=== PATIENT | female | born 1960 | race Caucasian/White ===

== ENCOUNTER → 2017-01-28 | Outpatient (CLI) | payer OTHER ==
[2017-01-28 17:26] LABS: URINE APPEARANCE CLEAR (CLEAR); URINE BILIRUBIN NEG (NEG); URINE COLOR YELLOW; URINE NITRITE NEG (NEG); URINE SPECIFIC GRAVITY 1.022 (1.000-1.030); UROBILINOGEN NEG (NEG)
[2017-01-28 17:32] LABS: MANUAL MICROSCOPIC REQUIRED? NO; REVIEW REQ? NO
== END | disposition home or self-care (01) ==
LOC: C.LABBFT 11:45
PROVIDERS: ATTEND Physician Assistant Medical
DX: N39.0 Urinary tract infection, site not specified (principal)

== ENCOUNTER 2019-01-09 09:33 | Inpatient (IN) ==
--- NOTE | 2019-01-07 10:10 | Anesthesiology Consultation ---
Date of Service January 07, 2019 Assessment & Plan (1) Encounter for pre-operative examination: Chart Review Chart Review: Acceptable Risk for Surgery (PENDING EKG ) and Patient NOT seen in Pre Admission Testing History Surgery Operation Date: 01/09/19 10:45 Proposed Procedures p Navigational Bronchoscopy with ICG Marking, - Jan Zambrano MD, FACS s Robotic Right Video Assisted Thoracoscopy with Right Upper Lobe Wedge Resection - Jan Zambrano MD, FACS Height/Weight Height: 5 ft 3.5 in Weight: 62.142 kg Allergies Allergy/AdvReac Type Severity Reaction Status Date / Time No Known Allergies Allergy Verified 01/06/19 07:45 Medications Home Medications Medication Instructions Recorded Confirmed Last Taken [id number] K 1 tab-cap PO QAM 01/06/19 01/06/19 Unknown [Multi For Her] pantoprazole 40 mg PO BID 01/06/19 01/06/19 Unknown Past Medical History Medical History Basal cell carcinoma of back Basal cell carcinoma of shoulder Difficulty swallowing patient states it's more trouble with getting food passed d/t "mass" between esophagus and stomach Diverticular disease Kidney stones Lung nodule Past Family History Family History Grandfather (Maternal) , in her eighties of old age No problems noted. Mother Age: 84 Diabetes Hypertension Father , abd aortic aneurysm at age 80 No problems noted. Brother Age: 59 No problems noted. Sister Age: 57 Stroke, Onset Age: 40 Brother Age: 55 Hypertension Sister Age: 54 Heart disease Hypertension Daughter Age: 40 No problems noted. Son Age: 37 No problems noted. 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 Solid 6 mm right apical pulmonary nodule. The distribution is not typical for metastatic disease though this is indeterminate. Follow-up is indicated. Notably, Fleischner criteria are not applicable the setting of known malignancy. 2. No thoracic lymphadenopathy. 3. Pathologic wall thickening at the gastroesophageal junction, the presumed site of the primary malignancy. Adjacent suspected metastatic lymph nodes in the celiac and gastric hepatic region. Please see separately dictated CT of the abdomen and pelvis for further details.
[~2019-01-09 09:33] MED LIST: LACTATED RINGER'S 1,000 ML IV SCH
[2019-01-09] MEDS ORDERED: PROPOFOL IV EMULSION 10 MG/ML 20 ML VIAL IV ONE (10:53)
[2019-01-09] MEDS ORDERED: MIDAZOLAM HCL 1 MG/ML 2ML VIAL ONE (10:53)
[2019-01-09] MEDS ORDERED: ROCURONIUM BROMIDE 10 MG/ML 5 ML VIAL ONE ×2 (10:53→13:44)
[2019-01-09] MEDS ORDERED: LIDOCAINE HCL 2% 2 ML VIAL/AMP(20MG/ML) INFIL ONE (10:53)
[2019-01-09] MEDS ORDERED: fentaNYL citrate 100 MCG/2 ML VIAL ONE (10:54)
--- NOTE | 2019-01-09 11:21 | History & Physical Bridge Note ---
Date of Service January 09, 2019 History & Physical Bridge Note I have examined the patient, reviewed the History & Physical and in the interval since the performance of the History & Physical I have noted the following changes of clinical significance: no changes noted
[2019-01-09] MEDS ORDERED: BUPIVACAINE 0.5 % 5 MG/1 ML MPF 30ML VIAL ONE (11:25)
[2019-01-09] MEDS ORDERED: SODIUM CHLORIDE 0.9% PF 50 ML VIAL ONE (11:26)
[2019-01-09] MEDS ORDERED: BUPIVACAINE LIPOSOME 1.3% 266 MG/20 ML VIAL ONE (11:26)
[2019-01-09] MEDS ORDERED: CEFAZOLIN 250 MG/ML 1 GM VIAL ONE (12:41)
--- NOTE | 2019-01-09 13:02 | Fluoroscopy Report ---
FL chest 1V frontal CLINICAL HISTORY: NAVIGATIONAL BRONCH COMPARISON STUDY: Chest CT 12/19/2018. FLUOROSCOPY TIME: 32 seconds. FINDINGS: A single fluoroscopic spot image of the right upper lobe demonstrates a bronchoscope with a biopsy needle. IMPRESSION: Fluoroscopy provided for right upper lobe bronchoscopy. Electronically signed by: Roger Baldwin M.D. 01/09/2019 1:00 PM
[2019-01-09] MEDS ORDERED: DEXAMETHASONE SOD INJ 4 MG/ML VIAL ONE (13:19)
[2019-01-09] MEDS ORDERED: ONDANSETRON INJ 2 MG/ML 2 ML VIAL ONE (13:19)
[2019-01-09] MEDS ORDERED: HYDROmorphone INJ 1 MG/ML SYRINGE IV PRN (13:58)
[2019-01-09] MEDS ORDERED: ATROPINE SULFATE 0.1 MG/ML 10ML SYR IV PRN (13:58)
[2019-01-09] MEDS ORDERED: PHENYLEPHRINE 100MCG/ML 5ML SYR ONE (13:58)
[2019-01-09] MEDS ORDERED: ePHEDrine sulfate 50 MG/ML AMP IV PRN (13:58)
[2019-01-09] MEDS ORDERED: fentaNYL citrate 100 MCG/2 ML VIAL IV PRN (13:58)
[2019-01-09] MEDS ORDERED: ePHEDrine sulfate 50 MG/ML AMP ONE (13:58)
[2019-01-09] MEDS ORDERED: ONDANSETRON INJ 2 MG/ML 2 ML VIAL IV PRN ×2 (13:58→15:55)
[2019-01-09] MEDS ORDERED: NEOSTIGMINE METHYLSULFATE 5 MG/5 ML SYR ONE (14:01)
[2019-01-09] MEDS ORDERED: GLYCOPYRROLATE 0.2 MG/ML VIAL ONE (14:01)
[2019-01-09] MEDS ORDERED: METOCLOPRAMIDE HCL INJ 5 MG/ML 2 ML VIAL IV STA (14:28)
[2019-01-09] MEDS ORDERED: METOCLOPRAMIDE HCL INJ 5 MG/ML 2 ML VIAL ONE (14:29)
--- NOTE | 2019-01-09 14:43 | Post Operative Brief Note ---
Immediate Post Op Note v1 Date of Surgery January 09, 2019 Pre & Post Diagnosis Operation Date: 01/09/19 10:50 Pre-Op Diagnosis: Adenocarcinoma GE junction Pulmonary nodule Post-Op Diagnosis: Adenocarcinoma GE junction Apparent granuloma Procedure Operation Date: 01/09/19 10:50 Actual Procedures p Navigational Bronchoscopy with ICG Marking,(Not Applicable) - Jan Zambrano MD, FACS s Robotic Right Video Assisted Thoracoscopy with Right Upper Lobe Wedge Resection(Right) - Jan Zambrano MD, FACS Surgeon Jan Zambrano MD, FACS [employer] Christine PICKERING Estimated Blood Loss 5 Findings Consistent with Post-Op Diagnosis Drains Chest Tube (24 Fr. Thal)
--- NOTE | 2019-01-09 14:59 | Anesthesiology Progress Note ---
Date of Service January 09, 2019 Anesthesia Post Procedure Vital Signs Vital Signs: Temp Pulse Resp BP Pulse Ox 01/09/19 14:50 36.4 C L 56 L 14 116/62 98 01/09/19 14:40 56 L 14 132/74 100 01/09/19 14:30 53 L 13 142/70 H 100 01/09/19 14:23 36.5 C 62 12 135/74 100 01/09/19 10:00 36.9 C 61 18 136/78 100 Transfer of Care Handoff Completed per policy Notes Mental Status: alert / awake / arousable and participated in evaluation Patient Amnestic to Procedure: Yes Nausea / Vomiting: improving with treatment Pain: adequately controlled Airway Patency, RR, SpO2: stable & adequate BP & HR: stable & adequate Hydration State: stable & adequate Anesthetic Complications: no major complications apparent and Pt Satisfied with anesthetic care
[2019-01-09] MEDS ORDERED: MoRPHine SULFATE 2 MG/ML CARP IV PRN (15:55)
[2019-01-09] MEDS ORDERED: OXYCODONE/ACETAMINOPHEN 5mg/325mg TAB PO PRN (15:55)
--- NOTE | 2019-01-09 16:18 | Operative Report ---
DATE OF OPERATION: 01/09/2019 PREOPERATIVE DIAGNOSES: 1. Right upper lobe nodule. 2. Adenocarcinoma, gastroesophageal junction. POSTOPERATIVE DIAGNOSES: 1. Benign nodule, right upper lobe. 2. Adenocarcinoma, gastroesophageal junction. PROCEDURE: 1. Electromagnetic navigational bronchoscopy with marking of right upper lobe nodule with indocyanine green dye. 2. Robot-assisted thoracoscopic wedge resection under direction from Firefly fluorescence. ANESTHESIA: General anesthesia with endotracheal intubation using a single lumen tube. SURGEON: Jan Zambrano MD CORPORATE SALES REPRESENTATIVE: Kervin Esteban PA-C (Mr. Esteban was there for the entire case and was at the patient's bedside while I was at the console and stayed till the end of the case). INDICATIONS FOR PROCEDURE AND FINDINGS: Genesis Mason is a 58-year-old female who was found to have an adenocarcinoma of the GE junction with very little in the way of symptoms. She has been worked up with a PET scan, which shows no evidence of metastatic disease other than regional lymph nodes. Unfortunately, she was found to have a mass in her right upper lobe medially. It was a bit intraparenchymal, was only 6 mm. We discussed her in our multidisciplinary cancer conference and elected to proceed with a thoracoscopic wedge resection. I felt that marking this with an electromagnetic navigational bronchoscopy and indocyanine green dye would be helpful. We then used the da Jeffrey robot with the Firefly fluorescence capabilities and localized this and wedged it out. On 01/09/2019, the patient underwent an uncomplicated electromagnetic navigational bronchoscopy. I was quite pleased we were able to get to this rather difficult position in the superior aspect of the right upper lobe. We marked this with indocyanine green and then turned the patient. We used 3 ports for the robot and 1 assistant women's soccer coach port. Upon going in, we used the fluorescence, and we could immediately see the area which had been injected. I wedged this out with Endo-DILSHAD staplers. I could palpate the mass. We sent this for frozen section while waiting for this to come back. We did a block with Exparel and put a chest tube in. Dr. Trae Pete from pathology evaluated this and felt it represented a probable granuloma. She tolerated it well with no air leak and essentially no blood loss. DESCRIPTION OF PROCEDURE: The patient was brought to the operating room and laid in supine position. General anesthesia was induced, and endotracheal intubation was performed with single lumen tube. After appropriate time-out had been called and antibiotics given, a fiberoptic bronchoscope was placed. I saw no endobronchial lesions all the way up to the tertiary bronchi. There really was no sputum. She certainly did not have any involvement of any extrinsic masses or malignancies. The SuperDimension navigational probe was then placed, and we registered her airways. I then went out through the upper lobe, and it was a bit difficult on the right given it was very medial; however, we were finally able to get up to this mass. Using a radial ultrasound probe, it appeared that we were at the mass despite it being only 6 mm in diameter. We then injected 1 mL indocyanine green dye followed by 1 mL of air to inject all of it into the lung and then removed the bronchoscope. We saw no bleeding. We left the single lumen tube and although we switched it from an 8.5 to 7. We then turned the patient in the left lateral decubitus position and positioned her. Prepped and draped in usual sterile fashion. We called another time-out and then made 3 robotic incisions. One was about the mid axillary line at about the eighth interspace. This was an 8.5 mm camera port. We then placed two 8 mm ports anteriorly and posterior to the scapula and then put an assistant women's soccer coach port above the diaphragm anteriorly. Each of these was injected with Exparel. We mixed 266 mg of Exparel with 250 mL of normal saline and 30 mL of 0.5% bupivacaine. Once we entered the chest cavity, we then docked the robot, and upon coming up to the medial upper lobe, we could not palpate anything. However, when we turned on the Firefly and used the fluorescence, we found the area medially. I then grasped this, and Mr. Esteban used the stapler and wedged this mass out. We removed this with an Endobag. I could not palpate a lesion. We sent that off for frozen section. While waiting for this, we used the Exparel solution and performed an intercostal block intrathoracically from the second to the eleventh rib. We really had no significant bleeding. We had no air leak. Chest tube was placed through the assistant women's soccer coach port, sutured in place with heavy silk suture. A 4-0 Monocryl was used to close the other 3 ports. Frozen section came back as a probable granuloma. The patient tolerated the procedure well and was extubated and returned to the postanesthesia care unit in stable condition. I attest to the content of the Intraoperative Record and any orders documented therein. Any exception s are noted below.
[2019-01-09 16:40] LABS: Hematocrit (blood only) 31.2 % (37-47); Hemoglobin 10.2 g/dL (12.0-16.0); Mean Corpuscular Hgb Conc 32.7 g/dL (32-36); Mean Corpuscular Volume 84.6 fL (80-100); Mean Platelet Volume 9.5 fL (7.4-10.4); Platelet Count 247 K/uL (130-400); RDW Coefficient of Variation 12.9 % (11.5-14.5); RDW Standard Deviation 39.8 fL (36.4-46.3); Red Blood Count 3.69 M/uL (4.2-5.4); White Blood Count 6.38 K/uL (4.8-10.8)
[2019-01-09 16:50] LABS: Prothrombin Time 10.4 Seconds (9.0-12.0)
[2019-01-09 17:03] LABS: Creatinine Clr Calc Pharmacy 60.9 ml/min; Est GFR (African American) 88.8; Est GFR (Non-African American) 76.6
[2019-01-09] MEDS ORDERED: ENOXAPARIN INJ 40 MG/0.4 ML SYR SQ SCH (21:00)
[2019-01-09] MEDS: KETOROLAC 30 MG/ML VIAL IV SCH (21:13)
[2019-01-09] MEDS: METOCLOPRAMIDE HCL INJ 5 MG/ML 2 ML VIAL IV SCH (21:13)
[2019-01-09] MEDS: DOCUSATE SODIUM 100 MG CAP PO SCH (21:14)
[2019-01-09] MEDS: PANTOprazole 40 MG TAB PO SCH (21:14)
[2019-01-10 02:53] VITALS: O2SAT 100
[2019-01-10] MEDS: KETOROLAC 30 MG/ML VIAL IV SCH (06:37)
[2019-01-10] MEDS: METOCLOPRAMIDE HCL INJ 5 MG/ML 2 ML VIAL IV SCH (06:38)
[2019-01-10 06:44] VITALS: BP 100/60; TEMP 98.6
[2019-01-10 07:24] LABS: BUN Creatinine Ratio 11.5 (10-20); Calcium 9.3 mg/dl (8.5-10.1); Est GFR (African American) 73.6; Est GFR (Non-African American) 63.5; Potassium 3.9 mmol/L (3.5-5.1)
--- NOTE | 2019-01-10 08:14 | XRay Report ---
XR chest 1V portable CLINICAL HISTORY: 58 years-old Female presenting with chest tube removal. TECHNIQUE: Portable upright AP view of the chest was obtained. COMPARISON: CT from 12/19/2018. FINDINGS: Cardiomediastinal silhouette normal. Suture margin noted at the right apex new from prior status post wedge resection of the prior right apical nodule. Density along the suture margin likely postsurgica l change. Lungs otherwise clear. No pleural effusion or pneumothorax. Osseous structures normal. Uppe r abdomen normal. IMPRESSION: 1. No pneumothorax status post chest tube removal. Postsurgical changes of the right apex. Electronically signed by: Danny Lemus M.D. 01/10/2019 8:13 AM
[2019-01-10 08:28] VITALS: PULSE 51
[2019-01-10] MEDS: DOCUSATE SODIUM 100 MG CAP PO SCH (08:47)
[2019-01-10] MEDS: PANTOprazole 40 MG TAB PO SCH (08:47)
[2019-01-10] MEDS ORDERED: MULTIVITAMIN TAB PO SCH (09:00)
--- NOTE | 2019-01-10 21:53 | Discharge Summary ---
DISCHARGE DIAGNOSES: 1. Adenocarcinoma gastroesophageal junction. 2. Granuloma right upper lobe of lung. HOSPITAL COURSE: This is a very nice 58-year-old female who was found to have an adenocarcinoma at the gastroesophageal junction. We have been working her up. She is an operative candidate; however, a nodule was noted at about 6 mm in diameter in her upper lobe. This was quite concerning for metastatic disease. On 01/09/2019, the patient was admitted and underwent an Electromagnetic navigational bronchoscopy with marking of this nodule with indocyanine green dye. We then wedged this out and frozen section showed this to be a probable granuloma. She had no air leak. It was a relatively expedient case. She was watched on the floor overnight, did quite well. We did perform an Exparel block and she had excellent pain control. I removed her chest tube in the morning of 01/10/2019 and her x-ray looked quite good afterwards. We will discharge her today. I will see her back in the office in a week to go over the final path results. She is scheduled for Port-A-Cath in the near future by Dr. Meeks and we will start her chemotherapy and radiation in a neoadjuvant fashion.
== END 2019-01-10 09:32 | disposition home or self-care (01) | DRG 167 ==
LOC: ASU 09:33 → 3W 14:25

== ENCOUNTER 2019-09-30 12:24 | Inpatient (IN) ==
[2019-09-30] MEDS ORDERED: ONDANSETRON INJ 2 MG/ML 2 ML VIAL IV STA ×2 (12:45→14:26)
[2019-09-30] MEDS ORDERED: SODIUM CHLORIDE 0.9% 1000ML 2,000 ML IV ONE (12:45)
[2019-09-30 13:27] LABS: Basophils # (auto) 0.01 K/uL (0-0.2); Basophils % (auto) 0.2 %; Hematocrit (blood only) 42.7 % (37-47); Hemoglobin 14.4 g/dL (12.0-16.0); Immature Granulocytes # (auto) 0.01 K/uL (0.00-0.02); Immature Granulocytes % (auto) 0.2 %; Lymphocytes # (auto) 1.03 K/uL (1.2-3.4); Lymphocytes % (auto) 17.5 %; Mean Corpuscular Hemoglobin 27.1 pg (25-34); Mean Corpuscular Hgb Conc 33.7 g/dL (32-36); Mean Corpuscular Volume 80.3 fL (80-100); Monocytes # (auto) 0.52 K/uL (0.11-0.59); Monocytes % (auto) 8.9 %; Neutrophils % (auto) 73.2 %; Platelet Count 218 K/uL (130-400); RDW Coefficient of Variation 14.5 % (11.5-14.5); RDW Standard Deviation 42.4 fL (36.4-46.3); Red Blood Count 5.32 M/uL (4.2-5.4); White Blood Count 5.87 K/uL (4.8-10.8)
[2019-09-30 13:39] LABS: Appearance Urine Cloudy (Clear); Bacteria Urine Automated Negative (Negative); Bilirubin Urine Negative (Negative); Blood Urine Negative (Negative); Color Urine Dark Yellow; Epithelial Cell Urine Auto 20-30 /lpf (0-5); Glucose Urine UA Negative (Negative); Ketones Urine Negative (Negative); Leukocyte Esterase Urine 1+ (Negative); Nitrite Urine Positive (Negative); Protein Urine 1+ (Negative); Specific Gravity Urine 1.034 (1.000-1.030); Urobilinogen Urine Negative (Negative); pH Urine 5.5 (4.5-7.5)
[2019-09-30 13:42] LABS: Alanine Aminotransferase 22 U/L (12-78); Albumin Level 3.5 gm/dl (3.4-5.0); Aspartate Aminotransferase 23 U/L (15-37); Blood Urea Nitrogen 20 mg/dl (7-18); Calcium 9.7 mg/dl (8.5-10.1); Carbon Dioxide 28 mmol/L (21-32); Chloride 100 mmol/L (98-107); Est GFR (African American) 86.9; Glucose 163 mg/dl (70-99); Lipase 283 U/L (73-393); Potassium 3.7 mmol/L (3.5-5.1); Sodium 135 mmol/L (136-145)
[2019-09-30 13:45] LABS: Albumin Globulin Ratio 0.8 (0.9-2); Alkaline Phosphatase 122 U/L (45-117); Bilirubin,Total 0.5 mg/dl (0.2-1); Globulin 4.3 gm/dl (2.5-4.0); Total Protein 7.8 gm/dl (6.4-8.2)
[2019-09-30 13:56] LABS: Mucus Urine Present (None Prsent); Triple Phosphate Crystal Urine Present (None Prsent)
[2019-09-30] MEDS ORDERED: IOVERSOL 100ml IV PRN (14:54)
--- NOTE | 2019-09-30 15:13 | CT Scan Report ---
ABDOMEN AND PELVIS CT WITH IV CONTRAST CT DOSE: 269.13 mGy.cm HISTORY: Acute lower abdominal pain with nausea and vomiting lower abd pain cant keep anything down TECHNIQUE: Multiaxial CT images of the abdomen and pelvis were performed following the IV administrat ion of 91 cc of Optiray 320, A dose lowering technique was utilized adhering to the principles of [place] CLAUDIA. COMPARISON STUDY: CT abdomen and pelvis 09/22/2019 FINDINGS: Minimal tree-in-bud nodules of the inferior segment lingula are suggestive of infectious or inflammat ory bronchiolitis with atelectasis. No pneumatosis or pneumoperitoneum. Imaged inferior cardiac chamb ers are unremarkable. Spleen, pancreas, gallbladder, adrenal glands and liver appear unremarkable. Patency of the hepatic a nd portal veins. Renal sinus cysts involving the bilateral kidneys. A few cortical renal hypodensitie s suggestive of probable cysts are also noted. No obstructive uropathy. Mild wall thickening of the u rinary bladder with partial distention. Uterus and adnexa appear unremarkable. Unremarkable appearanc e of the abdominal aorta and IVC. Aortic lymph nodes are again noted within the upper limits of jorge l in size, nonspecific.. Fluid-filled distal esophagus with suggestion of a small hiatal hernia. Postoperative changes of the gastroesophageal junction and proximal stomach. No bowel obstruction. Colonic diverticulosis with noemy r complete resolution of the previously described sigmoid colon wall thickening with pericolonic stra nding. No drainable fluid collection. Cecum, ascending and proximal transverse colon is fluid-filled. Visualized appendix appears noninflamed. Soft tissues are unremarkable. Degenerative changes of the pelvis, spine and hips. Remote bilateral L5 pars defects with unchanged grade 1 anterolisthesis. IMPRESSION: 1. Near complete resolution of the previously described acute sigmoid diverticulitis. No evidence of perforation or drainable fluid collection. 2. Fluid-filled cecum, ascending and proximal transverse colon may reflect diarrheal illness. 3. No bowel obstruction. 4. Additional findings as above. ACT 112: Negative or not required by law. The above report was generated using voice recognition software. It may contain grammatical, syntax o r spelling errors. Electronically signed by: Lisandro Winkler M.D. 09/30/2019 3:11 PM
[2019-09-30] MEDS ORDERED: DIAZEPAM 5 MG/ML INJ 10ML VIAL IV STA (15:17)
[2019-09-30] MEDS ORDERED: PROMETHAZINE 25 MG/51 ML BAG IV STA (17:07)
--- NOTE | 2019-09-30 17:28 | History & Physical Report ---
Date of Service September 30, 2019 Assessment & Plan (1) Vomiting: Patient with intractable nausea vomiting. I suspect this may be medication effect from the metronidazole. Will hold this medication, continue Zofran along with IV Reglan as needed. Patient is requesting a diet will start with clear liquids. Gentle IV hydration, monitor level. (2) Acute diverticulitis: Per repeat CT scan, diverticulitis appears to be mostly resolved. For now, will order IV Unasyn. Monitor symptoms with this. The patient does well with no pain over the next 2 days, can likely be discharged without further antibiotic therapy. (3) Sinus pain: Unclear if this represents an acute bacterial sinusitis. Patient should have some coverage with the IV Unasyn. I did offer saline nasal spray as well. Patient does not appear to be acutely ill from this and we will continue to monitor. History of Present Illness Primary Care Provider: Han Edmondson MD This is a 59-year-old female past medical history of recurrent diverticulitis that presents today complaining of intractable nausea and vomiting. Patient is accompanied by her and is a good historian. This is the third episode of diverticulitis for this patient over the past 15 years. This was diagnosed via CT scan on 09/23. She was given oral Cipro and Flagyl as an outpatient. She tells me that she started to have worsening nausea approximately 24 hours after starting the medications. While she was initially able to hold the medication down became much more severe. At some point, she made her primary care physician aware and the Cipro was discontinued in favor of Augmentin. The Flagyl was continued. The patient felt that her symptoms continue unabated to the point that she was no longer able to take medication without vomiting. This is what prompted her visit to the emergency room. Family evaluation, the patient was extremely nauseous and uncomfortable for this reason. She denied any fever, chills, abdominal pain. Patient was given 2 doses of Zofran along with a small dose of diazepam which she is improved her symptoms somewhat. She is currently afebrile and is saturating well on room air. Of note, the patient was concerned regarding a sinus infection and was requesting antibiotics for this as well. Allergies Allergy/AdvReac Type Severity Reaction Status Date / Time No Known Allergies Allergy Verified 09/30/19 12:57 Home Medications Home Medications Medication Instructions Recorded Confirmed Type fluticasone propionate 50 2 sprays INTRANASAL BID PRN #1 gm 03/31/19 09/30/19 H istory mcg/actuation nasal spray,suspension ranitidine HCl 75 mg PO BID #400 ml 04/28/19 09/30/19 Rx albuterol sulfate 90 mcg/actuation 2 puffs INHALATION Q6H PRN #1 gm 05/28/19 09/30/19 Rx aerosol inhaler ferrous sulfate [Iron (ferrous 325 mg PO QAM 08/20/19 09/30/19 History sulfate)] metronidazole 500 mg tablet 500 mg PO Q8H 14 Days #42 tab 09/23/19 09/30/19 Rx amoxicillin-pot clavulanate 1 tab PO Q12H 09/30/19 09/30/19 History Past Med/Surg History Medical History Basal cell carcinoma of back Basal cell carcinoma of shoulder Difficulty swallowing patient states it's more trouble with getting food passed d/t "mass" between esophagus and stomach Diverticular disease Esophageal adenocarcinoma (Acute) Kidney stones (Resolved) Lung nodule Surgical History History of arthroscopy of right knee meniscus repair History of bilateral tubal ligation History of colonoscopy x2 History of dilatation and curettage History of endoscopic sinus surgery History of esophagogastroduodenoscopy (EGD) History of laparoscopy for ectopic History of liver biopsy Dr. 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 Meeks (infected) 04/28/19 History of repair of right rotator cuff History of thoracic surgery (05/27/19) Robot-assisted laparoscopic/ thoracoscopic assisted esophagogastrectomy with an intrathoracic esophagogastrostomy Dr. Zambrano 05/27/19 Status post Mohs surgery for basal cell carcinoma x2 Family History Grandfather (Maternal) , in her eighties of old age No problems noted. Mother Age: 85 Diabetes Hypertension Father , abd aortic aneurysm at age 80 No problems noted. Brother Age: 60 No problems noted. Sister Age: 58 Stroke, Onset Age: 40 Brother Age: 56 Hypertension Sister Age: 55 Heart disease Hypertension Daughter Age: 41 No problems noted. Son Age: 37 No problems noted. 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 Beliefs That Will Affect Care: None Current Living Situation: Spouse Other Information That Helps Us Care for You: No Feels Safe at Home: Yes Safety Concerns: Feels Safe At This Time Smoking Status: Never smoker Do You Dip or Chew Tobacco: No ; Second Hand Exposure: No ; Tobacco Cessation Education Requested by Patient: No Hx Alcohol Use: Yes Alcohol type: other Hx Substance Use: No Review of Systems Constitutional: no fever, no chills, no weakness, no weight loss and no weight gain Eyes: as per Subjective / HPI Respiratory: no cough, no chest congestion, no dyspnea and no dyspnea on exertion Cardiovascular: no chest pain, no orthopnea, no palpitations, no lightheadedness and no edema Gastrointestinal: + nausea and + vomiting; no abdominal pain, no constipation and no diarrhea/loose stools Genitourinary: no dysuria, no difficulty urinating, no urinary frequency, no urinary hesitancy, no urinary urgency and no flank pain Musculoskeletal: no back pain, no neck pain, no joint pain, no stiffness and no myalgia Integumentary: no rash Neurologic: no gait abnormality, no unsteadiness, no falls and no generalized weakness Physical Exam Constitutional: + ill appearing and cooperative; no acute distress Neck: trachea midline, no thyromegaly Respiratory: normal respiratory effort Auscultation: lungs clear to auscultation bilaterally; no crackles, no rales, no rhonchi and no wheezes Cardiovascular: Rate/Rhythm: regular rate and regular rhythm Heart Sounds: normal S1 and normal S2 Gastrointestinal (Abdomen): Inspection/Auscultation: abdomen normal to inspection Percussion/Palpation: abdomen soft; abdomen nontender, no guarding, abdomen not rigid and no hepatosplenomegaly Musculoskeletal: no cyanosis or clubbing, extremities motor strength 5/5 Skin: no rashes, warm and dry Results & Data Vital Signs (Past 12 Hours) Vital Signs Temp Pulse Pulse Resp BP BP Pulse Ox 09/30/19 17:03 66 18 137/76 96 09/30/19 15:05 80 18 148/93 H 09/30/19 14:01 80 26 H 09/30/19 13:42 74 18 09/30/19 13:29 59 L 65 22 146/76 H 146/76 H 98 09/30/19 12:34 63 98 09/30/19 12:30 36.8 C 91 H 16 126/74 99 Laboratory Results WBC 5.87, hemoglobin 14.4, hematocrit 42.7. Platelets 218. Sodium 135, potass ium 3.7, BUN 20, creatinine 0.4. Glucose is 163. This was rechecked with Accu- Chek is 107. Alk phos of 122. UA was slightly cloudy with 1+ protein positive nitrites only 1-5 WBCs. Diagnostic Findings ABDOMEN AND PELVIS CT WITH IV CONTRAST CT DOSE: 269.13 mGy.cm HISTORY: Acute lower abdominal pain with nausea and vomiting lower abd pain cant keep anything down TECHNIQUE: Multiaxial CT images of the abdomen and pelvis were performed following the IV administration of 91 cc of Optiray 320, A dose lowering technique was utilized adhering to the principles of ALARA. COMPARISON STUDY: CT abdomen and pelvis 09/22/2019 FINDINGS: Minimal tree-in-bud nodules of the inferior segment lingula are suggestive of infectious or inflammatory bronchiolitis with atelectasis. No pneumatosis or pneumoperitoneum. Imaged inferior cardiac chambers are unremarkable. Spleen, pancreas, gallbladder, adrenal glands and liver appear unremarkable. Patency of the hepatic and portal veins. Renal sinus cysts involving the bilateral kidneys. A few cortical renal hypodensities suggestive of probable cysts are also noted. No obstructive uropathy. Mild wall thickening of the urinary bladder with partial distention. Uterus and adnexa appear unremarkable. Unremarkable appearance of the abdominal aorta and IVC. Aortic lymph nodes are again noted within the upper limits of normal in size, nonspecific.. Fluid-filled distal esophagus with suggestion of a small hiatal hernia. Postoperative changes of the gastroesophageal junction and proximal stomach. No bowel obstruction. Colonic diverticulosis with near complete resolution of the previously described sigmoid colon wall thickening with pericolonic stranding. No drainable fluid collection. Cecum, ascending and proximal transverse colon is fluid-filled. Visualized appendix appears noninflamed. Soft tissues are unremarkable. Degenerative changes of the pelvis, spine and hips. Remote bilateral L5 pars defects with unchanged grade 1 anterolisthesis. IMPRESSION: 1. Near complete resolution of the previously described acute sigmoid diverticulitis. No evidence of perforation or drainable fluid collection. 2. Fluid-filled cecum, ascending and proximal transverse colon may reflect diarrheal illness. 3. No bowel obstruction. 4. Additional findings as above. PG Care Time/CCT Total # of Minutes Spent Total Time Spent with Patient: Total time spent is greater than 50% in coordination of care (as documented) at patient's floor/unit and/or counseling patient: Coding Level of Care Code 18423 Initial Inpt Care Lvl 3 Diagnoses Vomiting R11.2 Nausea presence: with nausea Vomiting Intractability: non-intractable Vomiting type: unspecified Acute diverticulitis K57.92 Sinus pain J34.89 (1) Vomiting Nausea presence: with nausea Vomiting Intractability: non-intractable Vomiting type: unspecified Qualified Code(s): R11.2 - Nausea with vomiting, unspecified
--- NOTE | 2019-09-30 18:50 | Emergency Department Note ---
Entered by Gege Jay acting as a scribe for History of Present Illness General Chief complaint: Vomiting Stated complaint: VOMITING, SIDE EFFECTS FROM MEDICINE Source: patient History of Present Illness Onset (ago): day(s) 7 Location: abdomen Pain Consistency: + other (persistent) Maximum Pain Intensity: 4 Quality: + other (vomiting) Associated symptoms: + denies other symptoms (changes in bowel movements, urinary symptoms) and + other (inability to keep down food, decreased fluid intake, dehydration, lower left abdominal pain) The patient is a 59 year old female that is presenting to the Emergency Room with complaints of persistent vomiting that started 7 days ago. The patient reports that she was seen in the ED 8 days ago for acute diverticulitis. She states that she was started on a course of antibiotics as well as another medication. She notes that she started vomiting the following day. She states that her PCP changed her antibiotic 4 days ago, but she notes that her vomiting has continued since that time. She reports that she is unable to keep any solid food down. She notes that she is able to keep down some fluids but states that she feels dehydrated. She states that she has been able to take around of her antibiotics as prescribed. She notes that she is mostly dry heaving due to lack of fluid or food intake. The patient reports that she has been unable to take her antacids due to her antibiotics. She reports that she had a normal bowel movement this morning. She denies any urinary symptoms. The patient notes that she continues to have some pain in her lower left abdomen due to her diverticul itis, but she reports that the pain is improving. She states that she has a history of stage 2 esophageal cancer. She notes that she successfully finished chemotherapy and radiation therapy in 03/2019. She reports that she has had of her stomach removed in the past. The patient reports that she had her esophagus dilated earlier this month. She denies that her symptoms appear to be related to her esophageal history but instead appears to be gastric in origin. Home Medications Home Medications Medication Instructions Recorded Confirmed Type fluticasone propionate 50 2 sprays INTRANASAL BID PRN #1 gm 03/31/19 09/30/19 History mcg/actuation nasal spray,suspension ranitidine HCl 75 mg PO BID #400 ml 04/28/19 09/30/19 Rx albuterol sulfate 90 mcg/actuation 2 puffs INHALATION Q6H PRN #1 gm 05/28/19 09/30/19 Rx aerosol inhaler ferrous sulfate [Iron (ferrous 325 mg PO QAM 08/20/19 09/30/19 History sulfate)] metronidazole 500 mg tablet 500 mg PO Q8H 14 Days #42 tab 09/23/19 09/30/19 Rx amoxicillin-pot clavulanate 1 tab PO Q12H 09/30/19 09/30/19 History Allergies Allergy/AdvReac Type Severity Reaction Status Date / Time No Known Allergies Allergy Verified 09/30/19 12:57 Past Med/Surg History Medical History Basal cell carcinoma of back Basal cell carcinoma of shoulder Difficulty swallowing patient states it's more trouble with getting food passed d/t "mass" between esophagus and stomach Diverticular disease Esophageal adenocarcinoma (Acute) Kidney stones (Resolved) Lung nodule Surgical History History of arthroscopy of right knee meniscus repair History of bilateral tubal ligation History of colonoscopy x2 History of dilatation and curettage History of endoscopic sinus surgery History of esophagogastroduodenoscopy (EGD) History of laparoscopy for ectopic History of liver biopsy Dr. 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 Meeks (infected) 04/28/19 History of repair of right rotator cuff History of thoracic surgery (05/27/19) Robot-assisted laparoscopic/ thoracoscopic assisted esophagogastrectomy with an intrathoracic esophagogastrostomy Dr. Zambrano 05/27/19 Status post Mohs surgery for basal cell carcinoma x2 Family History Grandfather (Maternal) , in her eighties of old age No problems noted. Mother Age: 85 Diabetes Hypertension Father , abd aortic aneurysm at age 80 No problems noted. Brother Age: 60 No problems noted. Sister Age: 58 Stroke, Onset Age: 40 Brother Age: 56 Hypertension Sister Age: 55 Heart disease Hypertension Daughter Age: 41 No problems noted. Son Age: 37 No problems noted. Other No family history of adverse response to anesthesia Social History Preferred Language: Arabic Communication Ability: Effective Visual Impairment: No Limitations Manager Mortgage Required: No Beliefs That Will Affect Care: None Current Living Situation: Spouse Other Information That Helps Us Care for You: No Feels Safe at Home: Yes Safety Concerns: Feels Safe At This Time Smoking Status: Never smoker Do You Dip or Chew Tobacco: No ; Second Hand Exposure: No ; Tobacco Cessation Education Requested by Patient: No Hx Alcohol Use: Yes Alcohol type: other Hx Substance Use: No Review of Systems See HPI for pertinent positives & negatives. and A total of 10 systems reviewed and were otherwise negative Physical Exam Vital Signs Vital Signs - 24 hr 09/30/19 12:30 09/30/19 12:34 09/30/19 13:29 Temperature 36.8 C Temperature Source Oral Pulse Rate 91 H 63 59 L Pulse Rate [Apical] 65 Pulse Rhythm Regular Respiratory Rate 16 22 Respiratory Effort / Characteristics Respiratory Depth Blood Pressure 126/74 146/76 H Blood Pressure [Right Arm] 146/76 H Blood Pressure Mean 91 94 Blood Pressure Mean [Right Arm] 99 Pulse Oximetry 99 98 98 Oxygen Delivery Method Room Air Room Air Sepsis Recent Fever Within 48 Hours No Sepsis New/Unexplained Change in Mental Status No Sepsis Action Taken by Nursing No Action Required 09/30/19 13:42 09/30/19 14:01 09/30/19 15:05 Temperature Temperature Source Pulse Rate 74 80 80 Pulse Rate [Apical] Pulse Rhythm Respiratory Rate 18 26 H 18 Respiratory Effort / Characteristics Respiratory Depth Blood Pressure 148/93 H Blood Pressure [Right Arm] Blood Pressure Mean 105 Blood Pressure Mean [Right Arm] Pulse Oximetry Oxygen Delivery Method Sepsis Recent Fever Within 48 Hours Sepsis New/Unexplained Change in Mental Status Sepsis Action Taken by Nursing 09/30/19 17:03 Temperature Temperature Source Pulse Rate Pulse Rate [Apical] 66 Pulse Rhythm Respiratory Rate 18 Respiratory Effort / Characteristics Non-Labored Spontaneous Respiratory Depth Normal Blood Pressure Blood Pressure [Right Arm] 137/76 Blood Pressure Mean Blood Pressure Mean [Right Arm] 96 Pulse Oximetry 96 Oxygen Delivery Method Room Air Sepsis Recent Fever Within 48 Hours Sepsis New/Unexplained Change in Mental Status Sepsis Action Taken by Nursing GENERAL: Sitting up in bed, constant dry heaving, alert, well nourished, moderate distress, non-toxic EYE EXAM: normal conjunctiva OROPHARYNX: no exudate, no erythema, lips, buccal mucosa, and tongue normal and mucous membranes are dry NECK: supple, no nuchal rigidity, no adenopathy, non-tender LUNGS: Clear to auscultation. Normal chest wall mechanics HEART: no murmurs, S1 normal and S2 normal ABDOMEN: abdomen soft, normo-active bowel sounds, no masses, no rebound or guarding. Tender to palpation of LLQ. BACK: Back is symmetrical on inspection and there is no deformity, no midline tenderness, no CVA tenderness. SKIN: no rashes and no bruising UPPER EXTREMITIES: upper extremities are grossly normal. LOWER EXTREMITIES: No pitting edema. NEURO EXAM: Normal sensorium, cranial nerves II-XII grossly intact, normal speech, no gross weakness of arms, no gross weakness of legs. Course Course ED COURSE: Vital signs were reviewed and showed normal vital signs. The patients medical record was reviewed The above diagnostic studies were performed and reviewed. ED treatments and interventions as stated above. 1238: The patient was evaluated in room C12B. A complete history and physical examination was performed. 1526: I updated the patient on her current lab results. The patient continues to have persistent vomiting. She notes that she has had intermittent dizziness since Saturday that worsens with positional changes. 1533: I discussed the patients case with Dr. Bishop, [facility], who will evaluate the patient for further management and care. 1545: Upon reevaluation, the patient continues to be in mild distress.I discussed my findings with the patient and she understands and agrees with the treatment plan. Based on the patients age, coexisting illnesses, exam and lab findings the decision to treat as an inpatient was made. The patient remained stable while under my care. The patient will be evaluated for further management. Administered Medications Ioversol (Optiray 320 100ml) 91 ml IV ONCE PRN PRN Reason: Interaction Checking Stop: 10/04/19 14:53 Last Admin: 09/30/19 14:55 Dose: 91 ml Documented by: [id number] Discontinued Medications Diazepam (Valium) 2.5 mg IV NOW STA Stop: 09/30/19 15:18 Last Admin: 09/30/19 15:39 Dose: 2.5 mg Documented by: [id number] Sodium Chloride (Nss 1000ml) 2,000 mls @ 999 mls/hr IV .Q2H1M ONE Stop: 09/30/19 14:45 Last Infusion: 09/30/19 15:42 Dose: 0 mls/hr Documented by: [id number] Admin: 09/30/19 13:24 Dose: 999 mls/hr Documented by: [id number] Promethazine HCl (Phenergan) 25 mg in 51 mls @ 204 mls/hr IV NOW STA Stop: 09/30/19 17:21 Last Infusion: 09/30/19 18:18 Dose: 0 mls/hr Documented by: [id number] Admin: 09/30/19 17:56 Dose: 204 mls/hr Documented by: [id number] Ondansetron HCl (Zofran) 4 mg IV NOW STA Stop: 09/30/19 12:46 Last Admin: 09/30/19 13:26 Dose: 4 mg Documented by: [id number] Ondansetron HCl (Zofran) 4 mg IV NOW STA Stop: 09/30/19 14:27 Last Admin: 09/30/19 14:28 Dose: 4 mg Documented by: [id number] Medical Decision Making Differential Diagnosis Differential diagnoses includes but is not limited to gastritis, peptic ulcer disease, GERD, gallbladder disease, pancreatitis, small bowel obstruction, acute coronary syndrome, pericarditis, ischemic bowel, irritable bowel disease, irritable bowel syndrome, appendicitis, diverticulitis, malignancy, hernia, urinary tract infection, torsion, perforation, trauma, infectious. Medical Records Attestation: I reviewed the patient's medical records. Home Medications Current Medication List: was personally reviewed by me Laboratory Data Attestation: I reviewed the patient's lab results. Result diagrams: 09/30/19 13:17 09/30/19 13:17 Lab Results 09/30/19 09/30/19 09/30/19 Range/Units 13:17 13:17 13:17 WBC 5.87 (4.8-10.8) K/uL RBC 5.32 (4.2-5.4) M/uL Hgb 14.4 (12.0-16.0) g/dL Hct 42.7 (37-47) % MCV 80.3 (80-100) fL MCH 27.1 (25-34) pg MCHC 33.7 (32-36) g/dL RDW Std Deviation 42.4 (36.4-46.3) fL RDW Coeff of Mohit 14.5 (11.5-14.5) % Plt Count 218 (130-400) K/uL MPV 10.0 (7.4-10.4) fL Immature Gran % (Auto) 0.2 % Neut % (Auto) 73.2 % Lymph % (Auto) 17.5 % Burt % (Auto) 8.9 % Eos % (Auto) 0.0 % Baso % (Auto) 0.2 % Immature Gran # (Auto) 0.01 (0.00-0.02) K/uL Neut # (Auto) 4.30 (1.4-6.5) K/uL Lymph # (Auto) 1.03 L (1.2-3.4) K/uL Burt # (Auto) 0.52 (0.11-0.59) K/uL Eos # (Auto) 0.00 (0-0.5) K/uL Baso # (Auto) 0.01 (0-0.2) K/uL Sodium 135 L (136-145) mmol/L Potassium 3.7 (3.5-5.1) mmol/L Chloride 100 (98-107) mmol/L Carbon Dioxide 28 (21-32) mmol/L Anion Gap 7.0 (3-11) BUN 20 H (7-18) mg/dl Creatinine 0.84 (0.6-1.2) mg/dl Est Cr Clr Drug Dosing Not Reportable Est GFR ( Amer) 86.9 Est GFR (Non-Af Amer) 75.0 BUN/Creatinine Ratio 24.0 H (10-20) Glucose 163 H (70-99) mg/dl POC Glucose (70-99) mg/dl Calcium 9.7 (8.5-10.1) mg/dl Total Bilirubin 0.5 (0.2-1) mg/dl AST 23 (15-37) U/L ALT 22 (12-78) U/L Alkaline Phosphatase 122 H (45-117) U/L Total Protein 7.8 (6.4-8.2) gm/dl Albumin 3.5 (3.4-5.0) gm/dl Globulin 4.3 H (2.5-4.0) gm/dl Albumin/Globulin Ratio 0.8 L (0.9-2) Lipase 283 (73-393) U/L Urine Color Dark Yellow Urine Appearance Cloudy A (Clear) Urine pH 5.5 (4.5-7.5) Ur Specific [place] 1.034 H (1.000-1.030) Urine Protein 1+ H (Negative) Urine Glucose (UA) Negative (Negative) Urine Ketones Negative (Negative) Urine Blood Negative (Negative) Urine Nitrite Positive A (Negative) Urine Bilirubin Negative (Negative) Urine Urobilinogen Negative (Negative) Ur Leukocyte Esterase 1+ H (Negative) Urine WBC (Auto) 1-5 (0-5) /hpf Urine RBC (Auto) 5-10 H (0-4) /hpf U Hyaline Cast (Auto) 5-10 H (0-5) /lpf U Epithel Cells (Auto) 20-30 H (0-5) /lpf Urine Bacteria (Auto) Negative (Negative) Urine Crystals Not Reportable Triple Phos Crystals Present A (None Prsent) Urine Mucus Present A (None Prsent) 09/30/19 Range/Units 15:29 WBC (4.8-10.8) K/uL RBC (4.2-5.4) M/uL Hgb (12.0-16.0) g/dL Hct (37-47) % MCV (80-100) fL MCH (25-34) pg MCHC (32-36) g/dL RDW Std Deviation (36.4-46.3) fL RDW Coeff of Mohit (11.5-14.5) % Plt Count (130-400) K/uL MPV (7.4-10.4) fL Immature Gran % (Auto) % Neut % (Auto) % Lymph % (Auto) % Burt % (Auto) % Eos % (Auto) % Baso % (Auto) % Immature Gran # (Auto) (0.00-0.02) K/uL Neut # (Auto) (1.4-6.5) K/uL Lymph # (Auto) (1.2-3.4) K/uL Burt # (Auto) (0.11-0.59) K/uL Eos # (Auto) (0-0.5) K/uL Baso # (Auto) (0-0.2) K/uL Sodium (136-145) mmol/L Potassium (3.5-5.1) mmol/L Chloride (98-107) mmol/L Carbon Dioxide (21-32) mmol/L Anion Gap (3-11) BUN (7-18) mg/dl Creatinine (0.6-1.2) mg/dl Est Cr Clr Drug Dosing Est GFR ( Amer) Est GFR (Non-Af Amer) BUN/Creatinine Ratio (10-20) Glucose (70-99) mg/dl POC Glucose 107 H (70-99) mg/dl Calcium (8.5-10.1) mg/dl Total Bilirubin (0.2-1) mg/dl AST (15-37) U/L ALT (12-78) U/L Alkaline Phosphatase (45-117) U/L Total Protein (6.4-8.2) gm/dl Albumin (3.4-5.0) gm/dl Globulin (2.5-4.0) gm/dl Albumin/Globulin Ratio (0.9-2) Lipase (73-393) U/L Urine Color Urine Appearance (Clear) Urine pH (4.5-7.5) Ur Specific [place] (1.000-1.030) Urine Protein (Negative) Urine Glucose (UA) (Negative) Urine Ketones (Negative) Urine Blood (Negative) Urine Nitrite (Negative) Urine Bilirubin (Negative) Urine Urobilinogen (Negative) Ur Leukocyte Esterase (Negative) Urine WBC (Auto) (0-5) /hpf Urine RBC (Auto) (0-4) /hpf U Hyaline Cast (Auto) (0-5) /lpf U Epithel Cells (Auto) (0-5) /lpf Urine Bacteria (Auto) (Negative) Urine Crystals Triple Phos Crystals (None Prsent) Urine Mucus (None Prsent) Imaging Data Radiologist's Impression: Radiology results as stated below per my review and the radiologist's interpretation: ABDOMEN AND PELVIS CT WITH IV CONTRAST CT DOSE: 269.13 mGy.cm HISTORY: Acute lower abdominal pain with nausea and vomiting lower abd pain cant keep anything down TECHNIQUE: Multiaxial CT images of the abdomen and pelvis were performed f ollowing the IV administration of 91 cc of Optiray 320, A dose lowering technique was utilized adhering to the principles of ALARA. COMPARISON STUDY: CT abdomen and pelvis 09/22/2019 FINDINGS: Minimal tree-in-bud nodules of the inferior segment lingula are suggestive of infectious or inflammatory bronchiolitis with atelectasis. No pneumatosis or pneumoperitoneum. Imaged inferior cardiac chambers are unremarkable. Spleen, pancreas, gallbladder, adrenal glands and liver appear unremarkable. Pat ency of the hepatic and portal veins. Renal sinus cysts involving the bilateral kidneys. A few cortical renal hypodensities suggestive of probable cysts are also noted. No obstructive uropathy. Mild wall thickening of the urinary bladder with partial distention. Uterus and adnexa appear unremarkable. Unremarkable appearance of the abdominal aorta and IVC. Aortic lymph nodes are again noted within the upper limits of normal in size, nonspecific.. Fluid-filled distal esophagus with suggestion of a small hiatal hernia. Postoperative changes of the gastroesophageal junction and proximal stomach. No bowel obstruction. Colonic diverticulosis with near complete resolution of the previously described sigmoid colon wall thickening with pericolonic stranding. No drainable fluid collection. Cecum, ascending and proximal transverse colon is fluid-filled. Visualized appendix appears noninflamed. Soft tissues are unremarkable. Degenerative changes of the pelvis, spine and hips. Remote bilateral L5 pars defects with unchanged grade 1 anterolisthesis. IMPRESSION: 1. Near complete resolution of the previously described acute sigmoid diverticulitis. No evidence of perforation or drainable fluid collection. 2. Fluid-filled cecum, ascending and proximal transverse colon may reflect diarrheal illness. 3. No bowel obstruction. 4. Additional findings as above. ACT 112: Negative or not required by law. The above report was generated using voice recognition software. It may contain grammatical, syntax or spelling errors. Electronically signed by: Lisandro Winkler M.D. 09/30/2019 3:11 PM Blood Pressure Blood Pressure Findings: Elevated blood pressure Blood Pressure Disposition: Referred to patients primary care provider ORQUIDEA Guadarrama Patient is a 59-year-old female with a past medical history of esophageal cancer that presents the ER for persistent nausea vomiting. Patient was diagnosed with diverticulitis and discharged with Cipro and Flagyl last Saturday. Patient has been sick since then. She admits to persistent nausea vomiting. About 20 x 1 hour. Unable to keep much down with the exception of some intermittent sips. IV was established blood work is obtained shows no significant leukocytosis or anemia. BMP along with LFTs bilirubin and lipase was unremarkable. UA was contaminated. CT abdomen pelvis shows no acute pathology. At the end of her evaluation she noted that she was dizzy as well. I rediscussed this with her and she notes that she has been dizzy since she started Cipro and Flagyl but that has improved after she stopped taking the Cipro but still present. PCP placed her on Augmentin in combination with Flagyl. With the symptoms she is neurologically intact. Complete neuro exam was performed. She was given a dose of Zofran and Phenergan and still had persistent vomiting as well as Valium. Did discuss with the hospitalist for observation. Symptoms are significantly worse with range of motion of her head and I do believe that this is vertiginous and peripheral in nature. Did not CT her head as she was recently given IV contrast and this would make a noncontrast of the head difficult to interpret. Impression & Plan Diverticulitis, Vomiting, Vertigo, Dehydration Discharge Plan Visit Data Chief Complaint: Vomiting Stated Complaint: VOMITING, SIDE EFFECTS FROM MEDICINE ED Provider: Chalo Gao Discharge Problem: Diverticulitis, Vomiting, Vertigo, Dehydration Patient Disposition: Being Evaluated by Hospitalist Forms Stand Alone Forms: [facility] Prescriptions Prescriptions: No Action fluticasone propionate 50 mcg/actuation spray,suspension 2 sprays intranasal BID PRN (Reason: Allergy Symptoms) Qty: 1 RF: 0 albuterol sulfate 90 mcg/actuation HFA aerosol inhaler 2 puffs inhalation Q6H PRN (Reason: Shortness Of Breath) Qty: 1 RF: 0 metronidazole 500 mg tablet 500 mg PO Q8H 14 Days Qty: 42 RF: 0 ranitidine HCl 15 mg/mL syrup 75 mg PO BID Qty: 400 RF: 1 ferrous sulfate [Iron (ferrous sulfate)] 325 mg (65 mg iron) Tablet 325 mg PO QAM RF: 0 amoxicillin-pot clavulanate 875-125 mg tablet 1 tab PO Q12H RF: 0 Referrals Referrals: Han Edmondson III, MD [Primary Care Provider] - Discharge Problem: Vomiting Qualifiers: Vomiting type: unspecified Vomiting Intractability: non-intractable Nausea presence: with nausea Qualified Code(s): R11.2 - Nausea with vomiting, unspecified The scribe's documentation has been prepared under my direction and personally reviewed by me in its entirety. I confirm that the note above accurately reflects all work, treatment, procedures, and medical decision making performed by me.
[2019-09-30] MEDS ORDERED: ONDANSETRON INJ 2 MG/ML 2 ML VIAL IV PRN (19:53)
[2019-09-30] MEDS ORDERED: METOCLOPRAMIDE HCL INJ 5 MG/ML 2 ML VIAL IV PRN (19:53)
[2019-09-30] MEDS ORDERED: FLUTICASONE PROPIONATE NA SPR 16 GM BTL PRN (19:53)
[2019-09-30] MEDS ORDERED: ALBUTEROL HFA 8 GM INHALER INH PRN (19:53)
[2019-09-30] MEDS ORDERED: ACETAMINOPHEN 325 MG TAB PO PRN (19:53)
[2019-09-30] MEDS ORDERED: SODIUM CHLORIDE 0.65% NA SOLN 45 ML (OCEAN) PRN (19:53)
[2019-09-30] MEDS: SODIUM CHLORIDE 0.9% 1000ML 1,000 ML IV SCH (20:39)
[2019-09-30] MEDS: AMPICILLIN/SULBACTAM SOD 3,000 MG in 0.9 % SODIUM CHLORIDE 100 ML IV SCH (20:56)
[2019-09-30] MEDS: RANITIDINE HCL SYRUP 150 MG/10 ML UDC PO SCH (20:57)
[2019-10-01] MEDS: AMPICILLIN/SULBACTAM SOD 3,000 MG in 0.9 % SODIUM CHLORIDE 100 ML IV SCH ×4 (04:08→21:48)
[2019-10-01] MEDS: SODIUM CHLORIDE 0.9% 1000ML 1,000 ML IV SCH (04:08)
[2019-10-01 07:20] LABS: Basophils # (auto) 0.01 K/uL (0-0.2); Basophils % (auto) 0.2 %; Eosinophils # (auto) 0.02 K/uL (0-0.5); Eosinophils % (auto) 0.4 %; Hematocrit (blood only) 35.8 % (37-47); Hemoglobin 11.8 g/dL (12.0-16.0); Immature Granulocytes # (auto) 0.01 K/uL (0.00-0.02); Immature Granulocytes % (auto) 0.2 %; Lymphocytes # (auto) 1.55 K/uL (1.2-3.4); Lymphocytes % (auto) 32.4 %; Mean Corpuscular Volume 81.9 fL (80-100); Mean Platelet Volume 10.1 fL (7.4-10.4); Monocytes % (auto) 12.6 %; Neutrophils # (auto) 2.59 K/uL (1.4-6.5); Neutrophils % (auto) 54.2 %; Platelet Count 160 K/uL (130-400); RDW Coefficient of Variation 14.8 % (11.5-14.5); Red Blood Count 4.37 M/uL (4.2-5.4); White Blood Count 4.78 K/uL (4.8-10.8)
[2019-10-01 08:00] LABS: BUN Creatinine Ratio 16.3 (10-20); Calcium 8.5 mg/dl (8.5-10.1); Creatinine Clr Calc Pharmacy 66.3 ml/min; Est GFR (African American) 96.6; Est GFR (Non-African American) 83.3; Magnesium 1.7 mg/dl (1.8-2.4); Potassium 3.2 mmol/L (3.5-5.1)
[2019-10-01] MEDS: FERROUS SULFATE 325 MG TAB PO SCH (08:08)
[2019-10-01] MEDS: RANITIDINE HCL SYRUP 150 MG/10 ML UDC PO SCH (08:08)
[2019-10-01] MEDS ORDERED: MAGNESIUM SULFATE / D5W 1 GM/100 ML BAG IV ONE (09:00)
[2019-10-01] MEDS: POTASSIUM CHLORIDE 20 MEQ TABCR PO SCH ×2 (09:22→20:11)
[2019-10-01] MEDS: NSS + 20MEQ KCL 20 MEQ/1,000 ML BAG IV SCH ×2 (09:22→20:09)
[2019-10-01] MEDS: SUCRALFATE 1 GM/10 ML UDC PO SCH ×3 (16:26→20:13)
--- NOTE | 2019-10-01 18:23 | CT Scan Report ---
CT head/brain wo con CT DOSE: 638.56 mGycm HISTORY: Headache. Mental status change. chronic, daily headache; h/o esophageal ca TECHNIQUE: Multiaxial CT images of the head were performed without the use of intravenous contrast. A dose lowering technique was utilized adhering to the principles of ALARA. Comparison: None. Findings: The paranasal sinuses and mastoid air cells are clear. The calvarium and skull base are int act. The ventricles and sulci are within normal limits. There is no mass, hematoma, midline shift, or acute infarct. Impression: No acute intracranial abnormality. ACT 112: Negative or not required by law. The above report was generated using voice recognition software. It may contain grammatical, syntax or spelling errors. Electronically signed by: Ibrahima Delgado M.D. 10/01/2019 6:21 PM
--- NOTE | 2019-10-01 18:42 | CT Scan Report ---
CT sinus wo con CT DOSE: 413.69 mGycm HISTORY: Sinusitis ?frontal sinusitis? TECHNIQUE: Multiaxial CT images of the paranasal sinuses were performed and reformatted in the alexander l plane without the use of contrast. A dose lowering technique was utilized adhering to the principl es of NESHA. COMPARISON: None. FINDINGS: Frontal sinuses demonstrate minimal dependent mucosal thickening.. Minimal mucosal thickeni ng of the ethmoid sinuses. Moderate mucosal thickening left maxillary sinus. The mastoid air cells are clear. The bilateral osti omeatal units are patent. The nasal septum is midline. The orbits are unremarkable. IMPRESSION: 1. Minimal mucosal thickening inferior frontal sinuses. 2. Moderate mucosal thickening left maxillary sinus. 3. Minimal mucosal thickening ethmoid sinuses. ACT 112: Negative or not required by law. The above report was generated using voice recognition software. It may contain grammatical, syntax or spelling errors. Electronically signed by: Ibrahima Delgado M.D. 10/01/2019 6:41 PM
--- NOTE | 2019-10-01 19:42 | Hospitalist Progress Note ---
Date of Service October 01, 2019 Assessment & Plan (1) Regurgitation of stomach contents: Patient has had this for 2+ weeks. It is not forceful vomiting but more of a constant "spit-up". During my rounds she was holding an emesis bag and was spitting up/regurgitating mucous. At the minimum seems to have element of GERD. Start zantac 50mg IV q8h. Add carafate liquid 1gm QID. Noted that she has had esophageal cancer s/p esophagectomy 04/[address] Zambrano. If these symptoms persist then GI consultation for consideration of EGD. (2) Acute diverticulitis: recent. sigmoid. CT this admission shows radiographic resolution. placed on IV unasyn to cover the sigmoid colon and the sinuses at time of admission. if sinuses are negative for sinusitis then would stop abx - have to figure out when her abx were started as outpatient (would do total 10 days of Rx). (3) Sinus pain: Patient has been attributing chronic headaches and sinus pain/pressure (frontal region) to sinusitis dating back to late 07/2019. She has had several courses of antibiotics without resolution of the symptoms. Obtain CT head to r/o brain mets from prior esophageal cancer. Obtain CT sinuses. (4) Chronic daily headache: If sinus CT is negative then suspect some element of chronic, daily migraine. Would warrant prophylaxis given the daily nature of the headaches. No features to suggest temporal arteritis although consider sed rate/crp. (5) Hypokalemia: 2nd to constant spits/regurgitation. replace K and mag. repeat levels am. (6) Hypomagnesemia: replace repeat level am (7) History of esophageal cancer: 2019 s/p robotically-assisted esophagectomy by Dr Zambrano (8) Diarrhea: check c.diff testing (9) DVT prophylaxis: if patient stays beyond tomorrow then start chemical DVT proph /daughter updated at bedside today continue IV Fluids for now ok to advance to full liquids today Admission and Anticipated Discharge Date Admission Date: September 30, 2019 Subjective Patient reports chronic, daily headaches dating back to July. It was attributed to sinusitis and she took a course of augmentin in without any change in the headaches. They are frontal in location. DOES have prior h/o migraine headache going back years ago but she thinks these are not migraines. Denies nocturnal headache. Denies headache associated with vomiting. No photophobia but some phonophobia. For 2 weeks she has had constant regurgitation/spitting. No forceful vomiting. She has had mild discomfort in the upper abdomen. Recent lower abd pain from diverticulitis is improved. Had 3 loose stools yesterday; none today. family at bedside during the visit. Review of Systems Constitutional: no fever and no anorexia (tolerating clears; does want diet advanced) Respiratory: no cough and no dyspnea Cardiovascular: no chest pain Gastrointestinal: + abdominal pain, + heartburn, + nausea and + diarrhea/loose stools; no blood in stools Physical Exam Constitutional: + thin; no acute distress and no altered mental status ENMT: external ear and nose normal, oropharynx normal Nose: no facial exam abnormality and no facial tenderness Mouth: oral mucous membranes not dry Respiratory: normal respiratory effort, lungs clear to auscultation Cardiovascular: RRR, no murmur, no edema Heart Sounds: normal S1 and normal S2 Vessels: posterior tibial pulses present and dorsalis pedis pulses present Gastrointestinal (Abdomen): normal bowel sounds, soft, nontender, no hepatosplenomegaly Neurologic: moves all extremities Psychiatric: Orientation: alert and oriented x 3 Results & Data ([facility]) Vital Signs (Past 12 Hours) Vital Signs Temp Pulse Resp BP Pulse Ox 10/01/19 18:58 36.9 C 67 16 101/65 98 10/01/19 15:41 36.8 C 63 16 103/57 L 99 10/01/19 11:28 36.8 C 56 L 18 113/72 98 Laboratory Results Laboratory Results - last 24 hr 10/01/19 10/01/19 10/01/19 06:59 06:59 16:28 WBC 4.78 L RBC 4.37 Hgb 11.8 L Hct 35.8 L MCV 81.9 MCH 27.0 MCHC 33.0 RDW Std Deviation 44.0 RDW Coeff of Mohit 14.8 H Plt Count 160 MPV 10.1 Immature Gran % (Auto) 0.2 Neut % (Auto) 54.2 Lymph % (Auto) 32.4 Branch % (Auto) 12.6 Eos % (Auto) 0.4 Baso % (Auto) 0.2 Immature Gran # (Auto) 0.01 Neut # (Auto) 2.59 Lymph # (Auto) 1.55 Branch # (Auto) 0.60 H Eos # (Auto) 0.02 Baso # (Auto) 0.01 Sodium 140 Potassium 3.2 L Chloride 107 Carbon Dioxide 26 Anion Gap 6.0 BUN 13 Creatinine 0.77 Est Cr Clr Drug Dosing 66.3 Est GFR ( Amer) 96.6 Est GFR (Non-Af Amer) 83.3 BUN/Creatinine Ratio 16.3 Glucose 97 Calcium 8.5 Magnesium 1.7 L Stl C. diff Tox B Gene Negative Cdiff Gene PG Care Time/CCT Total # of Minutes Spent Total Time Spent with Patient: Total time spent is greater than 50% in coordination of care (as documented) at patient's floor/unit and/or counseling patient: Coding Level of Care Code 40180 Subseq Hosp Care Lvl 3 Diagnoses Regurgitation of stomach contents R11.10 Acute diverticulitis K57.92 Sinus pain J34.89 Chronic daily headache R51 Hypokalemia E87.6 Hypomagnesemia E83.42 History of esophageal cancer Z85.01 Diarrhea R19.7 Diarrhea type: unspecified type DVT prophylaxis Z29.9 (1) Diarrhea Diarrhea type: unspecified type Qualified Code(s): R19.7 - Diarrhea, unspecified
[2019-10-02] MEDS: AMPICILLIN/SULBACTAM SOD 3,000 MG in 0.9 % SODIUM CHLORIDE 100 ML IV SCH ×3 (04:06→16:02)
[2019-10-02] MEDS ORDERED: Nursing to Pharmacy Communication ONE (05:02)
[2019-10-02 07:18] LABS: BUN Creatinine Ratio 9.8 (10-20); Calcium 8.6 mg/dl (8.5-10.1); Est GFR (African American) 90.9; Est GFR (Non-African American) 78.4
[2019-10-02] MEDS: NSS + 20MEQ KCL 20 MEQ/1,000 ML BAG IV SCH (08:03)
[2019-10-02] MEDS: FERROUS SULFATE 325 MG TAB PO SCH (08:12)
[2019-10-02] MEDS: SUCRALFATE 1 GM/10 ML UDC PO SCH ×4 (08:12→21:04)
[2019-10-02] MEDS: POTASSIUM CHLORIDE 20 MEQ TABCR PO SCH ×2 (08:12→21:04)
[2019-10-02] MEDS ORDERED: CETIRIZINE HCL 10 MG TABLET PO STA (11:47)
[2019-10-02] MEDS: TRIAMCINOLONE ACET NASAL SPRAY 10.8ML BTL NAE SCH (12:50)
[2019-10-02] MEDS ORDERED: PANTOprazole 40 MG TAB PO ONE (20:00)
--- NOTE | 2019-10-02 20:19 | Hospitalist Progress Note ---
Date of Service October 02, 2019 Assessment & Plan (1) Regurgitation of stomach contents: Patient has had this for 2+ weeks. It is not forceful vomiting but more of a constant "spit-up" suggestive of regurgitation. Multiple possibilities for this - nausea from flagyl use (was for recent div erticulitis) +/- GERD +/- anatomic issues from prior esophagogastric anastomosis +/- other reasons. This issue is much improved s/p carafate QID and zantac IV q8h. Cont both. Plan to treat with 1 more week of carafate at discharge and will give oral PPI daily. Noted that she has had esophageal cancer s/p esophagectomy 04/[address] Zambrano. last EGD - 08/[address] Nath. her esophago-gastric junction was dilated during that EGD otherwise EGD was wnl. If these symptoms persist then GI consultation for additional work-up (repeat EGD? other?). (2) Acute diverticulitis: recent. sigmoid. CT this admission shows radiographic resolution. placed on IV unasyn to cover the sigmoid colon. today would be day #10 of abx (this includes her PO course she had been taking pre-hospitalization). stop abx after today's doses. I do not believe current upper GI symptoms are related to her recent diverticulitis. (3) Sinus pain: Patient has been attributing chronic headaches and sinus pain/pressure (frontal region) to sinusitis dating back to late 07/2019. She has had several courses of antibiotics without resolution of the symptoms. CT sinuses without acute or chronic appearing sinusitis. mucosal thickening which is more c/w allergic disease. I do not believe her headaches are "sinus headaches". No role for antibiotics at this time. (4) Chronic daily headache: low-grade tension/migraine headaches? CT head w/o brain mets or other abnormality. I offered to patient to begin a prophylactic medication - she declined at this time. (5) Hypokalemia: replaced and resolved (6) Hypomagnesemia: replaced and resolved (7) History of esophageal cancer: 2019 s/p robotically-assisted esophagectomy by Dr Zambrano s/p EGD by Dr Nath 08/2019 with dilatation of the anastomotic site no other abnormalities noted during that EGD (8) Diarrhea: c.diff negative (9) DVT prophylaxis: heparin 5000 BID /daughter updated at bedside stop IV fluids patient requested 1 additional inpatient day allow low fiber diet in small quantities re-eval in am for candidacy for discharge home on Admission and Anticipated Discharge Date Admission Date: September 30, 2019 Anticipated date of discharge: 10/03/19 Subjective patient overall doing much better today. regurgitation/spits have stopped completely. tolerating full liquid diet. still some mild discomfort upper abdomen but no worse than previous. headaches are modestly better - still present, but not severe. no lower abdominal pain today. Review of Systems Constitutional: no fever and no chills Respiratory: no cough and no dyspnea Cardiovascular: no chest pain Physical Exam Constitutional: + thin; no acute distress and no altered mental status ENMT: external ear and nose normal, oropharynx normal Mouth: oral mucous membranes not dry Respiratory: normal respiratory effort, lungs clear to auscultation Cardiovascular: RRR, no murmur, no edema Heart Sounds: normal S1 and normal S2 Vessels: posterior tibial pulses present and dorsalis pedis pulses present Gastrointestinal (Abdomen): Inspection/Auscultation: normal bowel sounds; ab domen not distended Percussion/Palpation: abdomen soft; abdomen nontender, no guarding, abdomen not rigid and no hepatosplenomegaly Psychiatric: Orientation: alert and oriented x 3 Affect: + flat affect Results & Data ([facility]) Vital Signs (Past 12 Hours) Vital Signs Temp Pulse Resp BP Pulse Ox 10/02/19 19:33 37.0 C 60 16 111/70 100 10/02/19 15:05 36.9 C 65 16 111/72 97 10/02/19 11:42 36.3 C L 63 18 113/65 99 Laboratory Results Laboratory Results - last 24 hr 10/02/19 06:22 Sodium 140 Potassium 4.0 D Chloride 110 H Carbon Dioxide 26 Anion Gap 4.0 BUN 8 D Creatinine 0.81 Est Cr Clr Drug Dosing 63.0 Est GFR ( Amer) 90.9 Est GFR (Non-Af Amer) 78.4 BUN/Creatinine Ratio 9.8 L Glucose 101 H Calcium 8.6 Magnesium 2.0 PG Care Time/CCT Total # of Minutes Spent Total Time Spent with Patient: Total time spent is greater than 50% in coordination of care (as documented) at patient's floor/unit and/or counseling patient: Coding Level of Care Code 14694 Subseq Hosp Care Lvl 2 Diagnoses Regurgitation of stomach contents R11.10 Acute diverticulitis K57.92 Sinus pain J34.89 Chronic daily headache R51 Hypokalemia E87.6 Hypomagnesemia E83.42 History of esophageal cancer Z85.01 Diarrhea R19.7 Diarrhea type: unspecified type DVT prophylaxis Z29.9 (1) Diarrhea Diarrhea type: unspecified type Qualified Code(s): R19.7 - Diarrhea, unspecified
[2019-10-02] MEDS: HEPARIN SOD 5,000 UNIT/0.5 ML VIAL SQ SCH (21:14)
[2019-10-02 23:51] VITALS: O2SAT 99
[2019-10-03 06:08] LABS: Hematocrit (blood only) 38.6 % (37-47); Hemoglobin 12.7 g/dL (12.0-16.0); Mean Corpuscular Hemoglobin 27.1 pg (25-34); Mean Corpuscular Hgb Conc 32.9 g/dL (32-36); Mean Corpuscular Volume 82.3 fL (80-100); Mean Platelet Volume 10.2 fL (7.4-10.4); Platelet Count 209 K/uL (130-400); RDW Coefficient of Variation 15.1 % (11.5-14.5); RDW Standard Deviation 44.8 fL (36.4-46.3); Red Blood Count 4.69 M/uL (4.2-5.4); White Blood Count 5.13 K/uL (4.8-10.8)
[2019-10-03 06:51] LABS: BUN Creatinine Ratio 11.5 (10-20); Calcium 8.8 mg/dl (8.5-10.1); Creatinine Clr Calc Pharmacy 66.3 ml/min; Est GFR (African American) 96.6; Est GFR (Non-African American) 83.3
[2019-10-03] MEDS: TRIAMCINOLONE ACET NASAL SPRAY 10.8ML BTL NAE SCH (08:33)
[2019-10-03] MEDS: HEPARIN SOD 5,000 UNIT/0.5 ML VIAL SQ SCH (08:33)
[2019-10-03] MEDS: SUCRALFATE 1 GM/10 ML UDC PO SCH ×2 (08:34→12:04)
[2019-10-03] MEDS: FERROUS SULFATE 325 MG TAB PO SCH (08:35)
[2019-10-03] MEDS: POTASSIUM CHLORIDE 20 MEQ TABCR PO SCH (08:35)
[2019-10-03 11:37] VITALS: BP 112/69; PULSE 63; TEMP 99
--- NOTE | 2019-10-03 12:11 | Discharge Summary ---
Date of Service October 03, 2019 Admission HPI Per Admitting Provider This is a 59-year-old female past medical history of recurrent diverticulitis that presents today complaining of intractable nausea and vomiting. Patient is accompanied by her and is a good historian. This is the third episode of diverticulitis for this patient over the past 15 years. This was diagnosed via CT scan on 09/23. She was given oral Cipro and Flagyl as an outpatient. She tells me that she started to have worsening nausea approximately 24 hours after starting the medications. While she was initially able to hold the medication down became much more severe. At some point, she made her primary care physician aware and the Cipro was discontinued in favor of Augmentin. The Flagyl was continued. The patient felt that her symptoms continue unabated to the point that she was no longer able to take medication without vomiting. This is what prompted her visit to the emergency room. Family evaluation, the patient was extremely nauseous and uncomfortable for this reason. She denied any fever, chills, abdominal pain. Patient was given 2 doses of Zofran along with a small dose of diazepam which she is improved her symptoms somewhat. She is currently afebrile and is saturating well on room air. Of note, the patient was concerned regarding a sinus infection and was requesting antibiotics for this as well. Discharge Exam Constitutional + thin; no acute distress and no altered mental status ENMT external ear and nose normal, oropharynx normal Nose: no facial exam abnormality and no facial tenderness Mouth: oral mucous membranes not dry Respiratory normal respiratory effort, lungs clear to auscultation Cardiovascular RRR, no murmur, no edema Heart Sounds: normal S1 and normal S2 Vessels: posterior tibial pulses present and dorsalis pedis pulses present Gastrointestinal (Abdomen) normal bowel sounds, soft, nontender, no hepatosplenomegaly Inspection/Auscultation: normal bowel sounds; abdomen not distended Percussion/Palpation: abdomen soft; abdomen nontender, no guarding, abdomen not rigid and no hepatosplenomegaly Neurologic moves all extremities Psychiatric Orientation: alert and oriented x 3 Affect: + flat affect Discharge Data Allergies Allergy/AdvReac Type Severity Reaction Status Date / Time No Known Allergies Allergy Verified 09/30/19 12:57 Consultations 09/30/19 15:26 ED Decision to Admit Stat Ordered Studies 09/30/19 14:13 CT abd pelvis IV con only Stat 10/01/19 14:44 CT head/brain wo con Routine CT sinus wo con Routine Hospital Course (1) Regurgitation of stomach contents: Patient has had this for 2+ weeks. It is not forceful vomiting but more of a constant "spit-up" suggestive of regurgitation. Multiple possibilities for this - nausea from flagyl use (was for recent diverticulitis) +/- GERD +/- anatomic issues from prior esophagogastric anastomosis +/- other reasons. This issue is much improved s/p carafate QID and zantac IV q8h. Cont both. Plan to treat with 1 more week of carafate at discharge and will give oral PPI daily. Noted that she has had esophageal cancer s/p esophagectomy 04/[address] Zambrano. last EGD - 08/[address] Nath. her esophago-gastric junction was dilated during that EGD otherwise EGD was wnl. If these symptoms persist then GI consultation for additional work-up (repeat EGD? other?). (2) Acute diverticulitis: recent. sigmoid. CT this admission shows radiographic resolution. placed on IV unasyn to cover the sigmoid colon. today would be day #10 of abx (this includes her PO course she had been taking pre-hospitalization). stop abx after today's doses. I do not believe current upper GI symptoms are related to her recent diverticulitis. (3) Sinus pain: Patient has been attributing chronic headaches and sinus pain/pressure (frontal region) to sinusitis dating back to late 07/2019. She has had several courses of antibiotics without resolution of the symptoms. CT sinuses without acute or chronic appearing sinusitis. mucosal thickening which is more c/w allergic disease. I do not believe her headaches are "sinus headaches". No role for antibiotics at this time. (4) Chronic daily headache: low-grade tension/migraine headaches? CT head w/o brain mets or other abnormality. I offered to patient to begin a prophylactic medication - she declined at this time. (5) Hypokalemia: replaced and resolved (6) Hypomagnesemia: replaced and resolved (7) History of esophageal cancer: 2019 s/p robotically-assisted esophagectomy by Dr Zambrano s/p EGD by Dr Nath 08/2019 with dilatation of the anastomotic site no other abnormalities noted during that EGD (8) Diarrhea: c.diff negative (9) DVT prophylaxis: heparin 5000 BID /daughter updated at bedside stop IV fluids patient requested 1 additional inpatient day allow low fiber diet in small quantities re-eval in am for candidacy for discharge home on Discharge Plan Discharge Items Patient Disposition: Home - Self-Care Reason For Visit: INTRACTABLE Nausea/vomiting Discharge Diagnosis: 1. nausea/vomiting/regurgitation - improved. Likely combination of reflux, side effects from the antibiotic metronidazole, etc. 2. recent acute diverticulitis - resolved. 3. history of esophageal cancer with surgery for such. 4. diarrhea - ongoing - c.diff testing negative. 5. chronic headaches - possibly low-grade migraines. 6. allergies. Activity: As commented below Activity Comment: gradually increase activities as tolerated over the next few days Non-emergency contact: Primary Care Provider and Furnace Keeper Call non-emergency contact if: you have any medication questions, your symptoms worsen, your pain is not controlled, your pain is worsening, your pain is unusual for you, your pain is concerning for you and you have a fever Follow-up/Referrals: Raúl Nath DO [Physician] - (see Dr Nath as scheduled in October, sooner if needed ) Han Edmondson III, MD [Primary Care Provider] - (see Dr Edmondson within 1 week) Diet: Low Fiber and Bariatric Ambulatory Orders: Stool Culture (Routine) Timeframe: 3 Days Location: Determined by Patient Ordered By: Tobin Anaya Attending Provider Instructions: You were treated for the problems listed above in "discharge diagnoses." Your symptoms improved with IV fluids, acid reducers, and time. Electrolyte deficiencies (low potassium, low magnesium) were replaced and both are normal at discharge. Your dehydration is resolved. Your headaches are improved. Recommendations - 1. take pantoprazole 40mg once daily - best to take first thing in am upon awakening. 2. take carafate liquid 10ml about 30 minutes before your meals; do this for 1 week then stop. 3. low fiber diet for 5-7 days (avoid high fiber foods like excessive fruits/veggies, certain cereals, beans, etc). 4. take in small but frequent meals in light of your smaller stomach size from your prior surgery. 5. ok to reduce your iron to once daily; your hemoglobin is 12.7 on day of discharge. 6. diarrhea - try to take a probiotic for 1-2 weeks. Eat extra yogurt. If the loose stools persist please place a specimen in the cup provided and drop off to Dr Edmondson's office. again your c.diff testing was negative. 7. continue your xyzal and nasal steroid for allergies. 8. if your headaches persist please talk to Dr Edmondson about going on prophylactic medication to avoid the headaches. 9. lastly, stop all antibiotics at this time Follow-up - see separate section Return to [facility] if - * you have fevers over 100.5 degrees * you have worsening diarrhea * you have worsening abdominal pain * you have worsening, recurrent vomiting * you have significant dizziness or lightheadedness * any other concerns Pending Studies at Discharge: No Stand-Alone Forms: My [facility], Work/School Release (Inpt), Smoking Cessation Medications and DC Order Prescriptions: New sucralfate 100 mg/mL Suspension 10 ml PO AC 7 Days Qty: 210 RF: 0 triamcinolone acetonide [Nasacort] 55 mcg Aerosol,[place] 2 spray ROYAL DAILY Qty: 1 RF: 0 pantoprazole 40 mg tablet,delayed release (DR/EC) 40 mg PO QAM Qty: 30 RF: 1 levocetirizine [Xyzal] 5 mg tablet 5 mg PO DAILY Qty: 30 RF: 0 Continued albuterol sulfate 90 mcg/actuation HFA aerosol inhaler 2 puffs inhalation Q6H PRN (Reason: Shortness Of Breath) Qty: 1 RF: 0 ferrous sulfate [Iron (ferrous sulfate)] 325 mg (65 mg iron) Tablet 325 mg PO QAM RF: 0 Discontinued fluticasone propionate 50 mcg/actuation spray,suspension 2 sprays intranasal BID PRN (Reason: Allergy Symptoms) Qty: 1 RF: 0 metronidazole 500 mg tablet 500 mg PO Q8H 14 Days Qty: 42 RF: 0 ranitidine HCl 15 mg/mL syrup 75 mg PO BID Qty: 400 RF: 1 amoxicillin-pot clavulanate 875-125 mg tablet 1 tab PO Q12H RF: 0 Discharge Orders: Discharge Order (Routine); Ordered 10/03/19 Ordered By: Tobin Gibson Admission Data Admit Date/Time: 09/30/19 18:04 Attending Provider: Tobin Gibson Admit Provider: Judd Bishop Primary Care Provider: Han Edmondson III Other Providers: Judd Bishop Other Interventions: Discharge Summary Assessment (RN) Last Done: 10/03/19 12:00 Coding Diagnoses Regurgitation of stomach contents R11.10 Acute diverticulitis K57.92 Sinus pain J34.89 Chronic daily headache R51 Hypokalemia E87.6 Hypomagnesemia E83.42 History of esophageal cancer Z85.01 Diarrhea R19.7 Diarrhea type: unspecified type DVT prophylaxis Z29.9
== END 2019-10-03 13:05 | disposition home or self-care (01) | DRG 392 ==
LOC: ED 12:24 → SUATTDRO 18:04 → 4W 18:04

== ENCOUNTER 2020-09-26 14:25 | Observation (INO) ==
--- NOTE | 2020-09-26 14:36 | Emergency Department Note ---
Impression & Plan Bilateral pulmonary embolism, Esophageal adenocarcinoma, Elevated d-dimer, Dyspnea on minimal exertion ED Provider Note NAME: HUDSON CORDOBA AGE: 60 SEX: F ARRIVES VIA: Walk-In INFORMANT: Patient, ED PROVIDER(S): Jorgito Bennett MD CHIEF COMPLAINT: SOB, elevated D-dimer PLAN: Disposition: Admit MEDICAL DECISION MAKING: The patient is a pleasant 60-year-old woman with a past medical history of esophageal cancer who presents emergency department for evaluation of persistent shortness of breath since August when she reports she got her port placed but worsening over the past 2 weeks with D-dimer elevated at 20 K performed on outpatient lab work this morning. Her creatinine was within normal range. She denies any fevers, chills, cough, congestion, nausea, vomiting, diarrhea, urinary symptoms. Denies any known COVID-19 exposures. Outpatient lab work from today was approximate to recent values per below. WBC 3.4, H/H 12.4/36.0, platelets 118K down from 169K last week. Chemistry without metabolic acidosis. LFTs unremarkable. On arrival the patient is in no acute distress, afebrile with heart rate in the 90s and vital signs otherwise stable. O2 saturations 99% on room air. She has no lower extremity edema or pain. EKG without overt acute ischemia. Troponin negative/undetectable. BNP within normal limits. UA without convincing evidence of infection. COVID-19 RNA, NAAT test was negative. CT of the chest was performed and did demonstrate bilateral segmental and subsegmental pulmonary emboli of bilateral lower lobes. Findings were reviewed with the patient at the bedside and she was agreeable with plan for admission. She denies any history or symptoms of GI bleeding or bleeding otherwise. Case was discussed with Dr. Alaniz, [facility] hospitalist, who will evaluate the patient for admission. Patient is initially ordered for Lovenox for treatment of her PE however this was then canceled as admitting team will plan to initiate DOAC at this time. Triage Nursing notes reviewed and agree them. Prior medical records reviewed Vital Signs: reviewed and remarkable for no significant abnormalities Differential diagnosis: Reactive airway disease, pneumonia, pneumothorax, COPD, CHF, infections, cardiac ischemia, pulmonary embolism, musculoskeletal, gastrointestinal, as well as other pathologies. ER treatment provided: See below. Diagnostics interpreted by me: ECG: Normal sinus rhythm, 74 bpm, no ectopy, no overt ST elevation or depression, QTC 417, QRS 72. Cardiac Monitoring: An order for continuous cardiac monitoring was placed and demonstrated normal sinus rhythm, 74 bpm, no ectopy. Laboratory studies: See below Imaging studies: CT angio chest PE protocol CT DOSE: 215.71 mGy.cm HISTORY: 60 years-old Female with Esophoageal ca, sob, Cr. 0.88 this AM: PE. Acute shortness of breath. Follow-up study in a patient with history of esophageal carcinoma. History of gastrectomy with esophageal pull-through. TECHNIQUE: Multiple CTA images of the chest were obtained after the intravenous administration of 118 ml Optiray 320. Coronal and sagittal MIPS were obtained from the axial data set and were submitted for review. All measurements were obtained according to NASCET criteria. A dose lowering technique was utilized adhering to the principles of ALARA. COMPARISON: Chest radiograph 08/15/2020, PET CT 08/10/2020 FINDINGS: CTA: The heart is normal in size. No pericardial effusion. No thoracic aortic aneurysm or dissection. Patency of the imaged great vessels. Right subclavian Hgyaff-m-Ltom catheter distal tip terminates in the mid SVC. The pulmonary arterial tree is opacified to the level of the subsegmental branches. Filling filling defects are noted within segmental and subsegmental branches of the bilateral lower lobes, right greater than left. No evidence of right heart strain. CT CHEST: Unremarkable thyroid. Decreased size of the previously noted pathologic tracheoesophageal lymph node of the upper thorax which now measures 10 mm on image 22 series 4, previously 1.7 cm. No new or progressive adenopathy of the chest. Postoperative changes of the right upper lung. No pneumothorax, pleural effusion, airspace consolidation or overt pulmonary edema. There are no suspicious pulmonary nodules or masses. Central airways are patent. Esophagectomy with gastric pull-through. Unremarkable breast parenchyma and soft tissues. No acute fracture. No suspicious bone lesion. IMPRESSION: 1. Segmental and subsegmental pulmonary emboli of the bilateral lower lobes. 2. No pleural effusion or airspace consolidation. 3. Decreased size of the previously noted pathologic lymph node of the left tracheoesophageal recess. 4. Postoperative changes of prior esophagectomy with gastric pull-through. ACT 112: Negative or not required by law. The above report was generated using voice recognition software. It may contain grammatical, syntax or spelling errors. Electronically signed by: Lisandro Winkler M.D. 09/26/2020 4:25 PM Consultation(s): Case was discussed with Dr. Alaniz, [facility] hospitalist, who will evaluate the patient for admission. HPI: The patient is a pleasant 60-year-old woman with a past medical history of esophageal cancer who presents emergency department for evaluation of persistent shortness of breath since August when she reports she got her port placed but worsening over the past 2 weeks with D-dimer elevated at 20 K performed on outpatient lab work this morning. Her creatinine was within normal range. She denies any fevers, chills, cough, congestion, nausea, vomiting, diarrhea, urinary symptoms. Denies any known COVID-19 exposures. ROS: See above HPI for pertinent positives & negatives. A total of 10 systems reviewed and were otherwise negative. PAST MEDICAL HISTORY:See Below PAST SURGICAL HISTORY:See Below FAMILY HISTORY:See Below SOCIAL HISTORY:See Below HOME MEDICATIONS:See Below ALLERGIES:See Below VITALS:See Below PHYSICAL EXAMINATION: GENERAL: Awake, alert, fatigued-appearing, in no distress HENT: Normocephalic, atraumatic. Oropharynx with dry mucous membranes and otherwise unremarkable. EYES: Normal conjunctiva. Sclera non-icteric. NECK: Supple. No nuchal rigidity. FROM. No JVD. RESPIRATORY: Clear to auscultation. CARDIAC: Regular rate, normal rhythm. Extremities warm and well perfused. Pulses equal. ABDOMEN: Soft, non-distended. No tenderness to palpation. No rebound or guarding. No masses. RECTAL: Deferred. MUSCULOSKELETAL: Chest examination reveals no tenderness. The back is symmetrical on inspection without obvious abnormality. There is no CVA tenderness to palpation. No joint edema. LOWER EXTREMITIES: Calves are equal size bilaterally and non-tender. No edema. No discoloration. NEURO: Normal sensorium. No sensory or motor deficits noted. SKIN: No rash or jaundice noted. ED COURSE: Critical Care: I have personally spent greater than 35 minutes of critical care time in the direct management of this patient. This includes bedside care, interpretation of diagnostic studies, and testing, discussion with consultants, patient, and family members, and other required patient management activities. This 35 minutes is in excess of all separately billable procedures. Jorgito Bennett MD Past Med/Surg History Medical History Difficulty swallowing Diverticular disease Esophageal adenocarcinoma s/p chemo/xrt Esophageal stricture s/p dilation History of kidney stones passed without intervention Lung nodule s/p excision Surgical History Basal cell carcinoma of back Basal cell carcinoma of shoulder History of arthroscopy of right knee meniscus repair History of bilateral tubal ligation History of colonoscopy History of dilatation and curettage History of endoscopic sinus surgery History of esophagogastroduodenoscopy (EGD) History of laparoscopy for ectopic History of liver biopsy Dr. Zambrano 05/27/19 [place] History of lung surgery right wedge resection upper History of parotid gland excision excision of left side parotid gland for benign tumor History of removal of Port-a-Cath 04/2019 (infected) History of repair of right rotator cuff History of thoracic surgery Robot-assisted laparoscopic/ thoracoscopic assisted esophagogastrectomy with an intrathoracic esophagogastrostomy: 04/22/2019: Grade view 1, MAC#3, ETT 7.0 at [facility] History of vascular access device Insertion of Mediport(Right) 08/15/20 [place] Status post Mohs surgery for basal cell carcinoma x2 Family History Grandfather (Maternal) , in her eighties of old age No problems noted. Mother Age: 86 Diabetes Hypertension Father , abd aortic aneurysm at age 80 No problems noted. Brother Age: 61 No problems noted. Sister Age: 59 Stroke, Onset Age: 40 Brother Age: 57 Hypertension Sister Age: 56 Heart disease Hypertension Daughter Age: 42 No problems noted. Son Age: 38 No problems noted. 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: No Beliefs That Will Affect Care: None Current Living Situation: Spouse Feels Safe at Home: Yes Safety Concerns: Feels Safe At This Time Assistive Devices: Glasses and Nebulizer Allergies Allergies Allergy/AdvReac Type Severity Reaction Status Date / Time No Known Allergies Allergy Verified 09/26/20 17:22 Home Meds Home Medications Medication Instructions Recorded Confirmed ferrous sulfate [Iron (ferrous 325 mg PO QAM 08/20/19 09/26/20 sulfate)] cyanocobalamin (vitamin B-12) 1,000 mcg PO QAM 02/05/20 09/26/20 levocetirizine [Xyzal] 5 mg PO DAILY PRN 02/05/20 09/26/20 meloxicam 7.5 mg PO DAILY PRN 08/10/20 09/26/20 triamcinolone acetonide [Nasacort] 2 spray INTRANASAL DAILY 08/15/20 09/26/20 prochlorperazine maleate 5 mg PO Q6 PRN 09/07/20 09/26/20 [Compazine] fluconazole [Diflucan] 200 mg PO DAILY 09/26/20 09/26/20 hydrocodone-acetaminophen 1 - 2 tab PO Q6 PRN 09/26/20 09/26/20 ondansetron HCl 0 mg PO Q8H PRN 09/26/20 09/26/20 Previous Rx's Medication Instructions Recorded pantoprazole 40 mg tablet,delayed 40 mg PO QAM #30 tab 02/09/20 release chlorpheniramine 4 1 tab PO Q8 PRN #60 tab 04/04/20 mg-phenylephrine 10 mg-DM 10 mg tablet albuterol sulfate 90 mcg/actuation 2 puff INHALATION Q6H PRN #1 gm 06/08/20 aerosol inhaler Results & Data (ED) Vital Signs Vital Signs - 24 hr 09/26/20 14:29 09/26/20 15:22 09/26/20 15:23 Temperature 36.7 C Temperature Source Temporal Artery Scan Pulse Rate 94 H 70 Pulse Rate from SpO2 Sensor 72 Respiratory Rate 20 14 Blood Pressure 113/59 L 116/66 Blood Pressure Mean 77 82 Pulse Oximetry 99 99 Oxygen Delivery Method Room Air Room Air Room Air Sepsis Recent Fever Within 48 Hours No Sepsis New/Unexplained Change in Mental Status No Sepsis Action Taken by Nursing No Action Required 09/26/20 15:30 09/26/20 15:31 09/26/20 15:40 Temperature Temperature Source Pulse Rate 69 69 67 Pulse Rate from SpO2 Sensor 69 69 67 Respiratory Rate 15 17 17 Blood Pressure 112/70 Blood Pressure Mean 84 Pulse Oximetry 100 99 100 Oxygen Delivery Method Room Air Room Air Room Air Sepsis Recent Fever Within 48 Hours Sepsis New/Unexplained Change in Mental Status Sepsis Action Taken by Nursing 09/26/20 15:50 09/26/20 16:16 09/26/20 16:20 Temperature Temperature Source Pulse Rate 72 82 70 Pulse Rate from SpO2 Sensor 66 71 Respiratory Rate 15 23 20 Blood Pressure Blood Pressure Mean Pulse Oximetry 100 100 Oxygen Delivery Method Room Air Room Air Room Air Sepsis Recent Fever Within 48 Hours Sepsis New/Unexplained Change in Mental Status Sepsis Action Taken by Nursing 09/26/20 16:30 09/26/20 16:31 09/26/20 16:40 Temperature Temperature Source Pulse Rate 69 65 71 Pulse Rate from SpO2 Sensor 69 65 70 Respiratory Rate 16 16 19 Blood Pressure 121/56 L Blood Pressure Mean 77 Pulse Oximetry 100 99 100 Oxygen Delivery Method Room Air Room Air Room Air Sepsis Recent Fever Within 48 Hours Sepsis New/Unexplained Change in Mental Status Sepsis Action Taken by Nursing 09/26/20 16:50 09/26/20 17:00 09/26/20 17:01 Temperature Temperature Source Pulse Rate 65 70 68 Pulse Rate from SpO2 Sensor 65 68 69 Respiratory Rate 14 16 17 Blood Pressure 128/68 Blood Pressure Mean 88 Pulse Oximetry 100 100 100 Oxygen Delivery Method Room Air Room Air Room Air Sepsis Recent Fever Within 48 Hours Sepsis New/Unexplained Change in Mental Status Sepsis Action Taken by Nursing 09/26/20 17:10 09/26/20 17:20 09/26/20 17:30 Temperature Temperature Source Pulse Rate 66 67 75 Pulse Rate from SpO2 Sensor 63 66 73 Respiratory Rate 20 18 23 Blood Pressure 137/76 Blood Pressure Mean 96 Pulse Oximetry 99 99 100 Oxygen Delivery Method Room Air Room Air Room Air Sepsis Recent Fever Within 48 Hours Sepsis New/Unexplained Change in Mental Status Sepsis Action Taken by Nursing 09/26/20 17:31 09/26/20 17:40 09/26/20 17:51 Temperature Temperature Source Pulse Rate 67 71 74 Pulse Rate from SpO2 Sensor 66 71 Respiratory Rate 19 24 14 Blood Pressure Blood Pressure Mean Pulse Oximetry 100 99 Oxygen Delivery Method Room Air Room Air Room Air Sepsis Recent Fever Within 48 Hours Sepsis New/Unexplained Change in Mental Status Sepsis Action Taken by Nursing 09/26/20 18:00 09/26/20 18:01 09/26/20 18:10 Temperature Temperature Source Pulse Rate 67 67 63 Pulse Rate from SpO2 Sensor 63 64 63 Respiratory Rate 18 19 18 Blood Pressure 147/57 H Blood Pressure Mean 87 Pulse Oximetry 96 98 100 Oxygen Delivery Method Room Air Room Air Room Air Sepsis Recent Fever Within 48 Hours Sepsis New/Unexplained Change in Mental Status Sepsis Action Taken by Nursing 09/26/20 18:20 09/26/20 18:30 09/26/20 18:31 Temperature Temperature Source Pulse Rate 70 62 62 Pulse Rate from SpO2 Sensor 70 63 62 Respiratory Rate 14 16 18 Blood Pressure 128/79 Blood Pressure Mean 95 Pulse Oximetry 98 100 100 Oxygen Delivery Method Room Air Room Air Room Air Sepsis Recent Fever Within 48 Hours Sepsis New/Unexplained Change in Mental Status Sepsis Action Taken by Nursing 09/26/20 18:40 09/26/20 18:50 09/26/20 19:00 Temperature Temperature Source Pulse Rate 66 65 62 Pulse Rate from SpO2 Sensor 66 65 62 Respiratory Rate 17 21 17 Blood Pressure 136/81 Blood Pressure Mean 99 Pulse Oximetry 100 100 100 Oxygen Delivery Method Room Air Room Air Room Air Sepsis Recent Fever Within 48 Hours Sepsis New/Unexplained Change in Mental Status Sepsis Action Taken by Nursing 09/26/20 19:01 09/26/20 19:10 Temperature Temperature Source Pulse Rate 62 68 Pulse Rate from SpO2 Sensor 61 68 Respiratory Rate 17 17 Blood Pressure Blood Pressure Mean Pulse Oximetry 100 100 Oxygen Delivery Method Room Air Room Air Sepsis Recent Fever Within 48 Hours Sepsis New/Unexplained Change in Mental Status Sepsis Action Taken by Nursing Laboratory Data Attestation: I reviewed the patient's lab results. Lab Results 09/26/20 09/26/20 09/26/20 Range/Units 15:11 15:11 17:07 PT 10.4 (9.0-12.0) Seconds INR 1.0 (0.9-1.1) APTT 22.6 (21.0-31.0) Seconds PTT Ratio 0.9 Troponin I < 0.015 (0-0.045) ng/ml NT-Pro-B Natriuret Pep 91 (0-900) pg/ml Urine Color Urine Appearance (Clear) Urine pH (4.5-7.5) Ur Specific Manson (1.000-1.030) Urine Protein (Negative) Urine Glucose (UA) (Negative) Urine Ketones (Negative) Urine Blood (Negative) Urine Nitrite (Negative) Urine Bilirubin (Negative) Urine Urobilinogen (Negative) Ur Leukocyte Esterase (Negative) COVID-19 Eval Order Covid19 IDNow [facility] SARS-CoV-2, RNA, NAAT (NEGATIVE) 09/26/20 09/26/20 Range/Units 17:07 17:10 PT (9.0-12.0) Seconds INR (0.9-1.1) APTT (21.0-31.0) Seconds PTT Ratio Troponin I (0-0.045) ng/ml NT-Pro-B Natriuret Pep (0-900) pg/ml Urine Color Yellow Urine Appearance Clear (Clear) Urine pH 5.0 (4.5-7.5) Ur Specific Manson 1.022 (1.000-1.030) Urine Protein Negative (Negative) Urine Glucose (UA) Negative (Negative) Urine Ketones Negative (Negative) Urine Blood Negative (Negative) Urine Nitrite Negative (Negative) Urine Bilirubin Negative (Negative) Urine Urobilinogen Negative (Negative) Ur Leukocyte Esterase Negative (Negative) COVID-19 Eval Order SARS-CoV-2, RNA, NAAT NEGATIVE (NEGATIVE) Administered Medications Apixaban (Apixaban 5 Mg Tablet) 10 mg PO BID MIGUEL ÁNGEL Stop: 10/03/20 09:01 Last Admin: 09/26/20 18:25 Dose: 10 mg Documented by: [id number] Heparin Sodium (Porcine) (Heparin 100 Unit/Ml 5ml Flush) 5 ml FLUSH PRN PRN PRN Reason: Flush Stop: 10/26/20 22:54 Last Admin: 09/26/20 23:16 Dose: 5 ml Documented by: [id number] Discontinued Medications Enoxaparin Sodium (Enoxaparin 1 Mg/Kg) 1 mg SQ NOW STA Stop: 09/26/20 16:55 Last Admin: 09/26/20 17:55 Dose: Not Given Documented by: [id number] Sodium Chloride (Nss 1000ml) 1,000 mls @ 999 mls/hr IV .Q1H1M ONE Stop: 09/26/20 15:44 Last Infusion: 09/26/20 16:29 Dose: 0 mls/hr Documented by: [id number] Admin: 09/26/20 15:21 Dose: 999 mls/hr Documented by: [id number] Ioversol (Optiray 320 125ml) 118 ml IV ONCE ONE Stop: 09/26/20 16:15 Last Admin: 09/26/20 16:14 Dose: 118 ml Documented by: [id number] Discharge Plan Visit Data Chief Complaint: Abnormal Labs/Diagnostic Testing Stated Complaint: THINKS BLOOD CLOT IN LUNG SENT BY ED Provider: Jorgito Bennett Discharge Problem: Bilateral pulmonary embolism, Esophageal adenocarcinoma, Elevated d-dimer, Dyspnea on minimal exertion Patient Disposition: Admitted As Inpatient Discharge Instructions Interventions: ED Discharge Assessment Last Done: 09/26/20 19:52
[2020-09-26] MEDS ORDERED: SODIUM CHLORIDE 0.9% 1000ML 1,000 ML IV ONE (14:44)
[2020-09-26 15:41] LABS: Partial Thromboplastin Ratio 0.9; Partial Thromboplastin Time 22.6 Seconds (21.0-31.0); Prothrombin Time 10.4 Seconds (9.0-12.0)
[2020-09-26 15:49] LABS: NT Pro B Type Natriuretic Pept 91 pg/ml (0-900); Troponin I < 0.015 ng/ml (0-0.045)
[2020-09-26] MEDS ORDERED: OPTIRAY 320 125ml IV ONE (16:14)
--- NOTE | 2020-09-26 16:27 | CT Scan Report ---
CT angio chest PE protocol CT DOSE: 215.71 mGy.cm HISTORY: 60 years-old Female with Esophoageal ca, sob, Cr. 0.88 this AM: PE. Acute shortness of gema ath. Follow-up study in a patient with history of esophageal carcinoma. History of gastrectomy with e sophageal pull-through. TECHNIQUE: Multiple CTA images of the chest were obtained after the intravenous administration of 118 ml Optiray 320. Coronal and sagittal MIPS were obtained from the axial data set and were submitted for review. All measurements were obtained according to NASCET criteria. A dose lowering technique w as utilized adhering to the principles of ALARA. COMPARISON: Chest radiograph 08/15/2020, PET CT 08/10/2020 FINDINGS: CTA: The heart is normal in size. No pericardial effusion. No thoracic aortic aneurysm or dissection. Isbell ncy of the imaged great vessels. Right subclavian Ymrdzu-o-Njhj catheter distal tip terminates in the mid SVC. The pulmonary arterial tree is opacified to the level of the subsegmental branches. Filling filling defects are noted within segmental and subsegmental branches of the bilateral lower lobes, r ight greater than left. No evidence of right heart strain. CT CHEST: Unremarkable thyroid. Decreased size of the previously noted pathologic tracheoesophageal lymph node of the upper thorax which now measures 10 mm on image 22 series 4, previously 1.7 cm. No new or progr essive adenopathy of the chest. Postoperative changes of the right upper lung. No pneumothorax, pleur al effusion, airspace consolidation or overt pulmonary edema. There are no suspicious pulmonary nodul es or masses. Central airways are patent. Esophagectomy with gastric pull-through. Unremarkable breas t parenchyma and soft tissues. No acute fracture. No suspicious bone lesion. IMPRESSION: 1. Segmental and subsegmental pulmonary emboli of the bilateral lower lobes. 2. No pleural effusion or airspace consolidation. 3. Decreased size of the previously noted pathologic lymph node of the left tracheoesophageal recess. 4. Postoperative changes of prior esophagectomy with gastric pull-through. ACT 112: Negative or not required by law. The above report was generated using voice recognition software. It may contain grammatical, syntax o r spelling errors. Electronically signed by: Lisandro Winkler M.D. 09/26/2020 4:25 PM
[2020-09-26] MEDS ORDERED: ENOXAPARIN 1 MG/KG SQ STA (16:54)
[2020-09-26] MEDS ORDERED: ENOXAPARIN INJ 60 MG/0.6 ML SYR SQ STA (16:56)
--- NOTE | 2020-09-26 17:26 | History & Physical Report ---
Date of Service September 26, 2020 Assessment & Plan (1) Bilateral pulmonary embolism: Subsegmental and segmental bilateral PE - PESI 90 - Patient with no evidence of heart strain- Troponin <0.015, BNP 91, not hypotensive or tachycardic. - P waves on ECG notched and slightly larger possible atrial enlargement - Patient started on DOAC- APIXABAN 10mg PO BID for 7 days, then transition to 5mg. I have ran the decision for DOAC with Dr. An for oncological history and current chemotherapy. No interaction and lower bleeding risk profile with APIXABAN. - Hold Meloxicam while initiating DOAC, recommend replacing with other agent if needed. (2) Esophageal adenocarcinoma: As per HPI - FOLFOX for this week per [facility] - If observation status gets extended, consult [facility] for the above therapy. - Disease progression as per HPI - Continue antinausea medications and suplementals, as well as diflucan for GI yeast (samples from EGD on 07Sep2020) (3) Cancer of thoracic esophagus: As above (4) Upper airway cough syndrome: Seen by pulmonary for symptoms - continue patient on albuterol, chlorpheniramine, nasocort, - Continue pantoprazole (5) Esophageal stricture: Recently dilated on the Sep. - Currently patient feels that she is not experiencing any pain or dysphagia at this time - Follow, adjust diet if needed - History of Present Illness Primary Care Provider: Han Edmondson MD 60 YOF with history of distal esophageal carcinoma (adenocarcinoma) originally diagnosed ~2018 HER-2/RENATO negative. She was originally treated with combined modality therapy followed with distal esophagectomy with pull through. Patient had a CT scan that had concern for progression of disease. Disease progression is concerning for multiple lymph nodes in the upper mediastinum as well as left adrenal gland and retroperitoneum and thickened bladder wall. She is followed by Dr. Isidro and was started on FOLFOX therapy in August for every 2 weeks x 12 weeks. She is scheduled for her 4th round this week. Patient came to the emergency room following complaints of shortness of breath for 2weeks as well as left calf pain this week. Her shorntess of breath was limiting her ability to go up and down her steps at home (13 steps) as well as walk the dogs. At the beginning of her sob it was associated with some chest discomfort on inspiration, that appears to be gone now. The left calf pain lasted 2-3 days and after her massaging it and sitting in the hot tub, it went away. It was not associated with any redness, or swelling, or warmth. Her Oncologist ordered a D- dimer that was markedly elevated at 20,360.She came to the emergency room where she had a CT scan performed and showed bilateral subsegmental and segmental pulmonary emboli and 1 liter of 0.9% sodium chloride. I have discussed the case with Dr. Isidro her oncologist in regards to therapy and current chemo. Patient will be admitted for observation and started on DOAC therapy, monitored on telemetry, and montior hemodynamic response to PE, currently no evidence of heart strain, PESI 90. Allergies Allergy/AdvReac Type Severity Reaction Status Date / Time No Known Allergies Allergy Verified 09/26/20 17:22 Home Medications Medication Instructions Recorded Confirmed Type ferrous sulfate [Iron (ferrous 325 mg PO QAM 08/20/19 09/26/20 History sulfate)] cyanocobalamin (vitamin B-12) 1,000 mcg PO QAM 02/05/20 09/26/20 History levocetirizine [Xyzal] 5 mg PO DAILY PRN 02/05/20 09/26/20 History pantoprazole 40 mg tablet,delayed 40 mg PO QAM #30 tab 02/09/20 09/26/20 Rx release chlorpheniramine 4 1 tab PO Q8 PRN #60 tab 04/04/20 09/26/20 Rx mg-phenylephrine 10 mg-DM 10 mg tablet albuterol sulfate 90 mcg/actuation 2 puff INHALATION Q6H PRN #1 gm 06/08/20 09/26/20 Rx aerosol inhaler meloxicam 7.5 mg PO DAILY PRN 08/10/20 09/26/20 History triamcinolone acetonide [Nasacort] 2 spray INTRANASAL DAILY 08/15/20 09/26/20 History prochlorperazine maleate 5 mg PO Q6 PRN 09/07/20 09/26/20 History [Compazine] fluconazole [Diflucan] 200 mg PO DAILY 09/26/20 09/26/20 History hydrocodone-acetaminophen 1 - 2 tab PO Q6 PRN 09/26/20 09/26/20 History ondansetron HCl 0 mg PO Q8H PRN 09/26/20 09/26/20 History Past Med/Surg History Medical History (Updated 09/26/20 @ 18:56 by UBALDO Mccall) Difficulty swallowing Diverticular disease Esophageal adenocarcinoma s/p chemo/xrt Esophageal stricture s/p dilation History of kidney stones passed without intervention Lung nodule s/p excision Surgical History Basal cell carcinoma of back Basal cell carcinoma of shoulder History of arthroscopy of right knee meniscus repair History of bilateral tubal ligation History of colonoscopy History of dilatation and curettage History of endoscopic sinus surgery History of esophagogastroduodenoscopy (EGD) History of laparoscopy for ectopic History of liver biopsy Dr. Zambrano 05/27/19 hamartoma History of lung surgery right wedge resection upper History of parotid gland excision excision of left side parotid gland for benign tumor History of removal of Port-a-Cath 04/2019 (infected) History of repair of right rotator cuff History of thoracic surgery Robot-assisted laparoscopic/ thoracoscopic assisted esophagogastrectomy with an intrathoracic esophagogastrostomy: 04/22/2019: Grade view 1, MAC#3, ETT 7.0 at [facility] History of vascular access device Insertion of Mediport(Right) 08/15/20 [place] Status post Mohs surgery for basal cell carcinoma x2 Family History Grandfather (Maternal) , in her eighties of old age No problems noted. Mother Age: 86 Diabetes Hypertension Father , abd aortic aneurysm at age 80 No problems noted. Brother Age: 61 No problems noted. Sister Age: 59 Stroke, Onset Age: 40 Brother Age: 57 Hypertension Sister Age: 56 Heart disease Hypertension Daughter Age: 42 No problems noted. Son Age: 38 No problems noted. Other No family history of adverse response to anesthesia Denies family history of Lung disease Cancer Asthma Social History Smoking Status: Never smoker Second Hand Exposure: No; Hx Alcohol Use: Yes Alcohol type: other Hx Substance Use: No Preferred Language: Danish Communication Ability: Effective Visual Impairment: No Limitations Wax Molder Required: No Beliefs That Will Affect Care: None Current Living Situation: Spouse Feels Safe at Home: Yes Assistive Devices: Glasses Review of Systems Review of Systems: REVIEW OF SYSTEMS: Constitutional: No fever, sweats or chills Eyes: No diplopia, no worsening or blurred vision ENT: normal hearing, no trouble swallowing Respiratory: (+) SOB, dyspnea with exertion (-) cough, sputum, dyspnea at rest Cardiovascular: No chest pain, tightness or palpitations Abdomen: No pain, nausea, vomiting, diarrhea or constipation Musculoskeletal: No joint pain, calf pain, swelling Neurologic: No weakness, numbness/tingling, or balance problems Psychiatric: No anxiety or depression Skin: No rash or itch Physical Exam Physical Exam: PHYSICAL EXAM: General: awake, alert, no apparent distress Head: Normocephalic, atraumatic ENT: PERRL, EOMI, no pharyngeal exudate, mucous membranes moist Neuro: AAO x 3, speech clear and appropriate, strength intact bilaterally 5/5, sensation intact and equal, no pronator drift, no ataxia Chest: equal rise and fall of the chest, no accessory muscle use, no heaves or thrills, Clear to auscultation, on room air, good inspiratory effort. Cardiac: Regular rate and rhythm, telemetry reviewed, skin warm dry, cap refill <3 seconds, peripheral pulses +2 no JVD, no murmur, no edema GI: NABS x 4 quadrants, soft, nontender to palpation, no rebound, guarding or tenderness : Spontaneously voiding, no pain, no CVA tenderness, Extremities: Normal inspection, no peripheral edema or erythema, calfs nontender to palpation at this time. Psych: Normal mood and affect Skin: no rash or erythema Results & Data Results & Data ([facility]) Vital Signs (Past 12 Hours) Vital Signs Temp Pulse Resp BP Pulse Ox 09/26/20 14:29 36.7 C 94 H 20 113/59 L 99 Laboratory Results Reviewed--- normal Diagnostic Findings CT angio chest PE protocol CT DOSE: 215.71 mGy.cm HISTORY: 60 years-old Female with Esophoageal ca, sob, Cr. 0.88 this AM: PE. Acute shortness of breath. Follow-up study in a patient with history of esophageal carcinoma. History of gastrectomy with esophageal pull-through. TECHNIQUE: Multiple CTA images of the chest were obtained after the intravenous administration of 118 ml Optiray 320. Coronal and sagittal MIPS were obtained from the axial data set and were submitted for review. All measurements were obtained according to NASCET criteria. A dose lowering technique was utilized adhering to the principles of ALARA. COMPARISON: Chest radiograph 08/15/2020, PET CT 08/10/2020 FINDINGS: CTA: The heart is normal in size. No pericardial effusion. No thoracic aortic aneurysm or dissection. Patency of the imaged great vessels. Right subclavian Hwrrip-c-Gsai catheter distal tip terminates in the mid SVC. The pulmonary arterial tree is opacified to the level of the subsegmental branches. Filling filling defects are noted within segmental and subsegmental branches of the bilateral lower lobes, right greater than left. No evidence of right heart strain. CT CHEST: Unremarkable thyroid. Decreased size of the previously noted pathologic tracheoesophageal lymph node of the upper thorax which now measures 10 mm on image 22 series 4, previously 1.7 cm. No new or progressive adenopathy of the chest. Postoperative changes of the right upper lung. No pneumothorax, pleural effusion, airspace consolidation or overt pulmonary edema. There are no suspicious pulmonary nodules or masses. Central airways are patent. Esophagect malina with gastric pull-through. Unremarkable breast parenchyma and soft tissues. No acute fracture. No suspicious bone lesion. IMPRESSION: 1. Segmental and subsegmental pulmonary emboli of the bilateral lower lobes. 2. No pleural effusion or airspace consolidation. 3. Decreased size of the previously noted pathologic lymph node of the left tracheoesophageal recess. 4. Postoperative changes of prior esophagectomy with gastric pull-through. Medications Administered Home Medications ferrous sulfate [Iron (ferrous sulfate)] 325 mg PO QAM 08/20/19 [History Confirmed 09/26/20] cyanocobalamin (vitamin B-12) 1,000 mcg PO QAM 02/05/20 [History Confirmed 09/26/20] levocetirizine [Xyzal] 5 mg PO DAILY PRN 02/05/20 [History Confirmed 09/26/20] pantoprazole 40 mg tablet,delayed release 40 mg PO QAM #30 tab 02/09/20 [Rx Confirmed 09/26/20] chlorpheniramine 4 mg-phenylephrine 10 mg-DM 10 mg tablet 1 tab PO Q8 PRN #60 tab 04/04/20 [Rx Confirmed 09/26/20] albuterol sulfate 90 mcg/actuation aerosol inhaler 2 puff INHALATION Q6H PRN #1 gm 06/08/20 [Rx Confirmed 09/26/20] meloxicam 7.5 mg PO DAILY PRN 08/10/20 [History Confirmed 09/26/20] triamcinolone acetonide [Nasacort] 2 spray INTRANASAL DAILY 08/15/20 [History Confirmed 09/26/20] prochlorperazine maleate [Compazine] 5 mg PO Q6 PRN 09/07/20 [History Confirmed 09/26/20] fluconazole [Diflucan] 200 mg PO DAILY 09/26/20 [History Confirmed 09/26/20] hydrocodone-acetaminophen 1 - 2 tab PO Q6 PRN 09/26/20 [History Confirmed 09/26/20] ondansetron HCl 0 mg PO Q8H PRN 09/26/20 [History Confirmed 09/26/20] Active Medications Apixaban (Apixaban 5 Mg Tablet) 10 mg PO BID MIGUEL ÁNGEL Stop: 10/03/20 09:01 Last Admin: 09/26/20 18:25 Dose: 10 mg ECG Additional Comments: Normal sinus rhythm Possible Left atrial enlargement Borderline ECG When compared with ECG of 09-AUG-2020 12:02 Code Status & VTE Plan Code Status CODE status: Limited resuscitation VTE: Therapeutic anticoagulation on DOAC. Supervising Physician Co-Signing Physician Notes I supervised UBALDO Bobo on this admission. I interviewed and examined the patient independently of him. The plan is as written in his note except for any following changes/exceptions: None Pleasant with no present shortness of breath at rest. Vitals stable at this time. Discussed with oncologist, Dr. An who recommends DOAC which was started. Given lack of signs/symptoms of right heart strain, I don't think echo is necessary. If vitals stable overnight, can likely discharge with oncology follow up this week to continue chemotherapy. PG Care Time/CCT Total # of Minutes Spent Total Time Spent with Patient: Total time spent is greater than 50% in coordination of care (as documented) at patient's floor/unit and/or counseling patient: Coding Level of Care Code 45517 OBS Care - Level 3 Diagnoses Bilateral pulmonary embolism I26.99 Esophageal adenocarcinoma C15.9 Cancer of thoracic esophagus C15.4 Upper airway cough syndrome R05 Esophageal stricture K22.2
[2020-09-26 17:30] LABS: Appearance Urine Clear (Clear); Bilirubin Urine Negative (Negative); Blood Urine Negative (Negative); Color Urine Yellow; Glucose Urine UA Negative (Negative); Ketones Urine Negative (Negative); Leukocyte Esterase Urine Negative (Negative); Nitrite Urine Negative (Negative); Protein Urine Negative (Negative); Specific Gravity Urine 1.022 (1.000-1.030); Urobilinogen Urine Negative (Negative)
[2020-09-26] MEDS: APIXABAN 5 MG TABLET PO SCH (18:25)
[2020-09-26] MEDS ORDERED: MELOXICAM 7.5 MG TAB PO PRN (20:19)
[2020-09-26] MEDS ORDERED: ALBUTEROL HFA 8 GM INHALER INH PRN (20:19)
[2020-09-26] MEDS ORDERED: HYDROCODONE/ACETAMOPHEN 5/325MG TAB PO PRN (20:19)
[2020-09-26] MEDS ORDERED: ACETAMINOPHEN 325 MG TAB PO PRN (20:19)
[2020-09-26] MEDS ORDERED: PROCHLORPERAZINE MALEATE 5 MG TAB PO PRN (20:19)
[2020-09-26] MEDS ORDERED: ONDANSETRON 8MG OD TAB PO PRN (20:35)
[2020-09-26] MEDS ORDERED: APIXABAN 5 MG TABLET PO SCH (21:00)
[2020-09-26] MEDS ORDERED: HEPARIN 100 UNIT/ML 5ML FLUSH FLUSH PRN (22:55)
--- NOTE | 2020-09-27 07:32 | Hospitalist Progress Note ---
Date of Service September 27, 2020 Assessment & Plan (1) Bilateral pulmonary embolism: Subsegmental and segmental bilateral PE - PESI 90 - Patient with no evidence of heart strain- Troponin <0.015, BNP 91, not hypotensive or tachycardic. - P waves on ECG notched and slightly larger possible atrial enlargement - Patient started on DOAC- APIXABAN 10mg PO BID for 7 days, then transition to 5mg. I have ran the decision for DOAC with Dr. An for oncological history and current chemotherapy. No interaction and lower bleeding risk profile with APIXABAN. - Hold Meloxicam while initiating DOAC, recommend replacing with other agent if needed. (2) Esophageal adenocarcinoma: As per HPI - FOLFOX for this week per [facility] - If observation status gets extended, consult [facility] for the above therapy. - Disease progression as per HPI - Continue antinausea medications and suplementals, as well as diflucan for GI yeast (samples from EGD on 07Sep2020) (3) Cancer of thoracic esophagus: As above (4) Upper airway cough syndrome: Seen by pulmonary for symptoms - continue patient on albuterol, chlorpheniramine, nasocort, - Continue pantoprazole (5) Esophageal stricture: Recently dilated on the Sep. - Currently patient feels that she is not experiencing any pain or dysphagia at this time - Follow, adjust diet if needed - Admission and Anticipated Discharge Date Admission Date: September 26, 2020 Results & Data Results & Data ([facility]) Vital Signs (Past 12 Hours) Vital Signs Temp Pulse Pulse Resp BP BP Pulse Ox 09/27/20 04:06 97.3 F L 62 18 126/75 98 09/27/20 00:17 64 09/26/20 23:19 98.2 F 75 18 100/64 97 09/26/20 20:24 98.2 F 60 18 137/73 98 09/26/20 19:44 99 09/26/20 19:31 66 13 09/26/20 19:30 65 20 143/58 H 100 PG Care Time/CCT Total # of Minutes Spent Total Time Spent with Patient: Total time spent is greater than 50% in coordination of care (as documented) at patient's floor/unit and/or counseling patient: Coding Diagnoses Bilateral pulmonary embolism I26.99 Esophageal adenocarcinoma C15.9 Cancer of thoracic esophagus C15.4 Upper airway cough syndrome R05 Esophageal stricture K22.2
[2020-09-27] MEDS: APIXABAN 5 MG TABLET PO SCH (08:12)
[2020-09-27] MEDS ORDERED: FERROUS SULFATE 325 MG TAB PO SCH (09:00)
[2020-09-27] MEDS ORDERED: TRIAMCINOLONE ACET NASAL SPRAY 10.8ML BTL SCH (09:00)
[2020-09-27] MEDS ORDERED: FLUCONAZOLE 100 MG TAB PO SCH (09:00)
[2020-09-27] MEDS ORDERED: CYANOCOBALAMIN 500 MCG TABLET (VITAMIN B-12) PO SCH (09:00)
[2020-09-27] MEDS ORDERED: PANTOprazole 40 MG TAB PO SCH (09:00)
[2020-09-27 11:34] VITALS: BP 117/80; PULSE 66; TEMP 98.2; O2SAT 100
--- NOTE | 2020-09-27 16:58 | Electrocardiogram Report ---
Test Reason : Blood Pressure : / mmHG Vent. Rate : 074 BPM Atrial Rate : 074 BPM P-R Int : 112 ms QRS Dur : 072 ms QT Int : 376 ms P-R-T Axes : 063 028 -08 degrees QTc Int : 417 ms Normal sinus rhythm Possible Left atrial enlargement Nonspecific ST abnormality Borderline ECG When compared with ECG of 09-AUG-2020 12:02, Nonspecific T wave abnormality no longer evident in Lateral leads Confirmed by Iron Zarate ([id number]) on 09/27/2020 4:58:17 PM Referred By: REFERRED SELF Confirmed By:Flavio Zarate
--- NOTE | 2020-09-27 18:21 | Discharge Summary ---
Date of Service September 27, 2020 Admission HPI Per Admitting Provider 60 YOF with history of distal esophageal carcinoma (adenocarcinoma) originally diagnosed ~2018 HER-2/RENATO negative. She was originally treated with combined modality therapy followed with distal esophagectomy with pull through. Patient had a CT scan that had concern for progression of disease. Disease progression is concerning for multiple lymph nodes in the upper mediastinum as well as left adrenal gland and retroperitoneum and thickened bladder wall. She is followed by Dr. Isidro and was started on FOLFOX therapy in August for every 2 weeks x 12 weeks. She is scheduled for her 4th round this week. Patient came to the emergency room following complaints of shortness of breath for 2weeks as well as left calf pain this week. Her shorntess of breath was limiting her ability to go up and down her steps at home (13 steps) as well as walk the dogs. At the beginning of her sob it was associated with some chest discomfort on inspiration, that appears to be gone now. The left calf pain lasted 2-3 days and after her massaging it and sitting in the hot tub, it went away. It was not associated with any redness, or swelling, or warmth. Her Oncologist ordered a D- dimer that was markedly elevated at 20,360.She came to the emergency room where she had a CT scan performed and showed bilateral subsegmental and segmental pulmonary emboli and 1 liter of 0.9% sodium chloride. I have discussed the case with Dr. Isidro her oncologist in regards to therapy and current chemo. Patient will be admitted for observation and started on DOAC therapy, monitored on telemetry, and montior hemodynamic response to PE, currently no evidence of heart strain, PESI 90. Principal Diagnosis pulmonary embolism Discharge Exam The patient appeared well Vital signs as documented. Lungs are clear to auscultation and appear unlabored Cardiac exam, Rhythm is regular.. No murmurs, rubs or gallops. Abdominal exam reveals normal bowel sounds, soft non tender, no masses Extremities are nonedematous and both pedal pulses are normal. Neurologic exam is alert and oriented, no focal loss of strength or sensation Skin is without bruises or rashes Psychologically is without concerns for anxiety or depression. Discharge Data Allergies Allergy/AdvReac Type Severity Reaction Status Date / Time No Known Allergies Allergy Verified 09/26/20 17:22 Consultations 09/26/20 16:54 ED Decision to Admit Stat Ordered Studies 09/26/20 14:44 CT angio chest PE protocol Stat Hospital Course (1) Bilateral pulmonary embolism: Subsegmental and segmental bilateral PE - PESI 90 - Patient with no evidence of heart strain- Troponin <0.015, BNP 91, not hypotensive or tachycardic. - P waves on ECG notched and slightly larger possible atrial enlargement - Patient started on DOAC- APIXABAN 10mg PO BID for 7 days, then transition to 5mg admitting team did discuss the decision for DOAC with Dr. An for oncological history and current chemotherapy. No interaction and lower bleeding risk profile with APIXABAN. (2) Esophageal adenocarcinoma: As per HPI - FOLFOX for this week per [facility] - If observation status gets extended, consult [facility] for the above therapy. - Disease progression as per HPI - Continue antinausea medications and suplementals, as well as diflucan for GI yeast (samples from EGD on 07Sep2020) (3) Cancer of thoracic esophagus: As above (4) Upper airway cough syndrome: Seen by pulmonary for symptoms - continue patient on albuterol, chlorpheniramine, nasocort, - Continue pantoprazole (5) Esophageal stricture: Recently dilated on the Sep. - Currently patient feels that she is not experiencing any pain or dysphagia at this time - Follow, adjust diet if needed - Total Time Total Time Spent Total Time Spent (In Minutes): Discharge 30 which includes arrangements for coupons to be given for her Jacielis discussion with outpatient chemotherapy center and expediting her to have her outpatient chemotherapy today as she missed her appointment this morning. Discharge Plan Discharge Items Patient Disposition: Home - Home Health Services Reason For Visit: PULMONARY EMBOLISM Discharge Diagnosis: pulmonary embolism esophageal cancer Activity: Per Instructions section Activity Comment: gradually increase activity Non-emergency contact: Primary Care Provider and Oncologist Call non-emergency contact if: your symptoms worsen Follow-up/Referrals: Han Edmondson III, MD [Primary Care Provider] - 10/03/20 2:00 pm (You have an appt with Dariana on 10/03 @ 2pm. Please arrive 15 minutes prior to your appt. It is important that you keep this appt. If this appt does not fit your schedule, for any reason please call [phone] to reschedule. ) Carolina Lyman CRNP [Nurse Practitioner] - 10/25/20 7:50 am (You were already schedule to Carolina Lyman on October 25 at 0750am. This appt is staying the same. If for any reason you are unable to make this appt, please call [phone] to reschedule. ) Diet: Regular Addtl Attending Provider Instructions: please take your apixiban faithfully follow up with your hemeoncologist for further recommendations about your anticoagulant Pending Studies at Discharge: No Stand-Alone Forms: My [facility] Rhomania, Smoking Cessation Medications and DC Order Prescriptions: New Eliquis 5 mg Tablet 10 mg PO BID Qty: 28 RF: 0 Eliquis 5 mg tablet 5 mg PO BID Qty: 60 RF: 5 Continued pantoprazole 40 mg tablet,delayed release (DR/EC) 40 mg PO QAM Qty: 30 RF: 5 albuterol sulfate 90 mcg/actuation HFA aerosol inhaler 2 puff inhalation Q6H PRN (Reason: Shortness Of Breath) Qty: 1 RF: 0 [id number]-[id number]-QK 4-10-10 mg tablet 1 tab PO Q8 PRN (Reason: allergy symptoms and cough ) Qty: 60 RF: 0 ferrous sulfate [Iron (ferrous sulfate)] 325 mg (65 mg iron) Tablet 325 mg PO QAM RF: 0 cyanocobalamin (vitamin B-12) 1,000 mcg Tablet 1,000 mcg PO QAM RF: 0 levocetirizine [Xyzal] 5 mg tablet 5 mg PO DAILY PRN (Reason: Nasal Congestion) RF: 0 Hold Instructions: While on chlorpheniramine prochlorperazine maleate [Compazine] 5 mg Tablet 5 mg PO Q6 PRN (Reason: Nausea) RF: 0 meloxicam 7.5 mg tablet 7.5 mg PO DAILY PRN (Reason: Headache) RF: 0 triamcinolone acetonide [Nasacort] 55 mcg Aerosol,[place] 2 spray INTRANASAL DAILY RF: 0 hydrocodone-acetaminophen 5-325 mg tablet 1 - 2 tab PO Q6 PRN (Reason: Pain) RF: 0 ondansetron HCl 8 mg Tablet 0 mg PO Q8H PRN (Reason: Nausea) RF: 0 fluconazole [Diflucan] 200 mg tablet 200 mg PO DAILY RF: 0 Discharge Orders: Discharge Order (Routine); Ordered 09/27/20 Ordered By: Fred Mejias Admission Data Admit Date/Time: 09/26/20 19:12 Attending Provider: Fred Mejias Admit Provider: Luciano Alaniz Primary Care Provider: Han Edmondson III Other Providers: Luciano Alaniz ; [facility] Other Interventions: Discharge Summary Assessment (RN) Last Done: 09/27/20 11:23 Coding Level of Care Code D/C Day Management >30 mins Diagnoses Bilateral pulmonary embolism I26.99 Esophageal adenocarcinoma C15.9 Cancer of thoracic esophagus C15.4 Upper airway cough syndrome R05 Esophageal stricture K22.2
== END 2020-09-27 11:55 | disposition home health service (06) ==
LOC: ED 14:25 → 2W 14:25 → SUATTDRO 19:12 → 2W 19:52

== ENCOUNTER 2021-03-13 10:26 | Inpatient (IN) ==
[2021-03-13] MEDS ORDERED: SODIUM CHLORIDE 0.9% 1000ML 1,000 ML IV STA (11:28)
[2021-03-13] MEDS ORDERED: ONDANSETRON INJ 2 MG/ML 2 ML VIAL IV STA (11:28)
[2021-03-13] MEDS ORDERED: MoRPHine SULFATE 4 MG/ML 1 ML CARP\\VIAL IV STA (11:28)
--- NOTE | 2021-03-13 11:39 | Emergency Department Note ---
History of Present Illness General Chief complaint: Shortness of Breath/Dyspnea Stated complaint: SOB, PAIN, NAUSEA. HX OF ESOPHAGEAL CA Time Seen by Provider: 03/13/21 11:01 History of Present Illness Maximum Pain Intensity: 6 60-year-old female, history of esophageal cancer (followed by Dr. An) who presents to the emergency department with complaint of lower chest discomfort, left worse than right,, shortness of breath and nausea. The patient reports history of chronic abdominal pain from her cancer, however reports that this feels different. According to the daughter, the patient has had prior history of diverticulitis and blood clots. She also reports pain in the lower back as well. The patient is not taking or prescribed any analgesics at home. The patient underwent chemotherapy from August to January of this year, and had been doing well until her symptoms started 4 days ago. She reports that the symptoms are progressively worsening. The patient rates her discomfort a 6 out of 10. The patient is on Eliquis. Home Medications Medication Instructions Recorded Confirmed Type levocetirizine 5 mg tablet (Xyzal) 5 mg PO DAILY PRN 02/05/20 03/13/21 History albuterol sulfate 90 mcg/actuation 2 puff INHALATION Q6H PRN #1 gm 06/08/20 03/13/21 Rx aerosol inhaler triamcinolone acetonide 55 mcg 2 spray INTRANASAL DAILY PRN 08/15/20 03/13/21 History nasal spray aerosol (Nasacort) apixaban 5 mg tablet (Eliquis) 5 mg PO BID #60 tab 09/27/20 03/13/21 Rx pantoprazole 40 mg tablet,delayed 40 mg PO QAM 03/13/21 03/13/21 History release Allergies Allergy/AdvReac Type Severity Reaction Status Date / Time No Known Allergies Allergy Verified 03/13/21 12:07 Past Med/Surg History Medical History Bilateral pulmonary embolism Chronic cough Difficulty swallowing Diverticular disease Esophageal adenocarcinoma s/p chemo/xrt Esophageal stricture s/p dilation GERD (gastroesophageal reflux disease) History of kidney stones passed without intervention Lesion of bladder Low back pain Lung nodule s/p excision Migraine HX Pulmonary embolism CURRENTLY ON ELIQUIS UTI (urinary tract infection) CURRENTLY ON ANTIBIOTIC Surgical History Basal cell carcinoma of back Basal cell carcinoma of shoulder History of arthroscopy of right knee meniscus repair History of bilateral tubal ligation History of colonoscopy History of dilatation and curettage History of endoscopic sinus surgery History of esophagogastroduodenoscopy (EGD) History of laparoscopy for ectopic History of liver biopsy Dr. Zambrano 05/27/19 ham[place]oma History of lung surgery right wedge resection upper History of parotid gland excision excision of left side parotid gland for benign tumor History of removal of Port-a-Cath 04/2019 (infected) History of repair of right rotator cuff History of thoracic surgery Robot-assisted laparoscopic/ thoracoscopic assisted esophagogastrectomy with an intrathoracic esophagogastrostomy: 04/22/2019: Grade view 1, MAC#3, ETT 7.0 at [facility] History of vascular access device Insertion of Mediport(Right) 08/15/20 [place] Status post Mohs surgery for basal cell carcinoma x2 Family History Grandfather (Maternal) , in her eighties of old age No problems noted. Mother Age: 86 Diabetes Hypertension Father , abd aortic aneurysm at age 80 No problems noted. Brother Age: 61 No problems noted. Sister Age: 59 Stroke, Onset Age: 40 Brother Age: 58 Hypertension Sister Age: 57 Heart disease Hypertension Daughter Age: 42 No problems noted. Son Age: 39 No problems noted. Other No family history of adverse response to anesthesia Denies family history of Lung disease Cancer Asthma Social History Smoking Status: Never smoker Second Hand Exposure: No; Hx Alcohol Use: No Hx Substance Use: No Preferred Language: Arabic Communication Ability: Effective Visual Impairment: No Limitations Starter Cup Powder Mixer Required: No Beliefs That Will Affect Care: None marital status: Current Living Situation: Spouse Feels Safe at Home: Yes Assistive Devices: Glasses Review of Systems 10 system review was performed and was negative except for pertinent positives and negatives as indicated in history of present illness Physical Exam Vital Signs Vital Signs - 24 hr 03/13/21 10:34 03/13/21 11:04 03/13/21 11:28 Temperature 36.8 C Temperature Source Oral Pulse Rate 95 H 88 Pulse Rate [Apical] 83 Pulse Rhythm Regular Regular Pulse Strength Normal Respiratory Rate 18 18 19 Respiratory Effort / Characteristics Non-Labored Spontaneous Non-Labored Respiratory Depth Normal Normal Respiratory Pattern Regular Blood Pressure 165/92 H Blood Pressure [Right Arm] 202/102 H Blood Pressure Mean 116 Blood Pressure Mean [Right Arm] 135 Blood Pressure Position Sitting Blood Pressure Position [Right Arm] Pulse Oximetry 97 100 95 Oxygen Delivery Method Room Air Room Air Room Air Sepsis Recent Fever Within 48 Hours No Sepsis New/Unexplained Change in Mental Status N/A Sepsis Action Taken by Nursing No Action Required 03/13/21 13:00 03/13/21 17:00 03/13/21 18:19 Temperature Temperature Source Pulse Rate 78 Pulse Rate [Apical] 85 81 Pulse Rhythm Pulse Strength Respiratory Rate 16 15 16 Respiratory Effort / Characteristics Non-Labored Non-Labored Respiratory Depth Normal Normal Respiratory Pattern Blood Pressure 205/106 H Blood Pressure [Right Arm] 165/85 H 211/121 H Blood Pressure Mean Blood Pressure Mean [Right Arm] 111 151 Blood Pressure Position Blood Pressure Position [Right Arm] Lying Pulse Oximetry 96 98 96 Oxygen Delivery Method Room Air Room Air Sepsis Recent Fever Within 48 Hours Sepsis New/Unexplained Change in Mental Status Sepsis Action Taken by Nursing CONSTITUTIONAL: Healthy and well nourished. Alert and oriented X 3. Patient appears in moderate discomfort. HEENT: Normocephalic, atraumatic. No scleral icterus or conjunctival injection/pallor. NECK: Full active range of motion without discomfort. No JVD or carotid bruits appreciated. LYMPHATICS: No cervical chain adenopathy. RESPIRATORY: Clear to auscultation bilaterally with no wheezing, crackles, rhonchi or stridor. CARDIOVASCULAR: Regular rate and rhythm with no murmurs, rubs or gallops. GASTROINTESTINAL: Bowel sounds present in all quadrants. Patient has mild generalized upper abdominal tenderness to palpation without rigidity, guarding or rebound. Negative CVA tenderness. MUSCULOSKELETAL: No tenderness to palpation through the ribs, costochondral joints or thoracolumbar spine. INTEGUMENTARY: No rash or other significant dermatologic conditions noted. HEMATOLOGIC: No ecchymosis or petechiae. PSYCHIATRIC: Positive affect. NEUROLOGIC: No focal neurologic deficits noted. Course Course Patient history and physical exam were performed. Nurses notes were reviewed. Vital signs were reviewed, showing an elevated blood pressure of 202/102. The patient is otherwise afebrile, not tachycardic or hypoxic. IV access was established to the patient's power port, and labs were drawn. The patient was hydrated with a liter of normal saline, and administered IV morphine and Zofran for pain. An ECG was performed, showing possible left atrial enlargement without any other signs of infarct or other conduction abnormalities. Patient does have inverted T waves in septal leads. The patient was placed on shell reprint operator while in the emergency department. Review of labs shows anemia with a hemoglobin of 10.7, which is relatively baseline for the patient. Coagulation studies are relatively normal. Further review of CMP shows a profound hyponatremia of 125, potassium 2.3, magnesium of 1.5 and troponin of 0.244. The patient was unable to provide a urine sample while in the emergency department.CT angiography of the chest, as well as CT with IV contrast of the abdomen and pelvis does not show evidence for pulmonary emboli, however does show changes consistent with metastatic processes, as well as splenic infarcts. Findings were discussed with Dr. Mar, who also evaluated the patient and discussed findings with the patient and daughter. I did place orders for a K rider 20 mEq x 2 to be delivered through her port, as well as IV magnesium sulfate. Consultation was placed with the [facility] service for further admission. Please see their dictation for further treatment and final disposition. The patient had control of her nausea at the time of transfer of care. Administered Medications Potassium Chloride (K Jun / Wtr) 20 meq in 100 mls @ 50 mls/hr IV Q2H MIGUEL ÁNGEL Stop: 03/13/21 21:14 Last Admin: 03/13/21 18:04 Dose: 50 mls/hr Documented by: [id number] Discontinued Medications Sodium Chloride (Nss 1000ml) 1,000 mls @ 999 mls/hr IV .Q1H1M STA Stop: 03/13/21 12:28 Last Infusion: 03/13/21 14:39 Dose: 0 mls/hr Documented by: [id number] Admin: 03/13/21 11:43 Dose: 999 mls/hr Documented by: [id number] Magnesium Sulfate/Dextrose (Magnesium Sulfate / D5w) 1 gm in 100 mls @ 100 mls/hr IV NOW STA Stop: 03/13/21 13:45 Last Infusion: 03/13/21 15:59 Dose: 0 mls/hr Documented by: [id number] Admin: 03/13/21 14:39 Dose: 100 mls/hr Documented by: [id number] Potassium Chloride (K Jun / Wtr) 10 meq in 100 mls @ 100 mls/hr IV Q1H MIGUEL ÁNGEL Stop: 03/13/21 14:59 Last Admin: 03/13/21 17:08 Dose: 100 mls/hr Documented by: [id number] Infusion: 03/13/21 17:08 Dose: 0 mls/hr Documented by: [id number] Admin: 03/13/21 15:59 Dose: 100 mls/hr Documented by: [id number] Promethazine HCl (Phenergan) 12.5 mg in 50.5 mls @ 202 mls/hr IV NOW STA Stop: 03/13/21 13:43 Last Infusion: 03/13/21 14:39 Dose: 0 mls/hr Documented by: [id number] Admin: 03/13/21 13:40 Dose: 202 mls/hr Documented by: [id number] Ioversol (Optiray 320 125ml) 120 ml IV ONCE ONE Stop: 03/13/21 14:19 Last Admin: 03/13/21 14:19 Dose: 120 ml Documented by: [id number] Morphine Sulfate (Morphine Sulfate 4 Mg/Ml 1 Ml Carp\Vial) 4 mg IV NOW STA Stop: 03/13/21 11:29 Last Admin: 03/13/21 11:44 Dose: 4 mg Documented by: [id number] Ondansetron HCl (Ondansetron Inj 2 Mg/Ml 2 Ml Vial) 4 mg IV NOW STA Stop: 03/13/21 11:29 Last Admin: 03/13/21 11:43 Dose: 4 mg Documented by: [id number] Medical Decision Making Medical Records Attestation: I reviewed the patient's medical records. Home Medications Current Medication List: was personally reviewed by me Laboratory Data Attestation: I reviewed the patient's lab results. Result diagrams: 03/13/21 11:35 03/13/21 11:35 Lab Results 03/13/21 03/13/21 03/13/21 Range/Units 11:35 11:35 11:35 WBC 6.86 (4.8-10.8) K/uL RBC 3.14 L (4.2-5.4) M/uL Hgb 10.7 L (12.0-16.0) g/dL Hct 29.6 L (37-47) % MCV 94.3 (80-100) fL MCH 34.1 H (25-34) pg MCHC 36.1 H (32-36) g/dL RDW Std Deviation 56.4 H (36.4-46.3) fL RDW Coeff of Mohit 16.8 H (11.5-14.5) % Plt Count 128 L (130-400) K/uL MPV 9.7 (7.4-10.4) fL Immature Gran % (Auto) 0.1 % Neut % (Auto) 77.5 % Lymph % (Auto) 14.3 % [place] % (Auto) 7.7 % Eos % (Auto) 0.3 % Baso % (Auto) 0.1 % Neut # (Auto) 5.31 (1.4-6.5) K/uL Lymph # (Auto) 0.98 L (1.2-3.4) K/uL [place] # (Auto) 0.53 (0.11-0.59) K/uL Eos # (Auto) 0.02 (0-0.5) K/uL Baso # (Auto) 0.01 (0-0.2) K/uL Immature Gran # (Auto) 0.01 (0.00-0.02) K/uL ESR (0-30) mm/hr PT 11.5 (9.0-12.0) Seconds INR 1.1 (0.9-1.1) APTT 33.0 H (21.0-31.0) Seconds PTT Ratio 1.3 Sodium 125 L (136-145) mmol/L Potassium 2.3 L* (3.5-5.1) mmol/L Chloride 88 L (98-107) mmol/L Carbon Dioxide 28 (21-32) mmol/L Anion Gap 9.0 (3-11) BUN 10 (7-18) mg/dl Creatinine 0.53 L (0.6-1.2) mg/dl Est Cr Clr Drug Dosing 80.6 ml/min Est GFR ( Amer) 117.9 ml/min Est GFR (Non-Af Amer) 101.8 ml/min BUN/Creatinine Ratio 18.7 (10-20) Glucose 107 H (70-99) mg/dl Calcium 9.0 (8.5-10.1) mg/dl Phosphorus 3.0 (2.5-4.9) mg/dl Magnesium 1.5 L (1.8-2.4) mg/dl Total Bilirubin 5.6 H (0.2-1) mg/dl AST 53 H (15-37) U/L ALT 25 (12-78) U/L Alkaline Phosphatase 174 H (45-117) U/L Troponin I 0.244 H* (0-0.045) ng/ml C-Reactive Protein 1.15 H (0-0.29) mg/dl Total Protein 6.9 (6.4-8.2) gm/dl Albumin 3.3 L (3.4-5.0) gm/dl Globulin 3.6 (2.5-4.0) gm/dl Albumin/Globulin Ratio 0.9 (0.9-2) Lipase 121 (73-393) U/L TSH 0.998 (0.300-4.500) uIu/ml COVID-19 Eval Order SARS-CoV-2 (PCR) (Negative) 03/13/21 03/13/21 03/13/21 Range/Units 11:35 15:06 15:06 WBC (4.8-10.8) K/uL RBC (4.2-5.4) M/uL Hgb (12.0-16.0) g/dL Hct (37-47) % MCV (80-100) fL MCH (25-34) pg MCHC (32-36) g/dL RDW Std Deviation (36.4-46.3) fL RDW Coeff of Mohit (11.5-14.5) % Plt Count (130-400) K/uL MPV (7.4-10.4) fL Immature Gran % (Auto) % Neut % (Auto) % Lymph % (Auto) % [place] % (Auto) % Eos % (Auto) % Baso % (Auto) % Neut # (Auto) (1.4-6.5) K/uL Lymph # (Auto) (1.2-3.4) K/uL [place] # (Auto) (0.11-0.59) K/uL Eos # (Auto) (0-0.5) K/uL Baso # (Auto) (0-0.2) K/uL Immature Gran # (Auto) (0.00-0.02) K/uL ESR 23 (0-30) mm/hr PT (9.0-12.0) Seconds INR (0.9-1.1) APTT (21.0-31.0) Seconds PTT Ratio Sodium (136-145) mmol/L Potassium (3.5-5.1) mmol/L Chloride (98-107) mmol/L Carbon Dioxide (21-32) mmol/L Anion Gap (3-11) BUN (7-18) mg/dl Creatinine (0.6-1.2) mg/dl Est Cr Clr Drug Dosing ml/min Est GFR ( Amer) ml/min Est GFR (Non-Af Amer) ml/min BUN/Creatinine Ratio (10-20) Glucose (70-99) mg/dl Calcium (8.5-10.1) mg/dl Phosphorus (2.5-4.9) mg/dl Magnesium (1.8-2.4) mg/dl Total Bilirubin (0.2-1) mg/dl AST (15-37) U/L ALT (12-78) U/L Alkaline Phosphatase (45-117) U/L Troponin I (0-0.045) ng/ml C-Reactive Protein (0-0.29) mg/dl Total Protein (6.4-8.2) gm/dl Albumin (3.4-5.0) gm/dl Globulin (2.5-4.0) gm/dl Albumin/Globulin Ratio (0.9-2) Lipase (73-393) U/L TSH (0.300-4.500) uIu/ml COVID-19 Eval Order Covid19 at [facility] SARS-CoV-2 (PCR) NEGATIVE (Negative) Imaging Data Attestation: I personally reviewed and interpreted this imaging study as follows: My Impression: My interpretation of CT angiography of the chest does not show any obvious pulmonary emboli, pneumothorax, lung consolidations or obvious pericarditis. Radiologist does make mention of interval progression of the mediastinal and bilateral hilar lymphadenopathy, consistent with metastatic disease. My interpretation of a CT with IV contrast of the abdomen and pelvis does not show evidence for bowel obstruction, diverticulitis, abdominal free air or appendicitis. Radiologist does make mention of progressive retroperitoneal lymphadenopathy, likely occluding the left renal vein, as well as subcapsular perfusion defects in the spleen, concerning for splenic infarcts. Radiologist reports are as follows: Radiologist's Impression: Abdomen/Pelvis CT 03/13/21 11:28 CT SCAN OF THE ABDOMEN AND PELVIS WITH IV CONTRAST CLINICAL HISTORY: Upper abdominal pain. Esophageal carcinoma. COMPARISON STUDY: Abdominal CT dated 02/06/2021. TECHNIQUE: Following the IV administration of 120 cc of Optiray 320, CT scan of the abdomen and pelvis is performed from the lung bases to the proximal femora. Images are reviewed in the axial, sagittal, and coronal planes. IV contrast was administered without complication. A dose lowering technique was utilized adhering to the principles of ALARA. FINDINGS: Lung bases: The heart is normal in size and without pericardial effusion. Small to moderate pleural effusions are identified with associated atelectasis. These have increased in size as compared to 02/06/2021. Liver: The contrast-enhanced liver is normal in size, contour, and attenuation. There is no intrahepatic biliary ductal dilatation. The hepatic veins and portal veins are patent. Gallbladder: Unremarkable. Spleen: Normal in size and attenuation. There are least 3 subcutaneous perfusion defects identified in the spleen that are new from 02/06/2021. These are seen on images #57, #62, and #103 and measure up to 1.5 cm. The appearance suggests small splenic infarcts. Pancreas: Moderately atrophic and grossly unremarkable. Adrenal glands: Retroperitoneal lymphadenopathy closely approximates and may invade the left adrenal gland. The right adrenal gland is normal. Kidneys: The contrast enhanced kidneys are normal in size and without hydronephrosis. There is fullness of the left renal collecting system with urothelial thickening and enhancement seen involving the left renal pelvis and along the course of left ureter. The kidneys enhance symmetrically. There is a 3 mm nonobstructing right lower pole calculus. Scattered indeterminate cortical hypodensities are noted in both kidneys. Left retrograde lymphadenopathy markedly attenuates and likely occludes at the left renal vein. This collateralizes via the left gonadal vein. Abdominal vasculature: The abdominal aorta is normal in course and caliber. Stomach and bowel: Postoperative change is consistent with gastroesophageal resection and pull-through. There is no bowel obstruction. There is advanced colonic diverticulosis without CT evidence of acute diverticulitis. The appendix is well-visualized and normal. Peritoneum: There is no intraperitoneal free air. Trace free fluid is noted in the pelvis. Lymphadenopathy: There is progressive retroperitoneal lymphadenopathy as compared to 02/06/2021. A left periaortic nu aggregate seen on image #131 measures 4.7 x 2.7 cm (previously measured 4.0 x 2.3). A more inferiorly located left periaortic node on image #161 measures 2.6 x 1.6 cm (previously measuring 2.0 x 1.2 cm). Pelvic viscera: The bladder is distended and the wall appears thickened and hyperemic. The uterus and adnexa are normal as visualized. Skeletal structures: The skeletal structures are heterogeneously osteopenic. There is mild lumbosacral spondylosis. There are bilateral pars defects at L5 with advanced disc space narrowing and 7 mm anterolisthesis at L5-S1. No lytic or blastic lesions are seen. IMPRESSION: 1. There is postoperative change from gastroesophageal resection with pull-through. No bowel obstruction is identified. 2. There are least 3 small subcapsular perfusion defects in the spleen that are new from 02/06/2021. The appearance is typical for small splenic infarcts. 3. Small to moderate pleural effusions have increased in size as compared to 02/06/2021. 4. The bladder is distended and appears thick walled and hyperemic. Correlate clinically and with urinalysis for evidence of cystitis. 5. There is fullness of the left renal collecting system with mild urothelial thickening and enhancement involving the left renal pelvis and the left ureter. Ascending urinary tract infection is not excluded. 6. There is progressive retroperitoneal lymphadenopathy as compared to 02/06/2021. 7. Retroperitoneal lymphadenopathy likely occludes the left renal vein which collateralizes via the left gonadal vein. This may also invade the left adrenal gland. 8. There is a small volume of nonspecific free fluid is seen in the pelvis. 9. Advanced colonic diverticulosis without CT evidence of acute diverticulitis. 10. Additional findings as above. ACT 112: Negative or not required by law. Electronically signed by: Adiel Seaman M.D. 03/13/2021 3:15 PM Chest CTA 03/13/21 11:29 CHEST CTA for PULMONARY ARTERIES CT DOSE: 465.32 mGy.cm HISTORY: Upper abd pain, atypical chest pain. Shortness of breath- h/o esophageal CA TECHNIQUE: Multiaxial CT images of the chest were performed following the intravenous administration of contrast to evaluate the pulmonary arteries. Maximal intensity projection images were also obtained. A dose lowering technique was utilized adhering to the principles of ALARA. COMPARISON STUDY: Chest CT 02/06/2021. FINDINGS: There again noted postoperative changes consistent with esophagectomy with gastric pull-up. The mediastinal bilateral hilar lymphadenopathy has progressed in the interval. For comparative purposes a dominant right paratracheal lymph node currently measures 3.4 cm, previously measuring 1.6 cm. The heart remains normal in size. There are small to moderate bilateral pleural effusions which have also progressed in the interval. A right subclavian Port-A-Cath terminates at the distal SVC. Please refer to same day abdomen and pelvis CT for further evaluation of the abdominal structures. No suspicious lyt ic or blastic osseous lesions. The central airways are patent. Groundglass densities within the lungs posteriorly favor compressive atelectasis from the pleural effusions. There are postoperative changes within the right lung apex, unchanged. No evidence for an aortic dissection. The ascending thoracic aorta measures up to 3.8 cm in diameter. There is mild mass effect on the central pulmonary arteries due to the progressive lymphadenopathy. However, there are no filling defects within the pulmonary arteries to suggest a pulmonary embolus. IMPRESSION: 1. No evidence for pulmonary embolus. 2. Interval progression of the mediastinal and bilateral hilar lymphadenopathy consistent with metastatic disease. This results in mild mass effect along the central pulmonary arteries. 3. Increase in size in the small to moderate bilateral pleural effusions. ACT 112: Negative or not required by law. Electronically signed by: Roger Baldwin M.D. 03/13/2021 2:39 PM ECG Data Attestation: I personally reviewed and interpreted this ECG as follows: Indication: + abdominal pain, + chest pain, + nausea, + SOB/dyspnea and + vomiting Blood Pressure Blood Pressure Findings: Elevated blood pressure Blood Pressure Disposition: further management by hospitalist ORQUIDEA Narrative Cardiac monitoring: An order was placed for continuous cardiac monitoring. The monitor shows a rate of 82 bpm with a normal sinus rhythm. carbon rod inserter history was reviewed throughout the evaluation, and no dysrhythmias were noted. Patient presents to the emergency department with primary complaint of nausea, vomiting, shortness of breath and abdominal pain. Her work-up today unfortunately shows evidence for worsening metastatic esophageal cancer. Patient also has several electrolyte abnormalities, including hyponatremia, hypokalemia and hypomagnesemia. The patient also has elevated troponin, although her ECG appears normal. It is possible that the troponin could be elevated secondary to volume completion and acute illness. No pulmonary emboli are noted, with the patient on Eliquis. The patient was provided repletion of her potassium, magnesium and sodium with normal saline IV fluids. I suspect that the patient's pain is likely secondary to intractable nausea and vomiting. Zofran will have to be deferred as the patient has a prolonged QT. She did have decent nausea control with IV Phenergan. 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 Discharge Instructions Interventions: ED Discharge Assessment Last Done: 03/13/21 18:19 Forms Stand Alone Forms: [facility] myEDmatch Prescriptions Prescriptions: No Action albuterol sulfate 90 mcg/actuation HFA aerosol inhaler 2 puff inhalation Q6H PRN (Reason: Shortness Of Breath) Qty: 1 RF: 0 levocetirizine [Xyzal] 5 mg tablet 5 mg PO DAILY PRN (Reason: Nasal Congestion) RF: 0 Hold Instructions: While on chlorpheniramine triamcinolone acetonide [Nasacort] 55 mcg Aerosol,[place] 2 spray INTRANASAL DAILY PRN (Reason: Allergy Symptoms) RF: 0 Eliquis 5 mg tablet 5 mg PO BID Qty: 60 RF: 5 pantoprazole 40 mg tablet,delayed release (DR/EC) 40 mg PO QAM RF: 0 Referrals Referrals: Han Edmondson III, MD [Primary Care Provider] -
[2021-03-13 11:47] LABS: Basophils # (auto) 0.01 K/uL (0-0.2); Basophils % (auto) 0.1 %; Eosinophils # (auto) 0.02 K/uL (0-0.5); Eosinophils % (auto) 0.3 %; Hematocrit (blood only) 29.6 % (37-47); Hemoglobin 10.7 g/dL (12.0-16.0); Immature Granulocytes # (auto) 0.01 K/uL (0.00-0.02); Immature Granulocytes % (auto) 0.1 %; Lymphocytes # (auto) 0.98 K/uL (1.2-3.4); Lymphocytes % (auto) 14.3 %; Mean Corpuscular Hemoglobin 34.1 pg (25-34); Mean Corpuscular Hgb Conc 36.1 g/dL (32-36); Mean Corpuscular Volume 94.3 fL (80-100); Mean Platelet Volume 9.7 fL (7.4-10.4); Monocytes # (auto) 0.53 K/uL (0.11-0.59); Monocytes % (auto) 7.7 %; Neutrophils # (auto) 5.31 K/uL (1.4-6.5); Neutrophils % (auto) 77.5 %; Platelet Count 128 K/uL (130-400); RDW Coefficient of Variation 16.8 % (11.5-14.5); RDW Standard Deviation 56.4 fL (36.4-46.3); Red Blood Count 3.14 M/uL (4.2-5.4); White Blood Count 6.86 K/uL (4.8-10.8)
[2021-03-13 11:59] LABS: INR 1.1 (0.9-1.1); Partial Thromboplastin Ratio 1.3; Prothrombin Time 11.5 Seconds (9.0-12.0)
[2021-03-13 12:26] LABS: Albumin Globulin Ratio 0.9 (0.9-2); Albumin Level 3.3 gm/dl (3.4-5.0); BUN Creatinine Ratio 18.7 (10-20); Bilirubin,Total 5.6 mg/dl (0.2-1); C Reactive Protein 1.15 mg/dl (0-0.29); Creatinine Clr Calc Pharmacy 80.6 ml/min; Est GFR (African American) 117.9 ml/min; Est GFR (Non-African American) 101.8 ml/min; Globulin 3.6 gm/dl (2.5-4.0); Magnesium 1.5 mg/dl (1.8-2.4); Potassium 2.3 mmol/L (3.5-5.1); Thyroid Stimulating Hormone 0.998 uIu/ml (0.300-4.500); Total Protein 6.9 gm/dl (6.4-8.2); Troponin I 0.244 ng/ml (0-0.045)
[2021-03-13] MEDS ORDERED: MAGNESIUM SULFATE / D5W 1 GM/100 ML BAG IV STA ×2 (12:46→17:06)
[2021-03-13] MEDS ORDERED: PROMETHAZINE 12.5 MG/50.5 ML BAG IV STA (13:29)
[2021-03-13] MEDS ORDERED: OPTIRAY 320 125ml IV ONE (14:18)
--- NOTE | 2021-03-13 14:40 | CT Scan Report ---
CHEST CTA for PULMONARY ARTERIES CT DOSE: 465.32 mGy.cm HISTORY: Upper abd pain, atypical chest pain. Shortness of breath- h/o esophageal CA TECHNIQUE: Multiaxial CT images of the chest were performed following the intravenous administration of contrast to evaluate the pulmonary arteries. Maximal intensity projection images were also obtaine d. A dose lowering technique was utilized adhering to the principles of ALARA. COMPARISON STUDY: Chest CT 02/06/2021. FINDINGS: There again noted postoperative changes consistent with esophagectomy with gastric pull-up. The mediastinal bilateral hilar lymphadenopathy has progressed in the interval. For comparative purp oses a dominant right paratracheal lymph node currently measures 3.4 cm, previously measuring 1.6 cm. The heart remains normal in size. There are small to moderate bilateral pleural effusions which have also progressed in the interval. A right subclavian Port-A-Cath terminates at the distal SVC. Please refer to same day abdomen and pelvis CT for further evaluation of the abdominal structures. No suspi cious lytic or blastic osseous lesions. The central airways are patent. Groundglass densities within the lungs posteriorly favor compressive atelectasis from the pleural effusions. There are postoperati ve changes within the right lung apex, unchanged. No evidence for an aortic dissection. The ascending thoracic aorta measures up to 3.8 cm in diameter. There is mild mass effect on the central pulmonary arteries due to the progressive lymphadenopathy. However, there are no filling defects within the pu lmonary arteries to suggest a pulmonary embolus. IMPRESSION: 1. No evidence for pulmonary embolus. 2. Interval progression of the mediastinal and bilateral hilar lymphadenopathy consistent with metast atic disease. This results in mild mass effect along the central pulmonary arteries. 3. Increase in size in the small to moderate bilateral pleural effusions. ACT 112: Negative or not required by law. Electronically signed by: Roger Baldwin M.D. 03/13/2021 2:39 PM
--- NOTE | 2021-03-13 15:16 | CT Scan Report ---
CT SCAN OF THE ABDOMEN AND PELVIS WITH IV CONTRAST CLINICAL HISTORY: Upper abdominal pain. Esophageal carcinoma. COMPARISON STUDY: Abdominal CT dated 02/06/2021. TECHNIQUE: Following the IV administration of 120 cc of Optiray 320, CT scan of the abdomen and pelv is is performed from the lung bases to the proximal femora. Images are reviewed in the axial, sagitta l, and coronal planes. IV contrast was administered without complication. A dose lowering technique was utilized adhering to the principles of ALARA. FINDINGS: Lung bases: The heart is normal in size and without pericardial effusion. Small to moderate pleural e ffusions are identified with associated atelectasis. These have increased in size as compared to 2020. Liver: The contrast-enhanced liver is normal in size, contour, and attenuation. There is no intrahepa tic biliary ductal dilatation. The hepatic veins and portal veins are patent. Gallbladder: Unremarkable. Spleen: Normal in size and attenuation. There are least 3 subcutaneous perfusion defects identified i n the spleen that are new from 02/06/2021. These are seen on images #57, #62, and #103 and measure up t o 1.5 cm. The appearance suggests small splenic infarcts. Pancreas: Moderately atrophic and grossly unremarkable. Adrenal glands: Retroperitoneal lymphadenopathy closely approximates and may invade the left adrenal gland. The right adrenal gland is normal. Kidneys: The contrast enhanced kidneys are normal in size and without hydronephrosis. There is fullne ss of the left renal collecting system with urothelial thickening and enhancement seen involving the left renal pelvis and along the course of left ureter. The kidneys enhance symmetrically. There is a 3 mm nonobstructing right lower pole calculus. Scattered indeterminate cortical hypodensities are not ed in both kidneys. Left retrograde lymphadenopathy markedly attenuates and likely occludes at the le ft renal vein. This collateralizes via the left gonadal vein. Abdominal vasculature: The abdominal aorta is normal in course and caliber. Stomach and bowel: Postoperative change is consistent with gastroesophageal resection and pull-throug h. There is no bowel obstruction. There is advanced colonic diverticulosis without CT evidence of acu te diverticulitis. The appendix is well-visualized and normal. Peritoneum: There is no intraperitoneal free air. Trace free fluid is noted in the pelvis. Lymphadenopathy: There is progressive retroperitoneal lymphadenopathy as compared to 02/06/2021. A left periaortic nu aggregate seen on image #131 measures 4.7 x 2.7 cm (previously measured 4.0 x 2.3). A more inferiorly located left periaortic node on image #161 measures 2.6 x 1.6 cm (previously measu ring 2.0 x 1.2 cm). Pelvic viscera: The bladder is distended and the wall appears thickened and hyperemic. The uterus and adnexa are normal as visualized. Skeletal structures: The skeletal structures are heterogeneously osteopenic. There is mild lumbosacra l spondylosis. There are bilateral pars defects at L5 with advanced disc space narrowing and 7 mm ant erolisthesis at L5-S1. No lytic or blastic lesions are seen. IMPRESSION: 1. There is postoperative change from gastroesophageal resection with pull-through. No bowel obstruct ion is identified. 2. There are least 3 small subcapsular perfusion defects in the spleen that are new from 02/06/2021. Th e appearance is typical for small splenic infarcts. 3. Small to moderate pleural effusions have increased in size as compared to 02/06/2021. 4. The bladder is distended and appears thick walled and hyperemic. Correlate clinically and with uri nalysis for evidence of cystitis. 5. There is fullness of the left renal collecting system with mild urothelial thickening and enhancem ent involving the left renal pelvis and the left ureter. Ascending urinary tract infection is not exc luded. 6. There is progressive retroperitoneal lymphadenopathy as compared to 02/06/2021. 7. Retroperitoneal lymphadenopathy likely occludes the left renal vein which collateralizes via the l eft gonadal vein. This may also invade the left adrenal gland. 8. There is a small volume of nonspecific free fluid is seen in the pelvis. 9. Advanced colonic diverticulosis without CT evidence of acute diverticulitis. 10. Additional findings as above. ACT 112: Negative or not required by law. Electronically signed by: Adiel Seaman M.D. 03/13/2021 3:15 PM
[2021-03-13] MEDS ORDERED: POTASSIUM CHLORIDE / WTR 20 MEQ/100 ML PLCT IV ONE ×2 (15:23→15:24)
--- NOTE | 2021-03-13 15:41 | Emergency Department Note ---
ED Visit Note I have personally evaluated this patient examined her and reviewed the pertinent labs and data. I have discussed the case with Trae Blanchard, the physician service center assistant and agree with the plan. Please refer to the PA note. This patient has metastatic esophageal cancer, comes in here with pain and dehydration. On my exam she is sleeping and appears comfortably. I talked to her daughter at length. She has had trouble maintaining her potassium and magnesium they are both very low today. We we will replete these with IV potassium and magnesium. Given that she does have central access we can replete the potassium to 20 mEq an hour. She had extensive work-up done here. I talked to the daughter at length and she is a DO NOT RESUSCITATE/DO NOT INTUBATE. They are also talking to palliative care and pain management. I do think she needs to be admitted for these measures. .
[2021-03-13] MEDS: POTASSIUM CHLORIDE / WTR 10 MEQ/100 ML PLCT IV SCH ×2 (15:59→17:08)
--- NOTE | 2021-03-13 16:52 | History & Physical Report ---
Date of Service March 13, 2021 Assessment & Plan (1) Vomiting: Plan: Genesis is a 60-year-old female with a medical history of esophageal cancer with metastasis, diverticulosis/diverticulitis, and past PE who presents with weakness, intractable vomiting, nausea, chest pain, and shortness of breath. Intractable nausea/vomiting Zofran contraindicated due to QT. Received 1 dose of Phenergan in the ER with no episodes of vomiting since Phenergan p.o. to 6 hours as needed Hypokalemia management as below Suspect due to underlying cancer versus gastritis Famotidine twice daily IVF M as below (2) Abdominal pain: Plan: Abdominal pain, history of diverticulosis/diverticulitis CT:Ab: There is postoperative change from gastroesophageal resection with pull-through. No bowel obstruction is identified. There are least 3 small subcapsular perfusion defects in the spleen that are new from 02/06/2021. The appearance is typical for small splenic infarcts. Small to moderate pleural effusions have increased in size as compared to 02/06/2021. The bladder is distended and appears thick walled and hyperemic. Correlate clinically and with urinalysis for evidence of cystitis. There is fullness of the left renal collecting system with mild urothelial thickening and enhancement involving the left renal pelvis and the left ureter. Ascending urinary tract infection is not excluded. There is progressive retroperitoneal lymphadenopathy as compared to 02/06/2021. Retroperitoneal lymphadenopathy likely occludes the left renal vein which collateralizes via the left gonadal vein. This may also invade the left adrenal gland. There is a small volume of nonspecific free fluid is seen in the pelvis. Advanced colonic diverticulosis without CT evidence of acute diverticulitis. 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 On discussion of goals of care patient and her daughter would like to continue current treatment and monitoring, and talk to palliative care and anticipate the move towards comfort oriented goals of care Received chemo from August to January 2021, patient has decided to forego further chemotherapy treatment Patient is okay with deferring oncology consult at this time, patient does not feel that this would likely change her plan moving forward (4) Bilateral pulmonary embolism: Plan: History of bilateral PE, active cancer - Continue Eliquis - No PE on CTA on admit (5) Acute hypokalemia: Plan: Hypokalemia Potassium on admission 2.3, magnesium 1.5 Received 40 M EQ KCl IV in ER Additional 40 M EQ of KCl pending via poor, repeat BMP pending Received magnesium IV 1 g, 2 g pending Admit to medical telemetry for monitoring No chest pain at time of evaluation Elevated troponin In setting of volume depletion, acute illness as above, with hypokalemia Trend troponin x3 No chest pain at time of evaluation History of Present Illness Chief Complaint: Nausea, Vomiting, Chest Pain Primary Care Provider: Han Edmondson MD Genesis is a 60-year-old female with a medical history of esophageal cancer with metastasis, diverticulosis/diverticulitis, and past PE who presents with weakness, intractable vomiting, nausea, chest pain, and shortness of breath. Genesis has a history of esophageal cancer and GE junction carcinoma which was treated with chemotherapy from August 2020 to January 2021. In the last week of January 2021 patient made the decision to stop chemotherapy due to failure to improve and severe side effects. Over the last 3 weeks she has had constant nausea and poor p.o. intake. For the last 4 days she has had nausea with vomiting 4-5 times an hour and inability to keep down food or liquids. She has also had diffuse low abdominal pain, nonfocal. She is seen at bedside with her daughter, she is fatigued following antiemetic and analgesic administration, and defers most of HPI to her daughter who is at the bedside. Her and her daughter report that they have been seeing palliative care, and have made decision to move to DNR. They have not engaged hospice services, but feel that this is most likely the next step in her care. Would like to continue monitoring treatment and further evaluation at this time, and see palliative care while she is here. Denies past cardiac history, past history of bilateral PE. CTA: No evidence for pulmonary embolus. Interval progression of the mediastinal and bilateral hilar lymphadenopathy consistent with metastatic disease. This results in mild mass effect along the central pulmonary arteries. Increase in size in the small to moderate bilateral pleural effusions. CTabdomen: No signs of acute diverticulitis, further report below. Medical History: Reviewed Medications: Reviewed Surgical History: Reviewed Allergies: Reviewed Social History: Reviewed Code Status: DNR/DNI Allergies Allergy/AdvReac Type Severity Reaction Status Date / Time No Known Allergies Allergy Verified 03/13/21 12:07 Home Medications Medication Instructions Recorded Confirmed Type levocetirizine 5 mg tablet (Xyzal) 5 mg PO DAILY PRN 02/05/20 03/13/21 History albuterol sulfate 90 mcg/actuation 2 puff INHALATION Q6H PRN #1 gm 06/08/20 03/13/21 Rx aerosol inhaler triamcinolone acetonide 55 mcg 2 spray INTRANASAL DAILY PRN 08/15/20 03/13/21 History nasal spray aerosol (Nasacort) apixaban 5 mg tablet (Eliquis) 5 mg PO BID #60 tab 09/27/20 03/13/21 Rx pantoprazole 40 mg tablet,delayed 40 mg PO QAM 03/13/21 03/13/21 History release Past Med/Surg History Medical History Bilateral pulmonary embolism Chronic cough Difficulty swallowing Diverticular disease Esophageal adenocarcinoma s/p chemo/xrt Esophageal stricture s/p dilation GERD (gastroesophageal reflux disease) History of kidney stones passed without intervention Lesion of bladder Low back pain Lung nodule s/p excision Migraine HX Pulmonary embolism CURRENTLY ON ELIQUIS UTI (urinary tract infection) CURRENTLY ON ANTIBIOTIC Surgical History Basal cell carcinoma of back Basal cell carcinoma of shoulder History of arthroscopy of right knee meniscus repair History of bilateral tubal ligation History of colonoscopy History of dilatation and curettage History of endoscopic sinus surgery History of esophagogastroduodenoscopy (EGD) History of laparoscopy for ectopic History of liver biopsy Dr. Zambrano 05/27/19 ham[place] History of lung surgery right wedge resection upper History of parotid gland excision excision of left side parotid gland for benign tumor History of removal of Port-a-Cath 04/2019 (infected) History of repair of right rotator cuff History of thoracic surgery Robot-assisted laparoscopic/ thoracoscopic assisted esophagogastrectomy with an intrathoracic esophagogastrostomy: 04/22/2019: Grade view 1, MAC#3, ETT 7.0 at [facility] History of vascular access device Insertion of Mediport(Right) 08/15/20 [place] Status post Mohs surgery for basal cell carcinoma x2 Family History Grandfather (Maternal) , in her eighties of old age No problems noted. Mother Age: 86 Diabetes Hypertension Father , abd aortic aneurysm at age 80 No problems noted. Brother Age: 61 No problems noted. Sister Age: 59 Stroke, Onset Age: 40 Brother Age: 58 Hypertension Sister Age: 57 Heart disease Hypertension Daughter Age: 42 No problems noted. Son Age: 39 No problems noted. Other No family history of adverse response to anesthesia Denies family history of Lung disease Cancer Asthma Social History Smoking Status: Never smoker Second Hand Exposure: No; Hx Alcohol Use: No Hx Substance Use: Yes Preferred Language: Tanzanian Communication Ability: Effective Visual Impairment: No Limitations Geophysical Data Technician Required: No Beliefs That Will Affect Care: None marital status: Current Living Situation: Spouse Feels Safe at Home: Yes Safety Concerns: Feels Safe At This Time Assistive Devices: None Review of Systems Review of Systems: Constitutional: Eusebia is chronic malaise, chills Eyes: Denies double vision, vision change, eye pain ENT: Denies ear pain, sore throat, sinus pain Cardiovascular: See HPI Respiratory: See HPI Gastrointestinal: See HPI Genitourinary: Denies pain with urination, urinary urgency, urinary frequency Musculoskeletal: See HPI Integumentary:Denies rash, lesions, bruising Neurological: Denies acute numbness, tingling, focal weakness Physical Exam Physical Exam: General: A&Ox3. Somnolent. Cachectic. Appears chronically ill. HEENT: Atraumatic, normocephalic. Pupils reactive to light and accommodation. EOM intact. Pulm: Diminished air movement, no overt -wheezes, -rales, -rhonchi. Symmetrical chest rise. No increase work of breathing. No respiratory distress. Port present. Cardiac: RRR, -mrg. Radial pulses intact and symmetrical. Abdominal: Diffusely tender to palpation, focally tender at epigastrium. Nonrigid. Extremities: Warm, dry. Results & Data Results & Data ([facility]) Vital Signs (Past 12 Hours) Vital Signs Temp Pulse Pulse Resp BP BP Pulse Ox 03/13/21 13:00 85 16 165/85 H 96 03/13/21 11:28 88 19 95 03/13/21 11:04 83 18 202/102 H 100 03/13/21 10:34 36.8 C 95 H 18 165/92 H 97 Laboratory Results Abnormal lab results 03/13/21 03/13/21 03/13/21 Range/Units 11:35 11:35 11:35 RBC 3.14 L (4.2-5.4) M/uL Hgb 10.7 L (12.0-16.0) g/dL Hct 29.6 L (37-47) % MCH 34.1 H (25-34) pg MCHC 36.1 H (32-36) g/dL RDW Std Deviation 56.4 H (36.4-46.3) fL RDW Coeff of Mohit 16.8 H (11.5-14.5) % Plt Count 128 L (130-400) K/uL Lymph # (Auto) 0.98 L (1.2-3.4) K/uL APTT 33.0 H (21.0-31.0) Seconds Sodium 125 L (136-145) mmol/L Potassium 2.3 L* (3.5-5.1) mmol/L Chloride 88 L (98-107) mmol/L Creatinine 0.53 L (0.6-1.2) mg/dl Glucose 107 H (70-99) mg/dl Magnesium 1.5 L (1.8-2.4) mg/dl Total Bilirubin 5.6 H (0.2-1) mg/dl AST 53 H (15-37) U/L Alkaline Phosphatase 174 H (45-117) U/L Troponin I 0.244 H* (0-0.045) ng/ml C-Reactive Protein 1.15 H (0-0.29) mg/dl Albumin 3.3 L (3.4-5.0) gm/dl Diagnostic Findings Abdomen/Pelvis CT 03/13/21 11:28 CT SCAN OF THE ABDOMEN AND PELVIS WITH IV CONTRAST CLINICAL HISTORY: Upper abdominal pain. Esophageal carcinoma. COMPARISON STUDY: Abdominal CT dated 02/06/2021. TECHNIQUE: Following the IV administration of 120 cc of Optiray 320, CT scan of the abdomen and pelvis is performed from the lung bases to the proximal femora. Images are reviewed in the axial, sagittal, and coronal planes. IV contrast was administered without complication. A dose lowering technique was utilized adhering to the principles of ALARA. FINDINGS: Lung bases: The heart is normal in size and without pericardial effusion. Small to moderate pleural effusions are identified with associated atelectasis. These have increased in size as compared to 02/06/2021. Liver: The contrast-enhanced liver is normal in size, contour, and attenuation. There is no intrahepatic biliary ductal dilatation. The hepatic veins and portal veins are patent. Gallbladder: Unremarkable. Spleen: Normal in size and attenuation. There are least 3 subcutaneous perfusion defects identified in the spleen that are new from 02/06/2021. These are seen on images #57, #62, and #103 and measure up to 1.5 cm. The appearance suggests small splenic infarcts. Pancreas: Moderately atrophic and grossly unremarkable. Adrenal glands: Retroperitoneal lymphadenopathy closely approximates and may invade the left adrenal gland. The right adrenal gland is normal. Kidneys: The contrast enhanced kidneys are normal in size and without hydronephrosis. There is fullness of the left renal collecting system with urothelial thickening and enhancement seen involving the left renal pelvis and along the course of left ureter. The kidneys enhance symmetrically. There is a 3 mm nonobstructing right lower pole calculus. Scattered indeterminate cortical hypodensities are noted in both kidneys. Left retrograde lymphadenopathy markedly attenuates and likely occludes at the left renal vein. This collateralizes via the left gonadal vein. Abdominal vasculature: The abdominal aorta is normal in course and caliber. Stomach and bowel: Postoperative change is consistent with gastroesophageal resection and pull-through. There is no bowel obstruction. There is advanced colonic diverticulosis without CT evidence of acute diverticulitis. The appendix is well-visualized and normal. Peritoneum: There is no intraperitoneal free air. Trace free fluid is noted in the pelvis. Lymphadenopathy: There is progressive retroperitoneal lymphadenopathy as compared to 02/06/2021. A left periaortic nu aggregate seen on image #131 measures 4.7 x 2.7 cm (previously measured 4.0 x 2.3). A more inferiorly located left periaortic node on image #161 measures 2.6 x 1.6 cm (previously measuring 2.0 x 1.2 cm). Pelvic viscera: The bladder is distended and the wall appears thickened and hyperemic. The uterus and adnexa are normal as visualized. Skeletal structures: The skeletal structures are heterogeneously osteopenic. There is mild lumbosacral spondylosis. There are bilateral pars defects at L5 with advanced disc space narrowing and 7 mm anterolisthesis at L5-S1. No lytic or blastic lesions are seen. IMPRESSION: 1. There is postoperative change from gastroesophageal resection with pull- through. No bowel obstruction is identified. 2. There are least 3 small subcapsular perfusion defects in the spleen that are new from 02/06/2021. The appearance is typical for small splenic infarcts. 3. Small to moderate pleural effusions have increased in size as compared to 02/06/2021. 4. The bladder is distended and appears thick walled and hyperemic. Correlate clinically and with urinalysis for evidence of cystitis. 5. There is fullness of the left renal collecting system with mild urothelial thickening and enhancement involving the left renal pelvis and the left ureter. Ascending urinary tract infection is not excluded. 6. There is progressive retroperitoneal lymphadenopathy as compared to 02/06/2021. 7. Retroperitoneal lymphadenopathy likely occludes the left renal vein which collateralizes via the left gonadal vein. This may also invade the left adrenal gland. 8. There is a small volume of nonspecific free fluid is seen in the pelvis. 9. Advanced colonic diverticulosis without CT evidence of acute diverticulitis. 10. Additional findings as above. ACT 112: Negative or not required by law. Electronically signed by: Adiel Seaman M.D. 03/13/2021 3:15 PM Chest CTA 03/13/21 11:29 CHEST CTA for PULMONARY ARTERIES CT DOSE: 465.32 mGy.cm HISTORY: Upper abd pain, atypical chest pain. Shortness of breath- h/o esophageal CA TECHNIQUE: Multiaxial CT images of the chest were performed following the intravenous administration of contrast to evaluate the pulmonary arteries. Maximal intensity projection images were also obtained. A dose lowering technique was utilized adhering to the principles of ALARA. COMPARISON STUDY: Chest CT 02/06/2021. FINDINGS: There again noted postoperative changes consistent with esophagectomy with gastric pull-up. The mediastinal bilateral hilar lymphadenopathy has progressed in the interval. For comparative purposes a dominant right paratracheal lymph node currently measures 3.4 cm, previously measuring 1.6 cm. The heart remains normal in size. There are small to moderate bilateral pleural effusions which have also progressed in the interval. A right subclavian Port-A-Cath terminates at the distal SVC. Please refer to same day abdomen and pelvis CT for further evaluation of the abdominal structures. No suspicious lytic or blastic osseous lesions. The central airways are patent. Groundglass densities within the lungs posteriorly favor compressive atelectasis from the pleural effusions. There are postoperative changes within the right lung apex, unchanged. No evidence for an aortic dissection. The ascending thoracic aorta measures up to 3.8 cm in diameter. There is mild mass effect on the central pulmonary arteries due to the progressive lymphadenopathy. However, there are no filling defects within the pulmonary arteries to suggest a pulmonary embolus. IMPRESSION: 1. No evidence for pulmonary embolus. 2. Interval progression of the mediastinal and bilateral hilar lymphadenopathy consistent with metastatic disease. This results in mild mass effect along the central pulmonary arteries. 3. Increase in size in the small to moderate bilateral pleural effusions. ACT 112: Negative or not required by law. Electronically signed by: Roger Baldwin M.D. 03/13/2021 2:39 PM Medications Administered Home Medications levocetirizine 5 mg tablet (Xyzal) 5 mg PO DAILY PRN 02/05/20 [History Confirmed 03/13/21] albuterol sulfate 90 mcg/actuation aerosol inhaler 2 puff INHALATION Q6H PRN #1 gm 06/08/20 [Rx Confirmed 03/13/21] triamcinolone acetonide 55 mcg nasal spray aerosol (Nasacort) 2 spray INTRANASAL DAILY PRN 08/15/20 [History Confirmed 03/13/21] apixaban 5 mg tablet (Eliquis) 5 mg PO BID #60 tab 09/27/20 [Rx Confirmed 03/13/21] pantoprazole 40 mg tablet,delayed release 40 mg PO QAM 03/13/21 [History Confirmed 03/13/21] Active Medications Potassium Chloride (K Jun / Wtr) 20 meq in 100 mls @ 50 mls/hr IV ONE ONE Stop: 03/13/21 17:22 Potassium Chloride (K Jun / Wtr) 20 meq in 100 mls @ 50 mls/hr IV ONE ONE Stop: 03/13/21 17:23 Code Status & VTE Plan Code Status DNR/DNI PG Care Time/CCT Total # of Minutes Spent Total Time Spent with Patient: Total time spent is greater than 50% in coordination of care (as documented) at patient's floor/unit and/or counseling patient: Coding Level of Care Code 71413 Initial Inpt Care Lvl 3 Diagnoses Vomiting R11.10 Abdominal pain R10.9 GE junction carcinoma C16.0 Bilateral pulmonary embolism I26.99 Acute hypokalemia E87.6
[2021-03-13] MEDS ORDERED: POTASSIUM CHLORIDE / WTR 20 MEQ/100 ML PLCT IV STA (17:06)
[2021-03-13] MEDS: POTASSIUM CHLORIDE / WTR 20 MEQ/100 ML PLCT IV SCH ×4 (18:04→23:59)
--- NOTE | 2021-03-13 18:10 | Electrocardiogram Report ---
Test Reason : Blood Pressure : / mmHG Vent. Rate : 082 BPM Atrial Rate : 082 BPM P-R Int : 112 ms QRS Dur : 084 ms QT Int : 406 ms P-R-T Axes : 064 051 035 degrees QTc Int : 474 ms Normal sinus rhythm Possible Left atrial enlargement Nonspecific ST and T wave abnormality Abnormal ECG When compared with ECG of 06-FEB-2021 11:15, No significant change was found Confirmed by Iron Zarate ([id number] on 03/13/2021 6:09:48 PM Referred By: REFERRED SELF Confirmed By:Flavio Zarate
[2021-03-13] MEDS ORDERED: HYDROmorphone INJ 0.5 MG/0.5 ML SYR IV PRN (19:36)
[2021-03-13] MEDS ORDERED: ACETAMINOPHEN 325 MG TAB PO PRN (19:36)
[2021-03-13] MEDS ORDERED: HYDROmorphone INJ 1 MG/ML SYRINGE IV PRN (19:36)
[2021-03-13] MEDS: MAGNESIUM SULFATE / D5W 1 GM/100 ML BAG IV SCH ×2 (20:19→23:33)
[2021-03-13] MEDS: FAMOTIDINE 20 MG in SYRINGE 3 ML IV SCH (20:34)
[2021-03-13] MEDS: NSS + 20MEQ KCL 20 MEQ/1,000 ML BAG IV SCH (20:34)
[2021-03-13] MEDS: APIXABAN 5 MG TABLET PO SCH (20:34)
[2021-03-13 20:42] LABS: BUN Creatinine Ratio 14.6 (10-20); Calcium 8.4 mg/dl (8.5-10.1); Creatinine Clr Calc Pharmacy 67.6 ml/min; Est GFR (Non-African American) 96.6 ml/min; Potassium 2.8 mmol/L (3.5-5.1)
[2021-03-13 20:44] LABS: Troponin I 0.244 ng/ml (0-0.045)
[2021-03-13] MEDS: PROMETHAZINE HCL 25 MG/20 ML UDP PO PRN (23:42)
[2021-03-14 02:41] LABS: BUN Creatinine Ratio 15.1 (10-20); Calcium 8.5 mg/dl (8.5-10.1); Creatinine Clr Calc Pharmacy 80.6 ml/min; Est GFR (African American) 118.7 ml/min; Est GFR (Non-African American) 102.4 ml/min; Magnesium 3.2 mg/dl (1.8-2.4); Potassium 3.9 mmol/L (3.5-5.1); Troponin I 0.226 ng/ml (0-0.045)
[2021-03-14] MEDS: NSS + 20MEQ KCL 20 MEQ/1,000 ML BAG IV SCH ×4 (04:03→22:48)
[2021-03-14] MEDS: PROMETHAZINE HCL 25 MG/20 ML UDP PO PRN (07:37)
[2021-03-14] MEDS: APIXABAN 5 MG TABLET PO SCH ×2 (07:44→20:30)
[2021-03-14] MEDS: FAMOTIDINE 20 MG in SYRINGE 3 ML IV SCH ×2 (07:44→20:31)
[2021-03-14 07:57] LABS: Basophils # (auto) 0.02 K/uL (0-0.2); Basophils % (auto) 0.2 %; Eosinophils # (auto) 0.03 K/uL (0-0.5); Eosinophils % (auto) 0.4 %; Hematocrit (blood only) 28.6 % (37-47); Hemoglobin 10.4 g/dL (12.0-16.0); Immature Granulocytes # (auto) 0.01 K/uL (0.00-0.02); Immature Granulocytes % (auto) 0.1 %; Lymphocytes # (auto) 0.89 K/uL (1.2-3.4); Lymphocytes % (auto) 10.5 %; Mean Corpuscular Hemoglobin 35.4 pg (25-34); Mean Corpuscular Hgb Conc 36.4 g/dL (32-36); Mean Corpuscular Volume 97.3 fL (80-100); Mean Platelet Volume 9.9 fL (7.4-10.4); Monocytes # (auto) 1.07 K/uL (0.11-0.59); Monocytes % (auto) 12.6 %; Neutrophils # (auto) 6.47 K/uL (1.4-6.5); Neutrophils % (auto) 76.2 %; Platelet Count 130 K/uL (130-400); RDW Coefficient of Variation 17.7 % (11.5-14.5); RDW Standard Deviation 63.4 fL (36.4-46.3); Red Blood Count 2.94 M/uL (4.2-5.4); White Blood Count 8.49 K/uL (4.8-10.8)
[2021-03-14 08:35] LABS: BUN Creatinine Ratio 13.8 (10-20); Calcium 8.2 mg/dl (8.5-10.1); Creatinine Clr Calc Pharmacy 86.8 ml/min; Est GFR (Non-African American) 104.4 ml/min; Potassium 2.9 mmol/L (3.5-5.1)
[2021-03-14] MEDS: POTASSIUM CHLORIDE / WTR 20 MEQ/100 ML PLCT IV SCH ×2 (09:41→11:23)
[2021-03-14] MEDS: hydrALAZINE HCL 20 MG/ML VIAL IV PRN ×2 (11:00→22:43)
--- NOTE | 2021-03-14 11:05 | Palliative Care Consultation ---
Date of Consultation March 14, 2021 Assessment & Plan (1) Palliative care encounter: This individual is a 60 year old female who presented to the [facility] with weakness, intractable nausea, chest pain, and SOB. 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 She has decided to forgo additional aggressive treatment options related to her cancer due to the unwanted side effects that were debilitating. Over the past month, she has had constant nausea and decreased oral intake. Palliative Medicine was consulted to discuss goals of care and provide symptom management. I met with Genesis who was nauseated and having small bouts of emesis during my encounter. She was clear that if her dying time was near, she would want to be at home and pursuing a more hospice focused approach in her care. She mentioned that she enjoys gardening and kari, along with spending time with her , daughter Mireille and grandchildren. Discussed with patient and her , Don at [phone] and Mireille was on the phone as well. All questions answered. Goal to return home with hospice services. She has been open with [facility] Home Health and they were very happy with the services provided and they would like to pursue [facility] Hospice. They would like a hospital bed, bedside table, BSC, and oxygen if necessary. Should the patient not receive symptom management relief, could consider discussing GIP with [facility] until stable and hospice is arranged at home. Palliative and case management to follow. (2) Nausea: Intractable nausea with some intermittent vomiting. When I was in the room, she had increased nausea with some spitting up of phlegm, but no actual vomiting. She is able to tolerate water and juice, but no real solid foods. At home has utilized Compazine and Zofran alternating with some relief. She has not used Haldol before for nausea. She has Phenergan liquid ordered, but it was really challenging for her to swallow due to the smell causing increased nausea. Will DC Phenergan and order scheduled Zofran IV with PRN Zofran ODT. Goal to return home with Hospice Services. (3) Weakness: Decreased PO intake. (4) Esophageal adenocarcinoma: End stage with mets. Was receiving chemotherapy from August through January of this year, she expressed she became quite ill from chemotherapy and has decided along with her family to forgo any additional treatment options. Goal to continue treatment while here with electrolyte replacement, but transition to hospice services upon discharge. Could work towards [facility] for admission if unable to get nausea under control prior to discharge. (5) Dysphagia: Patient is able to swallow, but does cause increased nausea and increased abdominal discomfort. (6) Constipation: Patient expresses constipation and has a bowel movement once weekly. She states that if fluctuates between having constipation and diarrhea. Will order Dulcolax Suppository DE Q8 PRN for constipation since she is also on narcotics for abdominal pain. (7) Abdominal pain: Abdominal tenderness and referred pain into flank area. Patient was receiving Dilaudid 0.5mg IV but was sedating, will decrease to Dilaudid 0.2mg IV Q4 PRN. Patient does not have renal failure, can switch to Roxanol as patient will be discharged home with Hospice services. Will leave Dilaudid for now, and switch over. History of Present Illness Reason for Consultation: Goals of Care Requesting Physician: Dr. Larson Attending Physician: Lelia Larson MD History of Present Illness This individual is a 60 year old female who presented to the [facility] with weakness, intractable nausea, chest pain, and SOB. 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 She has decided to forgo additional aggressive treatment options related to her cancer due to the unwanted side effects that were debilitating. Over the past month, she has had constant nausea and decreased oral intake. Palliative Medicine was consulted to discuss goals of care and provide symptom management. Please see A/P for further details. Thanks for involving Palliative Medicine with this individual. Allergies Allergy/AdvReac Type Severity Reaction Status Date / Time No Known Allergies Allergy Verified 03/13/21 12:07 Home Medications Medication Instructions Recorded Confirmed Type levocetirizine 5 mg tablet (Xyzal) 5 mg PO DAILY PRN 02/05/20 03/13/21 History albuterol sulfate 90 mcg/actuation 2 puff INHALATION Q6H PRN #1 gm 06/08/20 03/13/21 Rx aerosol inhaler triamcinolone acetonide 55 mcg 2 spray INTRANASAL DAILY PRN 08/15/20 03/13/21 History nasal spray aerosol (Nasacort) apixaban 5 mg tablet (Eliquis) 5 mg PO BID #60 tab 09/27/20 03/13/21 Rx pantoprazole 40 mg tablet,delayed 40 mg PO QAM 03/13/21 03/13/21 History release Patient History Medical History Abdominal pain Bilateral pulmonary embolism Chronic cough Constipation Difficulty swallowing Diverticular disease Esophageal adenocarcinoma s/p chemo/xrt Esophageal stricture s/p dilation GERD (gastroesophageal reflux disease) History of kidney stones passed without intervention Lesion of bladder Low back pain Lung nodule s/p excision Migraine HX Nausea Palliative care encounter Pulmonary embolism CURRENTLY ON ELIQUIS UTI (urinary tract infection) CURRENTLY ON ANTIBIOTIC Weakness Surgical History Basal cell carcinoma of back Basal cell carcinoma of shoulder History of arthroscopy of right knee meniscus repair History of bilateral tubal ligation History of colonoscopy History of dilatation and curettage History of endoscopic sinus surgery History of esophagogastroduodenoscopy (EGD) History of laparoscopy for ectopic History of liver biopsy Dr. Zambrano 05/27/19 hamartoma History of lung surgery right wedge resection upper History of parotid gland excision excision of left side parotid gland for benign tumor History of removal of Port-a-Cath 04/2019 (infected) History of repair of right rotator cuff History of thoracic surgery Robot-assisted laparoscopic/ thoracoscopic assisted esophagogastrectomy with an intrathoracic esophagogastrostomy: 04/22/2019: Grade view 1, MAC#3, ETT 7.0 at [facility] History of vascular access device Insertion of Mediport(Right) 08/15/20 PR Status post Mohs surgery for basal cell carcinoma x2 Family History Grandfather (Maternal) , in her eighties of old age No problems noted. Mother Age: 86 Diabetes Hypertension Father , abd aortic aneurysm at age 80 No problems noted. Brother Age: 61 No problems noted. Sister Age: 59 Stroke, Onset Age: 40 Brother Age: 58 Hypertension Sister Age: 57 Heart disease Hypertension Daughter Age: 42 No problems noted. Son Age: 39 No problems noted. Other No family history of adverse response to anesthesia Denies family history of Lung disease Cancer Asthma Social History Smoking Status: Never smoker Second Hand Exposure: No; Hx Alcohol Use: No Hx Substance Use: Yes Preferred Language: Swedish Communication Ability: Effective Visual Impairment: No Limitations Ginger Farmer Required: No Beliefs That Will Affect Care: None marital status: Current Living Situation: Spouse Feels Safe at Home: Yes Safety Concerns: Feels Safe At This Time Assistive Devices: None Review of Systems Review of Systems: [place] System Assessment Scale: Nausea: 3/3 Pain: 2/3 Lack of Appetite: 1/3 SOB: 0/3 Tiredness: 1/3 Palliative Performance Scale: 30% Physical Exam Constitutional: + ill appearing, + thin, + frail appearing and cooperative Respiratory: normal respiratory effort and + cough Auscultation: + diminished lung sounds Cardiovascular: Heart Sounds: normal S1 and normal S2 Extremities: normal capillary refill; no edema Gastrointestinal (Abdomen): Inspection/Auscultation: abdomen normal to inspection and normal bowel sounds Percussion/Palpation: abdomen soft and + splenomegaly Skin: normal turgor Psychiatric: Orientation: alert and oriented x 3 Insight: good insight Judgement: good judgement Results & Data ([facility]) Vital Signs (Past 12 Hours) Vital Signs Temp Pulse Pulse Resp BP Pulse Ox 03/14/21 10:51 36.6 C 83 20 209/107 H 97 03/14/21 07:21 91 H 03/14/21 07:12 36.7 C 82 20 218/101 H 99 03/14/21 04:13 36.8 C 88 16 197/111 H 97 03/13/21 23:35 36.8 C 91 H 19 193/113 H 99 PG Care Time/CCT Total # of Minutes Spent Total Time Spent with Patient: Total time spent is greater than 50% in coordination of care (as documented) at patient's floor/unit and/or counseling patient: 100 minutes spent assessing the patient, discussing goals of care with the patient and her , addressing and providing symptom management and collaborating with IDT Coding Level of Care Code 06996 Initial Inpt Care Lvl 3 Diagnoses Palliative care encounter Z51.5 Nausea R11.0 Weakness R53.1 Esophageal adenocarcinoma C15.9 Dysphagia R13.10 Constipation K59.00 Abdominal pain R10.9 Time Spent (min) 100
--- NOTE | 2021-03-14 11:25 | Hospitalist Progress Note ---
Date of Service March 14, 2021 Assessment & Plan (1) Vomiting: Plan: Genesis is a 60-year-old female with a medical history of esophageal cancer with metastasis, diverticulosis/diverticulitis, and past PE who presents with weakness, intractable vomiting, nausea, chest pain, and shortness of breath. Intractable nausea/vomiting-likely secondary to metastatic esophageal cancer that is progressing versus gastritis. There is no bowel obstruction. There is a possibility that she could have intracranial lesions, however will not pursue further imaging as it will not change her management and desire to pursue comfort measures only and to go home with hospice. -Change to scheduled IV Zofran, excepting risk of prolonged QT as patient desires comfort and Phenergan is distasteful -Could use IV Compazine if needed Hypokalemia management as below Continue famotidine twice daily Continue IV fluids (2) Abdominal pain: Plan: Abdominal pain, history of diverticulosis/diverticulitis CT:Ab: There is postoperative change from gastroesophageal resection with pull-through. No bowel obstruction is identified. There are least 3 small subcapsular perfusion defects in the spleen that are new from 02/06/2021. The appearance is typical for small splenic infarcts. Small to moderate pleural effusions have increased in size as compared to 02/06/2021. The bladder is distended and appears thick walled and hyperemic. Correlate clinically and with urinalysis for evidence of cystitis. There is fullness of the left renal collecting system with mild urothelial thickening and enhancement involving the left renal pelvis and the left ureter. Ascending urinary tract infection is not excluded. There is progressive retroperitoneal lymphadenopathy as compared to 02/06/2021. Retroperitoneal lymphadenopathy likely occludes the left renal vein which collateralizes via the left gonadal vein. This may also invade the left adrenal gland. There is a small volume of nonspecific free fluid is seen in the pelvis. Advanced colonic diverticulosis without CT evidence of acute diverticulitis. -No signs of obstruction or diverticulitis, no antibiotics indicated at this time Pain likely secondary to esophageal cancer and splenic infarcts -IV Dilaudid as needed with transition to Roxanol upon discharge to home (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 On discussion of goals of care patient and palliative medicine-the decision has been made to pursue symptom control here and transition to home hospice on discharge Received chemo from August to January 2021, patient has decided to forego further chemotherapy treatment Patient is okay with deferring oncology consult at this time, patient does not feel that this would likely change her plan moving forward (4) Bilateral pulmonary embolism: Plan: History of bilateral PE, active cancer - Continue Eliquis - No PE on CTA on admit (5) Acute hypokalemia: Plan: Hypokalemia-persists, secondary to nausea/vomiting, poor p.o. intake Continue to replace potassium and magnesium today at patient's request to help with symptom management -Follow BMP and magnesium in the morning Elevated troponin In setting of volume depletion, acute illness as above, with hypokalemia Trend troponin x3-stable, likely myocardial demand ischemia No chest pain at time of evaluation -No further work-up needed Plan: Disposition-continued stay, but downgrade to medical/surgical floor, plan to discharged home with hospice once symptoms are better controlled and arrangements are made for home care Admission and Anticipated Discharge Date Admission Date: March 13, 2021 Subjective Patient having significant nausea still, and chest and upper abdominal pain. She also has a headache. She is agreeable to getting her symptoms under control and would like to go home with hospice. I discussed her care with palliative medicine. She has some shortness of breath but is not requiring oxygen. Telemetry with normal sinus rhythm with rates in the 70s to 80s. Review of Systems Review of Systems: All systems reviewed & are unremarkable except as noted in HPI & below Physical Exam Constitutional: + cachectic and + underweight Eyes: + anicteric sclerae ENMT: external ear and nose normal, oropharynx normal Neck: trachea midline, no thyromegaly Respiratory: normal respiratory effort Auscultation: + diminished lung sounds (At bases bilaterally); no wheezes Cardiovascular: RRR, no murmur, no edema Chest (Breasts): Chest: normal inspection of chest Gastrointestinal (Abdomen): Inspection/Auscultation: abdomen normal to inspection and normal bowel sounds; abdomen not distended Percussion/Palpation: + abdomen tender (In epigastric and LUQ regions with mild guarding, no rebound tenderness) and abdomen soft Musculoskeletal: Extremities: extremities normal to inspection; no cyanosis and no clubbing Skin: no rashes, warm and dry Neurologic: moves all extremities and awake; no focal motor deficits Psychiatric: Orientation: alert, oriented x 3 and cooperative Affect: + flat affect Lymphatic: no lymphedema Results & Data Results & Data ([facility]) Vital Signs (Past 12 Hours) Vital Signs Temp Pulse Pulse Resp BP Pulse Ox 03/14/21 10:51 36.6 C 83 20 209/107 H 97 03/14/21 07:21 91 H 03/14/21 07:12 36.7 C 82 20 218/101 H 99 03/14/21 04:13 36.8 C 88 16 197/111 H 97 03/13/21 23:35 36.8 C 91 H 19 193/113 H 99 Diagnostic Findings 03/14/21 03/14/21 03/14/21 Range/Units 07:32 07:32 07:32 WBC 8.49 (4.8-10.8) K/uL RBC 2.94 L (4.2-5.4) M/uL Hgb 10.4 L (12.0-16.0) g/dL Hct 28.6 L (37-47) % MCV 97.3 (80-100) fL MCH 35.4 H (25-34) pg MCHC 36.4 H (32-36) g/dL RDW Std Deviation 63.4 H (36.4-46.3) fL RDW Coeff of Mohit 17.7 H (11.5-14.5) % Plt Count 130 (130-400) K/uL MPV 9.9 (7.4-10.4) fL Immature Gran % (Auto) 0.1 % Neut % (Auto) 76.2 % Lymph % (Auto) 10.5 % Faulkner % (Auto) 12.6 % Eos % (Auto) 0.4 % Baso % (Auto) 0.2 % Neut # (Auto) 6.47 (1.4-6.5) K/uL Lymph # (Auto) 0.89 L (1.2-3.4) K/uL Faulkner # (Auto) 1.07 H (0.11-0.59) K/uL Eos # (Auto) 0.03 (0-0.5) K/uL Baso # (Auto) 0.02 (0-0.2) K/uL Immature Gran # (Auto) 0.01 (0.00-0.02) K/uL ESR (0-30) mm/hr PT (9.0-12.0) Seconds INR (0.9-1.1) APTT (21.0-31.0) Seconds PTT Ratio Sodium 129 L (136-145) mmol/L Potassium 2.9 L D (3.5-5.1) mmol/L Chloride 94 L (98-107) mmol/L Carbon Dioxide 26 (21-32) mmol/L Anion Gap 9.0 (3-11) BUN 7 (7-18) mg/dl Creatinine 0.49 L (0.6-1.2) mg/dl Est Cr Clr Drug Dosing 86.8 ml/min Est GFR ( Amer) 121.0 ml/min Est GFR (Non-Af Amer) 104.4 ml/min BUN/Creatinine Ratio 13.8 (10-20) Glucose 138 H (70-99) mg/dl Calcium 8.2 L (8.5-10.1) mg/dl Phosphorus (2.5-4.9) mg/dl Magnesium 1.9 (1.8-2.4) mg/dl Total Bilirubin (0.2-1) mg/dl AST (15-37) U/L ALT (12-78) U/L Alkaline Phosphatase (45-117) U/L Troponin I (0-0.045) ng/ml C-Reactive Protein (0-0.29) mg/dl Total Protein (6.4-8.2) gm/dl Albumin (3.4-5.0) gm/dl Globulin (2.5-4.0) gm/dl Albumin/Globulin Ratio (0.9-2) Lipase (73-393) U/L TSH (0.300-4.500) uIu/ml COVID-19 Eval Order SARS-CoV-2 (PCR) (Negative) 03/14/21 03/14/21 03/13/21 Range/Units 01:56 01:56 20:03 WBC (4.8-10.8) K/uL RBC (4.2-5.4) M/uL Hgb (12.0-16.0) g/dL Hct (37-47) % MCV (80-100) fL MCH (25-34) pg MCHC (32-36) g/dL RDW Std Deviation (36.4-46.3) fL RDW Coeff of Mohit (11.5-14.5) % Plt Count (130-400) K/uL MPV (7.4-10.4) fL Immature Gran % (Auto) % Neut % (Auto) % Lymph % (Auto) % Faulkner % (Auto) % Eos % (Auto) % Baso % (Auto) % Neut # (Auto) (1.4-6.5) K/uL Lymph # (Auto) (1.2-3.4) K/uL Faulkner # (Auto) (0.11-0.59) K/uL Eos # (Auto) (0-0.5) K/uL Baso # (Auto) (0-0.2) K/uL Immature Gran # (Auto) (0.00-0.02) K/uL ESR (0-30) mm/hr PT (9.0-12.0) Seconds INR (0.9-1.1) APTT (21.0-31.0) Seconds PTT Ratio Sodium Cancelled 128 L 128 L (136-145) mmol/L Potassium Cancelled 3.9 D 2.8 L D (3.5-5.1) mmol/L Chloride Cancelled 94 L 92 L (98-107) mmol/L Carbon Dioxide Cancelled 30 29 (21-32) mmol/L Anion Gap Cancelled 4.0 8.0 (3-11) BUN Cancelled 8 9 (7-18) mg/dl Creatinine Cancelled 0.52 L 0.62 (0.6-1.2) mg/dl Est Cr Clr Drug Dosing Cancelled 80.6 67.6 ml/min Est GFR ( Amer) Cancelled 118.7 112.0 ml/min Est GFR (Non-Af Amer) Cancelled 102.4 96.6 ml/min BUN/Creatinine Ratio Cancelled 15.1 14.6 (10-20) Glucose Cancelled 107 H 178 H (70-99) mg/dl Calcium Cancelled 8.5 8.4 L (8.5-10.1) mg/dl Phosphorus (2.5-4.9) mg/dl Magnesium 3.2 H (1.8-2.4) mg/dl Total Bilirubin (0.2-1) mg/dl AST (15-37) U/L ALT (12-78) U/L Alkaline Phosphatase (45-117) U/L Troponin I 0.226 H* 0.244 H* (0-0.045) ng/ml C-Reactive Protein (0-0.29) mg/dl Total Protein (6.4-8.2) gm/dl Albumin (3.4-5.0) gm/dl Globulin (2.5-4.0) gm/dl Albumin/Globulin Ratio (0.9-2) Lipase (73-393) U/L TSH (0.300-4.500) uIu/ml COVID-19 Eval Order SARS-CoV-2 (PCR) (Negative) 03/13/21 03/13/21 03/13/21 Range/Units 15:06 15:06 11:35 WBC (4.8-10.8) K/uL RBC (4.2-5.4) M/uL Hgb (12.0-16.0) g/dL Hct (37-47) % MCV (80-100) fL MCH (25-34) pg MCHC (32-36) g/dL RDW Std Deviation (36.4-46.3) fL RDW Coeff of Mohit (11.5-14.5) % Plt Count (130-400) K/uL MPV (7.4-10.4) fL Immature Gran % (Auto) % Neut % (Auto) % Lymph % (Auto) % Faulkner % (Auto) % Eos % (Auto) % Baso % (Auto) % Neut # (Auto) (1.4-6.5) K/uL Lymph # (Auto) (1.2-3.4) K/uL [place]ner # (Auto) (0.11-0.59) K/uL Eos # (Auto) (0-0.5) K/uL Baso # (Auto) (0-0.2) K/uL Immature Gran # (Auto) (0.00-0.02) K/uL ESR 23 (0-30) mm/hr PT (9.0-12.0) Seconds INR (0.9-1.1) APTT (21.0-31.0) Seconds PTT Ratio Sodium (136-145) mmol/L Potassium (3.5-5.1) mmol/L Chloride (98-107) mmol/L Carbon Dioxide (21-32) mmol/L Anion Gap (3-11) BUN (7-18) mg/dl Creatinine (0.6-1.2) mg/dl Est Cr Clr Drug Dosing ml/min Est GFR ( Amer) ml/min Est GFR (Non-Af Amer) ml/min BUN/Creatinine Ratio (10-20) Glucose (70-99) mg/dl Calcium (8.5-10.1) mg/dl Phosphorus (2.5-4.9) mg/dl Magnesium (1.8-2.4) mg/dl Total Bilirubin (0.2-1) mg/dl AST (15-37) U/L ALT (12-78) U/L Alkaline Phosphatase (45-117) U/L Troponin I (0-0.045) ng/ml C-Reactive Protein (0-0.29) mg/dl Total Protein (6.4-8.2) gm/dl Albumin (3.4-5.0) gm/dl Globulin (2.5-4.0) gm/dl Albumin/Globulin Ratio (0.9-2) Lipase (73-393) U/L TSH (0.300-4.500) uIu/ml COVID-19 Eval Order Covid19 at [facility] SARS-CoV-2 (PCR) NEGATIVE (Negative) 03/13/21 03/13/21 03/13/21 Range/Units 11:35 11:35 11:35 WBC 6.86 (4.8-10.8) K/uL RBC 3.14 L (4.2-5.4) M/uL Hgb 10.7 L (12.0-16.0) g/dL Hct 29.6 L (37-47) % MCV 94.3 (80-100) fL MCH 34.1 H (25-34) pg MCHC 36.1 H (32-36) g/dL RDW Std Deviation 56.4 H (36.4-46.3) fL RDW Coeff of Mohit 16.8 H (11.5-14.5) % Plt Count 128 L (130-400) K/uL MPV 9.7 (7.4-10.4) fL Immature Gran % (Auto) 0.1 % Neut % (Auto) 77.5 % Lymph % (Auto) 14.3 % Faulkner % (Auto) 7.7 % Eos % (Auto) 0.3 % Baso % (Auto) 0.1 % Neut # (Auto) 5.31 (1.4-6.5) K/uL Lymph # (Auto) 0.98 L (1.2-3.4) K/uL Faulkner # (Auto) 0.53 (0.11-0.59) K/uL Eos # (Auto) 0.02 (0-0.5) K/uL Baso # (Auto) 0.01 (0-0.2) K/uL Immature Gran # (Auto) 0.01 (0.00-0.02) K/uL ESR (0-30) mm/hr PT 11.5 (9.0-12.0) Seconds INR 1.1 (0.9-1.1) APTT 33.0 H (21.0-31.0) Seconds PTT Ratio 1.3 Sodium 125 L (136-145) mmol/L Potassium 2.3 L* (3.5-5.1) mmol/L Chloride 88 L (98-107) mmol/L Carbon Dioxide 28 (21-32) mmol/L Anion Gap 9.0 (3-11) BUN 10 (7-18) mg/dl Creatinine 0.53 L (0.6-1.2) mg/dl Est Cr Clr Drug Dosing 80.6 ml/min Est GFR ( Amer) 117.9 ml/min Est GFR (Non-Af Amer) 101.8 ml/min BUN/Creatinine Ratio 18.7 (10-20) Glucose 107 H (70-99) mg/dl Calcium 9.0 (8.5-10.1) mg/dl Phosphorus 3.0 (2.5-4.9) mg/dl Magnesium 1.5 L (1.8-2.4) mg/dl Total Bilirubin 5.6 H (0.2-1) mg/dl AST 53 H (15-37) U/L ALT 25 (12-78) U/L Alkaline Phosphatase 174 H (45-117) U/L Troponin I 0.244 H* (0-0.045) ng/ml C-Reactive Protein 1.15 H (0-0.29) mg/dl Total Protein 6.9 (6.4-8.2) gm/dl Albumin 3.3 L (3.4-5.0) gm/dl Globulin 3.6 (2.5-4.0) gm/dl Albumin/Globulin Ratio 0.9 (0.9-2) Lipase 121 (73-393) U/L TSH 0.998 (0.300-4.500) uIu/ml COVID-19 Eval Order SARS-CoV-2 (PCR) (Negative) PG Care Time/CCT Total # of Minutes Spent Total Time Spent with Patient: Total time spent is greater than 50% in coordination of care (as documented) at patient's floor/unit and/or counseling patient: Coding Level of Care Code 46311 Subseq Hosp Care Lvl 3 Diagnoses Vomiting R11.10 Abdominal pain R10.9 GE junction carcinoma C16.0 Bilateral pulmonary embolism I26.99 Acute hypokalemia E87.6
[2021-03-14] MEDS ORDERED: ACETAMINOPHEN 1000 MG/100 ML IV IV ONE (11:45)
[2021-03-14] MEDS: ONDANSETRON INJ 2 MG/ML 2 ML VIAL IV SCH ×3 (11:57→23:17)
[2021-03-14] MEDS ORDERED: MAGNESIUM SULFATE / D5W 1 GM/100 ML BAG IV ONE (12:00)
[2021-03-14] MEDS: ONDANSETRON 2 MG OD TAB PO PRN ×2 (14:23→20:27)
[2021-03-15] MEDS: ONDANSETRON 2 MG OD TAB PO PRN ×2 (03:19→12:32)
[2021-03-15] MEDS: ONDANSETRON INJ 2 MG/ML 2 ML VIAL IV SCH ×3 (05:13→17:33)
[2021-03-15 07:14] LABS: BUN Creatinine Ratio 8.1 (10-20); Calcium 8.2 mg/dl (8.5-10.1); Creatinine Clr Calc Pharmacy 81.8 ml/min; Est GFR (African American) 118.7 ml/min; Est GFR (Non-African American) 102.4 ml/min; Magnesium 2.1 mg/dl (1.8-2.4); Potassium 3.1 mmol/L (3.5-5.1)
[2021-03-15] MEDS: APIXABAN 5 MG TABLET PO SCH ×2 (08:57→21:48)
[2021-03-15] MEDS: FAMOTIDINE 20 MG in SYRINGE 3 ML IV SCH ×2 (08:57→21:49)
[2021-03-15] MEDS: NSS + 20MEQ KCL 20 MEQ/1,000 ML BAG IV SCH ×2 (08:57→17:32)
[2021-03-15] MEDS: POTASSIUM CHLORIDE / WTR 20 MEQ/100 ML PLCT IV SCH ×3 (11:08→15:56)
--- NOTE | 2021-03-15 12:16 | Palliative Care Progress Note ---
Date of Service March 15, 2021 Assessment & Plan (1) Abdominal pain: Plan: Given crampy nature of pain, we discussed use of anticholinergic medication. Ordered glycopyrrolate 0.2mg Q six hours prn. She has not used hydromorphone due to concerns about constipation. This is a legitimate concern. Discussed dose of bisacodyl prior to using glycopyrrolate but she declined. Continue prn medications. Encouraged her to communicate with nurses when she is uncomfort able. (2) Constipation: Plan: No obstruction on CT from 03/13. Monitor. Consider abdominal flat plate. (3) Nausea: Plan: With esophageal cancer. Continue routine zofran. Add low dose zyprexa ODT daily. (4) Palliative care encounter: Plan: Plan is for home with hospice though she is not stable for discharge at this time from a symptom management standpoint. Discussed with Dr. Larson and with case management. (5) Esophageal adenocarcinoma: Admission and Anticipated Discharge Date Admission Date: March 13, 2021 Subjective Drinking several cups of water a day due to concerns about "getting dried out". Also frequent emesis of clear liquid after drinking. She continues to have nausea and constant abdominal pain which she describes as squeezing, crampy pain. She reports that last BM was a week ago but told RN that she is having liquid stools. She Review of Systems Review of Systems: [place] Symptom Assessment Scale Pain 2/3 Dyspnea 0/3 Anxiety 1/3 Nausea 2/3 Fatigue 2/3 Drowsiness 0/3 Palliative Performance Score 50% Physical Exam Constitutional: + ill appearing and + thin ENMT: Mouth: oral mucous membranes not dry Respiratory: normal respiratory effort; no labored breathing Gastrointestinal (Abdomen): abdomen firm, tender to palpation RLQ Musculoskeletal: Extremities: + muscle atrophy Results & Data ([facility]) Vital Signs (Past 12 Hours) Vital Signs Temp Pulse Resp BP Pulse Ox 03/15/21 07:21 97.5 F L 87 16 179/92 H 100 PG Care Time/CCT Total # of Minutes Spent Total Time Spent: 35 Total Time Spent with Patient: Total time spent is greater than 50% in coordination of care (as documented) at patient's floor/unit and/or counseling patient:symptom management, coordination of care Coding Level of Care Code 69038 Subseq Hosp Care Lvl 3 Diagnoses Abdominal pain R10.9 Constipation K59.00 Nausea R11.0 Palliative care encounter Z51.5 Esophageal adenocarcinoma C15.9
[2021-03-15] MEDS: GLYCOPYRROLATE 0.2 MG/ML VIAL IV PRN (12:32)
--- NOTE | 2021-03-15 15:45 | Hospitalist Progress Note ---
Date of Service March 15, 2021 Assessment & Plan (1) Vomiting: Plan: Genesis is a 60-year-old female with a medical history of esophageal cancer with metastasis, diverticulosis/diverticulitis, and past PE who presents with weakness, intractable vomiting, nausea, chest pain, and shortness of breath. Intractable nausea/vomiting-likely secondary to metastatic esophageal cancer that is progressing versus gastritis and also component of constipation contributing. There is no bowel obstruction on CT scan. There is a possibility that she could have intracranial lesions, however will not pursue further imaging as it will not change her management and desire to pursue comfort measures only and to go home with hospice. -Continue scheduled IV Zofran, excepting risk of prolonged QT as patient desires comfort and Phenergan is distasteful -Could use IV Compazine if needed Hypokalemia management as below Continue famotidine twice daily Continue IV fluids but reduce rate down to 70 mL/h -Bisacodyl suppository as needed-hopefully if bowels get moving, this will also improve nausea -Continue clear liquids only for now until bowels get moving and nausea improves (2) Abdominal pain: Plan: Abdominal pain, diffuse, likely related to combination of constipation, splenic infarcts, enlarging retroperitoneal lymphadenopathy, occlusion of left renal vein CT abdomen/pelvis notes no bowel obstruction, splenic infarcts, small to moderate pleural effusions, distended bladder that is thick-walled and hyperemic, fullness of left renal collecting system with mild urothelial thickening and enhancement involving left renal pelvis left ureter, progressive retroperitoneal lymphadenopathy which likely occludes left renal vein and may invade left adrenal gland, no diverticulitis She is not taking any of the pain medicine Was started on glycopyrrolate by palliative medicine today for intestinal spasms -No signs of obstruction or diverticulitis, no antibiotics indicated at this time -IV Dilaudid as needed with transition to Roxanol upon discharge to home -check UA -Bladder scan to ensure no urinary retention contributing to pain (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 On discussion of goals of care patient and palliative medicine-the decision has been made to pursue symptom control here and transition to home hospice on discharge Received chemo from August to January 2021, patient has decided to forego further chemotherapy treatment Patient is okay with deferring oncology consult at this time, patient does not feel that this would likely change her plan moving forward (4) Bilateral pulmonary embolism: Plan: History of bilateral PE, active cancer - Continue Eliquis - No PE on CTA on admit (5) Acute hypokalemia: Plan: Hypokalemia-persists, secondary to nausea/vomiting, poor p.o. intake Continue to replace potassium and magnesium today at patient's request to help with symptom management -Follow BMP and magnesium in the morning Elevated troponin In setting of volume depletion, acute illness as above, with hypokalemia Trend troponin x3-stable, likely myocardial demand ischemia No chest pain at time of evaluation -No further work-up needed (6) Constipation: Plan: Bisacodyl suppository [place] as above (7) Elevated blood pressure reading without diagnosis of hypertension: Plan: With significantly elevated blood pressures consistently in the 200s over 100s Continue hydralazine as needed Control nausea and pain (8) Pleural effusion: Plan: Mild to moderate bilateral, likely related to hypoalbuminemia and possibly malignant effusions Not requiring oxygen No need for thoracentesis Is mildly dyspneic on exertion (9) Acute hyponatremia: Plan: Sodium remains low at 127 but has been baseline 130 for the last month or so Likely related to dehydration Continue IV fluid hydration Plan: Disposition-continued stay,plan to discharge to home with hospice once symptoms are better controlled and arrangements are made for home care Admission and Anticipated Discharge Date Admission Date: March 13, 2021 Subjective Patient reports continued abdominal pain. She is not passing flatus or stool. Still with nausea but was asking about when she could eat solid foods. She is now agreeable to the bisacodyl suppository. Feels short of breath with walking short distances to the bathroom and back. I discussed her care with palliative medicine. Review of Systems Review of Systems: All systems reviewed & are unremarkable except as noted in HPI & below Physical Exam Constitutional: + cachectic and + underweight Eyes: + anicteric sclerae Neck: trachea midline, no thyromegaly Respiratory: normal respiratory effort Auscultation: + diminished lung sounds (At bases bilaterally); no wheezes Cardiovascular: RRR, no murmur, no edema Chest (Breasts): Chest: normal inspection of chest Gastrointestinal (Abdomen): Inspection/Auscultation: abdomen normal to inspection and + hypoactive bowel sounds; abdomen not distended Percussion/Palpation: + abdomen tender (In epigastric and LUQ regions with mild guarding, no rebound tenderness) and abdomen soft Musculoskeletal: Extremities: extremities normal to inspection; no cyanosis and no clubbing Skin: no rashes, warm and dry Neurologic: moves all extremities and awake; no focal motor deficits Psychiatric: Orientation: alert, oriented x 3 and cooperative Affect: + flat affect Lymphatic: no lymphedema Results & Data Results & Data ([facility]) Vital Signs (Past 12 Hours) Vital Signs Temp Pulse Resp BP Pulse Ox 03/15/21 14:18 36.4 C L 90 16 201/111 H 98 03/15/21 07:21 36.4 C L 87 16 179/92 H 100 Laboratory Results 03/14/21 07:32 03/15/21 06:13 PG Care Time/CCT Total # of Minutes Spent Total Time Spent with Patient: Total time spent is greater than 50% in coordination of care (as documented) at patient's floor/unit and/or counseling patient: Coding Level of Care Code 43771 Subseq Hosp Care Lvl 2 Diagnoses Vomiting R11.10 Abdominal pain R10.9 GE junction carcinoma C16.0 Bilateral pulmonary embolism I26.99 Acute hypokalemia E87.6 Constipation K59.00 Elevated blood pressure reading without diagnosis of hypertension R03.0 Pleural effusion J90 Acute hyponatremia E87.1
[2021-03-15] MEDS: bisacodyL 10 MG SUPP PR PRN (15:54)
[2021-03-15] MEDS: HYDROmorphone INJ 0.5 MG/0.5 ML SYR IV PRN (17:32)
[2021-03-15] MEDS ORDERED: OLANZapine ZYDIS 5 MG ORALLY DIS. TAB PO SCH (21:00)
[2021-03-15] MEDS: hydrALAZINE HCL 20 MG/ML VIAL IV PRN (22:18)
[2021-03-16] MEDS: ONDANSETRON INJ 2 MG/ML 2 ML VIAL IV SCH ×5 (00:21→22:53)
[2021-03-16 01:51] LABS: Appearance Urine Clear (Clear); Bacteria Urine Automated 1+ (Negative); Bilirubin Urine Negative (Negative); Blood Urine 1+ (Negative); Cast Urine Automated 0 /lpf (0-5); Color Urine Yellow; Glucose Urine UA Negative (Negative); Ketones Urine Negative (Negative); Leukocyte Esterase Urine Trace (Negative); Nitrite Urine Negative (Negative); Specific Gravity Urine 1.005 (1.000-1.030); Urobilinogen Urine Positive (Negative); pH Urine 7.5 (4.5-7.5)
[2021-03-16 01:56] LABS: Protein Urine Trace (Negative)
[2021-03-16] MEDS: NSS + 20MEQ KCL 20 MEQ/1,000 ML BAG IV SCH (05:05)
[2021-03-16] MEDS: FAMOTIDINE 20 MG in SYRINGE 3 ML IV SCH ×2 (08:42→20:31)
[2021-03-16] MEDS: hydrALAZINE HCL 20 MG/ML VIAL IV PRN (08:42)
[2021-03-16] MEDS: APIXABAN 5 MG TABLET PO SCH ×2 (08:42→20:30)
[2021-03-16 08:45] LABS: Hematocrit (blood only) 25.9 % (37-47); Mean Corpuscular Hemoglobin 35.2 pg (25-34); Mean Corpuscular Hgb Conc 34.7 g/dL (32-36); Mean Corpuscular Volume 101.2 fL (80-100); RDW Coefficient of Variation 18.6 % (11.5-14.5); RDW Standard Deviation 68.2 fL (36.4-46.3); Red Blood Count 2.56 M/uL (4.2-5.4); White Blood Count 5.81 K/uL (4.8-10.8)
[2021-03-16 09:03] LABS: Mean Platelet Volume 8.9 fL (7.4-10.4); Platelet Count 93 K/uL (130-400)
[2021-03-16 09:07] LABS: Anisocytosis Present; Basophils # (auto) 0.01 K/uL (0-0.2); Basophils % (auto) 0.2 %; Eosinophils # (auto) 0.03 K/uL (0-0.5); Eosinophils % (auto) 0.5 %; Immature Granulocytes # (auto) 0.02 K/uL (0.00-0.02); Immature Granulocytes % (auto) 0.3 %; Lymphocytes # (auto) 0.69 K/uL (1.2-3.4); Lymphocytes % (auto) 11.9 %; Monocytes # (auto) 0.43 K/uL (0.11-0.59); Monocytes % (auto) 7.4 %; Neutrophils # (auto) 4.63 K/uL (1.4-6.5); Neutrophils % (auto) 79.7 %; Platelet Estimate Decreased (Normal); Polychromasia 1+; Schistocytes 1+
[2021-03-16 09:28] LABS: Albumin Level 2.7 gm/dl (3.4-5.0); BUN Creatinine Ratio 5.6 (10-20); Bilirubin,Total 6.1 mg/dl (0.2-1); Calcium 7.9 mg/dl (8.5-10.1); Creatinine Clr Calc Pharmacy 68.6 ml/min; Est GFR (Non-African American) 96.6 ml/min; Globulin 2.8 gm/dl (2.5-4.0); Magnesium 1.1 mg/dl (1.8-2.4); Phosphorus 2.4 mg/dl (2.5-4.9); Potassium 2.5 mmol/L (3.5-5.1); Total Protein 5.5 gm/dl (6.4-8.2)
[2021-03-16] MEDS ORDERED: POTASSIUM PHOS 3 MMOL/1 ML INFUSION IV STA (10:05)
[2021-03-16] MEDS: HYDROmorphone INJ 0.5 MG/0.5 ML SYR IV PRN (10:06)
[2021-03-16] MEDS ORDERED: POTASSIUM PHOSPHATE 9 MMOL in SODIUM CHLORIDE 0.9% 250 ML IV ONE (10:45)
[2021-03-16] MEDS: MAGNESIUM SULFATE / D5W 1 GM/100 ML BAG IV SCH ×4 (11:08→17:08)
[2021-03-16] MEDS: POTASSIUM CHLORIDE / WTR 20 MEQ/100 ML PLCT IV SCH ×3 (11:09→15:58)
[2021-03-16] MEDS: GLYCOPYRROLATE 0.2 MG/ML VIAL IV PRN (13:31)
[2021-03-16] MEDS ORDERED: PROCHLORPERAZINE 5 MG in SYRINGE 4 ML IV PRN (14:28)
--- NOTE | 2021-03-16 14:32 | Hospitalist Progress Note ---
Date of Service March 16, 2021 Assessment & Plan (1) Vomiting: Plan: Genesis is a 60-year-old female with a medical history of esophageal cancer with metastasis, diverticulosis/diverticulitis, and past PE who presents with weakness, intractable vomiting, nausea, chest pain, and shortness of breath. Intractable nausea/vomiting-likely secondary to metastatic esophageal cancer that is progressing versus gastritis and also component of constipation contributing. There is no bowel obstruction on CT scan. There is a possibility that she could have intracranial lesions, however will not pursue further imaging as it will not change her management and desire to pursue comfort measures only and to go home with hospice. Not much improvement with having small bowel movement x2 on 03/15 and 03/16 -Continue scheduled IV Zofran, excepting risk of prolonged QT as patient desires comfort and Phenergan is distasteful -Give one-time dose of olanzapine 2.5 mg now for nausea Hypokalemia management as below Continue famotidine twice daily DC IV fluids -Bisacodyl suppository as needed-she declines to use this again at this time -Patient did request soft diet to try later (2) Abdominal pain: Plan: Abdominal pain, diffuse, likely related to combination of constipation, splenic infarcts, enlarging retroperitoneal lymphadenopathy, occlusion of left renal vein CT abdomen/pelvis notes no bowel obstruction, splenic infarcts, small to moderate pleural effusions, distended bladder that is thick-walled and hyperemic, fullness of left renal collecting system with mild urothelial thickening and enhancement involving left renal pelvis left ureter, progressive retroperitoneal lymphadenopathy which likely occludes left renal vein and may invade left adrenal gland, no diverticulitis IV Dilaudid helping somewhat and glycopyrrolate for intestinal spasms, but still having significant pain UA is abnormal indicating UTI -No signs of obstruction or diverticulitis, no antibiotics indicated at this time -Palliative medicine adding on oxycodone liquid -Treating UTI as below -Bladder scan to ensure no urinary retention contributing to pain (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 On discussion of goals of care patient and palliative medicine-the decision has been made to pursue symptom control here and transition to home hospice on discharge Received chemo from August to January 2021, patient has decided to forego further chemotherapy treatment Patient is okay with deferring oncology consult at this time, patient does not feel that this would likely change her plan moving forward (4) Bilateral pulmonary embolism: Plan: History of bilateral PE, active cancer - Continue Eliquis - No PE on CTA on admit (5) Acute hypokalemia: Plan: Hypokalemia-persists, secondary to nausea/vomiting, poor p.o. intake Continue to replace potassium and magnesium as well as phosphorus -Follow BMP, phosphorus, and magnesium in the morning Elevated troponin In setting of volume depletion, acute illness as above, with hypokalemia Trend troponin x3-stable, likely myocardial demand ischemia No chest pain at time of evaluation -No further work-up needed (6) Constipation: Plan: Bisacodyl suppository [place] as above (7) Elevated blood pressure reading without diagnosis of hypertension: Plan: With significantly elevated blood pressures consistently in the 200s over 100s- persisting Continue hydralazine as needed Control nausea and pain (8) Pleural effusion: Plan: Mild to moderate bilateral, likely related to hypoalbuminemia and possibly malignant effusions Not requiring oxygen No need for thoracentesis Is mildly dyspneic on exertion (9) Acute hyponatremia: Plan: Sodium improved 131 but has been baseline 130 for the last month or so Likely related to dehydration DC IV fluids (10) UTI (urinary tract infection): Plan: Abnormal UA With urothelial thickening on the left on CT scan Start ceftriaxone and transition to oral antibiotics after sensitivity and ID come back and urine culture Plan: Disposition-continued stay,plan to discharge to home with hospice once symptoms are better controlled and arrangements are made for home care-delivery has been made to the home with all equipment necessary cast care with palliative medicine, at bedside Admission and Anticipated Discharge Date Admission Date: March 13, 2021 Subjective Patient was wanting to try solid foods today, but ended up throwing up after her clear liquids breakfast. She continues to have severe nausea and the pain in the epigastric and lower chest region is worse today. She did take some IV Dilaudid which has helped calm the pain down. She continues to feel nausea despite scheduled IV Zofran. She also received glycopyrrolate without much relief. She is laying in the bed with her eyes closed and her best friend, Deanna, is at her bedside stroking her head. Review of Systems Review of Systems: All systems reviewed & are unremarkable except as noted in HPI & below Physical Exam Constitutional: + cachectic and + underweight Eyes: + anicteric sclerae Neck: trachea midline, no thyromegaly Respiratory: normal respiratory effort Auscultation: + diminished lung sounds (At bases bilaterally); no wheezes Cardiovascular: RRR, no murmur, no edema Chest (Breasts): Chest: normal inspection of chest Gastrointestinal (Abdomen): Inspection/Auscultation: abdomen normal to inspection and + hypoactive bowel sounds; abdomen not distended Percussion/Palpation: + abdomen tender (In epigastric and LUQ regions with mild guarding, no rebound tenderness) and abdomen soft Musculoskeletal: Extremities: extremities normal to inspection; no cyanosis and no clubbing Skin: no rashes, warm and dry Neurologic: moves all extremities and awake; no focal motor deficits Psychiatric: Orientation: alert, oriented x 3 and cooperative Affect: + flat affect Lymphatic: no lymphedema Results & Data Results & Data ([facility]) Vital Signs (Past 12 Hours) Vital Signs Temp Pulse Resp BP Pulse Ox 03/16/21 07:32 36.6 C 92 H 16 189/105 H 98 Laboratory Results 03/16/21 03/16/21 03/16/21 Range/Units 08:20 08:20 01:43 WBC 5.81 (4.8-10.8) K/uL RBC 2.56 L (4.2-5.4) M/uL Hgb 9.0 L (12.0-16.0) g/dL Hct 25.9 L (37-47) % MCV 101.2 H (80-100) fL MCH 35.2 H (25-34) pg MCHC 34.7 (32-36) g/dL RDW Std Deviation 68.2 H (36.4-46.3) fL RDW Coeff of Mohit 18.6 H (11.5-14.5) % Plt Count 93 L (130-400) K/uL MPV 8.9 (7.4-10.4) fL Immature Gran % (Auto) 0.3 % Neut % (Auto) 79.7 % Lymph % (Auto) 11.9 % [place] % (Auto) 7.4 % Eos % (Auto) 0.5 % Baso % (Auto) 0.2 % Neut # (Auto) 4.63 (1.4-6.5) K/uL Lymph # (Auto) 0.69 L (1.2-3.4) K/uL [place] # (Auto) 0.43 (0.11-0.59) K/uL Eos # (Auto) 0.03 (0-0.5) K/uL Baso # (Auto) 0.01 (0-0.2) K/uL Immature Gran # (Auto) 0.02 (0.00-0.02) K/uL Platelet Estimate Decreased L (Normal) Polychromasia 1+ Anisocytosis Present Schistocytes 1+ Sodium 131 L (136-145) mmol/L Potassium 2.5 L* D (3.5-5.1) mmol/L Chloride 97 L (98-107) mmol/L Carbon Dioxide 24 (21-32) mmol/L Anion Gap 9.0 (3-11) BUN 4 L (7-18) mg/dl Creatinine 0.62 (0.6-1.2) mg/dl Est Cr Clr Drug Dosing 68.6 ml/min Est GFR ( Amer) 112.0 ml/min Est GFR (Non-Af Amer) 96.6 ml/min BUN/Creatinine Ratio 5.6 L (10-20) Glucose 157 H (70-99) mg/dl Calcium 7.9 L (8.5-10.1) mg/dl Phosphorus 2.4 L (2.5-4.9) mg/dl Magnesium 1.1 L (1.8-2.4) mg/dl Total Bilirubin 6.1 H (0.2-1) mg/dl AST 41 H (15-37) U/L ALT 19 (12-78) U/L Alkaline Phosphatase 146 H (45-117) U/L Total Protein 5.5 L (6.4-8.2) gm/dl Albumin 2.7 L (3.4-5.0) gm/dl Globulin 2.8 (2.5-4.0) gm/dl Albumin/Globulin Ratio 1.0 (0.9-2) Urine Color Yellow Urine Appearance Clear (Clear) Urine pH 7.5 (4.5-7.5) Ur Specific [place] 1.005 (1.000-1.030) Urine Protein Trace H (Negative) Urine Glucose (UA) Negative (Negative) Urine Ketones Negative (Negative) Urine Blood 1+ H (Negative) Urine Nitrite Negative (Negative) Urine Bilirubin Negative (Negative) Urine Urobilinogen Positive H (Negative) Ur Leukocyte Esterase Trace H (Negative) Urine WBC (Auto) 10-30 H (0-5) /hpf Urine RBC (Auto) 5-10 H (0-4) /hpf U Hyaline Cast (Auto) 0 (0-5) /lpf U Epithel Cells (Auto) 10-20 H (0-5) /lpf Urine Bacteria (Auto) 1+ H (Negative) PG Care Time/CCT Total # of Minutes Spent Total Time Spent with Patient: Total time spent is greater than 50% in coordination of care (as documented) at patient's floor/unit and/or counseling patient: Coding Level of Care Code 79053 Subseq Hosp Care Lvl 2 Diagnoses Vomiting R11.10 Abdominal pain R10.9 GE junction carcinoma C16.0 Bilateral pulmonary embolism I26.99 Acute hypokalemia E87.6 Constipation K59.00 Elevated blood pressure reading without diagnosis of hypertension R03.0 Pleural effusion J90 Acute hyponatremia E87.1 UTI (urinary tract infection) N39.0
[2021-03-16] MEDS ORDERED: OLANZapine ZYDIS 5 MG ORALLY DIS. TAB PO ONE (14:39)
--- NOTE | 2021-03-16 14:54 | Palliative Care Progress Note ---
Date of Service March 16, 2021 Assessment & Plan (1) Nausea: Plan: Increase zyprexa to BID. (2) Abdominal pain: Plan: Continue robinul as needed for crampy pain. Discussed regimen for home in antic ipation of discharge home with hospice. She does not want to take tablets which rules out hydromorphone. Will start oxycodone concentrate and monitor. (3) Palliative care encounter: Plan: Genesis provided a copy of her living will which will be scanned into the EMR. She is DNR. Plan is home with hospice when symptoms managed. (4) Esophageal adenocarcinoma: Admission and Anticipated Discharge Date Admission Date: March 13, 2021 Subjective Large emesis today shortly after lunch of undigested food. Continues to have nausea and epigastric pain. Per RN robinul yesterday appeared to be effective. Only partial relief with hydromorphone. Did have moderate BM this morning. Review of Systems Review of Systems: [place] Symptom Assessment Score Pain 3/3 Dyspnea 1/3 Nausea 2/3 Fatigue 1/3 Anxiety 1/3 Drowsiness 0/3 Palliative Performance Score 50% Physical Exam Constitutional: + ill appearing and + thin Respiratory: normal respiratory effort; no labored breathing Cardiovascular: Rate/Rhythm: regular rhythm and + tachycardic Musculoskeletal: Extremities: + muscle atrophy Results & Data ([facility]) Vital Signs (Past 12 Hours) Vital Signs Temp Pulse Resp BP Pulse Ox 03/16/21 07:32 97.9 F 92 H 16 189/105 H 98 PG Care Time/CCT Total # of Minutes Spent Total Time Spent with Patient: Total time spent is greater than 50% in coordination of care (as documented) at patient's floor/unit and/or counseling patient: Coding Level of Care Code 30160 Subseq Hosp Care Lvl 2 Diagnoses Nausea R11.0 Abdominal pain R10.9 Palliative care encounter Z51.5 Esophageal adenocarcinoma C15.9
[2021-03-16] MEDS: OLANZapine ZYDIS 5 MG ORALLY DIS. TAB PO SCH ×2 (15:00→20:30)
[2021-03-16] MEDS: cefTRIAXone SODIUM 1,000 MG in DEXTROSE 5% 50 ML IV SCH (20:31)
[2021-03-16] MEDS: HEPARIN 100 UNIT/ML 5ML FLUSH FLUSH PRN ×2 (21:11→22:53)
[2021-03-17] MEDS: ONDANSETRON INJ 2 MG/ML 2 ML VIAL IV SCH ×4 (05:36→22:29)
[2021-03-17] MEDS: HEPARIN 100 UNIT/ML 5ML FLUSH FLUSH PRN ×3 (05:37→22:50)
[2021-03-17 06:10] LABS: Basophils # (auto) 0.02 K/uL (0-0.2); Basophils % (auto) 0.3 %; Eosinophils # (auto) 0.05 K/uL (0-0.5); Eosinophils % (auto) 0.7 %; Hematocrit (blood only) 26.4 % (37-47); Hemoglobin 9.3 g/dL (12.0-16.0); Immature Granulocytes # (auto) 0.02 K/uL (0.00-0.02); Immature Granulocytes % (auto) 0.3 %; Lymphocytes % (auto) 10.1 %; Mean Corpuscular Hemoglobin 35.9 pg (25-34); Mean Corpuscular Hgb Conc 35.2 g/dL (32-36); Mean Corpuscular Volume 101.9 fL (80-100); Mean Platelet Volume 9.9 fL (7.4-10.4); Monocytes # (auto) 0.64 K/uL (0.11-0.59); Monocytes % (auto) 9.3 %; Neutrophils # (auto) 5.48 K/uL (1.4-6.5); Neutrophils % (auto) 79.3 %; Platelet Count 107 K/uL (130-400); RDW Coefficient of Variation 18.8 % (11.5-14.5); RDW Standard Deviation 69.6 fL (36.4-46.3); Red Blood Count 2.59 M/uL (4.2-5.4); White Blood Count 6.91 K/uL (4.8-10.8)
[2021-03-17 06:38] LABS: BUN Creatinine Ratio 6.1 (10-20); Calcium 8.1 mg/dl (8.5-10.1); Creatinine Clr Calc Pharmacy 66.5 ml/min; Est GFR (African American) 110.8 ml/min; Est GFR (Non-African American) 95.6 ml/min; Magnesium 2.5 mg/dl (1.8-2.4); Phosphorus 3.1 mg/dl (2.5-4.9); Potassium 3.2 mmol/L (3.5-5.1)
[2021-03-17] MEDS: OLANZapine ZYDIS 5 MG ORALLY DIS. TAB PO SCH ×2 (09:03→22:22)
[2021-03-17] MEDS: APIXABAN 5 MG TABLET PO SCH ×2 (09:04→22:23)
--- NOTE | 2021-03-17 10:21 | Palliative Care Progress Note ---
Date of Service March 17, 2021 Assessment & Plan (1) Abdominal pain: Plan: Given multiple sedating medications, her concerns about constipation and drowsiness today, continue oxycodone prn. (2) Nausea: Plan: Seems improved this morning, tolerating breakfast. Monitor on zofran and zyprexa (3) Palliative care encounter: Plan: Plan for discharge to home with hospice. She tells me that she does not feel ready "maybe tomorrow". (4) Esophageal adenocarcinoma: Admission and Anticipated Discharge Date Admission Date: March 13, 2021 Subjective Drowsy this morning. She tells me that she had emesis early this morning and then was able to eat soft foods for breakfast. Denies nausea at this time. Does have some epigastric pain but declined pain medication. No prn opioid use since yesterday. Review of Systems Review of Systems: [place] Symptom Assessment Scale Pain 1/3 Dyspnea 0/3 Nausea 0/3 Fatigue 2/3 Anxiety 0/3 Drowsiness 1/3 Palliative Performance Score 30% Physical Exam Constitutional: no acute distress Respiratory: normal respiratory effort; no labored breathing Gastrointestinal (Abdomen): epigastric tenderness Musculoskeletal: Extremities: + muscle atrophy Neurologic: no focal motor deficits and not confused Results & Data ([facility]) Vital Signs (Past 12 Hours) Vital Signs Temp Pulse Resp BP Pulse Ox 03/17/21 07:18 98.4 F 93 H 16 161/84 H 91 PG Care Time/CCT Total # of Minutes Spent Total Time Spent with Patient: Total time spent is greater than 50% in coordination of care (as documented) at patient's floor/unit and/or counseling patient: Coding Level of Care Code 01364 Subseq Hosp Care Lvl 2 Diagnoses Abdominal pain R10.9 Nausea R11.0 Palliative care encounter Z51.5 Esophageal adenocarcinoma C15.9
[2021-03-17] MEDS: cefTRIAXone SODIUM 1,000 MG in DEXTROSE 5% 50 ML IV SCH (11:40)
[2021-03-17] MEDS: HYDROmorphone INJ 0.5 MG/0.5 ML SYR IV PRN ×2 (12:22→18:16)
[2021-03-17] MEDS: FAMOTIDINE 20 MG in SYRINGE 3 ML IV SCH ×2 (12:22→22:22)
[2021-03-17] MEDS: POTASSIUM CHLORIDE / WTR 20 MEQ/100 ML PLCT IV SCH ×2 (12:23→14:53)
--- NOTE | 2021-03-17 17:05 | Hospitalist Progress Note ---
Date of Service March 17, 2021 Assessment & Plan (1) Vomiting: Plan: Genesis is a 60-year-old female with a medical history of esophageal cancer with metastasis, diverticulosis/diverticulitis, and past PE who presents with weakness, intractable vomiting, nausea, chest pain, and shortness of breath. Intractable nausea/vomiting-likely secondary to metastatic esophageal cancer that is progressing versus gastritis and also component of constipation contributing. There is no bowel obstruction on CT scan. There is a possibility that she could have intracranial lesions, however will not pursue further imaging as it will not change her management and desire to pursue comfort measures only and to go home with hospice. Not much improvement with having small bowel movement x2 on 03/15 and 03/16, but slightly improved nausea today with increased dose of olanzapine Is tolerating some soft foods today -Continue scheduled IV Zofran, excepting risk of prolonged QT as patient desires comfort and Phenergan is distasteful Continue olanzapine 2.5 mg p.o. twice daily Hypokalemia management as below Continue famotidine twice daily -Bisacodyl suppository as needed-give another dose today (2) Abdominal pain: Plan: Abdominal pain, diffuse, likely related to combination of constipation, splenic infarcts, enlarging retroperitoneal lymphadenopathy, occlusion of left renal vein CT abdomen/pelvis notes no bowel obstruction, splenic infarcts, small to moderate pleural effusions, distended bladder that is thick-walled and hyperemic, fullness of left renal collecting system with mild urothelial thicke ashley and enhancement involving left renal pelvis left ureter, progressive retroperitoneal lymphadenopathy which likely occludes left renal vein and may invade left adrenal gland, no diverticulitis IV Dilaudid helping now that she is taking more frequently, but encouraged use of p.o. 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 On discussion of goals of care patient and palliative medicine-the decision has been made to pursue symptom control here and transition to home hospice on discharge Received chemo from August to January 2021, patient has decided to forego further chemotherapy treatment Patient is okay with deferring oncology consult at this time, patient does not feel that this would likely change her plan moving forward (4) Bilateral pulmonary embolism: Plan: History of bilateral PE, active cancer - Continue Eliquis - No PE on CTA on admit (5) Acute hypokalemia: Plan: Hypokalemia-persists but improving today with replacement, secondary to nausea/vomiting, poor p.o. intake Continue to replace potassium and magnesium as well as phosphorus -Follow BMP, phosphorus, and magnesium in the morning Elevated troponin In setting of volume depletion, acute illness as above, with hypokalemia Trend troponin x3-stable, likely myocardial demand ischemia No chest pain at time of evaluation -No further work-up needed (6) Constipation: Plan: Bisacodyl suppository DC as above (7) Elevated blood pressure reading without diagnosis of hypertension: Plan: With significantly elevated blood pressures consistently in the 200s over 100s- persisting but now improving Continue hydralazine as needed Control nausea and pain (8) Pleural effusion: Plan: Mild to moderate bilateral, likely related to hypoalbuminemia and possibly malignant effusions Not requiring oxygen No need for thoracentesis Is mildly dyspneic on exertion (9) Acute hyponatremia: Plan: Sodium improved to 133 but has been baseline 130 for the last month or so Likely related to dehydration Have since discontinued the IV fluids (10) UTI (urinary tract infection): Plan: Abnormal UA With urothelial thickening on the left on CT scan Continue ceftriaxone and transition to oral antibiotics after sensitivity and ID come back and urine culture Plan: Disposition-continued stay,plan to discharge to home with hospice once symptoms are better controlled and arrangements are made for home care-delivery has been made to the home with all equipment necessary cast care with palliative medicine, at bedside. Possibly discharged home in the next 1 to 2 days Admission and Anticipated Discharge Date Admission Date: March 13, 2021 Subjective Patient did vomit one time today but was able to keep some solid foods down since then. Pain is much improved control today. Encouraged her to use the pain medicine. Has not moved her bowels again in 2 days and is willing to try the suppository again. Review of Systems Review of Systems: All systems reviewed & are unremarkable except as noted in HPI & below Physical Exam Constitutional: + cachectic and + underweight Eyes: + anicteric sclerae Neck: trachea midline, no thyromegaly Respiratory: normal respiratory effort Auscultation: + diminished lung sounds (At bases bilaterally); no wheezes Cardiovascular: RRR, no murmur, no edema Chest (Breasts): Chest: normal inspection of chest Gastrointestinal (Abdomen): Inspection/Auscultation: abdomen normal to inspection and + hypoactive bowel sounds; abdomen not distended Percussion/Palpation: + abdomen tender (In epigastric and LUQ regions with mild guarding, no rebound tenderness) and abdomen soft Musculoskeletal: Extremities: extremities normal to inspection; no cyanosis and no clubbing Skin: no rashes, warm and dry Neurologic: moves all extremities and awake; no focal motor deficits Psychiatric: Orientation: alert, oriented x 3 and cooperative Affect: + flat affect Lymphatic: no lymphedema Results & Data Results & Data ([facility]) Vital Signs (Past 12 Hours) Vital Signs Temp Pulse Pulse Resp BP Pulse Ox 03/17/21 15:09 36.7 C 97 H 19 160/60 H 91 03/17/21 07:18 36.9 C 93 H 16 161/84 H 91 Laboratory Results 03/17/21 03/17/21 Range/Units 05:48 05:48 WBC 6.91 (4.8-10.8) K/uL RBC 2.59 L (4.2-5.4) M/uL Hgb 9.3 L (12.0-16.0) g/dL Hct 26.4 L (37-47) % MCV 101.9 H (80-100) fL MCH 35.9 H (25-34) pg MCHC 35.2 (32-36) g/dL RDW Std Deviation 69.6 H (36.4-46.3) fL RDW Coeff of Mohit 18.8 H (11.5-14.5) % Plt Count 107 L (130-400) K/uL MPV 9.9 (7.4-10.4) fL Immature Gran % (Auto) 0.3 % Neut % (Auto) 79.3 % Lymph % (Auto) 10.1 % Gregg % (Auto) 9.3 % Eos % (Auto) 0.7 % Baso % (Auto) 0.3 % Neut # (Auto) 5.48 (1.4-6.5) K/uL Lymph # (Auto) 0.70 L (1.2-3.4) K/uL Gregg # (Auto) 0.64 H (0.11-0.59) K/uL Eos # (Auto) 0.05 (0-0.5) K/uL Baso # (Auto) 0.02 (0-0.2) K/uL Immature Gran # (Auto) 0.02 (0.00-0.02) K/uL Sodium 133 L (136-145) mmol/L Potassium 3.2 L D (3.5-5.1) mmol/L Chloride 100 (98-107) mmol/L Carbon Dioxide 26 (21-32) mmol/L Anion Gap 7.0 (3-11) BUN 4 L (7-18) mg/dl Creatinine 0.64 (0.6-1.2) mg/dl Est Cr Clr Drug Dosing 66.5 ml/min Est GFR ( Amer) 110.8 ml/min Est GFR (Non-Af Amer) 95.6 ml/min BUN/Creatinine Ratio 6.1 L (10-20) Glucose 97 (70-99) mg/dl Calcium 8.1 L (8.5-10.1) mg/dl Phosphorus 3.1 (2.5-4.9) mg/dl Magnesium 2.5 H (1.8-2.4) mg/dl PG Care Time/CCT Total # of Minutes Spent Total Time Spent with Patient: Total time spent is greater than 50% in coordination of care (as documented) at patient's floor/unit and/or counseling patient: Coding Level of Care Code 28614 Subseq Hosp Care Lvl 2 Diagnoses Vomiting R11.10 Abdominal pain R10.9 GE junction carcinoma C16.0 Bilateral pulmonary embolism I26.99 Acute hypokalemia E87.6 Constipation K59.00 Elevated blood pressure reading without diagnosis of hypertension R03.0 Pleural effusion J90 Acute hyponatremia E87.1 UTI (urinary tract infection) N39.0
[2021-03-17] MEDS ORDERED: GADOBUTROL 65ML VIAL IV ONE (21:48)
[2021-03-17] MEDS: hydrALAZINE HCL 20 MG/ML VIAL IV PRN (22:50)
[2021-03-18] MEDS: HEPARIN 100 UNIT/ML 5ML FLUSH FLUSH PRN ×2 (05:21→06:10)
[2021-03-18] MEDS: ONDANSETRON INJ 2 MG/ML 2 ML VIAL IV SCH ×2 (05:21→15:08)
[2021-03-18 07:24] LABS: BUN Creatinine Ratio 8.4 (10-20); Calcium 8.1 mg/dl (8.5-10.1); Creatinine Clr Calc Pharmacy 64.5 ml/min; Est GFR (African American) 109.7 ml/min; Est GFR (Non-African American) 94.7 ml/min; Magnesium 2.1 mg/dl (1.8-2.4); Phosphorus 3.4 mg/dl (2.5-4.9); Potassium 2.9 mmol/L (3.5-5.1)
[2021-03-18] MEDS: bisacodyL 10 MG SUPP PR PRN (08:07)
--- NOTE | 2021-03-18 09:22 | Magnetic Resonance Report ---
Brain MRI WITH AND WITHOUT CONTRAST HISTORY: left arm weakness, evaluate for brain mets TECHNIQUE: Multiplanar multisequence MRI of the brain was performed both before and after the intrave nous administration of contrast. COMPARISON STUDY: Head CT 10/01/2019. FINDINGS: No areas of restricted diffusion to suggest acute infarction. The midline structures are in tact. The ventricles and sulci are within normal limits. Near-complete opacification of the right sph enoid sinus. There is a small retention cyst within the left maxillary sinus. The mastoid air cells a re clear. The major vascular flow-voids at the skull base are well-maintained. Scattered foci of T2 h yperintensity seen within the periventricular and subcortical white matter of the supratentorial brai n are nonspecific but favor mild microvascular ischemic change. Postcontrast sequences show no areas of abnormal enhancement. There are additional multifocal areas of T2 hyperintensity seen within the p ons, cerebellar hemisphere, and occipital lobes. This is nonspecific but could be seen in the setting of posterior reversible encephalopathy syndrome. IMPRESSION: 1. No acute infarct. 2. Scattered patchy areas of increased T2 signal within the posterior occipital lobes, lesly, and cere bellar hemispheres. This likely represents posterior reversible encephalopathy syndrome. 3. No evidence for metastatic disease. ACT 112: Negative or not required by law. Electronically signed by: Roger Baldwin M.D. 03/18/2021 9:21 AM
[2021-03-18] MEDS ORDERED: cloNIDine HCL 0.1 MG/24 HR TRANSDERM SYS TD SCH (10:45)
[2021-03-18] MEDS: cefTRIAXone SODIUM 1,000 MG in DEXTROSE 5% 50 ML IV SCH (11:53)
[2021-03-18] MEDS: POTASSIUM CHLORIDE / WTR 20 MEQ/100 ML PLCT IV SCH ×4 (11:53→17:58)
[2021-03-18] MEDS: APIXABAN 5 MG TABLET PO SCH ×2 (13:04→21:00)
[2021-03-18] MEDS: OLANZapine ZYDIS 5 MG ORALLY DIS. TAB PO SCH ×2 (13:04→21:01)
--- NOTE | 2021-03-18 13:08 | Hospitalist Progress Note ---
Date of Service March 18, 2021 Assessment & Plan (1) Vomiting: Plan: Genesis is a 60-year-old female with a medical history of esophageal cancer with metastasis, diverticulosis/diverticulitis, and past PE who presents with weakness, intractable vomiting, nausea, chest pain, and shortness of breath. Intractable nausea/vomiting-likely secondary to metastatic esophageal cancer that is progressing versus gastritis and also component of constipation contributing. Now found ot have PRES as well as below. There is no bowel obstruction on CT scan. Not much improvement with having small bowel movement x2 on 03/15 and 03/16, but slightly improved nausea sinceh increased dose of olanzapine Still vomits daily Pain in abdomen slightly improved today -Continue scheduled Zofran but hcnage to po in prep for going home Continue olanzapine 2.5 mg p.o. twice daily Hypokalemia management as below Continue famotidine twice daily -Bisacodyl suppository as needed-give another dose today -managing BP as below (2) PRES (posterior reversible encephalopathy syndrome): Plan: Presented with intractable N/V, headache, elevated BPs. Had an episode of LUE transient weakness on evening of 03/17 at which time I assessed her. Brain MRI no CVA or brain mets, but findings c/w PRES -will dc IV hydralazine as is short acting and start clonidine patch 0.1mg qweek and nifedipine 30mg po daily for vasodilation restart IVFs for dehydration to prevent worsening of PRES syndrome once nifedipine started -likely secondary to chemotherapy agent or perhaps some sort of paraneoplastic syndrome? (3) Elevated blood pressure reading without diagnosis of hypertension: Plan: With significantly elevated blood pressures consistently in the 200s over 100s- persisting but now improving see PRES (4) Abdominal pain: Plan: Abdominal pain, diffuse, likely related to combination of constipation, splenic infarcts, enlarging retroperitoneal lymphadenopathy, occlusion of left renal vein CT abdomen/pelvis notes no bowel obstruction, splenic infarcts, small to moderate pleural effusions, distended bladder that is thick-walled and hyperemic, fullness of left renal collecting system with mild urothelial thickening and enhancement involving left renal pelvis left ureter, progressive retroperitoneal lymphadenopathy which likely occludes left renal vein and may invade left adrenal gland, no diverticulitis IV Dilaudid helping now that she is taking more frequently, but encouraged use of p.o. oxycodone so that we can see if it helps before she goes home Continue glycopyrrolate for intestinal spasms UA is abnormal indicating UTI Pain is improved today down to a 2/10 Discussed with RN about using oxycodone prn instead of DIlaudid to see if will control pain in prep for going home -No signs of obstruction or diverticulitis on imaging -Continue oxycodone liquid -Treating UTI as below -Bladder scan to ensure no urinary retention contributing to pain (5) GE junction carcinoma: Plan: History of metastatic esophageal cancer On discussion of goals of care patient and palliative medicine-the decision has been made to pursue symptom control here and transition to home hospice on discharge Received chemo from August to January 2021, patient has decided to forego further chemotherapy treatment Patient is okay with deferring oncology consult at this time, patient does not feel that this would likely change her plan moving forward (6) Bilateral pulmonary embolism: Plan: History of bilateral PE, active cancer - Continue Eliquis - No PE on CTA on admit (7) Acute hypokalemia: Plan: Hypokalemia-persists today, secondary to nausea/vomiting, poor p.o. intake Continue to replace potassium and magnesium as well as phosphorus -Follow BMP, phosphorus, and magnesium in the morning Elevated troponin In setting of volume depletion, acute illness as above, with hypokalemia Trend troponin x3-stable, likely myocardial demand ischemia No chest pain at time of evaluation -No further work-up needed (8) Constipation: Plan: Bisacodyl suppository GA as above (9) Pleural effusion: Plan: Mild to moderate bilateral, likely related to hypoalbuminemia and possibly malignant effusions Not requiring oxygen No need for thoracentesis Is mildly dyspneic on exertion (10) Acute hyponatremia: Plan: stable at 130-133 but has been baseline 130 for the last month or so Likely related to dehydration Have since discontinued the IV fluids but restarting today as above (11) UTI (urinary tract infection): Plan: Abnormal UA With urothelial thickening on the left on CT scan Continue ceftriaxone and transition to oral antibiotics after sensitivity and ID come back and urine culture Plan: Disposition-continued stay,plan to discharge to home with hospice once symptoms are better controlled and arrangements are made for home care-delivery has been made to the home with all equipment necessary cast care with palliative medicine, at bedside. Possibly discharged home in the next 1 to 2 days Admission and Anticipated Discharge Date Admission Date: March 13, 2021 Subjective Feeling slightly better today. Ate eggs and toast for breakfast and then vomited it up. till with abd pain but is a 2/10 in severity. Still remains with dull headache across front and in back. BPs remain elevated. Reviewed MRI brain results with her. She is ambulating a bit better today as per nursing No BM yet but took another rectal suppository today Review of Systems Review of Systems: All systems reviewed & are unremarkable except as noted in HPI & below Physical Exam Constitutional: + cachectic and + underweight Eyes: + anicteric sclerae Neck: trachea midline, no thyromegaly Respiratory: normal respiratory effort Auscultation: + diminished lung jumana nds (At bases bilaterally); no wheezes Cardiovascular: RRR, no murmur, no edema Chest (Breasts): Chest: normal inspection of chest Gastrointestinal (Abdomen): Inspection/Auscultation: abdomen normal to inspection and + hypoactive bowel sounds; abdomen not distended Percussion/Palpation: + abdomen tender (mild, diffuse but improved from previous) and abdomen soft Musculoskeletal: Extremities: extremities normal to inspection; no cyanosis and no clubbing Skin: no rashes, warm and dry Neurologic: moves all extremities and awake; no focal motor deficits Psychiatric: Orientation: alert, oriented x 3 and cooperative Lymphatic: no lymphedema Results & Data Results & Data ([facility]) Vital Signs (Past 12 Hours) Vital Signs Temp Pulse Resp BP Pulse Ox 03/18/21 07:07 37 C 92 H 16 179/92 H 95 Laboratory Results 03/18/21 Range/Units 06:03 Sodium 130 L (136-145) mmol/L Potassium 2.9 L (3.5-5.1) mmol/L Chloride 98 (98-107) mmol/L Carbon Dioxide 23 (21-32) mmol/L Anion Gap 9.0 (3-11) BUN 6 L (7-18) mg/dl Creatinine 0.66 (0.6-1.2) mg/dl Est Cr Clr Drug Dosing 64.5 ml/min Est GFR ( Amer) 109.7 ml/min Est GFR (Non-Af Amer) 94.7 ml/min BUN/Creatinine Ratio 8.4 L (10-20) Glucose 153 H (70-99) mg/dl Calcium 8.1 L (8.5-10.1) mg/dl Phosphorus 3.4 (2.5-4.9) mg/dl Magnesium 2.1 (1.8-2.4) mg/dl PG Care Time/CCT Total # of Minutes Spent Total Time Spent with Patient: Total time spent is greater than 50% in coordination of care (as documented) at patient's floor/unit and/or counseling patient: Coding Level of Care Code 66137 Subseq Hosp Care Lvl 3 Diagnoses Vomiting R11.10 Abdominal pain R10.9 GE junction carcinoma C16.0 Bilateral pulmonary embolism I26.99 Acute hypokalemia E87.6 Constipation K59.00 Elevated blood pressure reading without diagnosis of hypertension R03.0 Pleural effusion J90 Acute hyponatremia E87.1 UTI (urinary tract infection) N39.0 PRES (posterior reversible encephalopathy syndrome) I67.83
[2021-03-18] MEDS: ONDANSETRON 4 MG OD TAB PO SCH ×2 (14:28→19:39)
[2021-03-18] MEDS: FAMOTIDINE 20 MG in SYRINGE 3 ML IV SCH ×2 (14:52→21:00)
[2021-03-18] MEDS: SODIUM CHLORIDE 0.9% 1000ML 1,000 ML IV SCH (16:02)
[2021-03-18] MEDS: CHECK CLONIDINE PATCH PLACEMENT SCH (16:03)
[2021-03-18] MEDS: NIFEdipine EXTENDED REL 30 MG TABCR PO SCH (16:04)
[2021-03-19] MEDS: ONDANSETRON 4 MG OD TAB PO SCH ×5 (01:24→23:54)
[2021-03-19] MEDS: CHECK CLONIDINE PATCH PLACEMENT SCH ×4 (01:24→23:20)
[2021-03-19] MEDS: SODIUM CHLORIDE 0.9% 1000ML 1,000 ML IV SCH ×2 (01:25→18:07)
[2021-03-19 07:08] LABS: BUN Creatinine Ratio 7.4 (10-20); Calcium 8.3 mg/dl (8.5-10.1); Creatinine Clr Calc Pharmacy 90.5 ml/min; Est GFR (African American) 122.7 ml/min; Est GFR (Non-African American) 105.9 ml/min; Magnesium 1.7 mg/dl (1.8-2.4); Potassium 3.1 mmol/L (3.5-5.1)
[2021-03-19] MEDS ORDERED: MAGNESIUM SULFATE / D5W 1 GM/100 ML BAG IV ONE (09:40)
[2021-03-19] MEDS: OLANZapine ZYDIS 5 MG ORALLY DIS. TAB PO SCH ×2 (10:44→20:06)
[2021-03-19] MEDS: NIFEdipine EXTENDED REL 30 MG TABCR PO SCH (10:44)
[2021-03-19] MEDS: APIXABAN 5 MG TABLET PO SCH ×2 (10:45→20:06)
[2021-03-19] MEDS: FAMOTIDINE 20 MG in SYRINGE 3 ML IV SCH ×2 (10:46→20:10)
[2021-03-19] MEDS: cefTRIAXone SODIUM 1,000 MG in DEXTROSE 5% 50 ML IV SCH (10:47)
[2021-03-19] MEDS: POTASSIUM CHLORIDE / WTR 20 MEQ/100 ML PLCT IV SCH ×2 (10:48→12:49)
[2021-03-19] MEDS ORDERED: bisacodyL 5 MG TABEC PO ONE ×2 (14:41→14:43)
[2021-03-19] MEDS ORDERED: bisacodyL 5 MG TABEC PO PRN (15:01)
--- NOTE | 2021-03-19 15:05 | Hospitalist Progress Note ---
Date of Service March 19, 2021 Assessment & Plan (1) Vomiting: Plan: Genesis is a 60-year-old female with a medical history of esophageal cancer with metastasis, diverticulosis/diverticulitis, and past PE who presents with weakness, intractable vomiting, nausea, chest pain, and shortness of breath. Intractable nausea/vomiting-likely secondary to metastatic esophageal cancer that is progressing versus gastritis and also component of constipation contributing. Now found to have PRES as well as below. There is no bowel obstruction on CT scan. Not much improvement with having small bowel movement x2 on 03/15 and 03/16, but improved nausea with starting olanzapine and is on scheduled oral Zofran Still vomits daily but not as much today Pain in abdomen fairly well controlled and she really minimizes trying to take pain medicine -Continue scheduled Zofran p.o. Continue olanzapine 2.5 mg p.o. twice daily Hypokalemia management as below Continue famotidine twice daily -Bisacodyl suppository as needed-patient requests oral bisacodyl today for constipation -managing BP as below (2) PRES (posterior reversible encephalopathy syndrome): Plan: Presented with intractable N/V, headache, elevated BPs. Had an episode of LUE transient weakness on evening of 03/17 at which time I assessed her and obtained brain MRI. Brain MRI no CVA or brain mets, but findings c/w PRES syndrome -Started clonidine patch 0.1mg qweek and nifedipine 30mg po daily for vasodilation-blood pressure is significantly improved on 03/20 Symptoms of nausea and headache also improved and no further focal neurological deficits Continue IVFs for dehydration to prevent worsening of PRES syndrome once nifedipine/vasodilation started -likely secondary to chemotherapy agent or perhaps some sort of paraneoplastic syndrome? (3) Elevated blood pressure reading without diagnosis of hypertension: Plan: With significantly elevated blood pressures consistently in the 200s over 100s- persisting but now improving after starting nifedipine and clonidine patch see PRES (4) Abdominal pain: Plan: Abdominal pain, diffuse, likely related to combination of constipation, splenic infarcts, enlarging retroperitoneal lymphadenopathy, occlusion of left renal vein CT abdomen/pelvis notes no bowel obstruction, splenic infarcts, small to moderate pleural effusions, distended bladder that is thick-walled and hyperemic, fullness of left renal collecting system with mild urothelial thickening and enhancement involving left renal pelvis left ureter, progressive retroperitoneal lymphadenopathy which likely occludes left renal vein and may invade left adrenal gland, no diverticulitis IV Dilaudid helping now that she is taking more frequently, but encouraged use of p.o. 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 On discussion of goals of care patient and palliative medicine-the decision has been made to pursue symptom control here and transition to home hospice on discharge Received chemo from August to January 2021, patient has decided to forego further chemotherapy treatment Patient is okay with deferring oncology consult at this time, patient does not feel that this would likely change her plan moving forward (6) Bilateral pulmonary embolism: Plan: History of bilateral PE, active cancer - Continue Eliquis - No PE on CTA on admit (7) Acute hypokalemia: Plan: Hypokalemia-persists today, secondary to nausea/vomiting, poor p.o. intake Continue to replace potassium and magnesium as well as phosphorus at patient's request until time for discharge to home on hospice -Follow BMP, phosphorus, and magnesium in the morning Elevated troponin In setting of volume depletion, acute illness as above, with hypokalemia Trend troponin x3-stable, likely myocardial demand ischemia No chest pain at time of evaluation -No further work-up needed (8) Constipation: Plan: Bisacodyl suppository [place] as above Give bisacodyl 5 mg p.o. x1 today (9) Pleural effusion: Plan: Mild to moderate bilateral, likely related to hypoalbuminemia and possibly malignant effusions Not requiring oxygen and no respiratory distress No need for thoracentesis Is mildly dyspneic on exertion (10) Acute hyponatremia: Plan: stable at 130-133 but has been baseline 130 for the last month or so Likely related to dehydration Receiving IV fluids (11) UTI (urinary tract infection): Plan: Abnormal UA Urine culture growing pansensitive E. coli and coagulase-negative Staphylococcus resistant to oxacillin With urothelial thickening on the left on CT scan Has received 4 days of ceftriaxone-we will now discontinue Plan: Disposition-continued stay,plan to discharge to home with hospice once symptoms are better controlled and arrangements are made for home care-delivery has been made to the home with all equipment necessary cast care with palliative medicine. Possibly discharge to home in the next 1 to 2 days Appreciate palliative care consultation Admission and Anticipated Discharge Date Admission Date: March 13, 2021 Subjective Patient reports feeling better today in some ways. Her headache is much improved and is down to a very dull ache in the front and posteriorly. Blood pressures are much improved. Her nausea is controlled with oral Zofran. She has not taken anything for pain all day but is willing to try the oral oxycodone as the abdominal pain is building up currently. She asks how long I think she has to live and we discussed that it could be likely 3 months at the most, but when she goes home and is not receiving artif icial electrolytes and hydration, it could be sooner than that. She is accepting of this. Her son is at the bedside with her for support. Still no bowel movement and she is asking for oral Dulcolax. Review of Systems Review of Systems: All systems reviewed & are unremarkable except as noted in HPI & below Physical Exam Constitutional: + cachectic and + underweight Eyes: + anicteric sclerae Neck: trachea midline, no thyromegaly Respiratory: normal respiratory effort Auscultation: + diminished lung sounds (At bases bilaterally); no wheezes Cardiovascular: RRR, no murmur, no edema Chest (Breasts): Chest: normal inspection of chest Gastrointestinal (Abdomen): Inspection/Auscultation: abdomen normal to inspection and + hypoactive bowel sounds; abdomen not distended Percu ssion/Palpation: + abdomen tender (mild, diffuse but improved from previous) and abdomen soft Musculoskeletal: Extremities: extremities normal to inspection; no cyanosis and no clubbing Skin: no rashes, warm and dry Neurologic: moves all extremities and awake; no focal motor deficits Psychiatric: Orientation: alert, oriented x 3 and cooperative Affect: + flat affect Lymphatic: no lymphedema Results & Data Results & Data ([facility]) Vital Signs (Past 12 Hours) Vital Signs Temp Pulse Resp BP Pulse Ox 03/19/21 07:23 36.7 C 93 H 16 131/75 91 Laboratory Results 03/17/21 05:48 03/19/21 06:21 PG Care Time/CCT Total # of Minutes Spent Total Time Spent with Patient: Total time spent is greater than 50% in coordination of care (as documented) at patient's floor/unit and/or counseling patient: Coding Level of Care Code 98291 Subseq Hosp Care Lvl 2 Diagnoses Vomiting R11.10 PRES (posterior reversible encephalopathy syndrome) I67.83 Elevated blood pressure reading without diagnosis of hypertension R03.0 Abdominal pain R10.9 GE junction carcinoma C16.0 Bilateral pulmonary embolism I26.99 Acute hypokalemia E87.6 Constipation K59.00 Pleural effusion J90 Acute hyponatremia E87.1 UTI (urinary tract infection) N39.0
[2021-03-20] MEDS: ONDANSETRON 4 MG OD TAB PO SCH ×2 (06:31→13:16)
[2021-03-20] MEDS: CHECK CLONIDINE PATCH PLACEMENT SCH ×2 (07:35→16:38)
[2021-03-20] MEDS: OLANZapine ZYDIS 5 MG ORALLY DIS. TAB PO SCH (08:14)
[2021-03-20] MEDS: NIFEdipine EXTENDED REL 30 MG TABCR PO SCH (08:17)
[2021-03-20] MEDS: APIXABAN 5 MG TABLET PO SCH (08:17)
[2021-03-20] MEDS: FAMOTIDINE 20 MG in SYRINGE 3 ML IV SCH (08:20)
[2021-03-20] MEDS ORDERED: LORazepam 0.25 MG/0.5 ML VIAL IV STA (09:52)
[2021-03-20] MEDS: SODIUM CHLORIDE 0.9% 1000ML 1,000 ML IV SCH (10:15)
[2021-03-20] MEDS: HEPARIN 100 UNIT/ML 5ML FLUSH FLUSH PRN (10:18)
--- NOTE | 2021-03-20 14:27 | Discharge Summary ---
Date of Service March 20, 2021 Admission HPI Per Admitting Provider Genesis is a 60-year-old female with a medical history of esophageal cancer with metastasis, diverticulosis/diverticulitis, and past PE who presents with weakness, intractable vomiting, nausea, chest pain, and shortness of breath. Genesis has a history of esophageal cancer and GE junction carcinoma which was treated with chemotherapy from August 2020 to January 2021. In the last week of January 2021 patient made the decision to stop chemotherapy due to failure to improve and severe side effects. Over the last 3 weeks she has had constant nausea and poor p.o. intake. For the last 4 days she has had nausea with vomiting 4-5 times an hour and inability to keep down food or liquids. She has also had diffuse low abdominal pain, nonfocal. She is seen at bedside with her daughter, she is fatigued following antiemetic and analgesic administration, and defers most of HPI to her daughter who is at the bedside. Her and her daughter report that they have been seeing palliative care, and have made decision to move to DNR. They have not engaged hospice services, but feel that this is most likely the next step in her care. Would like to continue monitoring treatment and further evaluation at this time, and see palliative care while she is here. Denies past cardiac history, past history of bilateral PE. CTA: No evidence for pulmonary embolus. Interval progression of the mediastinal and bilateral hilar lymphadenopathy consistent with metastatic disease. This results in mild mass effect along the central pulmonary arteries. Increase in size in the small to moderate bilateral pleural effusions. CTabdomen: No signs of acute diverticulitis, further report below. Medical History: Reviewed Medications: Reviewed Surgical History: Reviewed Allergies: Reviewed Social History: Reviewed Code Status: DNR/DNI Discharge Data Allergies Allergy/AdvReac Type Severity Reaction Status Date / Time No Known Allergies Allergy Verified 03/13/21 12:07 Consultations 03/13/21 15:50 ED Decision to Admit Stat 03/13/21 19:36 Consult Palliative Care Routine Ordered Studies 03/13/21 11:28 CT abd pelvis IV con only Stat 03/13/21 11:29 CT angio chest PE protocol Stat 03/17/21 18:17 MR brain wo/w con Urgent Hospital Course (1) Vomiting: Genesis is a 60-year-old female with a medical history of esophageal cancer with metastasis, diverticulosis/diverticulitis, and past PE who presents with weakness, intractable vomiting, nausea, chest pain, and shortness of breath. Intractable nausea/vomiting-likely secondary to metastatic esophageal cancer that is progressing versus gastritis and also component of constipation contributing. Now found to have PRES as well as below. There is no bowel obstruction on CT scan. Not much improvement with having small bowel movement x2 on 03/15 and 03/16, but improved nausea with starting olanzapine and is on scheduled oral Zofran Still vomits daily but not as much today Pain in abdomen fairly well controlled and she really minimizes trying to take pain medicine -Continue scheduled Zofran p.o. Continue olanzapine 2.5 mg p.o. twice daily Hypokalemia management as below Continue famotidine twice daily -Bisacodyl suppository as needed-patient requests oral bisacodyl today for constipation -managing BP as below (2) PRES (posterior reversible encephalopathy syndrome): Presented with intractable N/V, headache, elevated BPs. Had an episode of LUE transient weakness on evening of 03/17 at which time I assessed her and obtained brain MRI. Brain MRI no CVA or brain mets, but findings c/w PRES syndrome -Started clonidine patch 0.1mg qweek and nifedipine 30mg po daily for vasodilation-blood pressure is significantly improved on 03/20 Symptoms of nausea and headache also improved and no further focal neurological deficits Continue IVFs for dehydration to prevent worsening of PRES syndrome once nifedipine/vasodilation started -likely secondary to chemotherapy agent or perhaps some sort of paraneoplastic syndrome? (3) Elevated blood pressure reading without diagnosis of hypertension: With significantly elevated blood pressures consistently in the 200s over 100s-persisting but now improving after starting nifedipine and clonidine patch see PRES (4) Abdominal pain: Abdominal pain, diffuse, likely related to combination of constipation, splenic infarcts, enlarging retroperitoneal lymphadenopathy, occlusion of left renal vein CT abdomen/pelvis notes no bowel obstruction, splenic infarcts, small to moderate pleural effusions, distended bladder that is thick-walled and hyperemic, fullness of left renal collecting system with mild urothelial t hickening and enhancement involving left renal pelvis left ureter, progressive retroperitoneal lymphadenopathy which likely occludes left renal vein and may invade left adrenal gland, no diverticulitis IV Dilaudid helping now that she is taking more frequently, but encouraged use of p.o. oxycodone so that we can see if it helps before she goes home Continue glycopyrrolate as needed for intestinal spasms UA is abnormal indicating UTI Pain is improved today down to a 2/10 Discussed with RN about using oxycodone prn instead of DIlaudid to see if will control pain in prep for going home -No signs of obstruction or diverticulitis on imaging -Continue oxycodone liquid here as needed and will provide this on discharge -Treating UTI as below (5) GE junction carcinoma: History of metastatic esophageal cancer On discussion of goals of care patient and palliative medicine-the decision has been made to pursue symptom control here and transition to home hospice on discharge Received chemo from August to January 2021, patient has decided to forego further chemotherapy treatment Patient is okay with deferring oncology consult at this time, patient does not feel that this would likely change her plan moving forward (6) Bilateral pulmonary embolism: History of bilateral PE, active cancer - Continue Eliquis - No PE on CTA on admit (7) Acute hypokalemia: Hypokalemia-persists today, secondary to nausea/vomiting, poor p.o. intake Continue to replace potassium and magnesium as well as phosphorus at patient's request until time for discharge to home on hospice -Follow BMP, phosphorus, and magnesium in the morning Elevated troponin In setting of volume depletion, acute illness as above, with hypokalemia Trend troponin x3-stable, likely myocardial demand ischemia No chest pain at time of evaluation -No further work-up needed (8) Constipation: Bisacodyl suppository [place] as above Give bisacodyl 5 mg p.o. x1 today (9) Pleural effusion: Mild to moderate bilateral, likely related to hypoalbuminemia and possibly malignant effusions Not requiring oxygen and no respiratory distress No need for thoracentesis Is mildly dyspneic on exertion (10) Acute hyponatremia: stable at 130-133 but has been baseline 130 for the last month or so Likely related to dehydration Receiving IV fluids (11) UTI (urinary tract infection): Abnormal UA Urine culture growing pansensitive E. coli and coagulase-negative Staphylococcus resistant to oxacillin With urothelial thickening on the left on CT scan Has received 4 days of ceftriaxone-we will now discontinue Disposition-continued stay,plan to discharge to home with hospice once symptoms are better controlled and arrangements are made for home care-delivery has been made to the home with all equipment necessary cast care with palliative medicine. Possibly discharge to home in the next 1 to 2 days Appreciate palliative care consultation Discharge Plan Discharge Items Patient Disposition: Hospice - Home Reason For Visit: HYPOKALEMIA, INTRACT N/V, ADVANCED ESOPHAGEAL CX Discharge Diagnosis: Intractable nausea and vomiting due to esophageal cancer Posterior reversible encephalopathy syndrome (confusion, brain changes due to high blood pressure) Activity: Resume your previous activity Non-emergency contact: Primary Care Provider Call non-emergency contact if: you have any medication questions and your symptoms worsen Follow-up/Referrals: Han Edmondson III, MD [Primary Care Provider] - Diet: Regular Diet Texture: Easy to Chew Addtl Attending Provider Instructions: You were admitted to [facility] from March 13 - 2020 due to intractable nausea and vomiting due to esophageal cancer. Symptoms have been difficult to control despite ondansetron and Compazine. On further discussion you wished to be discharged home on hospice. To avoid with this you have been prescribed Compazine and ondansetron for nausea, Ativan for nausea/anxiety and oxycodone for pain. Please follow up with hospice for ongoing symptom control. You were also diagnosed with PRES (posterior reversible encephalopathy syndrome) secondary to high blood pressures. This has been treated with anti- hypertensives. Please continue nifedipine and clonidine patch as prescribed to avoid this recurring. Pending Studies at Discharge: No Stand-Alone Forms: [facility] Medications and DC Order Prescriptions: New nifedipine [Procardia XL] 30 mg Tablet Extended Release 24hr 30 mg PO QAM Qty: 30 RF: 0 clonidine 0.1 mg/24 hr Patch Weekly 1 patch transdermal Sa@1045 Qty: 4 RF: 0 ondansetron 4 mg Tablet,Disintegrating 4 mg PO ACHS Qty: 120 RF: 0 olanzapine 5 mg Tablet,Disintegrating 2.5 mg PO BID Qty: 30 RF: 0 lorazepam 2 mg/mL concentrate 0.5 - 1 mg PO Q4H PRN (Reason: anxiety) Qty: 30 RF: 0 oxycodone 20 mg/mL concentrate 10 mg PO Q4H PRN (Reason: pain) Qty: 30 RF: 0 famotidine 20 mg tablet 20 mg PO BID Qty: 60 RF: 0 potassium chloride 20 mEq/15 mL liquid 20 meq PO BID Qty: 1000 RF: 0 Continued albuterol sulfate 90 mcg/actuation HFA aerosol inhaler 2 puff inhalation Q6H PRN (Reason: Shortness Of Breath) Qty: 1 RF: 0 levocetirizine [Xyzal] 5 mg tablet 5 mg PO DAILY PRN (Reason: Nasal Congestion) RF: 0 Hold Instructions: While on chlorpheniramine triamcinolone acetonide [Nasacort] 55 mcg Aerosol,[place] 2 spray INTRANASAL DAILY PRN (Reason: Allergy Symptoms) RF: 0 Eliquis 5 mg tablet 5 mg PO BID Qty: 60 RF: 5 pantoprazole 40 mg tablet,delayed release (DR/EC) 40 mg PO QAM RF: 0 Discharge Orders: Discharge Order (Routine); Ordered 03/20/21 Ordered By: Tobin Melendez Admission Data Admit Date/Time: 03/13/21 17:06 Attending Provider: Tobin Melendez Admit Provider: Danny Cortes Primary Care Provider: Han Edmondson III Other Providers: Danny Cortes ; Marguerite Mccann ; [facility] Coding Diagnoses Vomiting R11.10 PRES (posterior reversible encephalopathy syndrome) I67.83 Elevated blood pressure reading without diagnosis of hypertension R03.0 Abdominal pain R10.9 GE junction carcinoma C16.0 Bilateral pulmonary embolism I26.99 Acute hypokalemia E87.6 Constipation K59.00 Pleural effusion J90 Acute hyponatremia E87.1 UTI (urinary tract infection) N39.0
[2021-03-20 15:42] VITALS: BP 130/81; TEMP 98.2; O2SAT 93
[2021-03-20 16:09] VITALS: PULSE 97
== END 2021-03-20 16:43 | disposition hospice, home (50) | DRG 374 ==
LOC: ED 10:26 → SUATTDRO 17:06 → 2S 17:06 → 3W 03-14 11:34

== ENCOUNTER 2021-03-30 21:10 | Observation (INO) ==
[2021-03-30] MEDS ORDERED: SODIUM CHLORIDE 0.9% 500 ML IV ONE (21:35)
--- NOTE | 2021-03-30 21:35 | Emergency Department Note ---
History of Present Illness General Chief complaint: Fall Stated complaint: FELL OUT OF WHEELCHAIR ON FLOOR, INJURED HEAD Time Seen by Provider: 03/30/21 21:37 Source: patient and family ( who is at the bedside) Mode of arrival: ambulatory Limitations: no limitations History of Present Illness This patient is a 60-year-old female who has a history of metastatic esophageal cancer, comes in after falling out of her wheelchair she is on Eliquis she may of hit her head and complains of laying on her buttocks. Her think she is more confused than she has been she is also vomiting. Looking through her chart she was just discharged from the hospital after having some vomiting and confusion as well. A port is in place in the chest they called me from triage as there is no beds and given the that she hit her head I went out and saw her and ordered CAT scans of the head neck chest abdomen and pelvis. I also ordered IV fluids and blood work and EKG. I talked to her she is a DO NOT RESUSCITATE and they have been talking with hospice as well Home Medications Medication Instructions Recorded Confirmed Type levocetirizine 5 mg tablet (Xyzal) 5 mg PO DAILY PRN 02/05/20 03/31/21 History albuterol sulfate 90 mcg/actuation 2 puff INHALATION Q6H PRN #1 gm 06/08/20 03/31/21 Rx aerosol inhaler apixaban 5 mg tablet (Eliquis) 5 mg PO BID #60 tab 09/27/20 03/31/21 Rx pantoprazole 40 mg tablet,delayed 40 mg PO QAM 03/13/21 03/31/21 History release clonidine 0.1 mg/24 hr weekly 1 patch TRANSDERMAL Sa@1045 #4 ea 03/20/21 03/31/21 Rx transdermal patch famotidine 20 mg tablet 20 mg PO BID #60 tab 03/20/21 03/31/21 Rx lorazepam 1 mg tablet 0.5 - 1 mg SUBLINGUAL Q4H PRN #10 03/20/21 03/31/21 Rx tab lorazepam 2 mg/mL oral concentrate 0.5 - 1 mg PO Q4H PRN #30 ml 03/20/21 03/31/21 Rx nifedipine 30 mg tablet,extended 30 mg PO QAM #30 tab 03/20/21 03/31/21 Rx release 24 hr (Procardia XL) olanzapine 5 mg disintegrating 2.5 mg PO BID #30 tab 03/20/21 03/31/21 Rx tablet ondansetron 4 mg disintegrating 4 mg PO ACHS #120 tab 03/20/21 03/31/21 Rx tablet oxycodone 10 mg tablet 10 mg PO Q4H PRN #10 tab 03/20/21 03/31/21 Rx oxycodone 20 mg/mL oral concentrate 10 mg PO Q4H PRN #30 ml 03/20/21 03/31/21 Rx potassium chloride 8 mEq 16 meq PO BID #120 tab 03/23/21 03/31/21 Rx tablet,extended release ipratropium 0.5 mg-albuterol 3 mg 3 ml INHALATION QID PRN 03/30/21 03/30/21 History (2.5 mg base)/3 mL nebulization soln acetaminophen 650 mg rectal 650 mg ID Q4 PRN MDD 4 doses 03/31/21 03/31/21 History suppository hyoscyamine sulfate 0.125 mg tablet 0.125 mg PO Q4 PRN 03/31/21 03/31/21 History sennosides 8.6 mg-docusate sodium 1 tab-cap PO BID 03/31/21 03/31/21 History 50 mg tablet (Senna-S) Allergies Allergy/AdvReac Type Severity Reaction Status Date / Time No Known Allergies Allergy Verified 03/31/21 00:12 Past Med/Surg History Medical History (Updated 04/01/21 @ 00:37 by Trae Mar MD) Abdominal pain Bilateral pulmonary embolism Chronic cough Constipation Difficulty swallowing Diverticular disease Esophageal adenocarcinoma metastatic, s/p chemo/xrt Esophageal stricture s/p dilation GERD (gastroesophageal reflux disease) History of kidney stones passed without intervention Lesion of bladder Low back pain Lung nodule s/p excision Migraine HX Nausea Palliative care encounter Pulmonary embolism CURRENTLY ON ELIQUIS UTI (urinary tract infection) CURRENTLY ON ANTIBIOTIC Weakness Surgical History Basal cell carcinoma of back Basal cell carcinoma of shoulder History of arthroscopy of right knee meniscus repair History of bilateral tubal ligation History of colonoscopy History of dilatation and curettage History of endoscopic sinus surgery History of esophagogastroduodenoscopy (EGD) History of laparoscopy for ectopic History of liver biopsy Dr. Zambrano 05/27/19 [place] History of lung surgery right wedge resection upper History of parotid gland excision excision of left side parotid gland for benign tumor History of removal of Port-a-Cath 04/2019 (infected) History of repair of right rotator cuff History of thoracic surgery Robot-assisted laparoscopic/ thoracoscopic assisted esophagogastrectomy with an intrathoracic esophagogastrostomy: 04/22/2019: Grade view 1, MAC#3, ETT 7.0 at [facility] History of vascular access device Insertion of Mediport(Right) 08/15/20 [place] Status post Mohs surgery for basal cell carcinoma x2 Family History Grandfather (Maternal) , in her eighties of old age No problems noted. Mother Age: 86 Diabetes Hypertension Father , abd aortic aneurysm at age 80 No problems noted. Brother Age: 61 No problems noted. Sister Age: 59 Stroke, Onset Age: 40 Brother Age: 58 Hypertension Sister Age: 57 Heart disease Hypertension Daughter Age: 42 No problems noted. Son Age: 39 No problems noted. Other No family history of adverse response to anesthesia Denies family history of Lung disease Cancer Asthma Social History Smoking Status: Never smoker Second Hand Exposure: No; Hx Alcohol Use: No Hx Substance Use: No Preferred Language: Syrian Communication Ability: Effective Visual Impairment: No Limitations Foundation Engineer Required: No Beliefs That Will Affect Care: None marital status: Current Living Situation: Spouse Feels Safe at Home: Yes Safety Concerns: Feels Safe At This Time Assistive Devices: Glasses, Walker and Wheelchair Review of Systems A total of 10 systems reviewed and were otherwise negative Physical Exam Vital Signs Vital Signs - 24 hr 03/31/21 00:46 Pulse Rate [Radial] 94 H Respiratory Rate 16 Blood Pressure [Left Arm] 189/134 H Blood Pressure Mean [Left Arm] 152 Pulse Oximetry 96 Oxygen Delivery Method Room Air General: Slender and cachectic older female who is holding an emesis bag but in no acute respiratory distress, breathing comfortably on room air. Normal speech HEENT: Normal cephalic atraumatic. Pupils are equal round and reactive to light. Extraocular movements are intact. Oropharynx is pink with moist mucous membranes. No swelling of the mouth lips or tongue. Neck: Supple with a midline trachea. No meningeal signs or stiffness, no JVD or bruits. No Stridor. Chest: Clear to auscultation bilaterally. No wheezes or rhonchi. No increased work of breathing. Heart: Regular rate and rhythm without murmurs or gallops. Abdomen: Soft nontender, nondistended without rebound guarding or rigidity. Extremities: No cyanosis clubbing or edema. No calf tenderness or assymetry Spine/Back. Non tender to palpation. No CVA tenderness Skin: Good turgor without rashes. Neurologic exam: Cranial nerves two through 12 are intact. Motor and sensation are intact and symmetrical throughout. Course Administered Medications Discontinued Medications Enoxaparin Sodium (Enoxaparin Inj 40 Mg/0.4 Ml Syr) 40 mg SQ Q24H MIGUEL ÁNGEL Stop: 04/30/21 00:59 Last Admin: 03/31/21 02:46 Dose: Not Given Documented by: [id number] Enoxaparin Sodium (Enoxaparin Inj 60 Mg/0.6 Ml Syr) 50 mg SQ BID MIGUEL ÁNGEL Stop: 04/30/21 03:14 Last Admin: 03/31/21 03:23 Dose: 50 mg Documented by: [id number] Famotidine (Famotidine 20 Mg Tab) 20 mg PO BID MIGUEL ÁNGEL Stop: 04/30/21 08:59 Last Admin: 03/31/21 07:22 Dose: 20 mg Documented by: [id number] Heparin Sodium (Porcine) (Heparin 100 Unit/Ml 5ml Flush) 5 ml FLUSH PRN PRN PRN Reason: Flush Stop: 04/30/21 05:51 Last Admin: 03/31/21 06:24 Dose: 5 ml Documented by: [id number] Hydralazine HCl (Hydralazine Hcl 20 Mg/Ml Vial) 5 mg IV NOW ONE Stop: 03/31/21 05:19 Last Admin: 03/31/21 06:23 Dose: 5 mg Documented by: [id number] Sodium Chloride (Nss) 500 mls @ 999 mls/hr IV .Q31M ONE Stop: 03/30/21 22:05 Last Infusion: 03/31/21 02:47 Dose: 0 mls/hr Documented by: [id number] Admin: 03/30/21 23:04 Dose: 999 mls/hr Documented by: [id number] Potassium Chloride (K Jun / Wtr) 20 meq in 100 mls @ 50 mls/hr IV ONE ONE Stop: 03/31/21 01:40 Last Infusion: 03/31/21 02:47 Dose: 0 mls/hr Documented by: [id number] Admin: 03/30/21 23:53 Dose: 50 mls/hr Documented by: [id number] Pantoprazole Sodium 40 mg/ (Syringe) 10 mls @ 5 mls/min IV NOW STA Stop: 03/31/21 01:41 Last Admin: 03/31/21 03:22 Dose: 5 mls/min Documented by: [id number] Potassium Chloride (K Jun / Wtr) 10 meq in 100 mls @ 100 mls/hr IV Q1H MIGUEL ÁNGEL Stop: 03/31/21 05:14 Last Infusion: 03/31/21 06:20 Dose: 0 mls/hr Documented by: [id number] Admin: 03/31/21 05:09 Dose: 100 mls/hr Documented by: [id number] Infusion: 03/31/21 05:08 Dose: 0 mls/hr Documented by: [id number] Admin: 03/31/21 04:05 Dose: 100 mls/hr Documented by: [id number] Ceftriaxone Sodium 2,000 mg/ (Dextrose) 70 mls @ 140 mls/hr IV ONE ONE Stop: 03/31/21 03:44 Last Infusion: 03/31/21 04:12 Dose: 0 mls/hr Documented by: [id number] Admin: 03/31/21 03:25 Dose: 140 mls/hr Documented by: [id number] Metoprolol Tartrate (Metoprolol Tartrate 1 Mg/Ml Vial) 5 mg IV NOW STA Stop: 03/31/21 01:32 Last Admin: 03/31/21 01:47 Dose: 5 mg Documented by: [id number] Miscellaneous (Xyzal~Order Awaiting Action) 1 ea N/A QS MIGUEL ÁNGEL Stop: 04/30/21 07:59 Last Admin: 03/31/21 07:22 Dose: Not Given Documented by: [id number] Nifedipine (Nifedipine Extended Rel 30 Mg Tabcr) 30 mg PO QAM MIGUEL ÁNGEL Stop: 04/30/21 08:59 Last Admin: 03/31/21 07:22 Dose: 30 mg Documented by: [id number] Olanzapine (Olanzapine Zydis 5 Mg Orally Dis. Tab) 2.5 mg PO BID MIGUEL ÁNGEL Stop: 04/30/21 08:59 Last Admin: 03/31/21 07:22 Dose: 2.5 mg Documented by: [id number] Ondansetron HCl (Ondansetron Inj 2 Mg/Ml 2 Ml Vial) 4 mg IV NOW STA Stop: 03/31/21 00:03 Last Admin: 03/31/21 00:17 Dose: 4 mg Documented by: [id number] Ondansetron HCl (Ondansetron Inj 2 Mg/Ml 2 Ml Vial) 4 mg IV NOW STA Stop: 03/31/21 01:30 Last Admin: 03/31/21 01:47 Dose: 4 mg Documented by: [id number] Ondansetron HCl (Ondansetron 4 Mg Od Tab) 4 mg PO ACHS MIGUEL ÁNGEL Stop: 04/30/21 07:29 Last Admin: 03/31/21 07:22 Dose: 4 mg Documented by: [id number] Potassium Chloride (Potassium Chloride Crtab 20 Meq Tabcr) 40 meq PO NOW STA Stop: 03/31/21 00:56 Last Admin: 03/31/21 02:46 Dose: Not Given Documented by: [id number] Medical Decision Making Differential Diagnosis Trauma, head injury, intracranial hemorrhage, cancer related complications, electrolyte or metabolic abnormality, infection Medical Records Attestation: I reviewed the patient's medical records. Home Medications Current Medication List: was personally reviewed by me Laboratory Data Attestation: I reviewed the patient's lab results. Result diagrams: 03/30/21 22:20 03/31/21 03:07 Lab Results 03/30/21 03/30/21 03/30/21 Range/Units 22:20 22:20 22:20 WBC 6.71 (4.8-10.8) K/uL RBC 2.80 L (4.2-5.4) M/uL Hgb 10.0 L (12.0-16.0) g/dL Hct 29.8 L (37-47) % MCV 106.4 H (80-100) fL MCH 35.7 H (25-34) pg MCHC 33.6 (32-36) g/dL RDW Std Deviation 63.3 H (36.4-46.3) fL RDW Coeff of Mohit 16.1 H (11.5-14.5) % Plt Count 118 L (130-400) K/uL MPV 9.6 (7.4-10.4) fL Immature Gran % (Auto) 0.3 % Neut % (Auto) 88.1 % Lymph % (Auto) 6.1 % [place] % (Auto) 5.4 % Eos % (Auto) 0.0 % Baso % (Auto) 0.1 % Neut # (Auto) 5.91 (1.4-6.5) K/uL Lymph # (Auto) 0.41 L (1.2-3.4) K/uL [place] # (Auto) 0.36 (0.11-0.59) K/uL Eos # (Auto) 0.00 (0-0.5) K/uL Baso # (Auto) 0.01 (0-0.2) K/uL Immature Gran # (Auto) 0.02 (0.00-0.02) K/uL PT 10.9 (9.0-12.0) Seconds INR 1.1 (0.9-1.1) APTT 30.4 (21.0-31.0) Seconds PTT Ratio 1.2 Sodium 136 (136-145) mmol/L Potassium 2.8 L (3.5-5.1) mmol/L Chloride 101 (98-107) mmol/L Carbon Dioxide 27 (21-32) mmol/L Anion Gap 8.0 (3-11) BUN 6 L (7-18) mg/dl Creatinine 0.58 L (0.6-1.2) mg/dl Est Cr Clr Drug Dosing Not Reportable Est GFR ( Amer) 114.5 ml/min Est GFR (Non-Af Amer) 98.8 ml/min BUN/Creatinine Ratio 11.1 (10-20) Glucose 118 H (70-99) mg/dl Calcium 8.6 (8.5-10.1) mg/dl Magnesium 1.4 L (1.8-2.4) mg/dl Total Bilirubin 3.8 H (0.2-1) mg/dl AST 49 H (15-37) U/L ALT 26 (12-78) U/L Alkaline Phosphatase 199 H (45-117) U/L Total Protein 6.1 L (6.4-8.2) gm/dl Albumin 2.8 L (3.4-5.0) gm/dl Globulin 3.3 (2.5-4.0) gm/dl Albumin/Globulin Ratio 0.9 (0.9-2) Lipase 52 L (73-393) U/L COVID-19 Eval Order SARS-CoV-2 (PCR) (Negative) 03/31/21 03/31/21 Range/Units 00:11 00:11 WBC (4.8-10.8) K/uL RBC (4.2-5.4) M/uL Hgb (12.0-16.0) g/dL Hct (37-47) % MCV (80-100) fL MCH (25-34) pg MCHC (32-36) g/dL RDW Std Deviation (36.4-46.3) fL RDW Coeff of Mohit (11.5-14.5) % Plt Count (130-400) K/uL MPV (7.4-10.4) fL Immature Gran % (Auto) % Neut % (Auto) % Lymph % (Auto) % [place] % (Auto) % Eos % (Auto) % Baso % (Auto) % Neut # (Auto) (1.4-6.5) K/uL Lymph # (Auto) (1.2-3.4) K/uL [place] # (Auto) (0.11-0.59) K/uL Eos # (Auto) (0-0.5) K/uL Baso # (Auto) (0-0.2) K/uL Immature Gran # (Auto) (0.00-0.02) K/uL PT (9.0-12.0) Seconds INR (0.9-1.1) APTT (21.0-31.0) Seconds PTT Ratio Sodium (136-145) mmol/L Potassium (3.5-5.1) mmol/L Chloride (98-107) mmol/L Carbon Dioxide (21-32) mmol/L Anion Gap (3-11) BUN (7-18) mg/dl Creatinine (0.6-1.2) mg/dl Est Cr Clr Drug Dosing Est GFR ( Amer) ml/min Est GFR (Non-Af Amer) ml/min BUN/Creatinine Ratio (10-20) Glucose (70-99) mg/dl Calcium (8.5-10.1) mg/dl Magnesium (1.8-2.4) mg/dl Total Bilirubin (0.2-1) mg/dl AST (15-37) U/L ALT (12-78) U/L Alkaline Phosphatase (45-117) U/L Total Protein (6.4-8.2) gm/dl Albumin (3.4-5.0) gm/dl Globulin (2.5-4.0) gm/dl Albumin/Globulin Ratio (0.9-2) Lipase (73-393) U/L COVID-19 Eval Order Covid19 at [facility] SARS-CoV-2 (PCR) NEGATIVE (Negative) Imaging Data Attestation: I personally reviewed and interpreted this imaging study as follows: Radiologist's Impression: Abdomen/Pelvis CT 03/30/21 21:28 CT OF THE ABDOMEN AND PELVIS WITHOUT CONTRAST CLINICAL HISTORY: Fall. Esophageal cancer. COMPARISON STUDY: CT of the abdomen and pelvis March 13, 2021. TECHNIQUE: Axial images of the abdomen and pelvis were obtained without IV contrast. Images were reviewed in the axial, sagittal, and coronal planes. Automated exposure control was utilized for the study. A dose lowering technique was utilized adhering to the principles of ALARA. FINDINGS: The chest CT will be reported separately. Moderate to large bilateral pleural effusions have significantly increased in size since CT of March 13, 2021. No pneumatosis, free air or portal venous gas is present. Retroperitoneal lymphadenopathy is better depicted on recent contrast-enhanced CT. Index left para-aortic lymph node measures 4.7 x 2.7 cm. There is no hydronephrosis. A sm all amount of ascites has increased since prior examination. There is anasarca. Colonic diverticulosis is noted without evidence for acute diverticulitis. There is no evidence for a bowel obstruction. Postoperative findings from gastroesophageal resection with pull-through are again noted. There is a T12 compression fracture which is new since CT of March 13, 2021. There is 40% loss of vertebral body height centrally. IMPRESSION: 1. No significant change in retroperitoneal lymphadenopathy since prior examination. 2. No bowel obstruction. 3. Small amount of ascites within the abdomen and pelvis which has developed since prior examination. Anasarca. 4. Increase in size of moderate to large bilateral pleural effusions. 5. Acute T12 compression fracture with 40% loss of vertebral body height centrally. ACT 112: Negative or not required by law. Electronically signed by: Esequiel Kern M.D. 03/31/2021 9:[address] 03/30/21 21:28 CT cervical spine wo con CLINICAL HISTORY: 60 years-old Female with fall. Acute head and neck injury status post fall COMPARISON: Head CT of same day, CT soft tissue neck 02/27/2021 TECHNIQUE: Multiple axial CT images of the cervical spine were obtained without contrast. A dose lowering technique was utilized adhering to the principles of ALARA. FINDINGS: Layering straightening of the normal cervical lordosis with multilevel intervertebral disc space narrowing, moderate at C5-C6 and C6-C7. Uncovertebral spurring with posterior disc osteophyte complex formations are noted at these levels. Mild to moderate facet arthrosis. No acute fracture or subluxation. Multilevel neural foraminal stenosis. Layering pleural effusions. Pleural parenchymal scarring of the right lung apex with chronic postoperative changes. Layering secretions within the distended esophagus. Partially imaged right subclavian Onworr-m-Fubs catheter. No prevertebral edema. Pathologically enlarged upper mediastinal lymph nodes. IMPRESSION: 1. No acute cervical spine fracture or subluxation. 2. Layering pleural effusions with pathologic mediastinal adenopathy. Please refer to chest CT of same day for additional findings. ACT 112: Negative or not required by law. The above report was generated using voice recognition software. It may contain grammatical, syntax or spelling errors. Electronically signed by: Ankur Winkler M.D. 03/31/2021 7:[address] 03/30/21 21:28 CT OF THE CHEST WITHOUT IV CONTRAST CLINICAL HISTORY: Fall. History of esophageal cancer. COMPARISON STUDY: Chest CT March 13, 2021. CT DOSE: 1375.97 mGy.cm TECHNIQUE: Axial images of the chest were obtained without IV contrast. Images were reviewed in the axial, sagittal, and coronal planes. IV contrast was not administered for this examination. Automated exposure control was utilized for the study. A dose lowering technique was utilized adhering to the principles of ALARA. FINDINGS: There is no pneumothorax. Postoperative findings within the right lung apex are again noted. Size of the heart is normal. There is a small pericardial effusion. Right subclavian Chuncw-k-Lgrp is in place. The esophagus is mildly distended and fluid-filled. Multiple enlarged mediastinal and bilateral hilar lymph nodes again noted. Index right paratracheal lymph node measures 3.5 cm. Moderate to large bilateral pleural effusions have increased in size since prior examination. There is associated segmental atelectasis of both lower lobes. A T12 compression fracture with 40% loss of vertebral body height centrally is new since CT of March 13, 2021. IMPRESSION: 1. Significant increase in size of moderate to large bilateral pleural effusions since chest CT of March 13, 2021. 2. Acute T12 compression fracture with 40% loss of vertebral body height centr ally which is new since CT of March 13, 2021. 3. Redemonstration of mediastinal and bilateral hilar lymphadenopathy consistent with metastatic disease. 4. Small pericardial effusion. ACT 112: Negative or not required by law. Electronically signed by: Esequiel Kern M.D. 03/31/2021 9:[address] 03/30/21 21:28 CT head/brain wo con CLINICAL HISTORY: 60 years-old Female with fall. Acute head trauma status post fall TECHNIQUE: Multiple axial CT images of the head were obtained without contrast. A dose lowering technique was utilized adhering to the principles of ALARA. COMPARISON: CT cervical spine of same day, CT soft tissue neck 02/27/2021 FINDINGS: No acute intracranial hemorrhage, midline shift, intracranial mass, hydrocephalus, territorial ischemia or abnormal extra-axial collection. Minimal white matter hypodensities suggestive of chronic microvascular ischemic disease. There is an 11 mm hypodense focus of the subcortical right frontal lobe on image 19 series 2 suggestive of a chronic infarct. The calvarium is intact. Mastoid air cells are clear. Mild polypoid mucosal thickening of the left maxillary sinus. Unremarkable soft tissues and orbits. IMPRESSION: No acute intracranial abnormality. ACT 112: Negative or not required by law. The above report was generated using voice recognition software. It may contain grammatical, syntax or spelling errors. Electronically signed by: Ankur Winkler M.D. 03/31/2021 6:37 AM ECG Data Attestation: I personally reviewed and interpreted this ECG as follows: Indication: + vomiting and + weakness Rate (beats per minute): 89 Rhythm: + normal sinus ECG Intervals/blocks: + Normal QRS, + Short ID and + Normal QT ECG [place]: + Normal ECG ST segments: + Normal ST segments ECG Findings: + Other (T wave flattening diffusely, low voltage) Comparison ECG Date: from (03/13/21) Change: the following changes noted (Voltage is now low and there is diffuse T wave flattening) MDM Narrative This patient comes in as described above. She arrived to the ER I quickly went given her presentation she has multiple complaints I did order carvalho CAT scans without contrast as we had not yet establish an IV. I did order blood work a port access and IV fluids. I also ordered Zofran for nausea. Was given IV Zofran as well as IV fluids. I did multiple CAT scans including head neck chest abdomen and pelvis. There is no intracranial hemorrhage or cervical spine fracture. She does have a thoracic spine compression fracture. She has pleural effusions as well which may be increased. Her potassium was found to be low she was given 20 mEq K rider through her central line. She has been weak and although she is on hospice, I do not feel she can go home at this point. I have consulted Dr. Monique to see her in the ER for these measures. Continuous cardiac monitoring: Order was placed in EMR for continuous bus monitor. Upon my interpretation the patient was noted to be in normal sinus rhythm with a rate of 90 Impression & Plan Weakness, Pleural effusion, PRES (posterior reversible encephalopathy syndrome), Hospice care patient, Fall, Cancer of thoracic esophagus, Acute hypokalemia, Hypomagnesemia, Head injury Discharge Plan Visit Data Chief Complaint: Fall Stated Complaint: FELL OUT OF WHEELCHAIR ON FLOOR, INJURED HEAD ED Provider: Trae Mar Discharge Problem: Weakness, Pleural effusion, PRES (posterior reversible encephalopathy syndrome), Hospice care patient, Fall, Cancer of thoracic esophagus, Acute hypokalemia, Hypomagnesemia, Head injury Patient Disposition: Admitted As Inpatient Discharge Instructions Interventions: ED Discharge Assessment Last Done: 03/31/21 01:56
[2021-03-30 22:35] LABS: Basophils # (auto) 0.01 K/uL (0-0.2); Basophils % (auto) 0.1 %; Hematocrit (blood only) 29.8 % (37-47); Immature Granulocytes # (auto) 0.02 K/uL (0.00-0.02); Immature Granulocytes % (auto) 0.3 %; Lymphocytes # (auto) 0.41 K/uL (1.2-3.4); Lymphocytes % (auto) 6.1 %; Mean Corpuscular Hemoglobin 35.7 pg (25-34); Mean Corpuscular Hgb Conc 33.6 g/dL (32-36); Mean Corpuscular Volume 106.4 fL (80-100); Mean Platelet Volume 9.6 fL (7.4-10.4); Monocytes # (auto) 0.36 K/uL (0.11-0.59); Monocytes % (auto) 5.4 %; Neutrophils # (auto) 5.91 K/uL (1.4-6.5); Neutrophils % (auto) 88.1 %; Platelet Count 118 K/uL (130-400); RDW Coefficient of Variation 16.1 % (11.5-14.5); RDW Standard Deviation 63.3 fL (36.4-46.3); White Blood Count 6.71 K/uL (4.8-10.8)
[2021-03-30 22:48] LABS: INR 1.1 (0.9-1.1); Partial Thromboplastin Ratio 1.2; Partial Thromboplastin Time 30.4 Seconds (21.0-31.0); Prothrombin Time 10.9 Seconds (9.0-12.0)
[2021-03-30 22:57] LABS: Alanine Aminotransferase 26 U/L (12-78); Albumin Level 2.8 gm/dl (3.4-5.0); Aspartate Aminotransferase 49 U/L (15-37); BUN Creatinine Ratio 11.1 (10-20); Blood Urea Nitrogen 6 mg/dl (7-18); Calcium 8.6 mg/dl (8.5-10.1); Carbon Dioxide 27 mmol/L (21-32); Chloride 101 mmol/L (98-107); Est GFR (African American) 114.5 ml/min; Est GFR (Non-African American) 98.8 ml/min; Glucose 118 mg/dl (70-99); Lipase 52 U/L (73-393); Potassium 2.8 mmol/L (3.5-5.1); Sodium 136 mmol/L (136-145)
[2021-03-30 23:00] LABS: Albumin Globulin Ratio 0.9 (0.9-2); Alkaline Phosphatase 199 U/L (45-117); Bilirubin,Total 3.8 mg/dl (0.2-1); Globulin 3.3 gm/dl (2.5-4.0); Total Protein 6.1 gm/dl (6.4-8.2)
[2021-03-30] MEDS ORDERED: POTASSIUM CHLORIDE / WTR 20 MEQ/100 ML PLCT IV ONE (23:41)
[2021-03-30 23:56] LABS: Magnesium 1.4 mg/dl (1.8-2.4)
[2021-03-31] MEDS ORDERED: ONDANSETRON INJ 2 MG/ML 2 ML VIAL IV STA ×2 (00:02→01:29)
[2021-03-31] MEDS ORDERED: POTASSIUM CHLORIDE CRTAB 20 MEQ TABCR PO STA (00:55)
[2021-03-31] MEDS ORDERED: ENOXAPARIN INJ 40 MG/0.4 ML SYR SQ SCH (01:00)
--- NOTE | 2021-03-31 01:03 | History & Physical Report ---
Date of Service March 31, 2021 Assessment & Plan (1) Fall: Plan: 60 yo F on hospice with dx metastatic esophageal adenocarcinoma, recently discharged from hospital on 03/20 for persistent n/v and electrolyte derangements. Fall - likely secondary to persistent UTI/associated confusion symptoms and dehydration/electrolyte derangements from vomiting - CT head negative for acute intracranial bleed on eliquis - fall risk Nausea/Abdominal Pain - chronic, treating with zofran tabs at home - continue with IV zofran in hospital - received 500 cc NS volume repletion - persistent bilious emesis - pantoprazole IV 40 mg x1 - cont home oxy 10 mg PO Q4h PRN Elevated BP w/o dx HTN - likely secondary to emesis/pain/stress - metoprolol 5 mg IV x 1 for BP >210/100 in ER - continue monitoring, goal <200/100 Electrolyte Derangements - K 2.8, received 20 meQ IV. unable to tolerate 40 mg pill PO. - additional 20 meQ IV ordered. Repeat BMP when transferred to floor. - AM BMP recheck. on mq K PO BID at home, holding at this time given uncontrolled emesis. replete as necessary UTI - UA with culture - Cx results from 03/16 showed pansensitive E COli, had been treated with 4 days of IV Ceftriaxone. Patient and unsure which medication she was being treated with outpatient. - canuse purewick external catheter while patient suffering from severe nausea/recent fall - will start on rocephin empirically Anxiety - continue ativan 0.5 mg Q4h prn for anxiety, seroquel DVT ppx: on eliquis, switching to therapeutic lovenox while nauseous FEN/GI: NPO, sips and chips with diet progression as tolerated Code Status: DNR/DNI Dispo: Med/Surg, home with hospice when nausea controlled and electrolytes righted (2) Vomiting: (3) Esophageal adenocarcinoma: (4) Hospice care patient: (5) Acute hypokalemia: (6) UTI (urinary tract infection): (7) Elevated blood pressure reading without diagnosis of hypertension: (8) Nausea: (9) Bilateral pulmonary embolism: History of Present Illness Primary Care Provider: Han Edmondson MD 60-year-old female with a past medical history of metastatic esophageal cancer on hospice, PE, who presents emergency department for a fall from her wheelchair and head injury. at bedside states that in the last couple of days she has been increasingly confused about what is going on and sometimes acts abnormally. He states that earlier today she was sitting in her wheelchair and he went to go take the puppies on a walk and when he came back she had fallen forward and hit her head. She states that she has been treated in the last few days for a UTI with an antibiotic but has not had any resolution of symptoms yet. She was supposed to provide a urine sample for the nurse to come machine operator picker to reassess which antibiotic she should be on. At this time she states that her symptoms are mostly limited to abdominal pain, severe persistent nausea and pain with urination. She does state that she feels a little bit better after getting the IV fluids. Allergies Allergy/AdvReac Type Severity Reaction Status Date / Time No Known Allergies Allergy Verified 03/31/21 00:12 Home Medications Medication Instructions Recorded Confirmed Type levocetirizine 5 mg tablet (Xyzal) 5 mg PO DAILY PRN 02/05/20 03/31/21 History albuterol sulfate 90 mcg/actuation 2 puff INHALATION Q6H PRN #1 gm 06/08/20 03/31/21 Rx aerosol inhaler apixaban 5 mg tablet (Eliquis) 5 mg PO BID #60 tab 09/27/20 03/31/21 Rx pantoprazole 40 mg tablet,delayed 40 mg PO QAM 03/13/21 03/31/21 History release clonidine 0.1 mg/24 hr weekly 1 patch TRANSDERMAL Sa@1045 #4 ea 03/20/21 03/31/21 Rx transdermal patch famotidine 20 mg tablet 20 mg PO BID #60 tab 03/20/21 03/31/21 Rx lorazepam 1 mg tablet 0.5 - 1 mg SUBLINGUAL Q4H PRN #10 03/20/21 03/31/21 Rx tab lorazepam 2 mg/mL oral concentrate 0.5 - 1 mg PO Q4H PRN #30 ml 03/20/2103/06 Rx nifedipine 30 mg tablet,extended 30 mg PO QAM #30 tab 03/20/21 03/31/21 Rx release 24 hr (Procardia XL) olanzapine 5 mg disintegrating 2.5 mg PO BID #30 tab 03/20/21 03/31/21 Rx tablet ondansetron 4 mg disintegrating 4 mg PO ACHS #120 tab 03/20/21 03/31/21 Rx tablet oxycodone 10 mg tablet 10 mg PO Q4H PRN #10 tab 03/20/21 03/31/21 Rx oxycodone 20 mg/mL oral concentrate 10 mg PO Q4H PRN #30 ml 03/20/21 03/31/21 Rx potassium chloride 8 mEq 16 meq PO BID #120 tab 03/23/21 03/31/21 Rx tablet,extended release ipratropium 0.5 mg-albuterol 3 mg 3 ml INHALATION QID PRN 03/30/21 03/30/21 History (2.5 mg base)/3 mL nebulization soln acetaminophen 650 mg rectal 650 mg [place] Q4 PRN MDD 4 doses 03/31/21 03/31/21 History suppository hyoscyamine sulfate 0.125 mg tablet 0.125 mg PO Q4 PRN 03/31/21 03/31/21 History sennosides 8.6 mg-docusate sodium 1 tab-cap PO BID 03/31/21 03/31/21 History 50 mg tablet (Senna-S) Past Med/Surg History Medical History (Updated 04/01/21 @ 00:37 by Trae Mar MD) Abdominal pain Bilateral pulmonary embolism Chronic cough Constipation Difficulty swallowing Diverticular disease Esophageal adenocarcinoma metastatic, s/p chemo/xrt Esophageal stricture s/p dilation GERD (gastroesophageal reflux disease) History of kidney stones passed without intervention Lesion of bladder Low back pain Lung nodule s/p excision Migraine HX Nausea Palliative care encounter Pulmonary embolism CURRENTLY ON ELIQUIS UTI (urinary tract infection) CURRENTLY ON ANTIBIOTIC Weakness Surgical History Basal cell carcinoma of back Basal cell carcinoma of shoulder History of arthroscopy of right knee meniscus repair History of bilateral tubal ligation History of colonoscopy History of dilatation and curettage History of endoscopic sinus surgery History of esophagogastroduodenoscopy (EGD) History of laparoscopy for ectopic History of liver biopsy Dr. Zambrano 05/27/19 [place] History of lung surgery right wedge resection upper History of parotid gland excision excision of left side parotid gland for benign tumor History of removal of Port-a-Cath 04/2019 (infected) History of repair of right rotator cuff History of thoracic surgery Robot-assisted laparoscopic/ thoracoscopic assisted esophagogastrectomy with an intrathoracic esophagogastrostomy: 04/22/2019: Grade view 1, MAC#3, ETT 7.0 at [facility] History of vascular access device Insertion of Mediport(Right) 08/15/20 [place] Status post Mohs surgery for basal cell carcinoma x2 Family History Grandfather (Maternal) , in her eighties of old age No problems noted. Mother Age: 86 Diabetes Hypertension Father , abd aortic aneurysm at age 80 No problems noted. Brother Age: 61 No problems noted. Sister Age: 59 Stroke, Onset Age: 40 Brother Age: 58 Hypertension Sister Age: 57 Heart disease Hypertension Daughter Age: 42 No problems noted. Son Age: 39 No problems noted. Other No family history of adverse response to anesthesia Denies family history of Lung disease Cancer Asthma Social History Smoking Status: Never smoker Second Hand Exposure: No; Hx Alcohol Use: No Hx Substance Use: No Preferred Language: Canadian Communication Ability: Effective Visual Impairment: No Limitations Fuselage Framer Required: No Beliefs That Will Affect Care: None marital status: Current Living Situation: Spouse Feels Safe at Home: Yes Safety Concerns: Feels Safe At This Time Assistive Devices: Glasses, Walker and Wheelchair Review of Systems Constitutional: + chills, + fatigue, + weakness and + weight loss; no fever and no sweats Eyes: no blind spots and no discharge Ear, Nose, Mouth, Throat: no hearing loss and no nasal congestion Respiratory: no cough and no dyspnea Cardiovascular: no chest pain, no dyspnea on exertion and no edema Gastrointestinal: + abdominal pain, + nausea and + vomiting; no coffee ground emesis, no constipation, no diarrhea/loose stools and no blood in stools Genitourinary: + dysuria Musculoskeletal: no joint pain and no myalgia Neurologic: + dizziness; no tingling, no numbness and no headache(s) Endocrine: no fatigue Physical Exam Physical Exam: Constitutional: cachectic,ill appearing female, actively retching Eyes: pupils equal and reactive bilaterally, no scleral icterus Cardiac: borderline tachycardic to 94, regular rate Pulm: unable to auscultate due to vomiting. breathing easily on 3L NC (new req) Abd: nondistended Extremities: 2+ peripheral pulses, no edema Neuro: no focal deficits, moving all 4 limbs, A&Ox3 Results & Data Results & Data ([facility]) Vital Signs (Past 12 Hours) Vital Signs Temp Pulse Pulse Resp BP BP Pulse Ox 03/31/21 00:46 94 H 16 189/134 H 96 03/30/21 23:08 101 H 18 83 L 03/30/21 23:01 91 H 17 176/96 H 95 03/30/21 21:13 37.1 C 101 H 18 177/103 H 90 Laboratory Results Laboratory Results WBC 6.71 K/uL (4.8-10.8) 03/30/21 22:20 RBC 2.80 M/uL (4.2-5.4) L 03/30/21 22:20 Hgb 10.0 g/dL (12.0-16.0) L 03/30/21 22:20 Hct 29.8 % (37-47) L 03/30/21 22:20 MCV 106.4 fL (80-100) H 03/30/21 22:20 MCH 35.7 pg (25-34) H 03/30/21 22:20 MCHC 33.6 g/dL (32-36) 03/30/21 22:20 RDW Std Deviation 63.3 fL (36.4-46.3) H 03/30/21 22:20 RDW Coeff of Mohit 16.1 % (11.5-14.5) H 03/30/21 22:20 Plt Count 118 K/uL (130-400) L 03/30/21 22:20 MPV 9.6 fL (7.4-10.4) 03/30/21 22:20 Immature Gran % (Auto) 0.3 % 03/30/21 22:20 Neut % (Auto) 88.1 % 03/30/21 22:20 Lymph % (Auto) 6.1 % 03/30/21 22:20 Bradford % (Auto) 5.4 % 03/30/21 22:20 Eos % (Auto) 0.0 % 03/30/21 22:20 Baso % (Auto) 0.1 % 03/30/21 22:20 Neut # (Auto) 5.91 K/uL (1.4-6.5) 03/30/21 22:20 Lymph # (Auto) 0.41 K/uL (1.2-3.4) L 03/30/21 22:20 Bradford # (Auto) 0.36 K/uL (0.11-0.59) 03/30/21 22:20 Eos # (Auto) 0.00 K/uL (0-0.5) 03/30/21 22:20 Baso # (Auto) 0.01 K/uL (0-0.2) 03/30/21 22:20 Immature Gran # (Auto) 0.02 K/uL (0.00-0.02) 03/30/21 22:20 PT 10.9 Seconds (9.0-12.0) 03/30/21 22:20 INR 1.1 (0.9-1.1) 03/30/21 22:20 APTT 30.4 Seconds (21.0-31.0) 03/30/21 22:20 PTT Ratio 1.2 03/30/21 22:20 Sodium 136 mmol/L (136-145) 03/30/21 22:20 Potassium 2.8 mmol/L (3.5-5.1) L 03/30/21 22:20 Chloride 101 mmol/L (98-107) 03/30/21 22:20 Carbon Dioxide 27 mmol/L (21-32) 03/30/21 22:20 Anion Gap 8.0 (3-11) 03/30/21 22:20 BUN 6 mg/dl (7-18) L 03/30/21 22:20 Creatinine 0.58 mg/dl (0.6-1.2) L 03/30/21 22:20 Est Cr Clr Drug Dosing Not Reportable 03/30/21 22:20 Est GFR ( Amer) 114.5 ml/min 03/30/21 22:20 Est GFR (Non-Af Amer) 98.8 ml/min 03/30/21 22:20 BUN/Creatinine Ratio 11.1 (10-20) 03/30/21 22:20 Glucose 118 mg/dl (70-99) H 03/30/21 22:20 Calcium 8.6 mg/dl (8.5-10.1) 03/30/21 22:20 Magnesium 1.4 mg/dl (1.8-2.4) L 03/30/21 22:20 Total Bilirubin 3.8 mg/dl (0.2-1) H 03/30/21 22:20 AST 49 U/L (15-37) H 03/30/21 22:20 ALT 26 U/L (12-78) 03/30/21 22:20 Alkaline Phosphatase 199 U/L (45-117) H 03/30/21 22:20 Total Protein 6.1 gm/dl (6.4-8.2) L 03/30/21 22:20 Albumin 2.8 gm/dl (3.4-5.0) L 03/30/21 22:20 Globulin 3.3 gm/dl (2.5-4.0) 03/30/21 22:20 Albumin/Globulin Ratio 0.9 (0.9-2) 03/30/21 22:20 Lipase 52 U/L (73-393) L 03/30/21 22:20 COVID-19 Eval Order Covid19 at [facility] 03/31/21 00:11 SARS-CoV-2 (PCR) NEGATIVE (Negative) 03/31/21 00:11 Code Status & VTE Plan VTE Prophylaxis Plan VTE Prophylaxis will be ordered: Yes Supervising Physician Co-Signing Physician Notes Attending addendum: I have physically seen this patient, have supervised the medical residents activities, and agree with the H&P unless as otherwise noted. Assessment and Plan: Status post fall/acute mild T12 compression fracture- Conservative treatment PT/OT prior to discharge Chronic nausea and abdominal pain- Zofran 4 mg IV every 6 hours as needed Pantoprazole 40 mg IV x1 in ED Famotidine 20 mg IV every 12 hours Urinary tract infection- Follow urine culture and sensitivity Ceftriaxone 1 g IV daily Remaining orders and notations as noted Resident Activity Tracking Resident Involvement: Resident Care Provided Care Provided: Adult Hospital Medicine
[2021-03-31] MEDS ORDERED: METOPROLOL TARTRATE 1 MG/ML VIAL IV STA (01:31)
[2021-03-31] MEDS ORDERED: PANTOprazole 40 MG in SYRINGE 0 ML IV STA (01:40)
[2021-03-31] MEDS ORDERED: cefTRIAXone SODIUM 2,000 MG/70 ML BAG IV STA (02:18)
[2021-03-31] MEDS ORDERED: oxyCODONE HCL IR 5 MG TAB (IMMEDIATE RELEASE) PO PRN (02:55)
[2021-03-31] MEDS ORDERED: LORazepam 1 MG TAB SL PRN (03:01)
[2021-03-31] MEDS ORDERED: ENOXAPARIN INJ 60 MG/0.6 ML SYR SQ SCH (03:15)
[2021-03-31] MEDS ORDERED: cefTRIAXone SODIUM 2,000 MG in DEXTROSE 5% 50 ML IV ONE (03:15)
[2021-03-31 03:18] VITALS: TEMP 98.2
[2021-03-31] MEDS: POTASSIUM CHLORIDE / WTR 10 MEQ/100 ML PLCT IV SCH ×2 (04:05→05:09)
[2021-03-31 04:29] LABS: BUN Creatinine Ratio 14.1 (10-20); Calcium 8.6 mg/dl (8.5-10.1); Creatinine Clr Calc Pharmacy 96.7 ml/min; Est GFR (African American) 125.4 ml/min; Est GFR (Non-African American) 108.2 ml/min; Potassium 3.2 mmol/L (3.5-5.1)
[2021-03-31] MEDS ORDERED: METOPROLOL TARTRATE 1 MG/ML VIAL IV PRN (05:13)
[2021-03-31] MEDS ORDERED: hydrALAZINE HCL 20 MG/ML VIAL IV ONE (05:18)
[2021-03-31] MEDS ORDERED: HEPARIN 100 UNIT/ML 5ML FLUSH FLUSH PRN (05:52)
--- NOTE | 2021-03-31 06:38 | CT Scan Report ---
CT head/brain wo con CLINICAL HISTORY: 60 years-old Female with fall. Acute head trauma status post fall TECHNIQUE: Multiple axial CT images of the head were obtained without contrast. A dose lowering tech nique was utilized adhering to the principles of ALARA. COMPARISON: CT cervical spine of same day, CT soft tissue neck 02/27/2021 FINDINGS: No acute intracranial hemorrhage, midline shift, intracranial mass, hydrocephalus, territorial ischem ia or abnormal extra-axial collection. Minimal white matter hypodensities suggestive of chronic micro vascular ischemic disease. There is an 11 mm hypodense focus of the subcortical right frontal lobe on image 19 series 2 suggestive of a chronic infarct. The calvarium is intact. Mastoid air cells are clear. Mild polypoid mucosal thickening of the left m axillary sinus. Unremarkable soft tissues and orbits. IMPRESSION: No acute intracranial abnormality. ACT 112: Negative or not required by law. The above report was generated using voice recognition software. It may contain grammatical, syntax o r spelling errors. Electronically signed by: Ankur Winkler M.D. 03/31/2021 6:37 AM
--- NOTE | 2021-03-31 07:09 | CT Scan Report ---
CT cervical spine wo con CLINICAL HISTORY: 60 years-old Female with fall. Acute head and neck injury status post fall COMPARISON: Head CT of same day, CT soft tissue neck 02/27/2021 TECHNIQUE: Multiple axial CT images of the cervical spine were obtained without contrast. A dose low ering technique was utilized adhering to the principles of ALARA. FINDINGS: Layering straightening of the normal cervical lordosis with multilevel intervertebral disc space narrowing, moderate at C5-C6 and C6-C7. Uncovertebral spurring with posterior disc osteophyte c omplex formations are noted at these levels. Mild to moderate facet arthrosis. No acute fracture or s ubluxation. Multilevel neural foraminal stenosis. Layering pleural effusions. Pleural parenchymal scarring of the right lung apex with chronic postoper ative changes. Layering secretions within the distended esophagus. Partially imaged right subclavian Wduhjd-j-Otdh catheter. No prevertebral edema. Pathologically enlarged upper mediastinal lymph nodes. IMPRESSION: 1. No acute cervical spine fracture or subluxation. 2. Layering pleural effusions with pathologic mediastinal adenopathy. Please refer to chest CT of for additional findings. ACT 112: Negative or not required by law. The above report was generated using voice recognition software. It may contain grammatical, syntax o r spelling errors. Electronically signed by: Ankur Winkler M.D. 03/31/2021 7:08 AM
[2021-03-31] MEDS ORDERED: ONDANSETRON 4 MG OD TAB PO SCH (07:30)
[2021-03-31] MEDS ORDERED: ONDANSETRON HOME PACK 4MG OD TAB PO SCH (07:30)
[2021-03-31 07:49] VITALS: PULSE 94; O2SAT 96
[2021-03-31] MEDS ORDERED: XYZAL~ORDER AWAITING ACTION SCH (08:00)
[2021-03-31] MEDS ORDERED: NIFEdipine EXTENDED REL 30 MG TABCR PO SCH (09:00)
[2021-03-31] MEDS ORDERED: FAMOTIDINE 20 MG TAB PO SCH ×2 (09:00)
[2021-03-31] MEDS ORDERED: OLANZapine ZYDIS 5 MG ORALLY DIS. TAB PO SCH (09:00)
--- NOTE | 2021-03-31 09:01 | CT Scan Report ---
CT OF THE CHEST WITHOUT IV CONTRAST CLINICAL HISTORY: Fall. History of esophageal cancer. COMPARISON STUDY: Chest CT March 13, 2021. CT DOSE: 1375.97 mGy.cm TECHNIQUE: Axial images of the chest were obtained without IV contrast. Images were reviewed in the axial, sagittal, and coronal planes. IV contrast was not administered for this examination. Automat ed exposure control was utilized for the study. A dose lowering technique was utilized adhering to t he principles of ALARA. FINDINGS: There is no pneumothorax. Postoperative findings within the right lung apex are again note d. Size of the heart is normal. There is a small pericardial effusion. Right subclavian Mmiyve-k-Guhe is in place. The esophagus is mildly distended and fluid-filled. Multiple enlarged mediastinal and b ilateral hilar lymph nodes again noted. Index right paratracheal lymph node measures 3.5 cm. Moderate to large bilateral pleural effusions have increased in size since prior examination. There is associ ated segmental atelectasis of both lower lobes. A T12 compression fracture with 40% loss of vertebral body height centrally is new since CT of March 13, 2021. IMPRESSION: 1. Significant increase in size of moderate to large bilateral pleural effusions since chest CT of 2020. 2. Acute T12 compression fracture with 40% loss of vertebral body height centrally which is new since CT of March 13, 2021. 3. Redemonstration of mediastinal and bilateral hilar lymphadenopathy consistent with metastatic dise ase. 4. Small pericardial effusion. ACT 112: Negative or not required by law. Electronically signed by: Esequiel Kern M.D. 03/31/2021 9:00 AM
--- NOTE | 2021-03-31 09:08 | CT Scan Report ---
CT OF THE ABDOMEN AND PELVIS WITHOUT CONTRAST CLINICAL HISTORY: Fall. Esophageal cancer. COMPARISON STUDY: CT of the abdomen and pelvis March 13, 2021. TECHNIQUE: Axial images of the abdomen and pelvis were obtained without IV contrast. Images were revi ewed in the axial, sagittal, and coronal planes. Automated exposure control was utilized for the laine dy. A dose lowering technique was utilized adhering to the principles of ALARA. FINDINGS: The chest CT will be reported separately. Moderate to large bilateral pleural effusions hav e significantly increased in size since CT of March 13, 2021. No pneumatosis, free air or portal veno us gas is present. Retroperitoneal lymphadenopathy is better depicted on recent contrast-enhanced CT. Index left para-aortic lymph node measures 4.7 x 2.7 cm. There is no hydronephrosis. A small amount of ascites has increased since prior examination. There is anasarca. Colonic diverticulosis is noted without evidence for acute diverticulitis. There is no evidence for a bowel obstruction. Postoperativ e findings from gastroesophageal resection with pull-through are again noted. There is a T12 compress ion fracture which is new since CT of March 13, 2021. There is 40% loss of vertebral body height cent rally. IMPRESSION: 1. No significant change in retroperitoneal lymphadenopathy since prior examination. 2. No bowel obstruction. 3. Small amount of ascites within the abdomen and pelvis which has developed since prior examination. Anasarca. 4. Increase in size of moderate to large bilateral pleural effusions. 5. Acute T12 compression fracture with 40% loss of vertebral body height centrally. ACT 112: Negative or not required by law. Electronically signed by: Esequiel Kern M.D. 03/31/2021 9:07 AM
[2021-03-31 10:43] VITALS: BP 183/95
--- NOTE | 2021-03-31 11:21 | Discharge Summary ---
Date of Service March 31, 2021 Principal Diagnosis Fall Discharge Exam Constitutional: cachectic,ill appearing female, actively retching Eyes: pupils equal and reactive bilaterally, no scleral icterus Cardiac: borderline tachycardic to 94, regular rate Pulm: unable to auscultate due to vomiting. breathing easily on 3L NC (new req) Abd: nondistended Extremities: 2+ peripheral pulses, no edema Neuro: no focal deficits, moving all 4 limbs, A&Ox3 Discharge Data Allergies Allergy/AdvReac Type Severity Reaction Status Date / Time No Known Allergies Allergy Verified 03/31/21 00:12 Consultations 03/30/21 23:57 ED Decision to Admit Stat 03/31/21 09:40 Consult Palliative Care Routine Ordered Studies 03/30/21 21:28 CT abd pelvis wo con Urgent CT cervical spine wo con Urgent CT chest diagnostic wo con Urgent CT head/brain wo con Urgent Hospital Course (1) Fall: (1) Fall: Plan: 60 yo F on hospice with dx metastatic esophageal adenocarcinoma, recently discha rged from hospital on 03/20 for persistent n/v and electrolyte derangements. Fall - likely secondary to persistent UTI/associated confusion symptoms and dehydration/electrolyte derangements from vomiting - CT head negative for acute intracranial bleed on eliquis - fall risk Nausea/Abdominal Pain - chronic, treating with zofran tabs at home - continue with IV zofran in hospital - received 500 cc NS volume repletion - persistent bilious emesis - pantoprazole IV 40 mg x1 - cont home oxy 10 mg PO Q4h PRN Elevated BP w/o dx HTN - likely secondary to emesis/pain/stress - metoprolol 5 mg IV x 1 for BP >210/100 in ER - continue monitoring, goal <200/100 Electrolyte Derangements - K 2.8, received 20 meQ IV. unable to tolerate 40 mg pill PO. - additional 20 meQ IV ordered. Repeat BMP when transferred to floor. - AM BMP recheck. on 16 mq K PO BID at home, holding at this time given uncontrolled emesis. replete as necessary UTI - UA with culture - Cx results from 03/16 showed pansensitive E COli, had been treated with 4 days of IV Ceftriaxone. Patient and unsure which medication she was being treated with outpatient. - canuse purewick external catheter while patient suffering from severe nausea/recent fall - will start on rocephin empirically Anxiety - continue ativan 0.5 mg Q4h prn for anxiety, seroquel DVT ppx: on eliquis, switching to therapeutic lovenox while nauseous FEN/GI: NPO, sips and chips with diet progression as tolerated Code Status: DNR/DNI Dispo: Med/Surg, home with hospice when nausea controlled and electrolytes righted Later in the hospital stay. It was deemed patient will be admitted under [facility] hospice. 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 Total Time Total Time Spent Total Time Spent (In Minutes): 32 Discharge Plan Discharge Items Patient Disposition: Hospice - Medical Facility Reason For Visit: FALL Discharge Diagnosis: FALL Activity: Resume your previous activity Non-emergency contact: Primary Care Provider Call non-emergency contact if: you have any medication questions Follow-up/Referrals: Han Edmondson III, MD [Primary Care Provider] - Diet: Regular Addtl Attending Provider Instructions: will be GIP'D Pending Studies at Discharge: No Stand-Alone Forms: [facility] Patient informed of condition?: No DNR: No Discharge Level of Care: Other Communicable Disease: No Discharge Prognosis: Stable Lines: Peripheral IV Urinary Catheter: No Medications and DC Order Prescriptions: Continued potassium chloride 8 mEq tablet extended release 16 meq PO BID Qty: 120 RF: 5 albuterol sulfate 90 mcg/actuation HFA aerosol inhaler 2 puff inhalation Q6H PRN (Reason: Shortness Of Breath) Qty: 1 RF: 0 levocetirizine [Xyzal] 5 mg tablet 5 mg PO DAILY PRN (Reason: Nasal Congestion) RF: 0 Hold Instructions: While on chlorpheniramine Eliquis 5 mg tablet 5 mg PO BID Qty: 60 RF: 5 pantoprazole 40 mg tablet,delayed release (DR/EC) 40 mg PO QAM RF: 0 nifedipine [Procardia XL] 30 mg Tablet Extended Release 24hr 30 mg PO QAM Qty: 30 RF: 0 clonidine 0.1 mg/24 hr Patch Weekly 1 patch transdermal Sa@1045 Qty: 4 RF: 0 ondansetron 4 mg Tablet,Disintegrating 4 mg PO ACHS Qty: 120 RF: 0 olanzapine 5 mg Tablet,Disintegrating 2.5 mg PO BID Qty: 30 RF: 0 lorazepam 2 mg/mL concentrate 0.5 - 1 mg PO Q4H PRN (Reason: anxiety) Qty: 30 RF: 0 oxycodone 20 mg/mL concentrate 10 mg PO Q4H PRN (Reason: pain) Qty: 30 RF: 0 famotidine 20 mg tablet 20 mg PO BID Qty: 60 RF: 0 oxycodone 10 mg tablet 10 mg PO Q4H PRN (Reason: pain) Qty: 10 RF: 0 lorazepam 1 mg tablet 0.5 - 1 mg sublingual Q4H PRN (Reason: anxiety) Qty: 10 RF: 0 ipratropium-albuterol 0.5 mg-3 mg(2.5 mg base)/3 mL solution for nebulization 3 ml INHALATION QID PRN (Reason: Shortness Of Breath Or Wheezing) RF: 0 sennosides-docusate sodium [Senna-S] 8.6-50 mg tablet 1 tab-cap PO BID RF: 0 hyoscyamine sulfate 0.125 mg tablet 0.125 mg PO Q4 PRN (Reason: terminal secretions) RF: 0 acetaminophen 650 mg suppository 650 mg [place] Q4 MDD 4 doses PRN (Reason: Fever Or Pain) RF: 0 Discharge Orders: Discharge Order (Routine); Ordered 03/31/21 Ordered By: Elmer Bautista Admission Data Admit Date/Time: 03/31/21 00:53 Attending Provider: Elmer Bautista Admit Provider: Kailey Ardon Primary Care Provider: Han Edmondson III Other Providers: Gil Tobias ; Marguerite Mccann Coding Level of Care Code OBSERV/HOSP SAME DATE LVL 3 Diagnoses Fall W19.XXXA
--- NOTE | 2021-04-01 04:58 | Billing Data ---
Date of Service April 01, 2021 Coding Level of Care Code INT OBSERVATION CARE 70M LVL 3
--- NOTE | 2021-04-01 07:11 | Electrocardiogram Report ---
Test Reason : Blood Pressure : / mmHG Vent. Rate : 095 BPM Atrial Rate : 095 BPM P-R Int : 106 ms QRS Dur : 074 ms QT Int : 362 ms P-R-T Axes : 066 -15 121 degrees QTc Int : 454 ms Sinus rhythm with short [place] Possible Left atrial enlargement Low voltage QRS Nonspecific T wave abnormality Abnormal ECG When compared with ECG of 13-MAR-2021 11:03, QRS voltage has decreased Confirmed by Alexei Blood ([id number]) on 04/01/2021 7:11:22 AM Referred By: REFERRED SELF Confirmed By:Alexei Blood
== END 2021-03-31 11:25 | disposition hospice, inpatient (51) ==
LOC: ED 21:10 → 3N 21:10 → SUATTDRO 03-31 00:53 → 3N 03-31 01:56
DX: I26.99 Other pulmonary embolism without acute cor pulmonale; Z04.1 Encounter for examination and observation following transport accident; F41.9 Anxiety disorder, unspecified; N39.0 Urinary tract infection, site not specified; B96.20 Unspecified Escherichia coli [E. coli] as the cause of diseases classified elsewhere; Z79.51 Long term (current) use of inhaled steroids; E87.6 Hypokalemia; R11.0 Nausea; C15.9 Malignant neoplasm of esophagus, unspecified; Z79.899 Other long term (current) drug therapy; R03.0 Elevated blood-pressure reading, without diagnosis of hypertension; K21.9 Gastro-esophageal reflux disease without esophagitis; R10.9 Unspecified abdominal pain; Z79.01 Long term (current) use of anticoagulants

== ENCOUNTER 2021-03-31 11:31 | Inpatient (IN) ==
[2021-03-31] MEDS ORDERED: ONDANSETRON HOME PACK 4MG OD TAB PO SCH (12:00)
[2021-03-31] MEDS ORDERED: LORazepam 1 MG TAB SL PRN (12:14)
--- NOTE | 2021-03-31 12:17 | History & Physical Report ---
Date of Service March 31, 2021 Assessment & Plan Admission and Anticipated Discharge Date Admission Date: March 31, 2021 History of Present Illness Primary Care Provider: Han Edmondson MD PLEASE REFER TO HPI FROM EARLIER IN DAY. NOW ADMITTED UNDER GIP. Allergies Allergy/AdvReac Type Severity Reaction Status Date / Time No Known Allergies Allergy Verified 03/31/21 00:12 Home Medications Medication Instructions Recorded Confirmed Type levocetirizine 5 mg tablet (Xyzal) 5 mg PO DAILY PRN 02/05/20 03/31/21 History albuterol sulfate 90 mcg/actuation 2 puff INHALATION Q6H PRN #1 gm 06/08/20 03/31/21 Rx aerosol inhaler apixaban 5 mg tablet (Eliquis) 5 mg PO BID #60 tab 09/27/20 03/31/21 Rx pantoprazole 40 mg tablet,delayed 40 mg PO QAM 03/13/21 03/31/21 History release clonidine 0.1 mg/24 hr weekly 1 patch TRANSDERMAL Sa@1045 #4 ea 03/20/21 03/31/21 Rx transdermal patch famotidine 20 mg tablet 20 mg PO BID #60 tab 03/20/21 03/31/21 Rx lorazepam 1 mg tablet 0.5 - 1 mg SUBLINGUAL Q4H PRN #10 03/20/21 03/31/21 Rx tab lorazepam 2 mg/mL oral concentrate 0.5 - 1 mg PO Q4H PRN #30 ml 03/20/21 03/31/21 Rx nifedipine 30 mg tablet,extended 30 mg PO QAM #30 tab 03/20/21 03/31/21 Rx release 24 hr (Procardia XL) olanzapine 5 mg disintegrating 2.5 mg PO BID #30 tab 03/20/21 03/31/21 Rx tablet ondansetron 4 mg disintegrating 4 mg PO ACHS #120 tab 03/20/21 03/31/21 Rx tablet oxycodone 10 mg tablet 10 mg PO Q4H PRN #10 tab 03/20/21 03/31/21 Rx oxycodone 20 mg/mL oral concentrate 10 mg PO Q4H PRN #30 ml 03/20/21 03/31/21 Rx potassium chloride 8 mEq 16 meq PO BID #120 tab 03/23/21 03/31/21 Rx tablet,extended release ipratropium 0.5 mg-albuterol 3 mg 3 ml INHALATION QID PRN 03/30/21 03/30/21 History (2.5 mg base)/3 mL nebulization soln acetaminophen 650 mg rectal 650 mg VT Q4 PRN MDD 4 doses 03/31/21 03/31/21 History suppository hyoscyamine sulfate 0.125 mg tablet 0.125 mg PO Q4 PRN 03/31/21 03/31/21 History sennosides 8.6 mg-docusate sodium 1 tab-cap PO BID 03/31/21 03/31/21 History 50 mg tablet (Senna-S) Past Med/Surg History Medical History (Updated 03/31/21 @ 02:07 by Kailey Ardon MD) Abdominal pain Bilateral pulmonary embolism Chronic cough Constipation Difficulty swallowing Diverticular disease Esophageal adenocarcinoma metastatic, s/p chemo/xrt Esophageal stricture s/p dilation GERD (gastroesophageal reflux disease) History of kidney stones passed without intervention Lesion of bladder Low back pain Lung nodule s/p excision Migraine HX Nausea Palliative care encounter Pulmonary embolism CURRENTLY ON ELIQUIS UTI (urinary tract infection) CURRENTLY ON ANTIBIOTIC Weakness Surgical History Basal cell carcinoma of back Basal cell carcinoma of shoulder History of arthroscopy of right knee meniscus repair History of bilateral tubal ligation History of colonoscopy History of dilatation and curettage History of endoscopic sinus surgery History of esophagogastroduodenoscopy (EGD) History of laparoscopy for ectopic History of liver biopsy Dr. Zambrano 05/27/19 [place] History of lung surgery right wedge resection upper History of parotid gland excision excision of left side parotid gland for benign tumor History of removal of Port-a-Cath 04/2019 (infected) History of repair of right rotator cuff History of thoracic surgery Robot-assisted laparoscopic/ thoracoscopic assisted esophagogastrectomy with an intrathoracic esophagogastrostomy: 04/22/2019: Grade view 1, MAC#3, ETT 7.0 at [facility] History of vascular access device Insertion of Mediport(Right) 08/15/20 [place] Status post Mohs surgery for basal cell carcinoma x2 Family History Grandfather (Maternal) , in her eighties of old age No problems noted. Mother Age: 86 Diabetes Hypertension Father , abd aortic aneurysm at age 80 No problems noted. Brother Age: 61 No problems noted. Sister Age: 59 Stroke, Onset Age: 40 Brother Age: 58 Hypertension Sister Age: 57 Heart disease Hypertension Daughter Age: 42 No problems noted. Son Age: 39 No problems noted. Other No family history of adverse response to anesthesia Denies family history of Lung disease Cancer Asthma Social History Smoking Status: Never smoker Second Hand Exposure: No; Hx Alcohol Use: No Hx Substance Use: No Preferred Language: Japanese Communication Ability: Effective Visual Impairment: No Limitations Remote Sensing Technologist Required: No Beliefs That Will Affect Care: None marital status: Current Living Situation: Spouse Feels Safe at Home: Yes Safety Concerns: Feels Safe At This Time Assistive Devices: None Results & Data Results & Data ([facility]) Vital Signs (Past 12 Hours) Vital Signs Temp Pulse Resp BP Pulse Ox 03/31/21 11:45 36.8 C 78 16 183/96 H 99 PG Care Time/CCT Total # of Minutes Spent Total Time Spent with Patient: Total time spent is greater than 50% in coordination of care (as documented) at patient's floor/unit and/or counseling patient: Coding Level of Care Code None
[2021-03-31] MEDS ORDERED: Nursing to Pharmacy Communication SCH (12:30)
[2021-03-31] MEDS: ONDANSETRON 4 MG OD TAB PO SCH ×3 (12:38→23:29)
[2021-03-31] MEDS ORDERED: cloNIDine HCL 0.1 MG/24 HR TRANSDERM SYS TD SCH (13:00)
[2021-03-31] MEDS: MoRPHine SULFATE 2 MG/ML CARP IV PRN ×3 (13:04→20:30)
[2021-03-31] MEDS ORDERED: ONDANSETRON INJ 2 MG/ML 2 ML VIAL IV ONE (13:26)
[2021-03-31] MEDS: CHECK CLONIDINE PATCH PLACEMENT SCH ×2 (15:58→23:33)
[2021-03-31] MEDS ORDERED: HEPARIN 100 UNIT/ML 5ML FLUSH ONE (20:28)
[2021-03-31] MEDS: FAMOTIDINE 20 MG TAB PO SCH (22:42)
[2021-03-31] MEDS: OLANZapine ZYDIS 5 MG ORALLY DIS. TAB PO SCH (23:28)
[2021-03-31] MEDS: ENOXAPARIN INJ 60 MG/0.6 ML SYR SQ SCH (23:29)
[2021-04-01] MEDS: ONDANSETRON 4 MG OD TAB PO SCH ×4 (04:53→19:16)
[2021-04-01] MEDS ORDERED: HEPARIN 100 UNIT/ML 5ML FLUSH ONE (07:49)
[2021-04-01] MEDS: MoRPHine SULFATE 2 MG/ML CARP IV PRN ×3 (07:52→15:37)
[2021-04-01] MEDS: HEPARIN 100 UNIT/ML 5ML FLUSH FLUSH PRN ×3 (10:07→15:45)
[2021-04-01] MEDS: CHECK CLONIDINE PATCH PLACEMENT SCH ×2 (10:07→16:00)
[2021-04-01] MEDS: NIFEdipine EXTENDED REL 30 MG TABCR PO SCH (10:08)
[2021-04-01] MEDS: FAMOTIDINE 20 MG TAB PO SCH ×2 (10:08→21:53)
[2021-04-01] MEDS: OLANZapine ZYDIS 5 MG ORALLY DIS. TAB PO SCH ×2 (10:08→21:54)
[2021-04-01] MEDS: ENOXAPARIN INJ 60 MG/0.6 ML SYR SQ SCH ×2 (10:09→21:54)
[2021-04-01] MEDS ORDERED: cloNIDine HCL 0.1 MG/24 HR TRANSDERM SYS TD SCH (10:45)
[2021-04-01] MEDS: PROCHLORPERAZINE 10 MG in SYRINGE 8 ML IV SCH ×2 (12:40→19:16)
[2021-04-01] MEDS: HALOPERIDOL 2 MG/1 ML UDP PO PRN (18:22)
--- NOTE | 2021-04-01 21:24 | Hospitalist Progress Note ---
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 (3) Nausea: Plan: Patient has nausea and vomiting. Not responding to round the clock zofran q6h This will be changed to q4h added compazine q8h and haldol PRN Admission and Anticipated Discharge Date Admission Date: March 31, 2021 Subjective Patient is under hospice and is [facility]ed Review of Systems Review of Systems: All systems reviewed & are unremarkable except as noted in HPI & below Physical Exam Physical Exam: Constitutional: cachectic,ill appearing female, actively retching Eyes: pupils equal and reactive bilaterally, no scleral icterus Cardiac: borderline tachycardic to 94, regular rate Pulm: unable to auscultate due to vomiting. breathing easily on 3L NC (new req) Abd: nondistended Extremities: 2+ peripheral pulses, no edema Neuro: no focal deficits, moving all 4 limbs, A&Ox3 Results & Data Results & Data ([facility]) Vital Signs (Past 12 Hours) Vital Signs Temp Pulse Resp BP Pulse Ox 04/01/21 19:11 36.9 C 91 H 14 131/72 90 PG Care Time/CCT Total # of Minutes Spent Total Time Spent with Patient: Total time spent is greater than 50% in coordination of care (as documented) at patient's floor/unit and/or counseling patient: Coding Level of Care Code 11399 Subseq Hosp Care Lvl 2 Diagnoses Hospice care patient Z51.5 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 C79.9; C15.9 Nausea R11.0 Time Spent (min) 25
[2021-04-02] MEDS: ONDANSETRON 4 MG OD TAB PO SCH ×7 (00:39→23:11)
[2021-04-02] MEDS: CHECK CLONIDINE PATCH PLACEMENT SCH ×4 (00:39→23:12)
[2021-04-02] MEDS: PROCHLORPERAZINE 10 MG in SYRINGE 8 ML IV SCH ×3 (03:49→20:08)
[2021-04-02] MEDS: ENOXAPARIN INJ 60 MG/0.6 ML SYR SQ SCH ×2 (09:57→21:50)
[2021-04-02] MEDS: OLANZapine ZYDIS 5 MG ORALLY DIS. TAB PO SCH ×2 (09:57→20:09)
[2021-04-02] MEDS: NIFEdipine EXTENDED REL 30 MG TABCR PO SCH (09:58)
[2021-04-02] MEDS: MoRPHine SULFATE 5 MG/0.25 ML UDP PO SCH ×2 (10:15→20:09)
[2021-04-02] MEDS: FAMOTIDINE 20 MG TAB PO SCH ×2 (10:15→20:09)
--- NOTE | 2021-04-02 11:51 | Hospitalist Progress Note ---
Date of Service April 02, 2021 Assessment & Plan (1) Hospice care patient: Plan: Patient is admitted under hospice for uncontrolled nausea, vomiting pain from esophageal cancer She has been responding to compazine and zofran around the clock. Haldol has been also ordered for PRN. Roxanol has been given for sob. Patient appears to be stable. plan is for discharge tomorrow. is agreeable. Her blood pressure responded to catapres patch. (2) 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: Plan: as noted above. (3) Nausea: Plan: Patient has nausea and vomiting. Not responding to round the clock zofran q6h This will be changed to q4h added compazine q8h and haldol PRN Admission and Anticipated Discharge Date Admission Date: March 31, 2021 Subjective Patient is resting comofrtably. Earlier in the day patient was Short of breath however, she responded well to the roxanol that was added as per nurse. Review of Systems Review of Systems: All systems reviewed & are unremarkable except as noted in HPI & below Physical Exam Physical Exam: Constitutional: cachectic,ill appearing female, appears comfortable Eyes: pupils equal and reactive bilaterally, no scleral icterus Cardiac: borderline tachycardic to 94, regular rate Pulm: unable to auscultate due to vomiting. breathing easily on 3L NC (new req) Abd: nondistended Extremities: 2+ peripheral pulses, no edema Neuro: no focal deficits, moving all 4 limbs, A&Ox3 Results & Data Results & Data ([facility]) Vital Signs (Past 12 Hours) Vital Signs Temp Pulse Resp BP Pulse Ox 04/02/21 08:28 20 96 04/02/21 07:55 36.4 C L 89 20 157/67 H 92 PG Care Time/CCT Total # of Minutes Spent Total Time Spent with Patient: Total time spent is greater than 50% in coordination of care (as documented) at patient's floor/unit and/or counseling patient: Coding Level of Care Code 42860 Subseq Hosp Care Lvl 2 Diagnoses Hospice care patient Z51.5 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 C79.9; C15.9 Nausea R11.0 Time Spent (min) 25
[2021-04-02] MEDS: HEPARIN 100 UNIT/ML 5ML FLUSH FLUSH PRN ×2 (13:08→17:10)
[2021-04-02] MEDS: MoRPHine SULFATE 2 MG/ML CARP IV PRN (17:08)
[2021-04-03] MEDS: ONDANSETRON 4 MG OD TAB PO SCH ×3 (03:22→10:02)
[2021-04-03] MEDS: PROCHLORPERAZINE 10 MG in SYRINGE 8 ML IV SCH ×2 (03:22→11:55)
[2021-04-03 08:47] LABS: Est GFR (African American) 120.2 ml/min; Est GFR (Non-African American) 103.7 ml/min
[2021-04-03] MEDS: OLANZapine ZYDIS 5 MG ORALLY DIS. TAB PO SCH ×2 (09:26→20:08)
[2021-04-03] MEDS: ENOXAPARIN INJ 60 MG/0.6 ML SYR SQ SCH (09:28)
[2021-04-03] MEDS: NIFEdipine EXTENDED REL 30 MG TABCR PO SCH (09:28)
[2021-04-03] MEDS: CHECK CLONIDINE PATCH PLACEMENT SCH ×2 (09:29→16:28)
[2021-04-03] MEDS: MoRPHine SULFATE 5 MG/0.25 ML UDP PO SCH ×2 (09:33→20:07)
[2021-04-03] MEDS: MoRPHine SULFATE 2 MG/ML CARP IV PRN ×2 (10:03→16:26)
[2021-04-03] MEDS: HEPARIN 100 UNIT/ML 5ML FLUSH FLUSH PRN ×2 (10:04→16:28)
[2021-04-03] MEDS: FAMOTIDINE 20 MG TAB PO SCH ×2 (10:47→20:08)
[2021-04-03] MEDS: ONDANSETRON 8MG OD TAB PO SCH ×3 (13:35→22:59)
[2021-04-03] MEDS: PROCHLORPERAZINE MALEATE 5 MG TAB PO SCH ×2 (13:36→20:07)
[2021-04-03] MEDS: ALBUTEROL HFA 8 GM INHALER INH PRN ×2 (13:53→19:42)
[2021-04-03] MEDS ORDERED: ALBUT/IPRATROP 3MG/0.5MG NEB 3 ML VIAL ONE (16:05)
[2021-04-03] MEDS: ALBUT/IPRATROP 3MG/0.5MG NEB 3 ML VIAL NEB SCH ×3 (16:12→19:30)
--- NOTE | 2021-04-03 16:29 | Pulmonary Consultation ---
Date of Consultation April 03, 2021 Assessment & Plan (1) Bilateral pleural effusion: Impression: This is a 60-year-old female with metastatic esophageal carcinoma. She has a recent history of bilateral pulmonary emboli and is currently fully anticoagulated. She was receiving Eliquis as an outpatient and currently is on Lovenox 1 mg/kg twice daily. Her last dose of Lovenox was this morning at 9:28 AM. Her most recent dose of Eliquis was at least 5 days ago. The patient is found to have worsening bilateral pleural effusions. It was anticipated that she would be discharged home today on hospice. At this time the pulmonary service has been consulted to evaluate for thoracentesis versus Pleurx catheter placement. We will plan on bilateral Pleurx catheter placement tomorrow with discharge either later in day tomorrow or on Saturday. Recommendations: 1. Bilateral pleural effusions: These are most likely secondary to her malignancy. At this time we will plan on placing bilateral Pleurx catheters tomorrow in anticipation of discharge. Consent was obtained by the patient in the presence of her and her daughter. Risk versus benefit was discussed. Patient wishes to proceed with Pleurx catheter placement. Lovenox has been held. Last dose administered was this morning 9:28 AM. Plan was communicated to primary team as well as to nursing. 2. Bilateral pulmonary emboli: Patient states that this was diagnosed in November. She has been on Eliquis since that time. Eliquis has been held since admission on 03/30/2021. She is receiving therapeutic doses of Lovenox at 1 mg/kg twice daily. This is been held in anticipation of bilateral Pleurx placement tomorrow. Patient currently has no pleuritic pain. She has no hemoptysis. She is requiring supplemental oxygen. This is most likely secondary to large bilateral pleural effusions. 3. Esophageal adenocarcinoma: Patient is transitioning to hospice. Anticipate discharge home tomorrow. Further management per oncology and palliative medicine. 4. DVT prophylaxis: At this time all anticoagulation is being held secondary to need for Pleurx catheter placement. Patient did receive Lovenox this morning. Ambulate as tolerated. Will resume anticoagulation after procedure. Please refer to Dr. Patel's addendum for further recommendations and corrections. We will continue to follow this patient until discharge at this time. (2) Esophageal adenocarcinoma: (3) Palliative care encounter: (4) Bilateral pulmonary embolism: (5) DVT prophylaxis: Disposition: Pleurx catheter kit was requested from the store room. This has 4 bottles in it that the patient can take home. It also has authorization form for the provider to fill out and send authorizing Pleurx kits for at home. A TV and DVD player has been requested to be taken to the patient's room. They are asked to review the DVT on Pleurx catheter placement, drainage, dressing changes prior to tomorrow's procedure. Anticipate discharge home tomorrow or at the latest on Saturday from a pulmonary perspective. Supervising Physician Co-Signing Physician Notes I saw and evaluated the patient with Adiel Wells, and agree with findings and plan as documented in the note. 60-year-old female who was seen by me in the clinic exactly a year ago for abnormal chest CT. She had pretracheal lymphadenopathy and given the history of adenocarcinoma of the distal esophagus plan was to have a repeat CT in 3 months as the possibility of recurrence was high. Unfortunately she did not follow-up but I did go over the notes and she had followed up with oncology no new that this was most likely recurrence and chemotherapy was started Past medical history: Adenocarcinoma of the distal esophagus diagnosed 12/18/2018, GERD, seasonal allergies, history of kidney stones Patient also had right upper lobe wedge resection done 01/09/2019 which showed caseating necrosis negative for bacteria and fungi. No tumor seen. CT chest 03/30/2021 personally reviewed: Large bilateral pleural effusions apprec iated Right upper lobe wedge resection with rocio in place, degenerative disease of bilateral lower lobe Significant mediastinal lymphadenopathy Unfortunately patient's cancer has progressed to metastatic disease. In the hospital patient was found to have bilateral pleural effusion. Patient is planning to go on hospice at home Plan of thoracentesis bilaterally versus Pleurx catheter placement was explained to the patient Patient opted to go with Pleurx catheter bilaterally. I also given option to have Pleurx catheter on 1 side and see how she feels based on that decide whether she wants it on the other side as well. Risk and benefit of the procedure was explained to the patient in depth. Patient understands and agrees to go ahead with the procedure She did get therapeutic Lovenox in the morning today. Hold Lovenox now on. We will do the procedure 24 hours after the last dose Constitutional: No acute distress, frail-appearing HEENT: EOMI, PERRLA Respiratory system: Decreased air entry bilaterally, no wheeze, no rhonchi, no crackles CVS: S1-S2 positive, no murmurs or gallops, right-sided Port-A-Cath Abdomen: Soft, nontender, nondistended, positive bowel sounds x4 Extremities: +2 pulses bilaterally radialis/ dorsalis pedis, no cyanosis, no edema Neuro: Awake alert oriented x3 Psych: Normal mood and affect G/U: No Govea Plan: For bilateral Pleurx catheter placement tomorrow Consent has been signed, witnessed and put in the chart Please note the above document was generated using voice recognition software. It may contain grammatical, syntax or spelling errors.Any formal questions or concerns about the content, text or information contained within the body of this dictation should be directly addressed to the provider for clarification. History of Present Illness Reason for Consultation: Evaluation of bilateral pleural effusions Attending Physician: Marck Ibarra DO History of Present Illness Attending: Dr. Patel This is a 60-year-old female with a history of esophageal carcinoma, UTI, bilateral pleural effusions, hypertension, constipation, bilateral pulmonary embolism, GE junction carcinoma, upper airway cough syndrome, lesion of bladder, and history of basal cell carcinoma. The patient was diagnosed with esophageal carcinoma which is now metastatic to 1/2 years ago. She has undergone treatment with Dr. An. At this time she is being discharged home on hospice. CT imaging revealed bilateral pleural effusions. Over the course of this admission, patient has developed increasing hypoxia requiring supplemental oxygen via nasal cannula. We were asked to see the patient regarding bilateral pleural effusions and treatment options including thoracentesis and Pleurx catheter placement. The patient states that she has never been a smoker. She has never had pleural effusions before. She does have a history of right upper lobe wedge resection with Dr. Zambrano in the past. She is having increased shortness of breath and states that the supplemental oxygen does help. She also states that she had improvement with the bronchodilator. She has no fever chills. She has no nausea or vomiting other than secondary pill dysphagia. She has no diarrhea. She was expecting be discharged home today. At this time discharge will be deferred until procedures are completed tomorrow. The patient has no other acute complaints. Allergies Allergy/AdvReac Type Severity Reaction Status Date / Time No Known Allergies Allergy Verified 03/31/21 00:12 Home Medications Medication Instructions Recorded Confirmed Type levocetirizine 5 mg tablet (Xyzal) 5 mg PO DAILY PRN 02/05/20 03/31/21 History albuterol sulfate 90 mcg/actuation 2 puff INHALATION Q6H PRN #1 gm 06/08/20 03/31/21 Rx aerosol inhaler apixaban 5 mg tablet (Eliquis) 5 mg PO BID #60 tab 09/27/20 03/31/21 Rx pantoprazole 40 mg tablet,delayed 40 mg PO QAM 03/13/21 03/31/21 History release clonidine 0.1 mg/24 hr weekly 1 patch TRANSDERMAL Sa@1045 #4 ea 03/20/21 03/31/21 Rx transdermal patch famotidine 20 mg tablet 20 mg PO BID #60 tab 03/20/21 03/31/21 Rx lorazepam 1 mg tablet 0.5 - 1 mg SUBLINGUAL Q4H PRN #10 03/20/21 03/31/21 Rx tab lorazepam 2 mg/mL oral concentrate 0.5 - 1 mg PO Q4H PRN #30 ml 03/20/21 03/31/21 Rx nifedipine 30 mg tablet,extended 30 mg PO QAM #30 tab 03/20/21 03/31/21 Rx release 24 hr (Procardia XL) olanzapine 5 mg disintegrating 2.5 mg PO BID #30 tab 03/20/21 03/31/21 Rx tablet ondansetron 4 mg disintegrating 4 mg PO ACHS #120 tab 03/20/21 03/31/21 Rx tablet oxycodone 10 mg tablet 10 mg PO Q4H PRN #10 tab 03/20/21 03/31/21 Rx oxycodone 20 mg/mL oral concentrate 10 mg PO Q4H PRN #30 ml 03/20/21 03/31/21 Rx potassium chloride 8 mEq 16 meq PO BID #120 tab 03/23/21 03/31/21 Rx tablet,extended release ipratropium 0.5 mg-albuterol 3 mg 3 ml INHALATION QID PRN 03/30/21 03/30/21 History (2.5 mg base)/3 mL nebulization soln acetaminophen 650 mg rectal 650 mg NJ Q4 PRN MDD 4 doses 03/31/21 03/31/21 History suppository hyoscyamine sulfate 0.125 mg tablet 0.125 mg PO Q4 PRN 03/31/21 03/31/21 History sennosides 8.6 mg-docusate sodium 1 tab-cap PO BID 03/31/21 03/31/21 History 50 mg tablet (Senna-S) Patient History Medical History (Updated 04/03/21 @ 16:21 by Adiel Wells PA-C) Abdominal pain Bilateral pleural effusion Bilateral pulmonary embolism Chronic cough Constipation Difficulty swallowing Diverticular disease Esophageal adenocarcinoma metastatic, s/p chemo/xrt Esophageal stricture s/p dilation GERD (gastroesophageal reflux disease) History of kidney stones passed without intervention Lesion of bladder Low back pain Lung nodule s/p excision Migraine HX Nausea Palliative care encounter Pulmonary embolism CURRENTLY ON ELIQUIS UTI (urinary tract infection) CURRENTLY ON ANTIBIOTIC Weakness Surgical History Basal cell carcinoma of back Basal cell carcinoma of shoulder History of arthroscopy of right knee meniscus repair History of bilateral tubal ligation History of colonoscopy History of dilatation and curettage History of endoscopic sinus surgery History of esophagogastroduodenoscopy (EGD) History of laparoscopy for ectopic History of liver biopsy Dr. Zambrano 05/27/19 [place] History of lung surgery right wedge resection upper History of parotid gland excision excision of left side parotid gland for benign tumor History of removal of Port-a-Cath 04/2019 (infected) History of repair of right rotator cuff History of thoracic surgery Robot-assisted laparoscopic/ thoracoscopic assisted esophagogastrectomy with an intrathoracic esophagogastrostomy: 04/22/2019: Grade view 1, MAC#3, ETT 7.0 at [facility] History of vascular access device Insertion of Mediport(Right) 08/15/20 [place] Status post Mohs surgery for basal cell carcinoma x2 Family History Grandfather (Maternal) , in her eighties of old age No problems noted. Mother Age: 86 Diabetes Hypertension Father , abd aortic aneurysm at age 80 No problems noted. Brother Age: 61 No problems noted. Sister Age: 59 Stroke, Onset Age: 40 Brother Age: 58 Hypertension Sister Age: 57 Heart disease Hypertension Daughter Age: 42 No problems noted. Son Age: 39 No problems noted. Other No family history of adverse response to anesthesia Denies family history of Lung disease Cancer Asthma Social History Smoking Status: Never smoker Second Hand Exposure: No; Hx Alcohol Use: No Hx Substance Use: No Preferred Language: Micronesian Communication Ability: Effective Visual Impairment: No Limitations Finance Intern Required: No Beliefs That Will Affect Care: None marital status: Current Living Situation: Spouse Feels Safe at Home: Yes Safety Concerns: Feels Safe At This Time Assistive Devices: Glasses Review of Systems Review of Systems: All systems reviewed & are unremarkable except as noted in Subjective Physical Exam Physical Exam: GENERAL : No acute distress EYES: No icterus, gaze conjugate and pupils are equal NOSE: No evidence of epistaxis MOUTH: No lesions or candidiasis. Tongue is midline NECK: Supple. Trachea is midline LUNGS: Some fine crackles at the bilateral lungs. No breath sounds bilateral bases. No bronchospasm appreciated. No rhonchi appreciated. Patient does have some dyspnea with conversation. No paradoxical chest wall movement. HEART: Regular, rate controlled ABDOMEN: Soft, NT, ND, BS Present EXTREMITIES: No LE edema, pedal pulses intact and equal bilaterally NEURO: A&OX3 Results & Data Results & Data ([facility]) Vital Signs (Past 12 Hours) Vital Signs Temp Pulse Pulse Resp BP Pulse Ox 04/03/21 13:54 83 18 94 04/03/21 07:37 36.9 C 81 16 147/92 H 94 Laboratory Results 04/03/21 06:55 Laboratory Tests 03/30/21 22:20 Plt Count [address] chest 03/31/2021 Impression: 1. Significant increase in size of moderate to large bilateral pleural effusions since chest CT of March. 2. Evidence of mediastinal bilateral hilar lymphadenopathy consistent with metastatic disease. 3. Small pericardial effusion Medications Administered Current Medications Albuterol (Albuterol Hfa 8 Gm Inhaler) 2 puffs INH Q6H PRN PRN Reason: Shortness Of Breath Stop: 05/03/21 12:59 Last Admin: 04/03/21 13:53 Dose: 2 puffs Documented by: Albuterol (Albut/Ipratrop 3mg/0.5mg Neb 3 Ml Vial) 3 ml NEB QIDR [facility] Stop: 05/03/21 18:59 Last Admin: 04/03/21 16:15 Dose: 3 ml Documented by: Clonidine HCl (Clonidine Hcl 0.1 Mg/24 Hr Transderm Sys) 1 patch TD Fr@0900 [facility] Stop: 04/30/21 12:59 Last Admin: 03/31/21 14:09 Dose: 1 patch Documented by: Enoxaparin Sodium (Enoxaparin Inj 60 Mg/0.6 Ml Syr) 50 mg SQ BID [facility] Stop: 04/30/21 20:59 Last Admin: 04/03/21 09:28 Dose: 50 mg Documented by: Famotidine (Famotidine 20 Mg Tab) 20 mg PO BID [facility] Stop: 04/30/21 20:59 Last Admin: 04/03/21 10:47 Dose: 20 mg Documented by: Haloperidol (Haloperidol 2 Mg/1 Ml Udp) 2 mg PO Q8H PRN PRN Reason: Nausea Stop: 05/01/21 10:58 Last Admin: 04/01/21 18:22 Dose: 2 mg Documented by: Heparin Sodium (Porcine) (Heparin 100 Unit/Ml 5ml Flush) 5 ml FLUSH PRN PRN PRN Reason: Flush Stop: 05/01/21 07:44 Last Admin: 04/03/21 10:04 Dose: 5 ml Documented by: Lorazepam (Lorazepam 1 Mg Tab) 1 mg SL Q4H PRN PRN Reason: Anxiety Stop: 04/30/21 12:14 Last Admin: 04/01/21 07:52 Dose: 1 mg Documented by: Morphine Sulfate (Morphine Sulfate 2 Mg/Ml Carp) 2 mg IV Q1H PRN PRN Reason: Pain Stop: 04/14/21 12:49 Last Admin: 04/03/21 10:03 Dose: 2 mg Documented by: Morphine Sulfate (Morphine Sulfate 5 Mg/0.25 Ml Udp) 5 mg PO BID [facility] Stop: 04/16/21 09:29 Last Admin: 04/03/21 09:33 Dose: 5 mg Documented by: Nifedipine (Nifedipine Extended Rel 30 Mg Tabcr) 30 mg PO QAM [facility] Stop: 05/01/21 08:59 Last Admin: 04/03/21 09:28 Dose: 30 mg Documented by: Olanzapine (Olanzapine Zydis 5 Mg Orally Dis. Tab) 2.5 mg PO BID [facility] Stop: 04/30/21 20:59 Last Admin: 04/03/21 09:26 Dose: 2.5 mg Documented by: Ondansetron HCl (Ondansetron 8mg Od Tab) 8 mg PO Q4H [facility] Stop: 05/03/21 13:59 Last Admin: 04/03/21 13:35 Dose: 8 mg Documented by: Prochlorperazine (Prochlorperazine Maleate 5 Mg Tab) 5 mg PO TID [facility] Stop: 05/03/21 13:59 Last Admin: 04/03/21 13:36 Dose: 5 mg Documented by: PG Care Time/CCT Total # of Minutes Spent Total Time Spent with Patient: Total time spent is greater than 50% in coordination of care (as documented) at patient's floor/unit and/or counseling patient: A total of 70 minutes was spent with the patient as well as the and daughter. [place] [address] Inpt Consult Level 5 Patient Type New Diagnoses Bilateral pleural effusion J90 Esophageal adenocarcinoma C15.9 Palliative care encounter Z51.5 Bilateral pulmonary embolism I26.99 DVT prophylaxis Z29.9 Time Spent (min) 70
--- NOTE | 2021-04-03 19:08 | Hospitalist Progress Note ---
Date of Service April 03, 2021 Assessment & Plan (1) Nausea: Plan: - Has had ongoing issues with nausea and vomiting - previous D/C with [facility] Zofran - IMPROVING - Increased Zofran to 8 mg [facility] to see if this assists; Compazine TID - can do this PRN at home - Continue Zyprexa 2.5 mg BID - Suspect mix of metastatic CA, maybe PRES, and maybe work of breathing could be impacting nausea? Reviewed most recent MRI with no evidence of brain mets (2) Bilateral pleural effusion: Plan: - Has drastically increased over the past couple months; pt is now requiring supplementary O2; suspect related to malignancy - Discussed case with Pulm - also discussed with patient and family for the option of a Pleur-X and all in agreement for this - Will definitely promote comfort and may assist with preventing hospital re- admission due to SOB by addressing these increasing effusions (3) Hospice care patient: Plan: - Patient is admitted under hospice care for nausea/vomiting/pain - Responded to Zofran/Compazine; Roxanol was added to aid in pain control and comfort - Patient to return with hospice services on D/C (4) 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: Plan: - Previously underwent treatment this year but has since converted to hospice services (5) PRES (posterior reversible encephalopathy syndrome): Plan: - Evident on head imaging; Continue BP control with Clonidine patch; Nifedipine 30 mg daily (6) Pulmonary embolism: Plan: - On Eliquis as outpatient; On therapeutic Lovenox as inpatient with plans to likely resume Eliquis on D/C after Pleur-X vs continuing Lovenox Plan: - Pleur-x insertion tomorrow - D/C with hospice either tomorrow vs Saturday pending tolerance of procedure Admission and Anticipated Discharge Date Admission Date: March 31, 2021 Subjective Reports nausea is improved today. Tolerated her breakfast and lunch. Tolerating Roxanol but did gag up her dose today. She says her energy is improving some but still a bit weak. She has also required O2 while hospitalized. CT reveals her plural effusions are increased from early this month and have accumulated over a couple months. Had a long discussion with patient, , daughter, and pulmonology. Plan to insert Pleur-X tomorrow Review of Systems Review of Systems: REVIEW OF SYSTEMS General/Constitutional: + fatigue and weakness - slowly improving; Denies fever/chills ENT: Denies visual changes, nasal drainage, sore throat Cardiovascular: Denies chest pain, palpitations, edema Respiratory: +SOB, + LEAL; Denies cough, sputum, wheezing GI: Denies nausea, vomiting, abdominal pain, constipation, diarrhea : Denies dysuria Musculoskeletal: Denies joint/muscle aches Neurologic: Denies dizziness/lightheadedness Hematologic/Lymphatic: Denies bleeding/clotting abnormalities Skin: Denies rash, itch Results & Data Results & Data ([facility]) Vital Signs (Past 12 Hours) Vital Signs Temp Pulse Pulse Resp BP Pulse Ox 04/03/21 16:16 78 18 92 04/03/21 13:54 83 18 94 04/03/21 07:37 36.9 C 81 16 147/92 H 94 PG Care Time/CCT Total # of Minutes Spent Total Time Spent with Patient: Total time spent is greater than 50% in coordination of care (as documented) at patient's floor/unit and/or counseling patient: Coding Level of Care Code 03898 Subseq Hosp Care Lvl 3 Diagnoses Hospice care patient Z51.5 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 C79.9; C15.9 Nausea R11.0 Bilateral pleural effusion J90 PRES (posterior reversible encephalopathy syndrome) I67.83 Pulmonary embolism I26.99
[2021-04-03] MEDS: DOCUSATE SODIUM/SENNA 50/8.6MG TAB PO SCH (20:14)
[2021-04-04] MEDS: CHECK CLONIDINE PATCH PLACEMENT SCH ×3 (00:48→16:23)
[2021-04-04] MEDS: ONDANSETRON 8MG OD TAB PO SCH ×6 (02:07→21:58)
[2021-04-04] MEDS: ALBUT/IPRATROP 3MG/0.5MG NEB 3 ML VIAL NEB SCH ×4 (07:34→18:52)
[2021-04-04] MEDS: FAMOTIDINE 20 MG TAB PO SCH ×2 (07:53→20:10)
[2021-04-04] MEDS: DOCUSATE SODIUM/SENNA 50/8.6MG TAB PO SCH ×2 (07:53→20:11)
[2021-04-04] MEDS: OLANZapine ZYDIS 5 MG ORALLY DIS. TAB PO SCH ×2 (07:54→20:09)
[2021-04-04] MEDS: PROCHLORPERAZINE MALEATE 5 MG TAB PO SCH ×3 (07:54→20:11)
[2021-04-04] MEDS: NIFEdipine EXTENDED REL 30 MG TABCR PO SCH (07:55)
[2021-04-04] MEDS: MoRPHine SULFATE 5 MG/0.25 ML UDP PO SCH ×4 (07:58→20:10)
[2021-04-04] MEDS ORDERED: SODIUM CHLORIDE 0.65% NA SOLN 45 ML (OCEAN) PRN (09:14)
[2021-04-04] MEDS ORDERED: LIDOCAINE 1% LOCAL 20 ML VIAL ONE (09:20)
--- NOTE | 2021-04-04 13:31 | XRay Report ---
XR chest 1V portable HISTORY: PleurX Cath Placement COMPARISON: Chest 02/06/2021. Chest CT 03/30/2021. FINDINGS: Interval placement of bilateral pleural drainage catheters. The left pleural catheter termi nates at the left lung base. The right pleural catheter terminates within the medial aspect of the ri ght upper lung zone. There are small bilateral pleural effusions which have decreased in size. Bibasi lar densities are noted. No pneumothorax. Suture material seen within the right lung apex. Right subc lavian Port-A-Cath terminates at the distal SVC. The heart is normal in size. Mediastinal and bilater al hilar lymphadenopathy persists. IMPRESSION: Decrease in size in the small bilateral pleural effusions status post placement of bilateral pleural drainage catheters. No pneumothorax. ACT 112: Negative or not required by law. Electronically signed by: Roger Baldwin M.D. 04/04/2021 1:30 PM
--- NOTE | 2021-04-04 14:26 | Pulmonology Progress Note ---
Date of Service April 04, 2021 Assessment & Plan (1) Bilateral pleural effusion: Plan: Impression: This is a 60-year-old female with metastatic esophageal c arcinoma. She has a recent history of bilateral pulmonary emboli and is currently fully anticoagulated. She was receiving Eliquis as an outpatient and currently is on Lovenox 1 mg/kg twice daily. Her last dose of Lovenox was 04/03/21 at 9:28 AM. Her most recent dose of Eliquis was at least 5 days ago. The patient is found to have worsening bilateral pleural effusions. It was anticipated that she would be discharged home today on hospice. At this time the pulmonary service has been consulted to evaluate for thoracentesis versus Pleurx catheter placement. We will plan on bilateral Pleurx catheter placement today with discharge either later today or on Saturday. Recommendations: 1. Bilateral pleural effusions: These are most likely secondary to her malignan cy. At this time we will plan on placing bilateral Pleurx catheters later today in anticipation of discharge. Consent was obtained by the patient in the presence of her and her daughter. Risk versus benefit was discussed. Patient wishes to proceed with Pleurx catheter placement. Lovenox has been held. Last dose administered was 04/03/21 9:28 AM. Plan was communicated to primary team as well as to nursing. 2. Bilateral pulmonary emboli: Patient states that this was diagnosed in November. She has been on Eliquis since that time. Eliquis has been held since admission on 03/30/2021. She is receiving therapeutic doses of Lovenox at 1 mg/kg twice daily. This is been held in anticipation of bilateral Pleurx placement. Patient currently has no pleuritic pain. She has no hemoptysis. She is requiring supplemental oxygen. This is most likely secondary to large bilateral pleural effusions. 3. Esophageal adenocarcinoma: Patient is transitioning to hospice. Anticipate discharge home today. Further management per oncology and palliative medicine. 4. DVT prophylaxis: At this time all anticoagulation is being held secondary to need for Pleurx catheter placement. Patient did receive Lovenox this morning. Ambulate as tolerated. Will resume anticoagulation after procedure. Please refer to Dr. Patel's addendum for further recommendations and corrections. We will continue to follow this patient until discharge at this time. Patient given instruction on draining pleurex catheters and will also have assistance from Hospice team (2) Esophageal adenocarcinoma: (3) Palliative care encounter: (4) Bilateral pulmonary embolism: (5) DVT prophylaxis: Plan: Disposition: Okay to discharge today from a pulmonary perspective. Ongoing drainage of Pleurx catheters with home health/hospice. Patient sent home with Pleurx kit and DVD with instructions. Admission and Anticipated Discharge Date Admission Date: March 31, 2021 Supervising Physician Co-Signing Physician Notes I saw and evaluated the patient with Adiel Wells, and agree with findings and plan as documented in the note. CT chest 03/30/2021 personally reviewed: Large bilateral pleural effusions appreciated Right upper lobe wedge resection with rocio in place, degenerative disease of bilateral lower lobe Significant mediastinal lymphadenopathy Constitutional: No acute distress, frail-appearing HEENT: EOMI, PERRLA Respiratory system: Decreased air entry bilaterally, no wheeze, no rhonchi, no crackles CVS: S1-S2 positive, no murmurs or gallops, right-sided Port-A-Cath Abdomen: Soft, nontender, nondistended, positive bowel sounds x4 Extremities: +2 pulses bilaterally radialis/ dorsalis pedis, no cyanosis, no edema Neuro: Awake alert oriented x3 Psych: Normal mood and affect G/U: No Govea Plan: Lovenox has been held since yesterday morning. For Pleurx catheter today. Risk and benefit of the procedure again explained today Please note the above document was generated using voice recognition software. It may contain grammatical, syntax or spelling errors.Any formal questions or concerns about the content, text or information contained within the body of this dictation should be directly addressed to the provider for clarification. Subjective Attending: Dr. Patel Patient is doing better today. She continues to complain of some shortness of breath. She has no cough or sputum production. She does still have some nausea which is poorly controlled with Compazine and Zofran. Patient is tolerating a full liquid diet. She denies any fever, chills, sweats, rigors. She has no other acute complaints at this time. Review of Systems Review of Systems: All systems reviewed & are unremarkable except as noted in Subjective Physical Exam Physical Exam: GENERAL : No acute distress EYES: No icterus, gaze conjugate NOSE: No evidence of epistaxis MOUTH: No lesions or candidiasis NECK: Supple LUNGS: Decreased breath sounds bilaterally. No bronchospasm or rhonchi appreciated. HEART: Regular, rate controlled in the 80s ABDOMEN: Soft, NT, ND, BS Present EXTREMITIES: No LE edema, pedal pulses intact and equal bilaterally NEURO: A&OX3. Somewhat drowsy. 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 She responds appropriately to all questions. She follows simple commands. Results & Data Results & Data ([facility]) Vital Signs (Past 12 Hours) Vital Signs Pulse Resp BP Pulse Ox 04/04/21 11:26 81 18 95 04/04/21 07:43 80 16 168/86 H 100 04/04/21 07:35 76 18 90 Laboratory Results 04/03/21 06:55 PG Care Time/CCT Total # of Minutes Spent Total Time Spent with Patient: Total time spent is greater than 50% in coordination of care (as documented) at patient's floor/unit and/or counseling patient: Coding Level of Care Code 47754 Subseq Hosp Care Lvl 2 Diagnoses Bilateral pleural effusion J90 Esophageal adenocarcinoma C15.9 Palliative care encounter Z51.5 Bilateral pulmonary embolism I26.99 DVT prophylaxis Z29.9 Time Spent (min) 20 Comment 20 minutes independent of any procedures or follow-up with Dr. Patel
--- NOTE | 2021-04-04 15:14 | Procedure Note ---
Procedure Note Date of Service April 04, 2021 Note PREOPERATIVE DIAGNOSIS: Recurrent right pleural effusion. POSTOPERATIVE DIAGNOSIS: Recurrent right pleural effusion. PROCEDURE PERFORMED: Right PleurX catheter placement. ANESTHESIA: Local 1% Lidocaine without Epinephrine COMPLICATIONS: None. INDICATION FOR PROCEDURE: Pleural drainage DESCRIPTION OF PROCEDURE: The patient was placed in a semirecumbent position. I evaluated the right pleura with the ultrasound and located an adequate spot above the diaphragm. The right chest and upper abdomen were prepped and draped in the usual sterile fashion. Lidocaine 1% was used to infiltrate two areas; one in the right upper quadrant where the tube would exit and the other along the anterior axillary line one intercostal space below. A small counterincision was made in the right upper quadrant area. Through the anterior axillary line area, the pleural space was accessed by Seldinger technique. The counterincision was made around the guidewire and then the PleurX catheter was tunneled from the right upper quadrant small incision to the one overlying the ribs. A sheath introducer was then passed over the wire and then the PleurX catheter was placed through the sheath introducer. There was good return of fluid. 1100 ml of dark yellow serous fluid was withdrawn slowly as the small counterincision was closed with Monocryl stitch. The catheter was capped off, and sterile dressings were applied. The patient tolerated the procedure well without any complications. Chest Xray to follow. Complications: None Blood Loss: < 3cc Coding CPT Codes Pulmonary/Thoracic - Pulmonary and Thoracic: 65340 Insert pleural cathereter w/cuff ([id number]) Pulmonary/Thoracic - Pulmonary and Thoracic: 26683 US, Chest, real time with imaging documentation ([id number]) [facility] [place] Procedure Codes (Charges) Pulmonary/Thoracic Procedure 1: Pulmonary and Thoracic: 92818 Insert pleural cathereter w/cuff Procedure 2: Pulmonary and Thoracic: 60872 US, Chest, real time with imaging documentation
--- NOTE | 2021-04-04 15:15 | Procedure Note ---
Procedure Note Date of Service April 04, 2021 Note PREOPERATIVE DIAGNOSIS: Recurrent left pleural effusion. POSTOPERATIVE DIAGNOSIS: Recurrent left pleural effusion. PROCEDURE PERFORMED: Left PleurX catheter placement. ANESTHESIA: Local 1% Lidocaine without Epinephrine COMPLICATIONS: None. INDICATION FOR PROCEDURE: Pleural drainage DESCRIPTION OF PROCEDURE: The patient was placed in a semirecumbent position. I evaluated the left pleura with the ultrasound and located an adequate spot above the diaphragm. The left chest and upper abdomen were prepped and draped in the usual sterile fashion. Lidocaine 1% was used to infiltrate two areas; one in the left upper quadrant where the tube would exit and the other along the anterior axillary line one intercostal space below. A small counterincision was made in the left upper quadrant area. Through the anterior axillary line area, the pleural space was accessed by Seldinger technique. The counterincision was made around the guidewire and then the PleurX catheter was tunneled from the right upper quadrant small incision to the one overlying the ribs. A sheath introducer was then passed over the wire and then the PleurX catheter was placed through the sheath introducer. There was good return of fluid. 1000 ml of dark yellow serous fluid was withdrawn slowly as the small counterincision was closed with Monocryl stitch. The catheter was capped off, and sterile dressings were applied. The patient tolerated the procedure well without any complications. Chest Xray to follow. Complications: None Blood Loss: < 3cc Coding CPT Codes Pulmonary/Thoracic - Pulmonary and Thoracic: 53907 Insert pleural cathereter w/cuff ([id number]) Pulmonary/Thoracic - Pulmonary and Thoracic: 22715 US, Chest, real time with imaging documentation ([id number]) [facility] [place] (Charges) Pulmonary/Thoracic Procedure 1: Pulmonary and Thoracic: 55168 Insert pleural cathereter w/cuff Procedure 2: Pulmonary and Thoracic: 79013 US, Chest, real time with imaging documentation
[2021-04-04 15:54] LABS: Total Protein Pleural Fluid 2.9 g/dl
[2021-04-04] MEDS: HALOPERIDOL 2 MG/1 ML UDP PO PRN (16:00)
[2021-04-04] MEDS ORDERED: Nursing to Pharmacy Communication SCH (16:00)
[2021-04-04] MEDS ORDERED: LIDOCAINE 1% LOCAL 20 ML VIAL INFIL ONE (16:00)
[2021-04-04 19:03] LABS: Appearance Pleural Fluid CLOUDY; Color Pleural Fluid YELLOW; RBC Pleural Fluid (A) 3000 /uL; Source Pleural Fluid RIGHT LUNG; WBC Pleural Fluid (A) 246 /uL
[2021-04-04 19:25] LABS: Basophils, Fluid 0 %; Eosinophils, Fluid 0 %; Lymphocytes, Fluid 34 %; Mono,Macrophage,Mesothelial 38 %; Neutrophils, Fluid 23 %
--- NOTE | 2021-04-04 20:28 | Hospitalist Progress Note ---
Date of Service April 04, 2021 Assessment & Plan (1) Nausea: Plan: - Has had ongoing issues with nausea and vomiting - previous D/C with [facility] Zofran - IMPROVING - Increased Zofran to 8 mg MIGUEL ÁNGEL to see if this assists; Compazine TID - can do this PRN at home - Continue Zyprexa 2.5 mg BID - Suspect mix of metastatic CA, maybe PRES, and maybe work of breathing could be impacting nausea? Reviewed most recent MRI with no evidence of brain mets (2) Bilateral pleural effusion: Plan: - Has drastically increased over the past couple months; pt is now requiring supplementary O2; suspect related to malignancy - This is likely malignant pleural effusions which required bilateral pleural catheter placement on 04 April - Discussed case with Pulm - will plan to drain Pleur-X tomorrow and teach family members - planning around 1000 - Will definitely promote comfort and may assist with preventing hospital re- admission due to SOB by addressing these increasing effusions (3) Hospice care patient: Plan: - Patient is admitted under hospice care for nausea/vomiting/pain - Responded to Zofran/Compazine; Roxanol was added to aid in pain control and comfort - Patient to return with hospice services on D/C (4) 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: Plan: - Previously underwent treatment this year but has since converted to hospice services (5) PRES (posterior reversible encephalopathy syndrome): Plan: - Evident on head imaging; Continue BP control with Clonidine patch; Nifedipine 30 mg daily (6) Pulmonary embolism: Plan: - On Eliquis as outpatient; On therapeutic Lovenox as inpatient with plans to likely resume Eliquis on D/C after Pleur-X vs continuing Lovenox - Lovenox on hold given procedure and will resume tomorrow Plan: - Pleur-x insertion completed today - D/C with hospice service tomorrow Admission and Anticipated Discharge Date Admission Date: March 31, 2021 Subjective Tolerated bilateral Pleur-X with approx. 2 L drained. Reports improvement with breathing but was having some coughing afterwards. Did have some nausea after the procedure but was improved on re-visit this afternoon. Updated at bedside. Review of Systems Review of Systems: REVIEW OF SYSTEMS General/Constitutional: + fatigue and weakness - slowly improving; Denies fever/chills ENT: Denies visual changes, nasal drainage, sore throat Cardiovascular: + pain at catheter insertion sites bilat; Denies bpalpitations, edema Respiratory: +SOB, + LEAL - both improving since pleur-x; Denies cough, sputum, wheezing GI: Denies nausea, vomiting, abdominal pain, constipation, diarrhea : Denies dysuria Musculoskeletal: Denies joint/muscle aches Neurologic: Denies dizziness/lightheadedness Hematologic/Lymphatic: Denies bleeding/clotting abnormalities Skin: Denies rash, itch Physical Exam Physical Exam: PHYSICAL EXAM General Appearance: chronically ill appearing in NAD who is A&O x 3 HEENT: Head is normocephalic/atraumatic; Hearing grossly intact; Mucous membrane s moist Neck: Supple; Trachea midline; Neg JVD Heart: RRR with no M/G/R Lungs: improving aeration post-catheter insertion; Respirations unlabored; Neg accessory muscle use Abdomen: Soft, non-tender, non-distended; Positive BS x 4 quadrants; Neg organomegaly Extremities: Capillary refill < 2 seconds; Neg cyanosis or edema Neurological: Speech clear; Gross motor/sensory function intact; Neg focal n eurologic deficits Psychiatric: Appropriate mood/affect Skin: Normal Color; Warm/Dry; Neg rashes, ecchymosis, lacerations/ulcerations Results & Data Results & Data ([facility]) Vital Signs (Past 12 Hours) Vital Signs Pulse Pulse Resp Pulse Ox 04/04/21 18:52 73 16 94 04/04/21 15:02 76 16 96 04/04/21 11:26 81 18 95 PG Care Time/CCT Total # of Minutes Spent Total Time Spent with Patient: Total time spent is greater than 50% in coordination of care (as documented) at patient's floor/unit and/or counseling patient: Coding Level of Care Code 66523 Subseq Hosp Care Lvl 3 Diagnoses Nausea R11.0 Bilateral pleural effusion J90 Hospice care patient Z51.5 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 C79.9; C15.9 PRES (posterior reversible encephalopathy syndrome) I67.83 Pulmonary embolism I26.99
[2021-04-05] MEDS: CHECK CLONIDINE PATCH PLACEMENT SCH ×2 (00:51→07:39)
[2021-04-05] MEDS: ONDANSETRON 8MG OD TAB PO SCH ×4 (00:52→14:29)
[2021-04-05 07:15] VITALS: BP 163/87; TEMP 97.7
[2021-04-05] MEDS: ALBUT/IPRATROP 3MG/0.5MG NEB 3 ML VIAL NEB SCH (07:25)
[2021-04-05 07:30] VITALS: O2SAT 93
[2021-04-05] MEDS: MoRPHine SULFATE 5 MG/0.25 ML UDP PO SCH ×2 (07:39→14:29)
[2021-04-05] MEDS: NIFEdipine EXTENDED REL 30 MG TABCR PO SCH (07:40)
[2021-04-05] MEDS: DOCUSATE SODIUM/SENNA 50/8.6MG TAB PO SCH (07:40)
[2021-04-05] MEDS: FAMOTIDINE 20 MG TAB PO SCH (07:40)
[2021-04-05] MEDS: OLANZapine ZYDIS 5 MG ORALLY DIS. TAB PO SCH (07:40)
[2021-04-05] MEDS: PROCHLORPERAZINE MALEATE 5 MG TAB PO SCH ×2 (07:41→14:30)
[2021-04-05] MEDS ORDERED: ALBUT/IPRATROP 3MG/0.5MG NEB 3 ML VIAL NEB PRN (07:55)
[2021-04-05] MEDS: HEPARIN 100 UNIT/ML 5ML FLUSH FLUSH PRN ×2 (08:02→14:41)
--- NOTE | 2021-04-05 09:09 | XRay Report ---
XR chest 1V portable CLINICAL HISTORY: Follow-up for Pleur-X COMPARISON STUDY: Chest CT March 30, 2021. Chest radiograph April 04, 2021. FINDINGS: Right subclavian [id number] remains in place. Bilateral pleural catheters remain in plac e. Right pleural catheter has been repositioned and slightly withdrawn. There is no pneumothorax. Sma ll bilateral pleural effusions have slightly decreased in size since prior exam. These have significa ntly decreased in size since CT of March 30, 2021. Bilateral perihilar opacities have increased. IMPRESSION: 1. Bilateral pleural catheters in place. Right pleural catheter has been repositioned and slightly wi thdrawn. No pneumothorax. 2. Decrease in size of small bilateral pleural effusions. 3. Increase in bilateral perihilar opacities. ACT 112: Negative or not required by law. Electronically signed by: Esequiel Kern M.D. 04/05/2021 9:07 AM
--- NOTE | 2021-04-05 10:06 | Pulmonology Progress Note ---
Date of Service April 05, 2021 Assessment & Plan (1) Bilateral pleural effusion: (2) Esophageal adenocarcinoma: (3) Palliative care encounter: (4) Bilateral pulmonary embolism: (5) DVT prophylaxis: Plan: Impression: This is a 60-year-old female with metastatic esophageal carcinoma. She has a recent history of bilateral pulmonary emboli and is cur rently fully anticoagulated. She was receiving Eliquis as an outpatient and currently is on Lovenox 1 mg/kg twice daily. Her last dose of Lovenox was 04/03/21 at 9:28 AM. Her most recent dose of Eliquis was at least 5 days ago. The patient is found to have worsening bilateral pleural effusions. It was anticipated that she would be discharged home today on hospice. At this time the pulmonary service has been consulted to evaluate for thoracentesis versus Pleurx catheter placement. We will plan on bilateral Pleurx catheter placement today with discharge either later today or on Saturday. CT chest 03/30/2021 personally reviewed: Large bilateral pleural effusions appreciated Right upper lobe wedge resection with rocio in place, degenerative disease of bilateral lower lobe Significant mediastinal lymphadenopathy Recommendations: 1. Bilateral pleural effusions: These are most likely secondary to her malignancy. Exudative S/p Pleurx catheter placement 04/04/2021, 1 liter removed from each side Follow-up cytology 2. Bilateral pulmonary emboli: Patient states that this was diagnosed in November. She has been on Eliquis since that time. Eliquis has been held since admission on 03/30/2021. She is receiving therapeutic doses of Lovenox at 1 mg/kg twice daily. This is been held in anticipation of bilateral Pleurx placement. Patient currently has no pleuritic pain. She has no hemoptysis. She is r equiring supplemental oxygen. This is most likely secondary to large bilateral pleural effusions. 3. Esophageal adenocarcinoma: Patient is transitioning to hospice. Anticipate discharge home today. Further management per oncology and palliative medicine. 4. DVT prophylaxis: At this time all anticoagulation is being held secondary to need for Pleurx catheter placement. Patient did receive Lovenox this morning. Ambulate as tolerated. Will resume anticoagulation after procedure. Plan: The suture from the left Pleurx catheter seems to be out I will resuture it When the patient's is here I will show them how to drain the left side as well Would recommend draining Pleurx catheter every 2 days. If the drainage is less than 350 mL can go to every 3 days. No further recommendation from pulmonary perspective. Please call directly with any questions Please note the above document was generated using voice recognition software. It may contain grammatical, syntax or spelling errors.Any formal questions or concerns about the content, text or information contained within the body of this dictation should be directly addressed to the provider for clarification. Admission and Anticipated Discharge Date Admission Date: March 31, 2021 Subjective Patient seen and examined at bedside. No acute distress, no adverse event overnight. S/p bilateral Pleurx catheter placement 04/04/2021 Patient denies any chest pain. States that her breathing is significantly improved. Saturation was 93-94% room air Does complain of nausea occasional. No headache. Fair type Review of Systems Review of Systems: All systems reviewed & are unremarkable except as noted in Subjective Physical Exam Physical Exam: Constitutional: No acute distress, frail-appearing HEENT: EOMI, PERRLA Respiratory system: Decreased air entry bilaterally, no wheeze, no rhonchi, positive crackles bilateral lower lobes CVS: S1-S2 positive, no murmurs or gallops, right-sided Port-A-Cath Abdomen: Soft, nontender, nondistended, positive bowel sounds x4 Extremities: +2 pulses bilaterally radialis/ dorsalis pedis, no cyanosis, no edema Neuro: Awake alert oriented x3 Psych: Normal mood and affect G/U: No Govea Skin: no rashes, warm and dry Lymphatic: no cervical or axillary lymphadenopathy Results & Data Results & Data ([facility]) Vital Signs (Past 12 Hours) Vital Signs Temp Pulse Resp BP Pulse Ox 04/05/21 07:28 74 18 93 04/05/21 07:14 36.5 C 74 17 163/87 H 91 04/03/21 06:55 PG Care Time/CCT Total # of Minutes Spent Total Time Spent with Patient: Total time spent is greater than 50% in coordination of care (as documented) at patient's floor/unit and/or counseling patient: Coding Level of Care Code 14155 Subseq Hosp Care Lvl 2 Diagnoses Bilateral pleural effusion J90 Esophageal adenocarcinoma C15.9 Palliative care encounter Z51.5 Bilateral pulmonary embolism I26.99 DVT prophylaxis Z29.9
[2021-04-05 11:19] VITALS: PULSE 81
--- NOTE | 2021-04-05 11:24 | Procedure Note ---
Procedure Note Date of Service April 05, 2021 Note Procedure: Therapeutic pleural effusion drainage from the Pleurx catheter Clothing Room Supervisor: Dr. Roque Patel Indication: Pleural effusion Consent: Verbally given by patient and verified with timeout prior to procedure Procedure: Under aseptic condition. The initial dressing of the catheter was removed The cath of the catheter was removed and the drainage catheter was inserted. 550 mL of serous fluid was aspirated. A three-point 0 silk suture was also placed at the proximal end of the tube as it came off. Patient tolerated the procedure well Sterile dressing was placed. Complications: None Blood loss: None Coding CPT Codes Pulmonary/Thoracic - Pulmonary and Thoracic: 35535 Pleural drainage w/o imaging ([id number]) [facility] [place] Procedure Codes (Charges) Pulmonary/Thoracic Procedure 1: Pulmonary and Thoracic: 65453 Pleural drainage w/o imaging
[2021-04-05] MEDS ORDERED: APIXABAN 5 MG TABLET PO SCH (13:00)
--- NOTE | 2021-04-05 13:14 | XRay Report ---
XR chest 1V portable CLINICAL HISTORY: f/u COMPARISON STUDY: April 05, 2021 at 6:24 hours. FINDINGS: No pneumothorax. Interval improvement of the left pleural effusion. Right pleural effusion is unchanged since prior. S table position of the right and left chest tubes. Hazy opacities are again seen at bilateral lower gregorio ngs, unchanged since prior. Stable position of right-sided Chemo-Port. Cardiomediastinal silhouette is within normal limits in size. No significant pulmonary vascular congestion.. Osseous structures: unremarkable IMPRESSION: 1. Mild interval improvement of the left pleural effusion. Stable right pleural effusion. Stable pos ition of right and left chest tubes. 2. Unchanged opacities at bilateral lower lungs. 3. The rest of findings as above. ACT 112: Negative or not required by law. The above report was generated using voice recognition software. It may contain grammatical, syntax o r spelling errors. Electronically signed by: Vikki Diane DO 04/05/2021 1:13 PM
--- NOTE | 2021-04-05 19:49 | Discharge Summary ---
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 at bedside states that in the last couple of days she has been increasingly confused about what is going on and sometimes acts abnormally. He states that earlier today she was sitting in her wheelchair and he went to go take the puppies on a walk and when he came back she had fallen forward and hit her head. She states that she has been treated in the last few days for a UTI with an antibiotic but has not had any resolution of symptoms yet. She was supposed to provide a urine sample for the nurse to come brass pickler to reassess which antibiotic she should be on. At this time she states that her symptoms are mostly limited to abdominal pain, severe persistent nausea and pain with urination. She does state that she feels a little bit better after getting the IV fluids. Principal Diagnosis Nausea/Vomiting; Pleural Effusions Discharge Exam PHYSICAL EXAM General Appearance: WDWN in NAD who is A&O x 3 HEENT: Head is normocephalic/atraumatic; Hearing grossly intact Neck: Supple; Trachea midline; Neg JVD Heart: RRR with no M/G/R Lungs: Significantly improved aeration diffusely some crackles predominantly in L lung base; bilateral pleur-x catheters placed; Respirations unlabored; Neg accessory muscle use Abdomen: Soft, non-tender, non-distended; Positive BS x 4 quadrants Extremities: Capillary refill < 2 seconds; Neg cyanosis or edema Neurological: Speech clear; Gross motor/sensory function intact; Neg focal neurologic deficits Psychiatric: Appropriate mood/affect Skin: Normal Color; Warm/Dry; Neg rashes, ecchymosis, lacerations/ulcerations; + port in R upper chest Discharge Data Allergies Allergy/AdvReac Type Severity Reaction Status Date / Time No Known Allergies Allergy Verified 03/31/21 00:12 Consultations 04/03/21 15:27 Consult Pulmonology Routine Hospital Course (1) Nausea: - Has had ongoing issues with nausea and vomiting - previous D/C with [facility] Zofran - IMPROVING - Increased Zofran to 8 mg MIGUEL ÁNGEL to see if this assists; Compazine TID PRN - can further adjust to promote comfort - Continue Zyprexa 2.5 mg BID - Suspect mix of metastatic CA, maybe PRES, and maybe work of breathing could be impacting nausea? 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 which required bilateral pleural catheter placement on 04 April - Discussed case with Pulm and bilateral Pleur-X catheters placed with significant fluid removed and was able to get on RA - Will definitely promote comfort and may assist with preventing hospital re- admission due to SOB by addressing these increasing effusions - Pt appears so much more lively and comfortable with Pleur-X catheter placement (3) Hospice care patient: - Patient is admitted under GIP for nausea/vomiting/pain - Responded to Zofran/Compazine; Roxanol was added to aid in pain control and comfort - Patient to return with hospice services on D/C (4) 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: - Previously underwent treatment this year but has since converted to hospice services (5) PRES (posterior reversible encephalopathy syndrome): - Evident on head imaging; Continue BP control with Clonidine patch; Nifedipine 30 mg daily (6) Pulmonary embolism: - On Eliquis as outpatient; On therapeutic Lovenox as inpatient but will resume Eliquis on D/C - Return home on hospice services Total Time Total Time Spent Total Time Spent (In Minutes): Greater than 30 minutes Discharge Plan Discharge Items Patient Disposition: Hospice - Home Reason For Visit: COMFORT CARE Discharge Diagnosis: Nausea/Vomiting; Pleural Effusion Activity: Resume your previous activity Non-emergency contact: Primary Care Provider Call non-emergency contact if: you have any medication questions and your symptoms worsen Follow-up/Referrals: Han Edmondson III, MD [Primary Care Provider] - Diet: Regular Addtl Attending Provider Instructions: Nausea and Vomiting: - We are hoping now that your work of breathing has improved this may help relax you more and may help reduce the nausea/vomiting - We started using Zofran 8 mg with meals and at bedtime to try and keep around the clock coverage. - We also started Compazine three times a day and you can take as needed if ash kthrough nausea - Continue your medications you were previously on and any adjustments can be made through the hospice agency - Continue to eat foods that you want to eat and are appetizing to you. If you want milkshakes every day...have a milkshake everyday. Find foods that you enjoy and are higher in calories so you can get more value with less effort - Sometime smaller more frequent meals can help reduce nausea Bilateral Pleural Effusions: - You had two Pleur-X catheters placed in your chest wall. As discussed, you can wait and drain them in 2 days or if you get shortness of breath. We will send supplies home with you and the hospice agency will continue the supplies - If you have any questions on use them please ask your hospice group. - As mentioned today, if draining the fluid causes some discomfort then just stop and can always try to drain a bit more the following day - You had about 2.5 liters total of fluid pulled our of the pleural space around your lungs while in the hospital - You may continue your Eliquis as previously prescribed. As always, when on a blood thinner be careful with cuts and falls. If you have bleeding that you cannot stop seek help immediately Prescriptions: - I did send prescriptions for nausea medications and the Roxanol (liquid pain medication). The hospice agency should fill this but there is a prescription sent if needed but can wait until the hospice agency brings it as they plan to see you later today. Pending Studies at Discharge: No Stand-Alone Forms: [facility] Medications and DC Order Prescriptions: New prochlorperazine maleate 5 mg Tablet 5 mg PO TID PRN (Reason: Nausea) 30 Days Qty: 90 RF: 0 morphine concentrate 100 mg/5 mL (20 mg/mL) Solution 5 mg PO QID 15 Days Qty: 15 RF: 0 Continued potassium chloride 8 mEq tablet extended release 16 meq PO BID Qty: 120 RF: 5 albuterol sulfate 90 mcg/actuation HFA aerosol inhaler 2 puff inhalation Q6H PRN (Reason: Shortness Of Breath) Qty: 1 RF: 0 levocetirizine [Xyzal] 5 mg tablet 5 mg PO DAILY PRN (Reason: Nasal Congestion) RF: 0 Hold Instructions: While on chlorpheniramine Eliquis 5 mg tablet 5 mg PO BID Qty: 60 RF: 5 pantoprazole 40 mg tablet,delayed release (DR/EC) 40 mg PO QAM RF: 0 nifedipine [Procardia XL] 30 mg Tablet Extended Release 24hr 30 mg PO QAM Qty: 30 RF: 0 clonidine 0.1 mg/24 hr Patch Weekly 1 patch transdermal Sa@1045 Qty: 4 RF: 0 olanzapine 5 mg Tablet,Disintegrating 2.5 mg PO BID Qty: 30 RF: 0 lorazepam 2 mg/mL concentrate 0.5 - 1 mg PO Q4H PRN (Reason: anxiety) Qty: 30 RF: 0 famotidine 20 mg tablet 20 mg PO BID Qty: 60 RF: 0 lorazepam 1 mg tablet 0.5 - 1 mg sublingual Q4H PRN (Reason: anxiety) Qty: 10 RF: 0 ipratropium-albuterol 0.5 mg-3 mg(2.5 mg base)/3 mL solution for nebulization 3 ml INHALATION QID PRN (Reason: Shortness Of Breath Or Wheezing) RF: 0 sennosides-docusate sodium [Senna-S] 8.6-50 mg tablet 1 tab-cap PO BID RF: 0 hyoscyamine sulfate 0.125 mg tablet 0.125 mg PO Q4 PRN (Reason: terminal secretions) RF: 0 acetaminophen 650 mg suppository 650 mg DE Q4 MDD 4 doses PRN (Reason: Fever Or Pain) RF: 0 Changed ondansetron 4 mg Tablet,Disintegrating 8 mg PO ACHS 30 Days Qty: 240 RF: 0 Discontinued oxycodone 20 mg/mL concentrate 10 mg PO Q4H PRN (Reason: pain) Qty: 30 RF: 0 oxycodone 10 mg tablet 10 mg PO Q4H PRN (Reason: pain) Qty: 10 RF: 0 Discharge Orders: Discharge Order (Routine); Ordered 04/05/21 Ordered By: Nora Antoine Admission Data Admit Date/Time: 03/31/21 11:31 Attending Provider: Marck Ibarra Admit Provider: Elmer aButista Primary Care Provider: Han Edmondson III Other Providers: Roque Patel Other Interventions: Discharge Summary Assessment (RN) Last Done: 04/05/21 11:18 Supervising Physician Co-Signing Physician Notes Attending note: patient seen and examined with Nora Antoine PA-C. I agree with her discharge summary. I personally reviewed the labs and imaging findings. patient breathing better after bilateral PleurX catheters she is anxious to get home, hospice is arranged - Metastatic esophageal CA, malignant pleural effusions pain is controlled swallowing is difficult, focus on easy to swallow foods/drinks, protein shakes, milk shakes continue PleurX catheter bilaterally to drain as needed to help relieve dyspnea follow up with PCP, home hospice, palliative care Coding Level of Care Code D/C DAY MANAGEMENT >30 MINS Diagnoses Nausea R11.0 Bilateral pleural effusion J90 Hospice care patient Z51.5 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 C79.9; C15.9 PRES (posterior reversible encephalopathy syndrome) I67.83 Pulmonary embolism I26.99
== END 2021-04-05 15:01 | disposition hospice, home (50) | DRG 180 ==
LOC: SUATTDRO 11:31 → 3N 11:31